=== PATIENT | female | born 1960 | race Caucasian/White ===

== ENCOUNTER 2017-09-08 20:27 | Emergency (ER) | payer BC ==
[2017-09-08] MEDS ORDERED: Ondansetron INJ* 2 MG/ML VIAL IV ONE (21:22)
[2017-09-08] MEDS ORDERED: NS 0.9% 1000 ML* 1,000 ML IV ONE (21:22)
[2017-09-08 21:44] LABS: ABS Basophils 0.1 10^3/ul (0-0.2); ABS Eosinophils 0.2 10^3/ul (0-0.6); ABS Lymphocytes 0.7 10^3/ul (1.0-4.8); ABS Monocytes 0.5 10^3/ul (0-0.8); ABS Neutrophils 9.5 10^3/ul (1.5-7.7); ABS Nucleated RBC 0.01 10^3/ul; Eosinophil % 1.5 % (0-6); Hematocrit 43 % (35-47); Hemoglobin 14.8 g/dl (12.0-16.0); Lymphocyte % 6.7 % (25-47); Mean Corpuscular HGB Conc 34 g/dl (31-36); Mean Corpuscular Hemoglobin 29 pg (27-31); Mean Corpuscular Volume 84 fL (80-97); Mean Platelet Volume 7 um3 (7.4-10.4); Nucleated Red Blood Cells % 0; Platelet Count 312 10^3/ul (150-450); Red Blood Count 5.12 10^6/ul (4.0-5.4); Red Cell Distribution Width 14 % (10.5-15); White Blood Count 10.9 10^3/ul (3.5-10.8)
[2017-09-08 23:07] LABS: Urine Appearance Cloudy; Urine Blood Negative (Negative); Urine Color Yellow; Urine Ketones Trace (Negative); Urine Protein Negative (Negative); Urine Specific Gravity 1.021 (1.010-1.030); Urine Urobilinogen Positive (Negative)
[2017-09-08 23:09] VITALS: BP 110/57
[2017-09-09] MEDS ORDERED: Sulfamethox/Trimethoprim DS 800/160* TAB PO ONE (00:07)
[2017-09-09] MEDS ORDERED: O ndansetron ODT 4MG 2TAB PRPK 4 MG PAK PO ONE (00:07)
[2017-09-09] MEDS ORDERED: Ondansetron ODT TAB* 4 MG ONE (00:24)
--- NOTE | 2017-09-09 08:33 | RAD ---
Indication: RIGHT upper quadrant pain. Comparison: November 08, [address] Technique: RIGHT upper quadrant ultrasound. Report: Appropriate direction flow documented in the portal and hepatic veins. 15.2 cm liver is normal in echogenicity. Negative for focal hepatic lesions. Negative for intrahepatic biliary dilatation. 3.4 mm common bile duct. Adequately distended gallbladder with normal 2.2 mm wall is without pathologic finding. Negative for sonographic Pizarro's sign. The pancreatic tail is obscured due to bowel gas with the visualized pancreas unremarkable. Negative for ascites. 11.1 cm RIGHT kidney is unremarkable. IMPRESSION: Negative RIGHT upper quadrant ultrasound.
--- NOTE | 2017-09-12 11:10 | ED ---
Ely Reddy Gabriel, scribed for Wing Neri MD on 09/08/17 at 2208 . Abdominal Pain/Female - HPI Summary HPI Summary: This patient is a 57 year old F presenting to [facility] with a chief complaint of ABD pain since this afternoon. The patient rates the waxing and waning pain 8/ 10 in severity and located in her epigastric region. Symptoms alleviated by medication. Patient reports vomiting and diaphoresis. Patient denies diarrhea. Patient reports positive exposure to sick persons and she still has her gallbladder. - History of Current Complaint Chief Complaint: EDAbdPain Stated Complaint: ABD PAIN Time Seen by Provider: 09/08/17 21:21 Hx Obtained From: Patient Onset/Duration: Lasting Minutes, Lasting Hours, Resolved Timing: Constant Severity Initially: Severe Severity Currently: None Pain Intensity: 8 Pain Scale Used: 0-10 Numeric Location: Epigastric Radiates: No Alleviating Factor(s): Medications Associated Signs and Symptoms: Positive: Diaphoresis, Vomiting. Negative: Diarrhea Allergies/Adverse Reactions: Allergies Allergy/AdvReac Type Severity Reaction Status Date / Time No Known Allergies Allergy Verified 09/08/17 20:30 PMH/Surg Hx/FS Hx/Imm Hx Endocrine/Hematology History: Denies: Hx Diabetes Cardiovascular History: Reports: Hx Hypertension Denies: Hx Hypercholesterolemia, Hx Myocardial Infarction Neurological History: Denies: Hx CVA, Hx Dementia - Cancer History Cancer Type, Location and Year: cervical cancer Hx Chemotherapy: No Hx Radiation Therapy: No - Surgical History Surgery Procedure, Year, and Place: Hysterectomy Infectious Disease History: No Infectious Disease History: Denies: Traveled Outside the [place] in Last 30 Days - Family History Known Family History: Negative: Other - gallstones - Social History Lives: With Family Alcohol Use: Occasionally Hx Substance Use: No Substance Use Type: Reports: None Hx Tobacco Use: No Smoking Status (MU): Never Smoked Tobacco Review of Systems Positive: Skin Diaphoresis. Negative: Fever, Chills Negative: Erythema Negative: Sore Throat Negative: Chest Pain Negative: Shortness Of Breath, Cough Positive: Abdominal Pain, Vomiting. Negative: Diarrhea Negative: dysuria, hematuria Negative: Rash Neurological: Negative - dizziness All Other Systems Reviewed And Are Negative: Yes Physical Exam - Summary Physical Exam Summary: Constitutional: Well-developed, Well-nourished, Alert. (-) Distressed Skin: Warm, Dry HENT: Normocephalic; Atraumatic Eyes: Conjunctiva normal Neck: Musculoskeletal ROM normal neck. (-) JVD, (-) Stridor, (-) Tracheal deviation Cardio: Rhythm regular, rate normal, Heart sounds normal; Intact distal pulses; The pedal pulses are 2+ and symmetric. Radial pulses are 2+ and symmetric. (-) Murmur Pulmonary/Chest wall: Effort normal. (-) Respiratory distress, (-) Wheezes, (-) Rales Abd: Soft, (-) Tenderness, (-) Distension, (-) Guarding, (-) Rebound Musculoskeletal: (-) Edema Lymph: (-) Cervical adenopathy Neuro: Alert, Oriented x3 Psych: Mood and affect Normal Triage Information Reviewed: Yes Vital Signs On Initial Exam: Initial Vitals Temp Pulse Resp BP Pulse Ox 99.1 F 108 20 173/105 96 09/08/17 20:27 09/08/17 20:27 09/08/17 20:27 09/08/17 20:27 09/08/17 20:27 Vital Signs Reviewed: Yes Diagnostics - Vital Signs Vital Signs Temp Pulse Resp BP Pulse Ox 09/08/17 20:27 99.1 F 108 20 173/105 96 - Laboratory Lab Results: Lab Results 09/08/17 09/08/17 09/08/17 Range/Units 21:35 21:35 21:35 WBC 10.9 H (3.5-10.8) 10^3/ul RBC 5.12 (4.0-5.4) 10^6/ul Hgb 14.8 (12.0-16.0) g/dl Hct 43 (35-47) % MCV 84 (80-97) fL MCH 29 (27-31) pg MCHC 34 (31-36) g/dl RDW 14 (10.5-15) % Plt Count 312 (150-450) 10^3/ul MPV 7 L (7.4-10.4) um3 Neut % (Auto) 86.3 H (38-83) % Lymph % (Auto) 6.7 L (25-47) % Owen % (Auto) 4.6 (1-9) % Eos % (Auto) 1.5 (0-6) % Baso % (Auto) 0.9 (0-2) % Absolute Neuts (auto) 9.5 H (1.5-7.7) 10^3/ul Absolute Lymphs (auto) 0.7 L (1.0-4.8) 10^3/ul Absolute Monos (auto) 0.5 (0-0.8) 10^3/ul Absolute Eos (auto) 0.2 (0-0.6) 10^3/ul Absolute Basos (auto) 0.1 (0-0.2) 10^3/ul Absolute Nucleated RBC 0.01 10^3/ul Nucleated RBC % 0 Sodium 138 (133-145) mmol/L Potassium 3.3 L (3.5-5.0) mmol/L Chloride 101 (101-111) mmol/L Carbon Dioxide 26 (22-32) mmol/L Anion Gap 11 (2-11) mmol/L BUN 18 (6-24) mg/dL Creatinine 1.18 H (0.51-0.95) mg/dL Est GFR ( Amer) 60.5 (>60) Est GFR (Non-Af Amer) 47.0 (>60) BUN/Creatinine Ratio 15.3 (8-20) Glucose 144 H (70-100) mg/dL Lactic Acid 0.8 (0.5-2.0) mmol/L Calcium 10.5 H (8.6-10.3) mg/dL Total Bilirubin 0.60 (0.2-1.0) mg/dL AST 16 (13-39) U/L ALT 17 (7-52) U/L Alkaline Phosphatase 63 (34-104) U/L C-Reactive Protein 6.26 H (< 5.00) mg/L Total Protein 8.0 (6.4-8.9) g/dL Albumin 4.7 (3.2-5.2) g/dL Globulin 3.3 (2-4) g/dL Albumin/Globulin Ratio 1.4 (1-3) Lipase 33 (11.0-82.0) U/L Result Diagrams: 09/08/17 21:35 09/08/17 21:35 Lab Statement: Any lab studies that have been ordered have been reviewed, and results considered in the medical decision making process. - Additional Comments Diagnostic Additional Comments: US abdomen reveals, per radiologist, unremarkable RUQ US examination ED physician has reviewed this radiology report. Abdominal Pain Fem Course/Dx - Course Course Of Treatment: This patient is a 57 year old F presenting to [facility] with a chief complaint of ABD pain since this afternoon. The patient rates the waxing and waning pain 8/10 in severity and located in her epigastric region. Symptoms alleviated by medication. Patient reports vomiting and diaphoresis. Patient denies diarrhea. Patient reports positive exposure to sick persons and she still has her gallbladder. US abdomen reveals, per radiologist, unremarkable RUQ US examination. ED physician has reviewed this radiology report. Test results with no significant abnormalities. In the ED course the patient was given Zofran, Bactrim, and IV fluids. Patient will be discharged with prescription for Zofran and Bactrim and follow up from PCP in 3 days. The patient is agreeable with this plan. - Diagnoses Provider Diagnoses: Biliary colic, UTI (urinary tract infection), Vomiting Discharge - Discharge Plan Condition: Stable Disposition: HOME Prescriptions: Ondansetron ODT TAB* [Zofran 4 MG Odt TAB*] 4 mg PO Q8H PRN #12 tab.odt PRN Reason: Pain - Moderate To Severe Sulfamethox/Trimethoprim DS* [Bactrim DS 800/160 TAB*] 1 tab PO BID #10 tab Patient Education Materials: Sulfamethoxazole/Trimethoprim (By mouth), Ondansetron (By mouth), Urinary Tract Infection in Women (ED) Referrals: Zeinab Jj MD [Primary Care Provider] - Additional Instructions: RETURN TO THE EMERGENCY DEPARTMENT FOR CHANGING OR WORSENING SYMPTOMS. The documentation as recorded by the Ely pablo Gabriel accurately reflects the service I personally performed and the decisions made by Daron holguin Jerry, MD.
== END 2017-09-09 00:35 | disposition home or self-care (01) ==
LOC: ED 20:27
DX: K80.50 Calculus of bile duct without cholangitis or cholecystitis without obstruction (principal); N39.0 Urinary tract infection, site not specified; R10.9 Unspecified abdominal pain; R11.10 Vomiting, unspecified
CPT/HCPCS: 36415; 76705; 80053; 81003; 81015; 83605; 83690; 85025; 86140; 87086; 96374; 99283; A9270-GY; J2405

== ENCOUNTER 2017-11-17 23:55 | Emergency (ER) | payer BC ==
[2017-11-18] MEDS ORDERED: Ondansetron INJ* 2 MG/ML VIAL IV ONE (00:27)
[2017-11-18] MEDS ORDERED: HYDROmorphone INJ* 2 MG/ML CARPUJECT SYRINGE IV SLOW PU ONE (00:27)
[2017-11-18] MEDS ORDERED: NS 0.9% 1000 ML* 2,000 ML IV ONE (00:27)
[2017-11-18 01:33] LABS: ABS Basophils 0.1 10^3/ul (0-0.2); ABS Eosinophils 0.2 10^3/ul (0-0.6); ABS Lymphocytes 0.5 10^3/ul (1.0-4.8); ABS Monocytes 0.7 10^3/ul (0-0.8); ABS Neutrophils 12.6 10^3/ul (1.5-7.7); ABS Nucleated RBC 0 10^3/ul; Eosinophil % 1.1 % (0-6); Hematocrit 39 % (35-47); Lymphocyte % 3.7 % (25-47); Mean Corpuscular HGB Conc 33 g/dl (31-36); Mean Corpuscular Hemoglobin 28 pg (27-31); Mean Corpuscular Volume 84 fL (80-97); Mean Platelet Volume 8 um3 (7.4-10.4); Nucleated Red Blood Cells % 0; Platelet Count 241 10^3/ul (150-450); Red Blood Count 4.67 10^6/ul (4.0-5.4); Red Cell Distribution Width 14 % (10.5-15); White Blood Count 14.1 10^3/ul (3.5-10.8)
[2017-11-18 01:43] LABS: INR 0.99 (0.77-1.02)
[2017-11-18 01:45] LABS: EGFR Non-African American 54.4 (>60)
[2017-11-18] MEDS ORDERED: Iohexol 300* (CONTRAST) 10 ML SDV IV ONE (03:25)
[2017-11-18] MEDS ORDERED: Magnesium CITRATE* 300 ML BTL PO ONE (05:03)
[2017-11-18] MEDS ORDERED: Bisacodyl SUPP* 10 MG SUPP PR ONE (05:03)
--- NOTE | 2017-11-18 05:25 | ED ---
Wendy Reddy Julia, scribed for Bassem Pinon MD on 11/18/17 at 0050 . Abdominal Pain/Female - HPI Summary HPI Summary: This patient is a 57 year old F presenting to [facility] with a chief complaint of upper abdominal pain and diarrhea for the past few days worsening in the past hour with vomiting. The patient rates the pain 10/10 in severity. Patient has a history of bowel obstructions and colon CA. - History of Current Complaint Chief Complaint: EDAbdPain Stated Complaint: NAUSEA/VOMITING Time Seen by Provider: 11/18/17 00:27 Hx Obtained From: Patient Onset/Duration: Lasting Days, Worse Since - an hour ago Timing: Constant Pain Intensity: 10 Pain Scale Used: 0-10 Numeric Location: Other - upper Associated Signs and Symptoms: Positive: Vomiting, Diarrhea Simlar Episode/Dx as:: colon CA and bowel obstructions Allergies/Adverse Reactions: Allergies Allergy/AdvReac Type Severity Reaction Status Date / Time No Known Allergies Allergy Verified 11/18/17 00:15 PMH/Surg Hx/FS Hx/Imm Hx Endocrine/Hematology History: Denies: Hx Diabetes Cardiovascular History: Reports: Hx Hypertension Denies: Hx Hypercholesterolemia, Hx Myocardial Infarction GI History: Reports: Hx Obstructive Bowel History: Denies: Hx Renal Disease Neurological History: Denies: Hx CVA, Hx Dementia - Cancer History Cancer Type, Location and Year: cervical cancer, colon cancer Hx Chemotherapy: No Hx Radiation Therapy: No - Surgical History Surgery Procedure, Year, and Place: Hysterectomy - Immunization History Date of Tetanus Vaccine: unk Date of Influenza Vaccine: none Infectious Disease History: No Infectious Disease History: Denies: Traveled Outside the [place] in Last 30 Days - Family History Known Family History: Negative: Other - gallstones - Social History Alcohol Use: Occasionally Hx Substance Use: No Substance Use Type: Reports: None Hx Tobacco Use: No Smoking Status (MU): Never Smoked Tobacco Review of Systems Negative: Fever Positive: Abdominal Pain, Vomiting, Diarrhea All Other Systems Reviewed And Are Negative: Yes Physical Exam - Summary Physical Exam Summary: ITAL SIGNS: Reviewed. GENERAL: Patient is a well-developed and nourished female who is lying comfortable in the stretcher. Patient is not in any acute respiratory distress. HEAD AND FACE: No signs of trauma. No ecchymosis, hematomas or skull depressions. No sinus tenderness. EYES: PERRLA, EOMI x 2, No injected conjunctiva, no nystagmus. EARS: Hearing grossly intact. Ear canals and tympanic membranes are within normal limits. MOUTH: Oropharynx within normal limits. NECK: Supple, trachea is midline, no adenopathy, no JVD, no carotid bruit, no c- spine tenderness, neck with full ROM. CHEST: Symmetric, no tenderness at palpation LUNGS: Clear to auscultation bilaterally. No wheezing or crackles. CVS: Regular rate and rhythm, S1 and S2 present, no murmurs or gallops appreciated. ABDOMEN: Soft, non-tender. No signs of distention. No rebound no guarding, and no masses palpated. Bowel sounds are normal. EXTREMITIES: FROM in all major joints, no edema, no cyanosis or clubbing. NEURO: Alert and oriented x 3. No acute neurological deficits. Speech is normal and follows commands. SKIN: Dry and warm Triage Information Reviewed: Yes Vital Signs On Initial Exam: Initial Vitals Temp Pulse Resp BP Pulse Ox 96.9 F 123 22 150/101 96 11/17/17 23:57 11/17/17 23:57 11/17/17 23:57 11/17/17 23:57 11/17/17 23:57 Vital Signs Reviewed: Yes Diagnostics - Vital Signs Vital Signs Temp Pulse Resp BP Pulse Ox 11/18/17 00:46 16 11/17/17 23:57 96.9 F 123 22 150/101 96 - Laboratory Result Diagrams: 11/18/17 01:10 11/18/17 01:10 Lab Statement: Any lab studies that have been ordered have been reviewed, and results considered in the medical decision making process. - Radiology CXR Radiology Interpretation Completed By: ED Physician - No acute processes. Abdomen XR Radiology Interpretation Completed By: ED Physician - Large amount of stool in colon. Mild air in liver. - CT A/P CT Interpretation Completed By: Radiologist - Small ascites, similar to . No bowel obstruction, colitis, or free air. Normal appendix. Unremarkable pancreas and gallbladder. Atrophic left kidney containing small cysts. Hysterectomy. Small umbilical hernia containing fat. Moderate hiatal hernia. ED Physician has reviewed this report. Abdominal Pain Fem Course/Dx - Course Course Of Treatment: Patient presents with upper abdominal pain and diarrhea for the past few days worsening in the past hour with vomiting. A CXR is of no acute concern. A abdomen XR reveals large amounts of stool in colon. An abdomen and pelvis CT reveals multiple small hernias. Patient is given Dilaudid, Zofran , and IV fluids. Patient had large BM while in ED, and reports feeling better. Despite CT results pain is most likely due to constipation. - Diagnoses Provider Diagnoses: Abdominal pain, Constipation Discharge - Discharge Plan Condition: Stable Disposition: HOME Patient Education Materials: Constipation (ED) Referrals: Zeinab Jj MD [Primary Care Provider] - If Needed Additional Instructions: RETURN TO THE EMERGENCY DEPARTMENT FOR CHANGING OR WORSENING SYMPTOMS. The documentation as recorded by the Wendy pablo Julia accurately reflects the service I personally performed and the decisions made by , Bassem Pinon MD.
[2017-11-18 05:40] VITALS: BP 121/72
--- NOTE | 2017-11-18 07:58 | RAD ---
HISTORY: Abdominal pain, colon cancer COMPARISONS: None VIEWS: Frontal supine and upright views of the abdomen. FINDINGS: BOWEL: There is a nonspecific bowel gas pattern, with nondilated small bowel gas noted. There is a large amount of stool within the colon. CALCULI: There are no abnormal calculi. BONES AND SOFT TISSUES: There are no osseous abnormalities. OTHER FINDINGS: The lung bases are clear. There is no subphrenic gas. IMPRESSION: NONOBSTRUCTIVE BOWEL GAS PATTERN.
--- NOTE | 2017-11-18 07:59 | RAD ---
HISTORY: Abdominal pain COMPARISONS: November 08, 2010 VIEWS: 1: frontal view of the chest FINDINGS: CARDIOMEDIASTINAL SILHOUETTE: The cardiomediastinal silhouette is normal. CHERRY: The cherry are normal. PLEURA: The costophrenic angles are sharp. No pleural abnormalities are noted. LUNG PARENCHYMA: The lungs are clear. ABDOMEN: The upper abdomen is clear. There is no subphrenic gas. BONES AND SOFT TISSUES: No bone or soft tissue abnormalities are noted. OTHER: None. IMPRESSION: NO ACTIVE CARDIOPULMONARY DISEASE.
--- NOTE | 2017-11-18 08:14 | RAD ---
CLINICAL HISTORY: Abdominal pain in a woman recently diagnosed with colon cancer. Relevant surgical history includes hysterectomy. COMPARISON: Most recent comparison CT examination is dated October 30, 2017 TECHNIQUE: Contrast enhanced CT examination of the abdomen and pelvis from the lung bases through the initial tuberosities. The patient received 92 mL Omnipaque 300 intravenously prior to imaging.The patient received oral contrast as well prior to imaging. FINDINGS: VISUALIZED LUNG BASES: The visualized lung bases are grossly clear. There is no pleural effusion. ABDOMEN AND PELVIS: The liver, spleen, pancreas and adrenal glands are grossly normal in appearance. The gallbladder is normal. The left kidney exhibits a mild degree of cortical thinning relative to the right and is overall hypoplastic relative to the right. This is similar to the November 08, 2010 CT examination. There are left kidney fluid density renal cyst. The oral contrast has progressed as far as the distal small bowel. At the midline abdomen there are loops of small bowel with air-fluid levels that are top normal in diameter measuring up to 2.6 cm. The patient's normal appendix is identified in the right lower quadrant with gas and stool in the lumen. There is gas and stool seen throughout the length of the colon without pathologic dilatation. There is no gross retroperitoneal or mesenteric lymphadenopathy. The uterus is surgically absent. The mildly calcified abdominal aorta and iliac arteries are normal in course and diameter. Degenerative changes include multilevel loss of intervertebral disc height involving the lower thoracic and lumbar spine.There are no sinister bone lesions. IMPRESSION: 1. Air-fluid levels are noted in the top normal diameter mid abdominal ileum without pathologic dilatation, definite wall thickening or mesenteric lymphadenopathy. This appearance could be due to mild ileitis of any etiology. 2. Atrophic left kidney unchanged since the 2010 CT examination. 3. Additional chronic, degenerative and iatrogenic findings described in body the report.
== END 2017-11-18 05:35 | disposition home or self-care (01) ==
LOC: ED 23:55
DX: R10.84 Generalized abdominal pain (principal); K59.00 Constipation, unspecified; R11.10 Vomiting, unspecified; R19.7 Diarrhea, unspecified
CPT/HCPCS: 36415; 71045; 74019; 74177; 80053; 83605; 83690; 83735; 85025; 85610; 85730; 86140; 96374; 96375; 99283; J1170; J2405; Q9967

== ENCOUNTER → 2017-11-22 10:29 | Day surgery (SDC) | payer BC ==
[~2017-11-22 10:29] MED LIST: Acetaminophen TAB* 325 MG PO PRN; Buffered Lidocaine 0.9% SYRIN* 5 ML/SYR SYRINGE INTRADERM ONE; Buffered Lidocaine 0.9% SYRIN* 5 ML/SYR SYRINGE ONE; Bupivacaine 0.25% SDV* 30 ML ONE; Dexamethasone IV* 4 MG/ML 1 ML (4 MG) ONE; DiMENhydriNATE IV* 50 MG/ML VIAL IV PUSH PRN; EPHEDrine (Pressors)* 50 MG/ML VIAL ONE; Famotidine IV* 10 MG/ML 2 ML (20 mg) ONE; Ketorolac INJ* 30 MG/ML 1 ML VIAL ONE; Lidocain 1% EPI 1:100,000 * 30 ML MDV ONE; Lidocaine 2% PF * 5 ML VIAL ONE; Midazolam* 1 MG/ML 2 ML VIAL (2 MG) ONE; Naloxone* 0.4 MG/ML 1 ML VIAL IV PRN; Ondansetron INJ* 2 MG/ML VIAL IV PRN; Ondansetron INJ* 2 MG/ML VIAL ONE; PROCHLORPERAZINE INJ 5 MG/ML 2 ML VIAL IV PRN; Propofol* 10 MG/ML 20 ML BTL IV PUSH ONE; Rocuronium* 10 MG/ML VIAL ONE; ceFAZolin 2 GM (*##) 2 GM/100 ML BAG USE CEFA2SOL IVPB ONE; fentaNYL* 50 MCG/ML 2 ML VIAL (100 MCG VIAL) IV PRN; fentaNYL* 50 MCG/ML 2 ML VIAL (100 MCG VIAL) ONE; oxyCODONE TAB* 5 MG TAB PO PRN
--- NOTE | 2017-11-22 14:46 | BRIEFOPN ---
Brief Operative Note - Surgery Procedures: Pre-OP Diagnoses: colon cancer, h/o cervical cancer, omental PET + lesion Post-op Diagnosis: same Procedure: Diagnostic laparoscopy, excisional biopsy of omental lesion, powerport placement Surgeon: Juan Manuel Asst: Chadwick Anethesia: ANI Noriega EBL: minimal IVF: cc LR Specimen: omental lesion Drains: none external, 8Fr powerport placed via RSCV Complications: None
--- NOTE | 2017-11-22 15:51 | RAD ---
INDICATION: PowerPort insertion COMPARISON: None FINDINGS: 22 seconds of fluoroscopy were provided for the surgical department. Fluoroscopic spot imaging of the chest were obtained for operative control and show placement of right-sided views were expected position . CPT II Codes: 6045F (fluoro time doc)
[2017-11-22 16:24] VITALS: BP 137/75
--- NOTE | 2017-11-23 14:15 | OP ---
CC: Zeinab Jj MD; Darshan Painter MD; Jan Menon MD; [facility]; Dwaine Wu MD * DATE OF OPERATION: 11/22/17 - [facility] DATE OF : 58 SURGEON: Yovany Zambrano MD MEDICAL TECHNOLOGIST: XIAO Reid ANESTHESIOLOGIST: Dr. Noriega. ANESTHESIA: General. PRE-OP DIAGNOSES: 1. Colon cancer. 2. History of endometrial cancer. 3. Omental lesion and PET positive. POST-OP DIAGNOSES: 1. Colon cancer. 2. History of endometrial cancer. 3. Omental lesion and PET positive. OPERATIVE PROCEDURE: Diagnostic laparoscopy, excisional biopsy of omental lesion, placement of PowerPort. ESTIMATED BLOOD LOSS: Minimal blood loss. IV FLUIDS: Minimal crystalloid fluid given. SPECIMEN: Omental lesion. An 8-Iraqi PowerPort introduced via the right subclavian vein. COUNTS: Lap pad count and instrument count correct at the end of the procedure. DRAINS: None. DESCRIPTION OF PROCEDURE: The patient was identified in the preoperative area. Case discussed and consent signed. The patient was marked and brought to the operating room and placed on the operating room table in the supine position. Preoperative antibiotics were given. Sequential devices were placed in bilateral lower extremities. General anesthesia was induced. The patient's abdomen was prepped and draped in a standard surgical fashion. Time-out was performed. Folds of the umbilicus were elevated anteriorly and a Veress needle was inserted into the abdominal cavity, which was allowed to insufflate to a pressure of 50 mmHg. The patient tolerated the insufflation well. A 5-mm trocar was inserted in the lower umbilicus. A laparoscope was inserted through this and there was no evidence of injury from the Veress needle which was removed. Additional trocar was then placed in the left lower quadrant, this was a 5-mm trocar. Review of the abdomen showed normal appearing stomach and small bowel. There were no peritoneal lesions. The omentum was identified. It was retracted cephalad and we did identify the lesion in question which was adjacent to the transverse colon. It was fixed and firm and an additional 5-mm trocar was placed in the right upper quadrant. With LigaSure device, we were able to circumscribe the lesion within the omentum staying clear off the adjacent structures until the lesion was entirely removed. It appeared too big to come through the 5-mm port, so we upsized this right upper quadrant port site to a 12 mm and then placed the lesion in an endoscopic retrieval bag and brought out through the site. We reviewed the pelvis. There was scant free fluid in the pelvis. The sigmoid colon was adhered to the iliac fossa. It appeared intact. It was with stool, but there was no obvious abnormalities. The stomach appeared intact expect the liver. The 12-mm trocar was removed and we closed this with a Weck device using a 0 Polysorb suture. Abdomen was allowed to collapse. Trocars were removed under direct vision and all 3 skin incisions were reapproximated with 4-0 Monocryl subcuticular sutures followed by Steri-Strips and sterile dressing. Next, we prepped the right upper chest and neck sterilely. This was draped and a second time-out performed. Injection of lidocaine along the proposed site at the infraclavicular area was done. We then accessed the right sub-clavian vein and inserted a wire. This freely extended to the superior vena cava as seen on fluoroscopy. We then made a pocket inferior to this that would hold the PowerPort, brought the wire through this pocket site and then dilated the vein under fluoroscopy. We placed the 8-Iraqi tubing, cut it to size, attached it to the PowerPort, sutured this into the pocket with 0 Prolene suture. We utilized the hub of the device and it was maintained in its pocket in good orientation. We irrigated the surgical site and accessed the port. Good aspiration of blood before we injected the saline and then heparinized saline. We then reapproximated the defect with 3-0 Polysorb suture followed by 4-0 Monocryl subcuticular sutures. Steri-Strips and sterile dressings were applied. The patient tolerated procedure well, was woken up in the ER, and transferred to the PACU in stable condition. [id number]/[facility] #: [id number] ELIDA
== END | disposition home or self-care (01) ==
LOC: OR 10:29
PROVIDERS: ATTEND Surgery
DX: C18.9 Malignant neoplasm of colon, unspecified (principal); C78.6 Secondary malignant neoplasm of retroperitoneum and peritoneum; Z85.42 Personal history of malignant neoplasm of other parts of uterus; I10 Essential (primary) hypertension
CPT/HCPCS: 76000; 88305; 88341; 88342; C1788; J1100; J1642; J1885; J2250; J2405; J2704; J3010

== ENCOUNTER 2018-03-30 15:31 | Emergency (ER) | payer BC ==
--- NOTE | 2018-03-30 16:58 | ED ---
HPI Febrile Illness - HPI Summary HPI Summary: This scribe Fahad Graves is documenting for Sean Malhotra MD. This patient is a 57 year old F presenting to [facility] accompanied by her with a chief complaint of a fever of 101.9 that began last night. Pt is currently undergoing chemo therapy for reoccurring adenocarcinoma of the cervix and her last treatment was 9 days ago. When she developed the fever she contacted Dr. Jaime who instructed her to come here. Patient reports mild STARR and ABD pain. The patient rates the pain 7/10 in severity. Patient denies cough , n/v/d, dysuria, CP, and SOB. - History of Current Complaint Chief Complaint: EDFever Time Seen by Provider: 03/30/18 16:44 Hx Obtained From: Patient Onset/Duration: Started Days Ago, Still Present Timing: Constant Initial Severity: Moderate Current Severity: Mild Pain Intensity: 7 Pain Scale Used: 0-10 Numeric Associated Signs and Symptoms: Other: - mild STARR and ABD pain - Allergy/Home Medications Allergies/Adverse Reactions: Allergies Allergy/AdvReac Type Severity Reaction Status Date / Time cisplatin Allergy Itching Verified 03/30/18 15:48 Home Medications: Home Medications Magnesium Oxide [Magnesium] 250 mg PO DAILY 03/30/18 [History Confirmed 03/30/18 ] Potassium Chlor TAB* [Potassium Chlor TAB 20 MEQ*] 1 tab PO DAILY 03/30/18 [ History Confirmed 03/30/18] oxyCODONE SR TAB(*) [Oxycontin 10 mg (*)] 1 tab PO BID 03/30/18 [History Confirmed 03/30/18] oxyCODONE/Acetamin 5/325 MG* [Percocet 5/325 TAB*] 1 tab PO Q6H PRN 03/30/18 [ History Confirmed 03/30/18] PMH/Surg Hx/FS Hx/Imm Hx Endocrine/Hematology History: Denies: Hx Diabetes Cardiovascular History: Reports: Hx Hypertension - on meds Denies: Hx Hypercholesterolemia, Hx Myocardial Infarction GI History: Reports: Hx Hiatal Hernia, Hx Obstructive Bowel, Other GI Disorders - esophageal dysphagia- had throat stretched, COLON CANCER NEW DX History: Reports: Other Problems/Disorders - cervical CA Denies: Hx Renal Disease Sensory History: Denies: Hx Contacts or Glasses - HAD LASIX SURGERY ON EYES, Hx Hearing Aid Opthamlomology History: Denies: Hx Contacts or Glasses - HAD LASIX SURGERY ON EYES Neurological History: Denies: Hx CVA, Hx Dementia - Cancer History Cancer Type, Location and Year: CERVICAL/COLON Hx Chemotherapy: No - radiation for cervical cancer Hx Radiation Therapy: No - Surgical History Surgery Procedure, Year, and Place: radical Hysterectomy - [place] 2011 Hx Anesthesia Reactions: No - Immunization History Date of Tetanus Vaccine: unk Date of Influenza Vaccine: none Infectious Disease History: No Infectious Disease History: Denies: Traveled Outside the [place] in Last 30 Days - Family History Known Family History: Negative: Respiratory Disease, Seizure Disorder, Other - gallstones - Social History Lives: With Family Alcohol Use: Occasionally Hx Substance Use: No Substance Use Type: Reports: None Hx Tobacco Use: No Smoking Status (MU): Never Smoked Tobacco Review of Systems Positive: Fever Negative: Chest Pain Positive: Other - mild STARR . Negative: Shortness Of Breath, Cough Positive: Abdominal Pain. Negative: Vomiting, Diarrhea, Nausea Negative: dysuria All Other Systems Reviewed And Are Negative: Yes Physical Exam - Summary Physical Exam Summary: VITAL SIGNS: Reviewed. GENERAL: Patient is a well-developed and nourished female who is lying comfortable in the stretcher. Patient is not in any acute respiratory distress. Pt is bald HEAD AND FACE: No signs of trauma. No ecchymosis, hematomas or skull depressions. No sinus tenderness. EYES: PERRLA, EOMI x 2, No injected conjunctiva, no nystagmus. EARS: Hearing grossly intact. Ear canals and tympanic membranes are within normal limits. MOUTH: Oropharynx within normal limits. NECK: Supple, trachea is midline, no adenopathy, no JVD, no carotid bruit, no c- spine tenderness, neck with full ROM. CHEST: Symmetric, no tenderness at palpation LUNGS: coarse breath sounds CVS: Regular rate and rhythm, S1 and S2 present, no murmurs or gallops appreciated. ABDOMEN: Soft, RLQ is TTP, No rebound no guarding, and no masses palpated. Bowel sounds are normal. EXTREMITIES: FROM in all major joints, no edema, no cyanosis or clubbing. NEURO: Alert and oriented x 3. No acute neurological deficits. Speech is normal and follows commands. SKIN: Dry and warm Triage Information Reviewed: Yes Vital Signs On Initial Exam: Initial Vitals Temp Pulse Resp BP Pulse Ox 99.6 F 111 18 138/80 97 03/30/18 15:48 03/30/18 15:48 03/30/18 15:48 03/30/18 15:48 03/30/18 15:48 Vital Signs Reviewed: Yes Diagnostics - Vital Signs Vital Signs Temp Pulse Resp BP Pulse Ox 03/30/18 15:48 99.6 F 111 18 138/80 97 - Laboratory Result Diagrams: 03/30/18 17:10 03/30/18 17:10 Lab Statement: Any lab studies that have been ordered have been reviewed, and results considered in the medical decision making process. - Radiology CXR Radiology Interpretation Completed By: Radiologist - No evidence for pneumonia or other thoracic inflammatory process. ED physician has reviewed this report. - EKG 1730 Cardiac Rate: NL EKG Rhythm: Sinus Rhythm - at 98 bpm EKG Interpretation: no ST elevations Course/Dx - Course Assessment/Plan: Patient is a 57-year-old female who presents to the emergency room with chief complaint of having fever. Patient reports that the fever was to 102. She reports that she has history of malignant endometrial cancer. She also reports that she is taking chemotherapy. Abdominopelvic CT done on impression: interval resolution of the hypermetabolic soft tissue density mass adjacent to the transverse colon. Mildly enlarged right external iliac chain lymph nodes is slightly decreased in size. Small hypodense splenic lesion not well defined although appears to correlate with a hypermetabolic focus noted in prior study. Atrophic left kidney. In the ED course the patient was given IV fluids and Tylenol for the fever. The patient also was given morphine for pain. Blood test results shows no WBCs of 2.8, hemoglobin of 9, hematocrit of 27, neutrophils at 75.5. ESR is 117. Fibrinogen is 7.8, sodium 132, CRP over 147. Urinalysis is negative for UTI. Chest x-ray impression: No evidence for pneumonia or other thoracic inflammatory process. At this time I discussed the case with Dr. Sims, the patients oncologist and he recommends for the patient to be discharged home with follow-up with PCP and his office tomorrow morning. I discussed the plan with the patient and they agree. Patient is hemoglobin endemic to stable alert and oriented 3. - Diagnoses Provider Diagnoses: Fever - Provider Notifications Discussed Care Of Patient With: Marc Mays Time Discussed With Above Provider: 18:20 Instructed by Provider To: Other - Dr Mays suggests sending the patient home if her UA is negative Discharge - Sign-Out/Discharge Documenting (check all that apply): Patient Departure - Discharge Plan Condition: Stable Disposition: HOME Patient Education Materials: Fever in Adults (ED) Referrals: Zeinab Jj MD [Primary Care Provider] - 3 Days Additional Instructions: RETURN TO ED FOR ANY NEW OR WORSENING SYMPTOMS. - Billing Disposition and Condition Condition: STABLE Disposition: Home
[2018-03-30] MEDS ORDERED: Morphine VIAL* 4 MG/ML VIAL (1 ml vial) IV ONE (17:14)
[2018-03-30] MEDS ORDERED: NS 0.9% 1000 ML* 1,000 ML IV ONE (17:14)
[2018-03-30] MEDS ORDERED: Acetaminophen TAB* 325 MG PO ONE (17:14)
[2018-03-30 17:22] LABS: ABS Basophils 0 10^3/ul (0-0.2); ABS Eosinophils 0 10^3/ul (0-0.6); ABS Lymphocytes 0.3 10^3/ul (1.0-4.8); ABS Monocytes 0.4 10^3/ul (0-0.8); ABS Neutrophils 2.1 10^3/ul (1.5-7.7); ABS Nucleated RBC 0 10^3/ul; Eosinophil % 0.3 % (0-6); Hematocrit 27 % (35-47); Lymphocyte % 9.9 % (25-47); Mean Corpuscular HGB Conc 33 g/dl (31-36); Mean Corpuscular Hemoglobin 28 pg (27-31); Mean Corpuscular Volume 86 fL (80-97); Mean Platelet Volume 7.8 um3 (7.4-10.4); Nucleated Red Blood Cells % 0; Platelet Count 267 10^3/ul (150-450); Red Blood Count 3.18 10^6/ul (4.00-5.40); Red Cell Distribution Width 16 % (10.5-15); White Blood Count 2.8 10^3/ul (3.5-10.8)
[2018-03-30] MEDS ORDERED: Morphine VIAL* 10 MG/ML 1 ML VIAL ONE (17:37)
[2018-03-30 17:59] LABS: INR 1.22 (0.77-1.02)
--- NOTE | 2018-03-30 18:21 | RAD ---
INDICATION: Fever. Chemotherapy 9 days ago. Cervical adenocarcinoma. COMPARISON: March 28, 2018 CT abdomen. February 24, 2018 PET/CT. TECHNIQUE: Dual energy PA and routine lateral views of the chest were obtained. REPORT: Tip of RIGHT chest port is at the level of the superior vena cava. No focal pulmonary lesion, compelling alveolar consolidation, pleural effusion, pneumothorax. The heart, pulmonary vasculature, and mediastinal contours are unremarkable. IMPRESSION: #. No evidence for pneumonia or other thoracic inflammatory process.
[2018-03-30 19:31] LABS: Urine Appearance Clear; Urine Blood 1+ (Negative); Urine Color Yellow; Urine Ketones Negative (Negative); Urine Protein Negative (Negative); Urine Red Blood Cell Trace(0-2/hpf) (Absent); Urine Specific Gravity 1.008 (1.010-1.030); Urine Urobilinogen Negative (Negative); Urine White Blood Cell Trace(0-5/hpf) (Absent)
[2018-03-30 20:35] VITALS: BP 119/77
== END 2018-03-30 21:07 | disposition home or self-care (01) ==
LOC: ED 15:31
DX: R50.9 Fever, unspecified (principal); C54.1 Malignant neoplasm of endometrium; I10 Essential (primary) hypertension; N26.1 Atrophy of kidney (terminal); R59.0 Localized enlarged lymph nodes; Z79.899 Other long term (current) drug therapy; Z85.41 Personal history of malignant neoplasm of cervix uteri; Z85.038 Personal history of other malignant neoplasm of large intestine; Z88.8 Allergy status to other drugs, medicaments and biological substances
CPT/HCPCS: 36415; 71046; 80053; 81003; 81015; 83605; 83880; 84145; 84484; 85025; 85384; 85610; 85652; 85730; 86140; 87040; 87086; 93005; 96361; 96374; 99282; A9270-GY; J1642; J2270

== ENCOUNTER 2018-05-05 10:57 | Observation (INO) | payer BC ==
[2018-05-05] MEDS ORDERED: Morphine VIAL* 4 MG/ML VIAL (1 ml vial) IV PRN (11:25)
[2018-05-05] MEDS ORDERED: Ondansetron ODT TAB* 4 MG PO PRN (11:26)
[2018-05-05] MEDS ORDERED: Prochlorperazine TAB* 10 MG PO PRN (11:26)
[2018-05-05] MEDS ORDERED: Cyclobenzaprine TAB* 10 MG PO PRN (11:26)
[2018-05-05] MEDS ORDERED: Senna TAB PO ONE (11:28)
[2018-05-05] MEDS ORDERED: NS 0.9% 1000 ML* 1,000 ML IV SCH (11:30)
[2018-05-05] MEDS ORDERED: Bisacodyl SUPP* 10 MG SUPP PR ONE (11:30)
[2018-05-05] MEDS ORDERED: Zosyn per Pharmacy* NOTE FOLLOW UP SCH (12:00)
[2018-05-05] MEDS ORDERED: Piperacillin/Tazobac ADVAN(*) 3.375 GM in NS 0.9% 100 ML* 100 ML IVPB ONE (14:00)
[2018-05-05] MEDS ORDERED: Lactulose* 15 ML UDC PO SCH (14:00)
[2018-05-05] MEDS: oxyCODONE/Acetamin 5/325 MG* TAB PO SCH ×3 (14:04→23:22)
[2018-05-05] MEDS: Nystatin SUSPENSION* 100000 UNITS/ML 5 ML UDC PO SCH ×3 (14:06→20:56)
--- NOTE | 2018-05-05 15:02 | HP ---
CC: Zeinab Jj MD; Darshan Painter MD * ADMISSION HISTORY AND PHYSICAL: DATE OF ADMISSION: 05/05/18 PRIMARY CARE PROVIDER: Zeinab Jj MD PRIMARY ONCOLOGIST AND ATTENDING PHYSICIAN: Darshan Painter MD * (DICTATED BY XIAO OWENS) ADMITTING PROVIDER: XIAO Owens CHIEF COMPLAINT: Abdominal pain. HISTORY OF PRESENT ILLNESS: This is a 57-year-old female with a history of metastatic adenocarcinoma of the cervix, currently treated with paclitaxel and Avastin who has been complaining of right hip pain for the last couple of months. Upon repeat imaging last week, it became apparent that the patient has developed an abscess of the right iliopsoas muscle, which appears to be a result of a fistulous communication with the small bowel and the patient was empirically started on Augmentin after aspiration on 05/02/18. The patient has remained afebrile and has a surgical consultation scheduled with Dr. Michael Tran at [facility] for Saturday of this week. The patient has been tolerating the antibiotic well and denies any nausea or vomiting, but she has had increased abdominal pain and poor appetite. The patient had an episode of diarrhea approximately 10 days ago for which she took 2 doses of Imodium by approximately 2 days and has not had a bowel movement since that time. She reports that she does not feel as if she has a sensation that she needs to have a bowel movement. She has been taking MiraLAX daily and took 1 dose of lactulose yesterday without any positive results. Again, the patient denies any fever or chills at home, but she has noted some redness that has developed near the sites of aspiration in the right groin area with associated increased pain. Also of significance, the patient has a stenotic region in the sigmoid colon as a result of a metastatic implant to the bowel that on repeat colonoscopy earlier this month has not responded to chemotherapy and original surgical consultation at [facility] was to discuss a bowel resection to address the stenotic region. The patient has not had any history of bowel obstruction. PAST MEDICAL HISTORY: 1. Metastatic adenocarcinoma of the cervix, treated with cisplatin, paclitaxel , and Avastin - cisplatin has been held after anaphylactic reaction and Avastin has been held for repeat colonoscopy and pending surgical consultation, last received paclitaxel as a single agent on 04/11/18. 2. Hypertension. PAST SURGICAL HISTORY: JAM and BSO in 2010. HOME MEDICATIONS: 1. Cyclobenzaprine 10 mg p.o. 3 times daily as needed. 2. Magnesium oxide 500 mg p.o. twice daily. 3. Zofran 4 mg p.o. q.8 hours as needed for nausea and vomiting. 4. Percocet 1 tablet p.o. q.6 hours as needed for pain. 5. OxyContin 30 mg p.o. q.12 hours. 6. MiraLAX 17 g p.o. daily. 7. Potassium chloride 20 mEq p.o. twice daily. 8. Compazine 10 mg p.o. q.8 hours as needed for nausea and vomiting. 9. Triamterene/hydrochlorothiazide 1 capsule p.o. daily. SOCIAL HISTORY: The patient lives at home with her . 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 No smoking history. PHYSICAL EXAMINATION GENERAL: This is a very pleasant 57-year-old female, who appears mildly uncomfortable, but is not in any acute distress, accompanied by her . VITAL SIGNS: Initial vitals, temperature 99.3 degrees Fahrenheit, pulse 120 beats per minute, respiratory rate 16 per minute, oxygen saturation 95% on room air, blood pressure 139/71 mmHg. HEENT: Head is normocephalic, atraumatic. Mucous membranes are mildly dry and appears to be adherent since white substance covering her tongue. NECK: Soft, supple with no lymphadenopathy. RESPIRATORY: Lungs are clear to auscultation without wheezes, crackles, or rhonchi. CARDIOVASCULAR: Heart has a regular rate and rhythm without murmurs, rubs, or gallops. ABDOMEN: Soft with positive bowel sounds and nontender to palpation. However, evaluation of aspiration site in the right inguinal region shows some induration and erythema and focal tenderness to palpation. EXTREMITIES: No edema. SKIN: As noted above. LABORATORY EVALUATION: CBC shows a white blood cell count of 20,900, hemoglobin of 8.7 g/dL, and platelet count of 385,000. Comprehensive metabolic panel is pending. Lactic acid is pending. Blood cultures are pending. Culture from right iliopsoas abscess shows Proteus, Citrobacter, Streptococcus, and Bacteroides reported this morning with sensitivities with the Citrobacter being resistant to the Augmentin, but Proteus and Streptococcus being sensitive. IMAGING: KUB is pending. ASSESSMENT AND PLAN: This is a 57-year-old female with metastatic adenocarcinoma of the cervix with the recently recognized abscess of the right iliopsoas with fistulous communication to the small bowel with pending surgical consultation who presents today with increased abdominal pain and new focal erythema and induration surrounding the area of aspiration while on oral antibiotics. The patient will be admitted for a period of observation for IV antibiotics and release from her constipation. 1. Right iliopsoas abscess - as listed above, there is an associated communication with the small bowel with pending surgical consultation at [facility] for later this week. She has had new development of erythema and induration in the right inguinal region which is the side of aspiration while on oral antibiotics and with leukocytosis and tachycardia and increased pain, but no associated fever or hypotension. Lactic acid, comprehensive metabolic panel are currently pending. We will start with IV fluid hydration and Zosyn, which will give us appropriate coverage based on her culture and sensitivity results from last week for both aerobic organisms that were grown as well as the Bacteroides. 2. Constipation. The patient has no clinical signs of obstruction. We will obtain a KUB to assess the severity of this, but we will treat with stimulant laxatives as well as osmotic laxatives and a rectal suppository. 3. Metastatic adenocarcinoma of the cervix with colon implant and associated stenosis at 17 cm by last colonoscopy- currently treated with paclitaxel and Avastin, Avastin held for her last cycle for pending colonoscopy and surgical evaluation - the last dose of paclitaxel, 04/11/18. 4. Code status. The patient is full code. 5. DVT prophylaxis with 40 mg of Lovenox subcu daily. 6. Healthcare proxy is her , [place]. 7. Disposition: The patient is being admitted to observation status with anticipated length of stay to be less than 2 midnights. XIAO OWENS [id number]/[facility] #: [id number] [facility]
--- NOTE | 2018-05-05 15:03 | RAD ---
INDICATION: Abdominal pain COMPARISON: May 01, 2018 TECHNIQUE: A single view of the abdomen is submitted. FINDINGS: Bones: There are no acute bony findings. Soft tissues: The soft tissues appear normal. The psoas margins are sharp. Bowel gas pattern: There is mild gaseous distention and there is moderate stool. The radiographic contrast has passed Calcifications: There are no abnormal calcifications. Other: None IMPRESSION: MILD GASEOUS DISTENTION RETAINED STOOL
[2018-05-05] MEDS: Enoxaparin(*) 40 MG/0.4 ML SYR SUBCUT SCH (17:17)
[2018-05-05] MEDS: ZOSYN 3.375 GM Q8H per EXTENDED INFUSION IVPB SCH ×2 (18:24)
[2018-05-05] MEDS: Potassium Chlor TAB* 20 MEQ TAB.ER PO SCH (20:54)
[2018-05-05] MEDS: Magnesium Oxide TAB* 400 MG PO SCH (20:54)
[2018-05-05] MEDS: oxyCODONE SR TAB(*) 10 MG TAB.SR PO SCH (20:55)
[2018-05-05] MEDS: Lactulose* 15 ML UDC PO SCH (20:56)
[2018-05-05] MEDS ORDERED: Senna TAB PO SCH (21:00)
[2018-05-06] MEDS: ZOSYN 3.375 GM Q8H per EXTENDED INFUSION IVPB SCH ×4 (01:58→10:00)
[2018-05-06] MEDS: oxyCODONE/Acetamin 5/325 MG* TAB PO SCH ×2 (05:34→12:05)
[2018-05-06 06:06] LABS: ABS Basophils 0 10^3/ul (0-0.2); ABS Eosinophils 0 10^3/ul (0-0.6); ABS Lymphocytes 0.4 10^3/ul (1.0-4.8); ABS Monocytes 0.8 10^3/ul (0-0.8); ABS Neutrophils 13.1 10^3/ul (1.5-7.7); ABS Nucleated RBC 0 10^3/ul; Eosinophil % 0.2 % (0-6); Hematocrit 23 % (35-47); Hemoglobin 7.4 g/dl (12.0-16.0); Lymphocyte % 2.8 % (25-47); Mean Corpuscular HGB Conc 32 g/dl (31-36); Mean Corpuscular Hemoglobin 27 pg (27-31); Mean Corpuscular Volume 85 fL (80-97); Mean Platelet Volume 6.8 um3 (7.4-10.4); Nucleated Red Blood Cells % 0; Platelet Count 272 10^3/ul (150-450); Red Blood Count 2.77 10^6/ul (4.00-5.40); Red Cell Distribution Width 18 % (10.5-15); White Blood Count 14.4 10^3/ul (3.5-10.8)
[2018-05-06 06:27] LABS: EGFR Non-African American 64.3 (>60)
[2018-05-06] MEDS: Nystatin SUSPENSION* 100000 UNITS/ML 5 ML UDC PO SCH ×2 (08:02→13:08)
[2018-05-06] MEDS: Potassium Chlor TAB* 20 MEQ TAB.ER PO SCH (08:02)
[2018-05-06] MEDS: Lactulose* 15 ML UDC PO SCH ×2 (08:02→13:08)
[2018-05-06] MEDS: Magnesium Oxide TAB* 400 MG PO SCH (08:02)
[2018-05-06] MEDS ORDERED: Polyethylene Glycol 3350* 17 GM PACKET PO SCH (09:00)
[2018-05-06] MEDS: oxyCODONE SR TAB(*) 10 MG TAB.SR PO SCH (10:18)
[2018-05-06 12:41] VITALS: BP 145/71
[2018-05-06] MEDS: Enoxaparin(*) 40 MG/0.4 ML SYR SUBCUT SCH (13:08)
--- NOTE | 2018-05-06 16:42 | DS ---
CC: Dr. Painter; Dr. Jj * DISCHARGE SUMMARY: DATE OF ADMISSION: 05/05/18 DATE OF DISCHARGE: 05/06/18 PRIMARY CARE PROVIDER: Dr. Zeinab Jj. PRIMARY ONCOLOGIST AND ATTENDING PHYSICIAN: Dr. Darshan Painter.* (DICTATED BY XIAO OWENS) DISCHARGING PROVIDER: XIAO Owens PRIMARY DISCHARGE DIAGNOSES: 1. 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 2. Constipation. 3. Anemia - likely secondary to chronic disease and perhaps some mild bleeding. 4. Metastatic adenocarcinoma of the cervix with colon implant with associated stenosis at 17 cm by colonoscopy. SECONDARY DISCHARGE DIAGNOSIS: Hypertension. DISCHARGE MEDICATIONS: 1. Cyclobenzaprine 10 mg p.o. 3 times daily as needed for pain and spasm. 2. Magnesium oxide 500 mg p.o. twice daily. 3. Zofran 4 mg p.o. q. 8 hours as needed for nausea and vomiting. 4. Percocet 1 tablet p.o. q.6 hours as needed for pain. 5. MiraLax 17 g p.o. daily. 6. Potassium chloride 20 mEq p.o. twice daily. 7. Compazine 10 mg p.o. q.8 hours as needed for nausea. 8. Triamterene hydrochlorothiazide 1 capsule p.o. daily. 9. Cipro 500 mg p.o. twice daily x10 days. 10. Flagyl 500 mg p.o. 3 times daily x10 days. 11. Sustained release oxycodone 30 mg p.o. twice daily. Medication Changes: 1. Stop Augmentin. 2. Start Cipro and Flagyl as listed above. HOSPITAL IMAGING: Abdominal x-ray showed some mild gaseous distention with large amount of retained stool. HOSPITAL COURSE: This is a 57-year-old female with metastatic adenocarcinoma of the cervix followed by Dr. Painter, who has been complaining of right hip pain and on recent imaging became apparent that she has what is likely a small bowel fistula communicating with right iliopsoas and associated abscess formation that underwent aspiration late last week. She was seen in the oncology office yesterday with complaints of increased pain with some development of erythema and induration at the aspiration site while on oral antibiotics. She had also been complaining of severe constipation and the patient was subsequently admitted to period of observation for IV antibiotics. Surgical planning had taken place last week when the diagnosis became apparent and she has a consultation with surgeon, Dr. Michael Tran at [facility] scheduled for tomorrow. The patient had noted reactive leukocytosis at the time of admission with a white blood cell count of 20,000. Initially afebrile, maximum temperature during her hospitalization was 100.4 degrees Fahrenheit. She was mildly tachycardic. No hypotension. Lactic acid normal. Blood cultures were drawn at the time of admission and pending at the time of discharge. Culture and sensitivity from aspiration last week demonstrated growth of Proteus, Citrobacter, and Streptococcus as well as bacteroides. The Citrobacter was resistant to the Augmentin that she had been placed on empirically, all sensitive to Zosyn, which she received in the hospital. The patient's constipation was relieved during her hospitalization and her pain was under control. Her mobility is limited secondary to pain. DISPOSITION AND FOLLOWUP PLAN: The patient is being discharged to home where she lives with her . She has surgical consultation pending for tomorrow at [facility], which she plans to keep. Based on sensitivity results from aspirated fluids, the patient's Augmentin will be stopped and replaced with Cipro and Flagyl for appropriate coverage. XIAO OWENS [id number]/[facility] #: [id number] [facility]
== END 2018-05-06 15:05 | disposition home or self-care (01) ==
LOC: MED 11:14
PROVIDERS: ADMIT Internal Medicine Hematology & Oncology; ATTEND Internal Medicine Hematology & Oncology
DX: K68.12 Psoas muscle abscess (principal); K63.2 Fistula of intestine; C53.9 Malignant neoplasm of cervix uteri, unspecified; K59.00 Constipation, unspecified; D64.9 Anemia, unspecified
CPT/HCPCS: 36415; 74018; 80053; 85025; 96365; 99217; 99220; A9270-GY; G0378; J1642; J1650; J2270; J2543

== ENCOUNTER → 2018-07-18 16:45 | Day surgery (SDC) | payer BC ==
[~2018-07-18 16:45] MED LIST changes: -Buffered Lidocaine 0.9% SYRIN* 5 ML/SYR SYRINGE ONE; -Bupivacaine 0.25% SDV* 30 ML ONE; +Dexamethasone IV* 4 MG/ML 1 ML (4 MG) IV SLOW PU ONE; +DiMENhydriNATE IV* 50 MG/ML VIAL ONE; -EPHEDrine (Pressors)* 50 MG/ML VIAL ONE; +Famotidine IV* 10 MG/ML 2 ML (20 mg) IV ONE; +Gentamicin ADULT (*) 140 MG in NS 0.9% 100 ML* 100 ML IVPB ONE; +HYDROmorphone INJ1* 1 MG/ML SYRINGE ONE; +Iohexol 180 (CONTRAST) 10 ML SDV IV ONE; -Lidocain 1% EPI 1:100,000 * 30 ML MDV ONE; -Midazolam* 1 MG/ML 2 ML VIAL (2 MG) ONE; +Midazolam* 1 MG/ML 5 ML VIAL (5 MG) ONE; -Ondansetron INJ* 2 MG/ML VIAL IV PRN; -PROCHLORPERAZINE INJ 5 MG/ML 2 ML VIAL IV PRN; -Rocuronium* 10 MG/ML VIAL ONE; -ceFAZolin 2 GM (*##) 2 GM/100 ML BAG USE CEFA2SOL IVPB ONE; +cefTRIAXone(*) 2 GM ADDV.VIAL IVPB ONE; -fentaNYL* 50 MCG/ML 2 ML VIAL (100 MCG VIAL) IV PRN; +oxyCODONE/Acetamin 5/325 MG* TAB ONE
[2018-07-18] MEDS: HYDROmorphone INJ1* 1 MG/ML SYRINGE IV PRN ×2 (20:23→20:29)
[2018-07-18 21:04] VITALS: BP 157/95
--- NOTE | 2018-07-19 16:01 | OP ---
CC: Dr. Zeinab Jj; Dr. Darshan Painter * DATE OF OPERATION: 07/18/18 - [facility] DATE OF : 58 SURGEON: Scotty Ortiz MD ANESTHESIOLOGIST: Dr. Yeboah. ANESTHESIA: General. PRE-OP DIAGNOSIS: Bilateral hydronephrosis. POST-OP DIAGNOSIS: Bilateral hydronephrosis plus strictures bilateral mid to distal ureter (probably combination of radiation and postsurgical changes). OPERATIVE PROCEDURE: Cystoscopy, bilateral retrograde pyelograms, bilateral ureteral balloon dilatation, and bilateral ureteral stent insertion. INDICATIONS: Trini Leonardo is a 57-year-old lady who has advanced cervical carcinoma. She also has a history of radiation and recent major abdominal pelvic surgery. She was noted to have bilateral hydronephrosis more on the left and is now being brought in for urgent bilateral stent insertion. OPERATIVE FINDINGS: 1. Normal-appearing bladder (mild postradiation changes). 2. Bilateral hydronephrosis, worse on the left with severe strictures noted at the junction of mid to distal left and right ureters (near total occlusion of the left distal ureter). COMPLICATIONS: None. STENT USED: 8.5-Barbadian 28-cm silicone stents right and left ureter. POSTOPERATIVE CONDITION: Stable. DESCRIPTION OF PROCEDURE: After induction of general anesthesia, the patient was placed in dorsal lithotomy position. Sequential compression devices were in place and functioning. Initial evaluation revealed mild radiation-induced changes in the bladder. Attention was first directed to the right side. Right retrograde pyelogram revealed right hydronephrosis with a dilated proximal ureter. A 5-Barbadian open-ended catheter was advanced. There was significant resistance in the distal ureter secondary to extrinsic compression and the ureter was dilated first to 5-Barbadian, then to 8-Barbadian and then using a balloon dilator, the entire distal and mid ureter were satisfactorily dilated. An 8.5- Barbadian 28-cm silicone stent was introduced with good proximal and distal positioning obtained. Next, attention was directed to the left side, here the retrograde pyelogram revealed a severe narrowing in the area of the distal ureter and this was much tougher to dilate. At the end of the balloon dilatation, there was still a small area of waisting noted, but I was able to dilate it sufficiently enough to get an 8.5-Barbadian 28-cm silicone stent in proper position. A Newby catheter was placed for temporary bladder drainage. The patient tolerated the procedure satisfactorily and was transferred back to the recovery area in stable condition. Because of the severity of the strictures, she is at higher risk for the stents occluding and will need to be closely monitored for that and may require repeat balloon dilatation especially on the left side in the near future. [id number]/CPS #: [id number] MTDD
== END | disposition home or self-care (01) ==
LOC: OR 16:45
PROVIDERS: ATTEND Urology
DX: N13.1 Hydronephrosis with ureteral stricture, not elsewhere classified (principal); C53.9 Malignant neoplasm of cervix uteri, unspecified; R31.9 Hematuria, unspecified; Z86.718 Personal history of other venous thrombosis and embolism; Z79.01 Long term (current) use of anticoagulants
CPT/HCPCS: 74420; A9270-GY; C1876; J0696; J1100; J1170; J1240; J1580; J1885; J2250; J2405; J2704; J3010

== ENCOUNTER 2018-07-19 13:59 | Observation (INO) | payer BC ==
[~2018-07-19 13:59] MED LIST changes: -Acetaminophen TAB* 325 MG PO PRN; -Buffered Lidocaine 0.9% SYRIN* 5 ML/SYR SYRINGE INTRADERM ONE; -Dexamethasone IV* 4 MG/ML 1 ML (4 MG) IV SLOW PU ONE; -Dexamethasone IV* 4 MG/ML 1 ML (4 MG) ONE; -DiMENhydriNATE IV* 50 MG/ML VIAL IV PUSH PRN; -DiMENhydriNATE IV* 50 MG/ML VIAL ONE; -Famotidine IV* 10 MG/ML 2 ML (20 mg) IV ONE; -Famotidine IV* 10 MG/ML 2 ML (20 mg) ONE; -Gentamicin ADULT (*) 140 MG in NS 0.9% 100 ML* 100 ML IVPB ONE; -HYDROmorphone INJ1* 1 MG/ML SYRINGE ONE; -Iohexol 180 (CONTRAST) 10 ML SDV IV ONE; -Ketorolac INJ* 30 MG/ML 1 ML VIAL ONE; -Lidocaine 2% PF * 5 ML VIAL ONE; +Magnesium Sulfate 3 GM IV IVPB ONE; -Midazolam* 1 MG/ML 5 ML VIAL (5 MG) ONE; -Naloxone* 0.4 MG/ML 1 ML VIAL IV PRN; -Ondansetron INJ* 2 MG/ML VIAL ONE; -Propofol* 10 MG/ML 20 ML BTL IV PUSH ONE; -cefTRIAXone(*) 2 GM ADDV.VIAL IVPB ONE; -fentaNYL* 50 MCG/ML 2 ML VIAL (100 MCG VIAL) ONE; -oxyCODONE TAB* 5 MG TAB PO PRN; -oxyCODONE/Acetamin 5/325 MG* TAB ONE
--- OUTSIDE RECORDS SUMMARY | 2018-07-19 14:05 | XMS REPORT ---
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 Allergies, Adverse Reactions, Alerts Date Description Reaction Status Severity Comments 07/17/2018 Cisplatin shakes, itchy palms active 11/20/2017 NKDA inactive Medications Medication Date Status Form Strength Qnty SIG Indications Ordering Provider Eliquis Active Tablets 5mg Take 1 Unknown 000 Tablet By Mouth Two Times Daily Augmentin Active Tablets 875-125mg 1 tablet Unknown 000 by mouth q12 hours for 10 days Oxycontin Active Tab ER 12H 10mg take one Unknown 000 Abuse-Det by mouth every 12 hours Zofran 0 Active Tablets 4mg take 1 Unknown 000 by mouth every 4 hrs as needed for nausea Percocet Hx Tablets 5-325mg 14tabs 1 tablet C18.9 Yovany P. 018 - by mouth MD Juan Manuel, every 4 FACS 018 hours as needed pain Dyazide 0 Hx Capsules 37.5-25mg 1 by Unknown 000 - mouth every 018 day Multi-Vitamin 0 Hx Tablets 1 by Unknown 000 - mouth every 018 day Miralax 00/00/0 Hx Powder 3350NF 17 gm Unknown 000 - twice a day 018 mixed w/ 8 oz water/ju ice Vital Signs Date Vital Result Comment 07/17/2018 Height 65.5 inches 5'5.50" Weight 141.00 lb Heart Rate 88 /min BP Systolic Sitting 162 mmHg BP Diastolic Sitting 90 mmHg Respiratory Rate 14 /min Body Temperature 98.9 F BMI (Body Mass Index) 23.1 kg/m2 11/28/2017 Heart Rate 84 /min Respiratory Rate 16 /min Body Temperature 97.8 F 11/21/2017 Height 65.5 inches 5'5.50" Weight 160.00 lb Heart Rate 90 /min BP Systolic Sitting 118 mmHg BP Diastolic Sitting 80 mmHg Respiratory Rate 18 /min Body Temperature 97.9 F BMI (Body Mass Index) 26.2 kg/m2 Results Test Date Test Result H/L Range Note Laboratory test 07/15/2018 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 -- Acute inflammation. PELVIC - FINE NEEDLE ASPIRATION CLINICAL HISTORY Metastatic endocervical cancer, radiation 2017 GROSS DESCRIPTION 0.25 mls red fluid Signed by and Reported on: Irais Salmon MD 07/16/18 1509 END OF REPORT DEPARTMENT OF PATHOLOGY, [address] [place] [address] Denton Peraza M.D. Director [facility] # [id number] 2 SEE RESULT BELOW Name: TRINI LEONARDO : [address]: Yovany Zambrano MD Acct: [id number] Unit: [id number] AGE: 57 Location: OR Re11/22/17 SEX: F Status: REG [facility] SPEC: [id number] SHAN: 11/22/17-[address] [facility] [address]: Yovany Zambrano MD REQ: [id number] RECD: 11/22/17-1636 STATUS: GABRIELA LOCKE DR: Darshan Painter MD _ ORDERED: PTH HANDLING CH, LEVEL 4, IMMUNO-FIRST, IMMUNO-ADDL/3 [facility] results received from [facility] on 12/30/17. A copy of the report is available for review in Pathology Results. 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 See comment. Comment: The current tumor demonstrates invasive moderately differentiated adenocarcinoma demonstrating moderate nuclear pleomorphism, ample cytoplasm with variable cytoplasmic borders no distinct mucinous differentiation, abundant mitotic and apoptotic figures. The tumor is noted infiltrating fat and desmoplastic stroma. The patient's prior endometrioid, invasive endocervical carcinoma was previously reviewed ([facility] case [id number]). The prior tumor was noted to be strongly p16 positive. While these slides are not available for review currently current tumor is morphologically compatible with diagnosis. Following histochemical stains are performed with appropriate controls on block C P16 strong positive CK7 strong positive CK20 negative CDX-2 negative While entirely specific the morphologic features and immunohistochemical staining pattern support a diagnosis of metastatic adenocarcinoma arising from the patient's known CONTINUED ON NEXT PAGE DEPARTMENT OF PATHOLOGY, [address] [place] [address] Denton Peraza M.D. Director [facility] # [id number] RUN DATE: 12/30/17 [facility] LAB LIVE PAGE 2 Patient: TRINI LEONARDO [id number] (Continued) SPECIMEN COMMENTS (Continued) endocervical primary. Both tumors are noted to be strongly p16 positive. Metastatic carcinoma from a lower gastro-intestinal primary is ruled out. Dr. Salmon has reviewed this case and concurs. PRE-OPERATIVE DIAGNOSIS Malignant neoplasm of colon, unspecified GROSS DESCRIPTION The specimen is received in formalin labeled, Omental Mass, and consists of a 3.6 x 3.0 x 1.9 cm yellow-pink to healy-white ovoid focally indurated portion of adipose tissue. The cut surface is heterogeneous healy-white to yellow and indurated. The specimen is inked, serially sectioned and manufacturer's service representative sections are submitted in four cassettes. Signed (signature on file) Denton Peraza MD 1005 END OF REPORT DEPARTMENT OF PATHOLOGY, [address] [place] [id number] Denton Peraza M.D. Director [facility] # [id number] Procedures Date CPT Code Description Status 11/22/2017 75631 Fluoroscopic Guidance For Cent Completed 11/22/2017 29345 Laparoscopy/Peritoneoscopy With Biopsy (Single Or Completed Multiple) 11/22/2017 20861 Laparoscopy/Peritoneoscopy With Biopsy (Single Or Completed Multiple) 11/22/2017 11317 Insertion Tunneled Cent Venous Cathr W Subcut Port 5 Completed Yrs Or Oldr 11/22/2017 43519 Insertion Tunneled Cent Venous Cathr W Subcut Port 5 Completed Yrs Or Oldr Encounters Type Date Location Provider CPT E/M Dx Office Visit 06/10/2018 8:30a [facility] [place] [address] G89.29 I10 E87.6 T81.89xS Office Visit 05/30/2018 12:15p [facility] [place] [address] C53.0 G89.29 Z93.3 I10 Z48.815 Office Visit 04/08/2018 1:40p [facility] Darshan Painter M.D. 47518 C54.1 [employer]ote[employer] AT [place] C56.9 C53.0 C78.6 R10.31 M79.604 Office Visit 12/11/2017 11:20a [facility] Darshan Painter M.D. 67908 C54.1 Geote[employer]ician AT [place] C53.0 C56.9 Office Visit 11/21/2017 11:15a [facility] [place], [address] [facility] Plan of Care Future Appointment(s):08/04/2018 3:40 pm - Ketih Tena M.D. at [facility] Qdbvcqlu66/08/2018 - Keith Tena M.D.K68.12 Psoas muscle abscessComments:by CT, though aspiration did not yield any fluid, pain free, and CRP mildly elevated last week, could be an inflammatory non infectious collection. Hold augmentin now given side effects, MRI and recheck CRP tomorrow, assuming both negative we can plan on observation, if CRP still up , may extend course of abx with moxifloxacin. Will obtain [facility] records.Follow up:2 weeks
[2018-07-19] MEDS ORDERED: Ondansetron INJ* 2 MG/ML VIAL IV ONE (15:42)
[2018-07-19] MEDS ORDERED: Morphine INJ* 10 MG/ML 1 ML CARPUJECT IV ONE (16:07)
[2018-07-19] MEDS ORDERED: Morphine VIAL* 4 MG/ML VIAL (1 ml vial) IV ONE (16:10)
--- NOTE | 2018-07-19 16:10 | ED ---
GI/ HPI - HPI Summary HPI Summary: This patient is a 57 year old female presenting to [facility] with a chief complaint of flank pain since this morning. Patient received bilateral kidney stents placed. Since this morning, patient has been unable to drink or eat anything without immediately vomiting it back up. Patient additionally has right flank pain. The pain is rated 8/10 in severity. Symptoms aggravated by nothing. Symptoms alleviated by nothing. Patient additionally notes a dye catheter in place and states that the blood in urine is normal. - History of Current Complaint Chief Complaint: EDFlankPain Time Seen by Provider: 07/19/18 15:42 Stated Complaint: NAUSEA/VOMITING Hx Obtained From: Patient Onset/Duration: Started Days Ago, Still Present Timing: Constant Severity: Severe Pain Intensity: 8 Location of Pain: Flank - right Associated Signs and Symptoms: Positive: Other: - nausea, vomiting, hematuria Aggravating Factor(s): Nothing Alleviating Factor(s): Nothing - Additional Pertinent History Primary Care Physician: [id number] - Allergy/Home Medications Allergies/Adverse Reactions: Allergies Allergy/AdvReac Type Severity Reaction Status Date / Time cisplatin Allergy Itching Verified 07/18/18 15:45 PMH/Surg Hx/FS Hx/Imm Hx Previously Healthy: No Endocrine/Hematology History: Reports: Hx Anemia - AFTER SURGERY IN [facility] HAD TRANSFUSION IN MAY. Denies: Hx Diabetes Cardiovascular History: Reports: Other Cardiovascular Problems/Disorders - PORT INSERTION 11/24 Denies: Hx Hypercholesterolemia, Hx Hypertension, Hx Myocardial Infarction, Hx Pacemaker/ICD GI History: Reports: Hx Gastroesophageal Reflux Disease, Hx Hiatal Hernia, Hx Obstructive Bowel, Other GI Disorders - esophageal dysphagia- had throat stretched, COLON CANCER NEW DX History: Reports: Hx Renal Disease - URETERS ARE STARTING TO CLOSE-NEEDS STENTS, Other Problems/Disorders - cervical CA Sensory History: Denies: Hx Contacts or Glasses, Hx Hearing Aid Opthamlomology History: Denies: Hx Contacts or Glasses Neurological History: Denies: Hx CVA, Hx Dementia Psychiatric History: Denies: Hx Panic Disorder - Cancer History Cancer Type, Location and Year: CERVICAL Hx Chemotherapy: No - radiation for cervical cancer Hx Radiation Therapy: No - Surgical History Surgery Procedure, Year, and Place: radical Hysterectomy - [place] 2010. CHEMO PORT 11/2017. LASIK EYE SURGERY. BIOPSY OF OMENTUM. COLOSTOMY 04/2018. US BUIDED BIOPSY RIGHT HIP AREA Hx Anesthesia Reactions: No - Immunization History Date of Tetanus Vaccine: unk Date of Influenza Vaccine: none Infectious Disease History: No Infectious Disease History: Denies: Traveled Outside the [place] in Last 30 Days - Family History Known Family History: Negative: Respiratory Disease, Seizure Disorder, Other - gallstones - Social History Alcohol Use: None Hx Substance Use: No Substance Use Type: Reports: None Hx Tobacco Use: No Smoking Status (MU): Never Smoked Tobacco Have You Smoked in the Last Year: No Review of Systems Negative: Fever Positive: Vomiting, Nausea Positive: flank pain - right, hematuria All Other Systems Reviewed And Are Negative: Yes Physical Exam - Summary Physical Exam Summary: VITAL SIGNS: Reviewed. GENERAL: Patient is a well-developed and nourished female who is lying comfortable in the stretcher. Patient is not in any acute respiratory distress. HEAD AND FACE: No signs of trauma. No ecchymosis, hematomas or skull depressions. No sinus tenderness. EYES: PERRLA, EOMI x 2, No injected conjunctiva, no nystagmus. EARS: Hearing grossly intact. Ear canals and tympanic membranes are within normal limits. MOUTH: Oropharynx within normal limits. Dry oral mucosa NECK: Supple, trachea is midline, no adenopathy, no JVD, no carotid bruit, no c- spine tenderness, neck with full ROM. CHEST: Symmetric, no tenderness at palpation LUNGS: Clear to auscultation bilaterally. No wheezing or crackles. CVS: Regular rate and rhythm, S1 and S2 present, no murmurs or gallops appreciated. ABDOMEN: Right costovertebral tenderness. Colostomy bag in upper abd. Dye catheter in place with some hematuria EXTREMITIES: FROM in all major joints, no edema, no cyanosis or clubbing. NEURO: Alert and oriented x 3. No acute neurological deficits. Speech is normal and follows commands. SKIN: Dry and warm Triage Information Reviewed: Yes Vital Signs On Initial Exam: Initial Vitals Temp Pulse Resp BP Pulse Ox 97.4 F 88 16 168/88 95 07/19/18 14:01 07/19/18 14:01 07/19/18 14:01 07/19/18 14:01 07/19/18 14:01 Vital Signs Reviewed: Yes Diagnostics - Vital Signs Vital Signs Temp Pulse Resp BP Pulse Ox 07/19/18 14:01 97.4 F 88 16 168/88 95 - Laboratory Result Diagrams: 07/19/18 15:53 07/19/18 15:53 Lab Statement: Any lab studies that have been ordered have been reviewed, and results considered in the medical decision making process. - Radiology Abd XR Radiology Interpretation Completed By: Radiologist Summary of Radiographic Findings: Abd XR reveals, per radiologist, IMPRESSION: BILATERAL URETERAL STENTS. ED physician has reviewed this radiology report. - EKG 1644 Cardiac Rate: NL EKG Rhythm: Sinus Rhythm - 89 BPM Summary of EKG Findings: NSR (89 BPM), no ST elevations GIGU Course/Dx - Course Assessment/Plan: This patient is a 57 year old female presenting to [facility] with a chief complaint of flank pain since this morning. Patient received bilateral kidney stents placed. Since this morning, patient has been unable to drink or eat anything without immediately vomiting it back up. Patient additionally has right flank pain. The pain is rated 8/10 in severity. Symptoms aggravated by nothing. Symptoms alleviated by nothing. Patient additionally notes a dye catheter in place and states that the blood in urine is normal. Of arrival to the emergency department the patient continues to have nausea and vomiting. Therefore we obtained an IV access, the patient was given Zofran and 2 L of IV fluids. The patient denies any chest pain shortness of breath palpitations. The patient reports a right flank pain more than the left. Therefore the patient was given morphine and fentanyl for the pain. Blood work shows a wbcs of 12.2, hemoglobin 8.3 hematocrit 26 and platelets 287. Potassium is 3.2, chloride 98, magnesium is 1.2, and troponin 0.22, CRP of 17. The patient was given IV potassium and IV magnesium. The patient continues to be chest pain- free and the EKG shows no ST elevation. Dr. Ortiz came and assessed the patient and he recommends possible admission for pain control. I discussed the case with Dr. Mcnulty from the hospital services who accepted the patient for admission. The patient is hemodynamically stable alert and oriented 3. - Diagnoses Differential Diagnoses - Female: Renal Colic, Urinary Tract Infection, Vomiting Provider Diagnoses: Intractable vomiting with nausea, Flank pain, acute, Hematuria, Elevated troponin Discharge - Sign-Out/Discharge Documenting (check all that apply): Patient Departure - Discharge Plan Condition: Stable Disposition: ADMITTED TO [facility] Referrals: Zeinab Jj MD [Primary Care Provider] - - Billing Disposition and Condition Condition: STABLE Disposition: Admitted to [facility] - Attestation Statements Document Initiated by Nannette: Yes Documenting Scribe: Coco Starks Provider For Whom Nannette is Documenting (Include Credential): Sean Malhotra MD Scribstephen Attestation: Coco Reddy, scribed for Sean Malhotra MD on 07/19/18 at 1855. Scribe Documentation Reviewed: Yes Provider Attestation: The documentation as recorded by the Coco pablo accurately reflects the service I personally performed and the decisions made by me, Sean Malhotra MD
[2018-07-19] MEDS: NS 0.9% 1000 ML* 2,000 ML IV ONE ×2 (16:11→18:13)
[2018-07-19 16:15] LABS: ABS Basophils 0 10^3/ul (0-0.2); ABS Eosinophils 0 10^3/ul (0-0.6); ABS Lymphocytes 0.5 10^3/ul (1.0-4.8); ABS Monocytes 0.7 10^3/ul (0-0.8); ABS Nucleated RBC 0 10^3/ul; Eosinophil % 0 % (0-6); Hematocrit 26 % (35-47); Hemoglobin 8.3 g/dl (12.0-16.0); Lymphocyte % 3.9 % (25-47); Mean Corpuscular HGB Conc 32 g/dl (31-36); Mean Corpuscular Hemoglobin 27 pg (27-31); Mean Corpuscular Volume 83 fL (80-97); Mean Platelet Volume 6.9 fL (7.4-10.4); Nucleated Red Blood Cells % 0; Platelet Count 287 10^3/ul (150-450); Red Blood Count 3.11 10^6/ul (4.00-5.40); Red Cell Distribution Width 18 % (10.5-15); White Blood Count 12.2 10^3/ul (3.5-10.8)
[2018-07-19 16:31] LABS: EGFR Non-African American 65.1 (>60)
[2018-07-19] MEDS ORDERED: fentaNYL* 50 MCG/ML 2 ML VIAL (100 MCG VIAL) IV SLOW PU ONE ×2 (16:57→18:20)
[2018-07-19] MEDS ORDERED: Magnesium Sulfate 1 GM IV* 1 GM/100 ML BAG IV ONE (17:08)
[2018-07-19] MEDS: KCL 10 MEQ/50 ML IVPREMIX* 10 MEQ/50 ML BAG IV SCH ×2 (18:14→20:31)
[2018-07-19] MEDS ORDERED: Magnesium Sulfate IV* 2 GM in NS 0.9% 100 ML* 100 ML IVPB ONE (19:04)
[2018-07-19] MEDS ORDERED: Morphine VIAL* 4 MG/ML VIAL (1 ml vial) IV PRN (19:11)
[2018-07-19] MEDS ORDERED: cefTRIAXone(*) 1 GM in NS 0.9% 50 ML* 50 ML IVPB SCH (20:00)
[2018-07-19] MEDS ORDERED: NS 0.9% 100 ML* 100 ML ONE (20:09)
[2018-07-19] MEDS: Ondansetron INJ* 2 MG/ML VIAL IV PRN (20:25)
[2018-07-19] MEDS ORDERED: Apixaban* 5 MG TAB PO SCH (21:00)
[2018-07-19] MEDS ORDERED: LORazepam INJ* 2 MG/ML 1 ML VIAL ONE (21:23)
[2018-07-19] MEDS: Potassium Chlor TAB* 20 MEQ TAB.ER PO ONE ×2 (21:30→22:38)
[2018-07-19] MEDS: oxyCODONE SR TAB(*) 10 MG TAB.SR PO SCH (21:31)
[2018-07-19] MEDS ORDERED: Metoclopramide IV* 5 MG/ML 2 ML VIAL ONE (21:33)
[2018-07-19] MEDS ORDERED: Baclofen TAB* 10 MG PO ONE (22:00)
[2018-07-19] MEDS ORDERED: Diazepam INJ (NF) 5 MG/ML 10 ML VIAL (50 MG TOTAL) IV ONE (22:15)
[2018-07-19] MEDS ORDERED: LORazepam INJ* 2 MG/ML 1 ML VIAL IV PUSH ONE (22:15)
[2018-07-19] MEDS ORDERED: Metoclopramide IV* 5 MG/ML 2 ML VIAL IV PRN (22:17)
[2018-07-19] MEDS ORDERED: Prochlorperazine TAB* 10 MG PO PRN (22:20)
--- NOTE | 2018-07-19 22:22 | HP ---
HISTORY AND PHYSICAL: DATE OF ADMISSION: 07/19/18 CHIEF COMPLAINT: Nausea and vomiting with severe right flank pain. 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 She does take pain medication at home. OxyContin 10 mg twice a day did not relieve the pain. Hence, she was brought into the ER for further eval. In the emergency room, the patient had an initial workup that revealed a white count of 12,000; hemoglobin of 8.3 and hematocrit 26, which are around baseline with her chemistry significant for potassium 3.2, chloride 98, and magnesium 1.2. Her troponin is 0.22 without any ischemic changes on the EKG. PAST MEDICAL HISTORY: 1. Stage IV cervical cancer. 2. History of right psoas muscle abscess. 3. Hypertension. 4. History of bilateral hydronephrosis, status post ureteral stent. 5. History of DVT, left lower extremity, on Eliquis. 6. Hemicolectomy and colostomy MEDICATIONS: She is on: 1. Eliquis 5 mg b.i.d. 2. Augmentin twice a day (completed yesterday) 3. Vitamin B12. 4. Pepcid 20 mg daily. 5. VESIcare daily. 6. Oxycodone 10 mg every 12 hours. ALLERGIES: She is allergic to CISPLATIN. FAMILY HISTORY: Reviewed and noncontributory. SOCIAL HISTORY: Nonsmoker. Denies any alcohol use, very rare and seldom. REVIEW OF SYSTEMS: Severe right flank pain, nausea, vomiting. No fever or chills. No chest pain or shortness of breath. PHYSICAL EXAMINATION GENERAL: She is awake, in moderate distress secondary to her right flank pain. VITAL SIGNS: Temperature is 97.4, pulse 90 to 104, respiratory rate 20, blood pressure 167/91, saturation of 98% on room air. HEENT: Head: Normocephalic, atraumatic. NECK: Supple. LUNGS: Good airflow, slightly diminished at the bases. CARDIOVASCULAR: S1, S2. Tachycardic. She does have a right Port-A-Cath. ABDOMEN: Soft. She does have a colostomy bag in place. EXTREMITIES: Left lower extremity larger than the right, but significantly improved as per , from her previous DVT. DIAGNOSTIC STUDIES/LAB DATA: WBC count 12, hemoglobin 8, hematocrit 26, platelets 287. Chemistry: Sodium 137, potassium 3.2, chloride 98, BUN 9, creatinine 0.8, lactic acid 1.0, magnesium 1.2. Troponin 0.22. CRP 17, lower than her baseline. Abdominal x-ray in the emergency room reveals bilateral ureteral stents in place. No other acute findings. Lung bases are clear. EKG reveals sinus rhythm, rate 89, ND 201, QTc 501, QRS 102, left axis deviation. ASSESSMENT AND PLAN: This is a 57-year-old female with an extensive history of cervical cancer, stage IV, with complications leading to psoas muscle abscess, status post colectomy and colostomy secondary to small bowel and cutaneous fistula as well as bilateral hydronephrosis and deep venous thrombosis, presented with nausea, vomiting, and right flank pain. 1. Right flank pain. Quite severe. She will be maintained on morphine as well as her oral regimen. She has received so far 100 mg of fentanyl (2 does of 50 mcg) in total to able to control her pain. We will put her on Zofran for nausea. I discussed the case with Urology , Dr. Ortiz, his plan is to treat conservatively by focusing on her pain, control her pain, and heating pad and possible imaging in the morning if she is not improved. If no improvement to pursue imaging in am. 2. Positive troponin. I did request a stat repeat lab. Her number came back to 0.05 with negative EKG and no chest pain. I do not think it is related to any cardiac injury. Nonetheless, given her right flank pain and being hypercoagulable state despite Eliquis, I will consider obtaining CTA to rule out possible PE as sometimes Eliquis may not be adequate when compared to lovenox in cancer populations. My suspicion is low as she is not hypoxic but if we to do imaging in am I would advise to do CTA to assess pulmonary vasculature. At this time she denies chest pain or shortness of breath. I will go ahead and hold Eliquis at this time, given her hematuria. I am going to place her on heparin 5000 q.8 for DVT prophylaxis to keep her protected from any progression of further blood clot burden. Eliquis can be resumed with no need for bridging 3. Hypokalemia. She was replaced intravenously as well. We will give her 20 p.o. for total so far 50 mEq, repeat her chemistry in the morning. 4. For hypomagnesemia, she was replaced 1 g in the ER. I will give her another 2 and repeat in the morning. 5. Leukocytosis. Could be stress induced; nonetheless, she just has instrumentation of her urinary system. I did order a stat urine culture and I am going to cover her with ceftriaxone pending blood and urine. [id number]/[facility] #: [id number] MTDD
[2018-07-19] MEDS: Heparin VIAL(*) 5000 UNITS/ML VIAL (FIVE THOUSAND) SUBCUT SCH (22:37)
[2018-07-19] MEDS: HYDROmorphone INJ1* 1 MG/ML SYRINGE IV PRN (23:57)
[2018-07-20 00:21] LABS: ABS Basophils 0 10^3/ul (0-0.2); ABS Eosinophils 0 10^3/ul (0-0.6); ABS Lymphocytes 0.5 10^3/ul (1.0-4.8); ABS Monocytes 0.5 10^3/ul (0-0.8); ABS Neutrophils 11.2 10^3/ul (1.5-7.7); ABS Nucleated RBC 0 10^3/ul; Eosinophil % 0 % (0-6); Hematocrit 25 % (35-47); Lymphocyte % 3.9 % (25-47); Mean Corpuscular HGB Conc 32 g/dl (31-36); Mean Corpuscular Hemoglobin 27 pg (27-31); Mean Corpuscular Volume 84 fL (80-97); Mean Platelet Volume 6.9 fL (7.4-10.4); Nucleated Red Blood Cells % 0; Platelet Count 294 10^3/ul (150-450); Red Blood Count 2.96 10^6/ul (4.00-5.40); Red Cell Distribution Width 18 % (10.5-15); White Blood Count 12.1 10^3/ul (3.5-10.8)
[2018-07-20 00:34] LABS: EGFR Non-African American 43.6 (>60)
[2018-07-20 00:51] LABS: INR 1.26 (0.77-1.02)
[2018-07-20 04:11] LABS: Urine Appearance Cloudy; Urine Blood 2+ (Negative); Urine Color Red; Urine Ketones Negative (Negative); Urine Protein 2+(100 mg/dL) (Negative); Urine Red Blood Cell 3+(>10/hpf) (Absent); Urine Specific Gravity 1.003 (1.010-1.030); Urine Urobilinogen Negative (Negative); Urine White Blood Cell 3+(>20/hpf) (Absent)
[2018-07-20] MEDS: HYDROmorphone INJ1* 1 MG/ML SYRINGE IV PRN (05:49)
[2018-07-20] MEDS: Heparin VIAL(*) 5000 UNITS/ML VIAL (FIVE THOUSAND) SUBCUT SCH ×2 (05:49→14:09)
[2018-07-20 06:14] LABS: ABS Basophils 0 10^3/ul (0-0.2); ABS Eosinophils 0 10^3/ul (0-0.6); ABS Lymphocytes 0.6 10^3/ul (1.0-4.8); ABS Monocytes 0.8 10^3/ul (0-0.8); ABS Neutrophils 9.9 10^3/ul (1.5-7.7); ABS Nucleated RBC 0 10^3/ul; Eosinophil % 0 % (0-6); Hematocrit 25 % (35-47); Hemoglobin 8.1 g/dl (12.0-16.0); Lymphocyte % 5.7 % (25-47); Mean Corpuscular HGB Conc 32 g/dl (31-36); Mean Corpuscular Hemoglobin 27 pg (27-31); Mean Corpuscular Volume 84 fL (80-97); Mean Platelet Volume 6.8 fL (7.4-10.4); Nucleated Red Blood Cells % 0; Platelet Count 283 10^3/ul (150-450); Red Blood Count 3.01 10^6/ul (4.00-5.40); Red Cell Distribution Width 18 % (10.5-15); White Blood Count 11.3 10^3/ul (3.5-10.8)
[2018-07-20 06:33] LABS: EGFR Non-African American 45.3 (>60)
[2018-07-20] MEDS: oxyCODONE SR TAB(*) 10 MG TAB.SR PO SCH (08:42)
[2018-07-20] MEDS: NS 0.9% 1000 ML* 1,000 ML IV SCH ×2 (09:11→10:19)
--- NOTE | 2018-07-20 11:23 | PN ---
Subjective - Subjective Reason for Note: Progress Note History: I have spoken to Trini Leonardo and her to obtain an account of her presentation and I have also spoken with Dr. Gilberto Wood and read his admitting H and P. She is a patient of Dr. Darshan Painter's for metastatic cervical cancer. She is post chemotherapy. She developed an iliopsoas abscess and management required surgery and a colostomy. She was noted to have bilateral hydronephrosis and bilateral stents were placed by Dr. Scotty Ortiz 2 days ago. Yesterday, she had severe right flank pain, nausea with vomiting and reduced urine output. The pain went away overnight. This morning she has no pain. She has had clots +++ in her urine and her urinary output went up overnight. She thinks she may have passed a clot that was occluding her right kidney. This morning she has no fevers, sweats, chills or rigors. She has no dysuria. Active Problems: Active Problems Ureter obstruction (Acute) N13.5 Acute right flank pain (Chronic) R10.9 Cervical carcinoma (Chronic) C53.9 Colostomy status (Chronic) Z93.3 Essential hypertension (Chronic) I10 History of abdominal abscess (Chronic) Z87.898 History of deep venous thrombosis (DVT) of distal vein of left lower extremity ( Chronic) Z86.718 On continuous oral anticoagulation (Chronic) Z79.01 Current Medications: Current Medications Heparin Sodium (Porcine) (Heparin Vial(*)) 5,000 units SUBCUT Q8HR [facility] Last Admin: 07/20/18 05:49 Dose: 5,000 units Hydromorphone HCl (Dilaudid Inj1s*) 0.5 mg IV Q3H PRN PRN Reason: PAIN Last Admin: 07/20/18 05:49 Dose: 0.5 mg Sodium Chloride (Ns 0.9% 1000 Ml*) 1,000 mls @ 100 mls/hr IV PER RATE [facility] Last Admin: 07/20/18 10:19 Dose: 100 mls/hr Ceftriaxone Sodium 1 gm/ (Sodium Chloride) 50 mls @ 200 mls/hr IVPB Q24H [facility] Last Admin: 07/20/18 00:00 Dose: 200 mls/hr Metoclopramide HCl (Reglan Iv*) 10 mg IV Q8H PRN PRN Reason: NAUSEA Ondansetron HCl (Zofran Inj*) 4 mg IV Q4H PRN PRN Reason: NAUSEA/VOMITING Last Admin: 07/19/18 20:25 Dose: 4 mg Oxycodone HCl (Oxycontin(*)) 10 mg PO Q12HR [facility] Last Admin: 07/20/18 08:42 Dose: 10 mg Prochlorperazine (Compazine Tab*) 10 mg PO Q6H PRN PRN Reason: NAUSEA Home Medications: Home Medications Medication Instructions Recorded Confirmed Type Ondansetron ODT TAB* [Zofran 4 MG 4 mg PO Q4H PRN 04/16/18 07/19/18 History Odt TAB*] oxyCODONE SR TAB(*) [Oxycontin 10 10 mg PO Q12HR 06/12/18 07/19/18 History mg (*)] Amoxicillin/Potassium Clav 1 each PO BID 07/14/18 07/19/18 History [Amox-Clav 250-125 mg Tablet] Apixaban* [Eliquis*] 5 mg PO BID 07/14/18 07/19/18 History Acetaminophen [Tylenol] 650 mg PO Q6H PRN 07/15/18 07/19/18 History Cyanocobalamin TAB* [Vitamin B12 500 mcg PO BID 07/15/18 07/19/18 History TAB*] Famotidine TAB* [Pepcid 20 MG TAB*] 20 mg PO QAM PRN 07/15/18 07/19/18 History Vesicare PO DAILY 07/18/18 History Allergies: Allergies Allergy/AdvReac Type Severity Reaction Status Date / Time cisplatin Allergy Itching Verified 07/18/18 15:45 Objective - Vital Signs Vital Signs: Vital Signs 07/19/18 07/19/18 07/19/18 14:01 16:15 16:49 Temperature 97.4 F Pulse Rate 88 90 Respiratory 16 20 20 Rate Blood Pressure 168/88 186/104 (mmHg) O2 Sat by Pulse 95 96 Oximetry 07/19/18 07/19/18 07/19/18 17:00 17:02 17:19 Temperature Pulse Rate 90 95 Respiratory 21 18 17 Rate Blood Pressure 157/105 (mmHg) O2 Sat by Pulse 96 98 Oximetry 07/19/18 07/19/18 07/19/18 17:49 18:00 18:19 Temperature Pulse Rate Respiratory 17 15 18 Rate Blood Pressure 148/81 167/91 (mmHg) O2 Sat by Pulse Oximetry 07/19/18 07/19/18 07/19/18 18:32 18:49 19:00 Temperature Pulse Rate Respiratory 20 19 20 Rate Blood Pressure 163/90 (mmHg) O2 Sat by Pulse Oximetry 07/19/18 07/19/18 07/19/18 19:47 20:25 20:53 Temperature 97.5 F 97.6 F Pulse Rate 104 83 Respiratory 20 16 16 Rate Blood Pressure 163/90 150/80 (mmHg) O2 Sat by Pulse 98 98 Oximetry 07/19/18 07/19/18 07/19/18 21:31 22:15 22:29 Temperature Pulse Rate Respiratory 16 16 16 Rate Blood Pressure (mmHg) O2 Sat by Pulse Oximetry 07/19/18 07/19/18 07/20/18 23:21 23:57 00:01 Temperature 97.9 F Pulse Rate 102 Respiratory 18 16 16 Rate Blood Pressure 131/65 (mmHg) O2 Sat by Pulse 98 Oximetry 07/20/18 07/20/18 07/20/18 00:45 01:34 03:38 Temperature 98.4 F Pulse Rate 111 Respiratory 16 16 16 Rate Blood Pressure 142/68 (mmHg) O2 Sat by Pulse 94 Oximetry 07/20/18 07/20/18 07/20/18 05:49 08:00 08:28 Temperature 98.1 F Pulse Rate 95 Respiratory 16 16 16 Rate Blood Pressure 124/65 (mmHg) O2 Sat by Pulse 96 Oximetry 07/20/18 08:42 Temperature Pulse Rate Respiratory 16 Rate Blood Pressure (mmHg) O2 Sat by Pulse Oximetry - Intake and Output Intake and Output: Intake & Output 07/17/18 07/18/18 07/19/18 07/20/18 11:59 11:59 11:59 11:59 Intake Total 799 Output Total 1200 Balance -401 Weight 144 lb 1.6 oz Intake: IV Fluids 569 NS (0.9%) 569 IVPB 230 ABX - CEFTRIAXONE 60 KCl 10mEq 60 Magnesium 3 gm 110 Oral 0 Output: [place] 1200 ADLs: Meal Record Start: 07/19/18 20: 53 Freq: DAILY@0900,1400,1800 Status: Active Protocol: Created 07/19/18 20:53 System (Rec: 07/19/18 20:53 System [id number]) Intake and Output Start: 07/19/18 14: 03 Freq: Status: Active Protocol: Created 07/19/18 14:03 System (Rec: 07/19/18 14:03 System [id number]) Intake and Output Start: 07/19/18 20: 53 Freq: DAILY@0600,1400,2200 Status: Active Protocol: Created 07/19/18 20:53 System (Rec: 07/19/18 20:53 System [id number]) Document 07/19/18 22:00 [id number] (Rec: 07/20/18 00:11 [id number] [id number]) Document 07/20/18 05:58 [id number] (Rec: 07/20/18 05:59 [id number] [id number]) - Physical Exam General Physical Exam Comment: She is in no acute distress and is warm and well perfused General: No Cyanosis, No Anemia, No Jaundice, No Clubbing Skin: Normal: Rash Lungs and Chest: Yes: Chest Expansion Full, Chest Expansion Symetrica, Percussion Note Resonant, Vessicular Breath Sounds. No: Crackles, Wheezes, Respiratory Distress Heart Rate and Rhythm: Regular JVP: Not Elevated Additional Cardiovascular: Yes: Normal Heart Sounds. No: Heart Murmur, Pedal Edema Abdominal Exam: Yes: Soft, Abdominal Tenderness - very slight tenderness of right kidney on bimanual examination, Bowel Sounds Present. No: Distention, Rigidity, Abdominal Mass, Hepatomegaly, Guarding, Kidneys Palpable Results - Results Lab Results: Laboratory Results - last 24 hr 07/19/18 07/19/18 07/19/18 15:53 15:53 15:53 WBC 12.2 H RBC 3.11 L Hgb 8.3 L Hct 26 L MCV 83 MCH 27 MCHC 32 RDW 18 H Plt Count 287 MPV 6.9 L Neut % (Auto) 90.3 H Lymph % (Auto) 3.9 L Ray % (Auto) 5.5 Eos % (Auto) 0 Baso % (Auto) 0.3 Absolute Neuts (auto) 11.0 H Absolute Lymphs (auto) 0.5 L Absolute Monos (auto) 0.7 Absolute Eos (auto) 0 Absolute Basos (auto) 0 Absolute Nucleated RBC 0 Nucleated RBC % 0 INR (Anticoag Therapy) APTT Sodium 137 Potassium 3.2 L Chloride 98 L Carbon Dioxide 29 Anion Gap 10 BUN 9 Creatinine 0.89 Est GFR ( Amer) 78.8 Est GFR (Non-Af Amer) 65.1 BUN/Creatinine Ratio 10.1 Glucose 112 H Lactic Acid 1.0 Calcium 9.0 Phosphorus Magnesium 1.2 L Total Bilirubin 0.40 AST 14 ALT 10 Alkaline Phosphatase 73 Troponin I 0.22 H* C-Reactive Protein 17.23 H Total Protein 6.4 Albumin 3.0 L Globulin 3.4 Albumin/Globulin Ratio 0.9 L Lipase 14 Urine Color Urine Appearance Urine pH Ur Specific [place] Urine Protein Urine Ketones Urine Blood Urine Nitrate Urine Bilirubin Urine Urobilinogen Ur Leukocyte Esterase Urine WBC (Auto) Urine RBC (Auto) Urine Bacteria Urine Glucose Blood Type Antibody Screen 07/19/18 07/19/18 07/19/18 15:53 18:11 21:13 WBC RBC Hgb Hct MCV MCH MCHC RDW Plt Count MPV Neut % (Auto) Lymph % (Auto) Ray % (Auto) Eos % (Auto) Baso % (Auto) Absolute Neuts (auto) Absolute Lymphs (auto) Absolute Monos (auto) Absolute Eos (auto) Absolute Basos (auto) Absolute Nucleated RBC Nucleated RBC % INR (Anticoag Therapy) APTT Sodium Potassium Chloride Carbon Dioxide Anion Gap BUN Creatinine Est GFR ( Amer) Est GFR (Non-Af Amer) BUN/Creatinine Ratio Glucose Lactic Acid 0.8 Calcium Phosphorus Magnesium Total Bilirubin AST ALT Alkaline Phosphatase Troponin I 0.05 H* C-Reactive Protein Total Protein Albumin Globulin Albumin/Globulin Ratio Lipase Urine Color Urine Appearance Urine pH Ur Specific [place] Urine Protein Urine Ketones Urine Blood Urine Nitrate Urine Bilirubin Urine Urobilinogen Ur Leukocyte Esterase Urine WBC (Auto) Urine RBC (Auto) Urine Bacteria Urine Glucose Blood Type B Positive Antibody Screen Negative 07/19/18 07/19/18 07/19/18 23:45 23:45 23:45 WBC 12.1 H RBC 2.96 L Hgb 8.0 L Hct 25 L MCV 84 MCH 27 MCHC 32 RDW 18 H Plt Count 294 MPV 6.9 L Neut % (Auto) 91.7 H Lymph % (Auto) 3.9 L Ray % (Auto) 4.2 Eos % (Auto) 0 Baso % (Auto) 0.2 Absolute Neuts (auto) 11.2 H Absolute Lymphs (auto) 0.5 L Absolute Monos (auto) 0.5 Absolute Eos (auto) 0 Absolute Basos (auto) 0 Absolute Nucleated RBC 0 Nucleated RBC % 0 INR (Anticoag Therapy) 1.26 H APTT 27.2 Sodium Potassium Chloride Carbon Dioxide Anion Gap BUN 9 Creatinine 1.26 H Est GFR ( Amer) 52.8 Est GFR (Non-Af Amer) 43.6 BUN/Creatinine Ratio Glucose Lactic Acid Calcium Phosphorus Magnesium Total Bilirubin AST ALT Alkaline Phosphatase Troponin I C-Reactive Protein Total Protein Albumin Globulin Albumin/Globulin Ratio Lipase Urine Color Urine Appearance Urine pH Ur Specific [place] Urine Protein Urine Ketones Urine Blood Urine Nitrate Urine Bilirubin Urine Urobilinogen Ur Leukocyte Esterase Urine WBC (Auto) Urine RBC (Auto) Urine Bacteria Urine Glucose Blood Type Antibody Screen 07/20/18 07/20/18 07/20/18 03:50 05:45 05:45 WBC 11.3 H RBC 3.01 L Hgb 8.1 L Hct 25 L MCV 84 MCH 27 MCHC 32 RDW 18 H Plt Count 283 MPV 6.8 L Neut % (Auto) 87.2 H Lymph % (Auto) 5.7 L Ray % (Auto) 7.0 Eos % (Auto) 0 Baso % (Auto) 0.1 Absolute Neuts (auto) 9.9 H Absolute Lymphs (auto) 0.6 L Absolute Monos (auto) 0.8 Absolute Eos (auto) 0 Absolute Basos (auto) 0 Absolute Nucleated RBC 0 Nucleated RBC % 0 INR (Anticoag Therapy) APTT Sodium 142 Potassium 3.3 L Chloride 106 Carbon Dioxide 25 Anion Gap 11 BUN 9 Creatinine 1.22 H Est GFR ( Amer) 54.8 Est GFR (Non-Af Amer) 45.3 BUN/Creatinine Ratio 7.4 L Glucose 105 H Lactic Acid Calcium 8.7 Phosphorus 4.2 Magnesium 2.2 Total Bilirubin AST ALT Alkaline Phosphatase Troponin I C-Reactive Protein Total Protein Albumin Globulin Albumin/Globulin Ratio Lipase Urine Color Red A Urine Appearance Cloudy Urine pH 7.0 Ur Specific [place] 1.003 L Urine Protein 2+(100 mg/dl) A Urine Ketones Negative Urine Blood 2+ A Urine Nitrate Negative Urine Bilirubin Negative Urine Urobilinogen Negative Ur Leukocyte Esterase 2+ A Urine WBC (Auto) 3+(>20/hpf) A Urine RBC (Auto) 3+(>10/hpf) A Urine Bacteria Absent Urine Glucose Negative Blood Type Antibody Screen Radiology Results: Patient Name: TRINI LEONARDO Medical Record#: [id number] Ordering Physician: Nasima Valencia MD Acct.#: [id number] : 1960 Age: 57 Sex: F Location: [address] [place] [address] Exam Date: 07/20/18443 ADM Status: ADM Jimmy Order Information: ABDOMEN (COMPLETE) 2 VWS Accession Number: [id number] CPT: 23677 HISTORY: Rule out obstruction COMPARISONS: July 19, 2018 VIEWS: Frontal supine and upright views of the abdomen. FINDINGS: BOWEL: There is a nonspecific bowel gas pattern, with nondilated small bowel gas noted. There is a large amount of stool within the colon. A colostomy is noted. CALCULI: There are no abnormal calculi. Bilateral ureteral stents are noted. BONES AND SOFT TISSUES: There are no osseous abnormalities. OTHER FINDINGS: The lung bases are clear. There is no subphrenic gas. IMPRESSION: NONSPECIFIC BOWEL GAS PATTERN. LARGE AMOUNT OF STOOL WITHIN THE COLON. BILATERAL URETERAL STENTS. R1NF Preliminary Imaging Read NO PRELIMINARY - NO FINDINGS <Electronically signed by Favio Coronado MD in OV> 07/20/18757 Dictated By: Favio Coronado MD Dictated Date/Time: 07/20/18757 Transcribed Date/Time: 07/20/18755 Copy to: CC:Zeinab Jj MD; Gilberto Wood MD; Nasima Valencia MD Imaging - [facility] Imaging - [facility] Imaging - [facility] [address] [address] ph ([phone]) ph ([phone]) ph ([phone]) This report is only to be considered final once signed by the Provider(s) as displayed in the "<Electronically Signed by >" field (s). Absence of a signature indicates the report is in a draft status and still needs to be finalized. In the event this document was created by someone other than the signing Provider, the individual initiating the document will be listed in the "Entered by:" or "Dictated by:" henderson. 1 of 1 Assessment - Problem List Assessment: Patient Problems Ureter obstruction (Acute) Acute right flank pain (Chronic) Cervical carcinoma (Chronic) Colostomy status (Chronic) Essential hypertension (Chronic) History of abdominal abscess (Chronic) History of deep venous thrombosis (DVT) of distal vein of left lower extremity ( Chronic) On continuous oral anticoagulation (Chronic) Plan: Ureter obstruction (Acute) Acute right flank pain (Chronic) She had bilateral renal stents placed 2 days ago. She developed severe right sided flank pain yesterday and this was accompanied by nausea and vomiting. Today the pain has gone away. There were many clots in her urine. The most likely cause is occlusion of the right ureteric stent and this spontaneously cleared. It is possible, but unlikely there was an infection as her urine culture is negative. I will check an US kidneys to ensure this has resolved. Cervical carcinoma (Chronic) secondary diagnosis Colostomy status (Chronic) This is functioning Essential hypertension (Chronic) on target - continue current Rx History of abdominal abscess (Chronic) recent drainage of collection was negative for malignant cells and no cultures have grown anything History of deep venous thrombosis (DVT) of distal vein of left lower extremity ( Chronic) secondary diagnosis On continuous oral anticoagulation (Chronic) Eliquis was held in case of the necessity for surgery. I will restart once we have the all clear from the US kidneys. I discussed the above with the patient and her .
[2018-07-20] MEDS: Ondansetron INJ* 2 MG/ML VIAL IV PRN (14:09)
--- NOTE | 2018-07-20 15:51 | PN ---
Progress Note - Progress Note Date of Service: 07/20/18 Note: Investigations: Patient Name: MADDY LINDA Medical Record#: [id number] Ordering Physician: Randall Varghese MD Acct.#: [id number] : 1960 Age: 57 Sex: F Location: [address] [place] [address] Exam Date: 07/20/18 1132 ADM Status: ADM Jimmy Order Information: US RENAL COMPLETE Accession Number: [id number] CPT: 91829 HISTORY: right ureteric colic with stent ? hydronephrosis COMPARISONS: Radiograph dated July 20, 2018 CT dated July 04, 2018 TECHNIQUE: Multiple transverse and longitudinal ultrasound images were obtained of the kidneys and bladder using grayscale and color Doppler imaging. FINDINGS: RIGHT KIDNEY: The right kidney is normal in shape, size, contour, and echogenicity. There is no hydronephrosis or nephrolithiasis. The right kidney measures 10.9 x 5.9 x 5.7 cm. LEFT KIDNEY: There is an exophytic simple cyst of the upper pole of the left kidney measuring 3.1 cm. There is moderate pelvocaliectasis. There is echogenic material within the proximal left ureter. The left kidney measures 9.5 x 5 x 5.3 cm. BLADDER: The bladder is collapsed and is not well evaluated. AORTA AND IVC: No images are submitted of the vasculature. RETROPERITONEUM: Unremarkable. OTHER: None. IMPRESSION: LEFT HYDRONEPHROSIS. THERE IS ECHOGENIC MATERIAL WITHIN THE PROXIMAL URETER. THE DIFFERENTIAL INCLUDES INTRALUMINAL THROMBUS VERSUS NEOPLASM <Electronically signed by Favio Coronado MD in OV> 07/20/18 1223 Dictated By: Favio Coronado MD Dictated Date/Time: 07/20/18 1223 Transcribed Date/Time: 07/20/18 1220 Copy to: CC:Randall Varghese MD; Zeinab Jj MD; Gilberto Wood MD This report is only to be considered final once signed by the Provider(s) as displayed in the "<Electronically Signed by >" field (s). Absence of a signature indicates the report is in a draft status and still needs to be finalized. In the event this document was created by someone other than the signing Provider, the individual initiating the document will be listed in the "Entered by:" or "Dictated by:" henderson. 1 of 2 Assessment/plan: Clot ureteric colic: We think she passed a clot that was causing ureteric colic. She should resume her anticoagulation. I spoke with Dr. Scotty Ortiz. She should eat and drink. He has removed her catheter and she is voiding normally. If she feels well enough, she should go home this evening.
[2018-07-20 16:00] VITALS: BP 155/77
== END 2018-07-20 18:30 | disposition home or self-care (01) ==
LOC: ED 13:59 → MED 18:55
PROVIDERS: ADMIT Internal Medicine; ATTEND Internal Medicine
DX: R10.84 Generalized abdominal pain (principal); R11.2 Nausea with vomiting, unspecified; D06.9 Carcinoma in situ of cervix, unspecified; R31.9 Hematuria, unspecified; R79.89 Other specified abnormal findings of blood chemistry; N13.5 Crossing vessel and stricture of ureter without hydronephrosis; R10.9 Unspecified abdominal pain; Z93.3 Colostomy status; I10 Essential (primary) hypertension; Z87.898 Personal history of other specified conditions; E87.6 Hypokalemia; Z86.718 Personal history of other venous thrombosis and embolism; K21.9 Gastro-esophageal reflux disease without esophagitis; Z79.01 Long term (current) use of anticoagulants; D72.829 Elevated white blood cell count, unspecified; N13.30 Unspecified hydronephrosis
CPT/HCPCS: 36415; 74018; 74019; 76775; 80048; 80053; 81003; 81015; 82565; 83605; 83690; 83735; 84100; 84484; 84520; 85025; 85610; 85730; 86140; 86850; 86900; 86901; 87040; 87086; 93005; 96361; 96365; 96375; 96376; 99284; A9270-GY; G0378; J0696; J1170; J1644; J2060; J2270; J2405; J2765; J3010; J3360; J3475; J3480

== ENCOUNTER 2018-08-08 09:41 | Emergency (ER) | payer BC ==
--- NOTE | 2018-08-08 10:28 | ED ---
Abdominal Pain/Female - HPI Summary HPI Summary: Patient is a 58 y/o F w/ c/o aching pain at right inner thigh, right knee, and right buttock onsetting three days ago, pain exacerbated two days ago. Patient' s is present in the room. It is reported that she called Dr. Tena's office, who advised her to go to ED for CT of her abdomen, pelvis, leg due to elevated CRP from a previous blood draw. Patient states that she had adenocarcinoma eight years ago, received radiation therapy which resolved CA. She reports that in February, atypical cervical cancer returned, patient received 3.5 treatments of chemotherapy and a CT scan showed - History of Current Complaint Chief Complaint: EDExtremityLower Stated Complaint: PAIN IN RT LEG Pain Intensity: 7 Allergies/Adverse Reactions: Allergies Allergy/AdvReac Type Severity Reaction Status Date / Time cisplatin Allergy Itching Verified 08/08/18 09:50 PMH/Surg Hx/FS Hx/Imm Hx Endocrine/Hematology History: Denies: Hx Diabetes, Hx Anemia Cardiovascular History: Reports: Other Cardiovascular Problems/Disorders - PORT INSERTION 11/24 Denies: Hx Hypercholesterolemia, Hx Hypertension, Hx Myocardial Infarction, Hx Pacemaker/ICD GI History: Reports: Hx Gastroesophageal Reflux Disease, Hx Hiatal Hernia, Hx Obstructive Bowel, Other GI Disorders - esophageal dysphagia- had throat stretched, COLON CANCER NEW DX Denies: Hx Jaundice History: Reports: Hx Renal Disease - URETERS ARE STARTING TO CLOSE-NEEDS STENTS, Other Problems/Disorders - cervical CA Sensory History: Denies: Hx Contacts or Glasses, Hx Hearing Aid Opthamlomology History: Denies: Hx Contacts or Glasses Neurological History: Denies: Hx CVA, Hx Dementia Psychiatric History: Denies: Hx Panic Disorder - Cancer History Cancer Type, Location and Year: CERVICAL Hx Chemotherapy: No - radiation for cervical cancer Hx Radiation Therapy: No - Surgical History Surgery Procedure, Year, and Place: radical Hysterectomy - [place] 2010. CHEMO PORT 11/2017. LASIK EYE SURGERY. BIOPSY OF OMENTUM. COLOSTOMY 04/2018. US BUIDED BIOPSY RIGHT HIP AREA Hx Anesthesia Reactions: No - Immunization History Date of Tetanus Vaccine: unk Date of Influenza Vaccine: none Infectious Disease History: No Infectious Disease History: Denies: Traveled Outside the [place] in Last 30 Days - Family History Known Family History: Negative: Respiratory Disease, Seizure Disorder, Other - gallstones - Social History Alcohol Use: Rare Hx Substance Use: No Substance Use Type: Reports: None Hx Tobacco Use: No Smoking Status (MU): Never Smoked Tobacco Have You Smoked in the Last Year: No Physical Exam Vital Signs On Initial Exam: Initial Vitals Temp Pulse Resp BP Pulse Ox 98.2 F 125 18 127/72 96 08/08/18 09:45 08/08/18 09:45 08/08/18 09:45 08/08/18 09:45 08/08/18 09:45 Diagnostics - Vital Signs Vital Signs Temp Pulse Resp BP Pulse Ox 08/08/18 09:45 98.2 F 125 18 127/72 96 - Laboratory Lab Statement: Any lab studies that have been ordered have been reviewed, and results considered in the medical decision making process. Discharge - Discharge Plan Referrals: Zeinab Jj MD [Primary Care Provider] - - Attestation Statements Document Initiated by Scribe: Yes
[2018-08-08] MEDS ORDERED: NS 0.9% 1000 ML*IV.FLUID IV ONE (10:34)
--- NOTE | 2018-08-08 10:44 | ED ---
Complex/Multi-Sys Presentation - HPI Summary HPI Summary: Patient is a 58 y/o F w/ c/o aching pain at right inner thigh, right knee, and right buttock onsetting three days ago, pain exacerbated two days ago. Patient' s is present in the room. Provider in room at 1019. Dr. Tena called ED ahead of patient arrival, gave report to XIAO Vincent. It is reported that patient called Dr. Tena's office, who advised her to go to ED for CT of her abdomen, pelvis, leg due to elevated CRP from a previous blood draw. In room, patient states that she had cervical adenocarcinoma eight years ago, received radiation therapy which resolved CA. She reports that in November, atypical cervical cancer returned, patient received multiple treatments of chemotherapy and a CT scan showed that cancer had resolved. Afterwards, in February, she reports that she began to experience right groin pain. Patient reports that in April, it was noted that patient had an abscess at her right groin. Patient had emergency surgery at [facility]. She states that colostomy was done, reports that abscess was leaking into muscle causing infection. On report gathered from Dr. Tena by XIAO Vincent, it is noted that patient had a fistula via thigh in April. Patient reports that four days ago, patient was seen by Dr. Tena and was in, "good shape". In the room, patient denies erythema at the area and fever. Patient is being followed by Dr. Painter as well. Patient notes that she has taken Oxycotin and Percocet today, which has provided relief in pain. Home medications reported include oxycodone, and Eliquis for Hx of DVT. Patient was placed on moxifloxacin yesterday. In room, patient is agreeable with pain medication. On triage, pain is rated 7/10, walking is reported to alleviate pain , nothing is noted to aggravate pain. Home medications and allergies are reviewed. Additional history from Dr. 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 Pt had bilateral ureteral stents placed for hydronephrosis by Dr. Ortiz on 07/18/18. On 07/29/18 pt had IV magnesium and potassium and 1 unit of prbc's. On 08/04/18 pt had IV magnesium and IV potassium. Allergies Allergy/AdvReac Type Severity Reaction Status Date / Time cisplatin Allergy Itching Verified 08/08/18 09:50 Apixaban* [Eliquis*] 5 mg PO BID 08/08/18 [History Confirmed 08/08/18] Magnesium Oxide TAB* [MagOx 400 TAB*] 400 mg PO DAILY 08/08/18 [History Confirmed 08/08/18] oxyCODONE SR TAB(*) [Oxycontin 10 mg (*)] 10 mg PO BID 08/08/18 [History Confirmed 08/08/18] oxyCODONE/Acetamin 5/325 MG* [Percocet 5/325 TAB*] 1 tab PO Q6H PRN 08/08/18 [ History Confirmed 08/08/18] - History Of Current Complaint Chief Complaint: EDExtremityLower Hx Obtained From: Patient, Medical Records, Other: - Dr. Tena (ID) via XIAO Harris and Dr. Main Onset/Duration: Lasting Days - three days, Still Present, Worse Since - two days ago Timing: Constant Severity Currently: Severe - 03/18 Severity Initially: Moderate Location: Pain At: - right inner thigh, right knee, right buttocks Character: Dull - "ache" Aggravating Factor(s): nothing Alleviating Factor(s): walking per triage, and Oxycotin Associated Signs And Symptoms: Positive: Other - NEGATIVE: erythema; POSITIVE: pain at right inner thigh, right knee, and right buttocks.. Negative: Fever Related History: Other - hx psoas abscess and stage IV cervical CA - Allergies/Home Medications Allergies/Adverse Reactions: Allergies Allergy/AdvReac Type Severity Reaction Status Date / Time cisplatin Allergy Itching Verified 08/08/18 09:50 Home Medications: Home Medications Apixaban* [Eliquis*] 5 mg PO BID 08/08/18 [History Confirmed 08/08/18] Magnesium Oxide TAB* [MagOx 400 TAB*] 400 mg PO DAILY 08/08/18 [History Confirmed 08/08/18] oxyCODONE SR TAB(*) [Oxycontin 10 mg (*)] 10 mg PO BID 08/08/18 [History Confirmed 08/08/18] oxyCODONE/Acetamin 5/325 MG* [Percocet 5/325 TAB*] 1 tab PO Q6H PRN 08/08/18 [ History Confirmed 08/08/18] PMH/Surg Hx/FS Hx/Imm Hx Previously Healthy: No Endocrine/Hematology History: Denies: Hx Diabetes, Hx Anemia Cardiovascular History: Reports: Other Cardiovascular Problems/Disorders - PORT INSERTION 11/24 Denies: Hx Hypercholesterolemia, Hx Hypertension, Hx Myocardial Infarction, Hx Pacemaker/ICD GI History: Reports: Hx Gastroesophageal Reflux Disease, Hx Hiatal Hernia, Hx Obstructive Bowel, Other GI Disorders - esophageal dysphagia- had throat stretched, colostomy Denies: Hx Jaundice History: Reports: Hx Renal Disease - bilateral ureteral stents place 07/18/18 , Other Problems/Disorders - cervical CA, stage IV Musculoskeletal History: Reports: Other Musculoskeletal History - 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 CHEMO PORT 11/2017. LASIK EYE SURGERY. BIOPSY OF OMENTUM. COLOSTOMY 04/2018. 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 Positive: Other - NEGATIVE: erythema Neurological: Negative Psychological: Normal All Other Systems Reviewed And Are Negative: Yes Physical Exam - Summary Physical Exam Summary: Appearance: Appears chronically ill, wearing a wig, pale, moderate pain distress , well-nourished, tachycardic 125, not hypotensive Skin: Warm, color reflects adequate perfusion, dry; wound at right femoral groin area that is has small amount of clear drainage (cultured). Head: Normal Head/Face inspection, atraumatic Eyes: Conjunctiva clear ENT: Normal inspection Neck: Supple, no nodes, no JVD Respiratory: Lungs clear, normal breath sounds, no respiratory distress Cardio: RRR, No murmur, pulses normal, brisk capillary refill Abdomen: Soft, nontender, nondistended, no masses, colostomy bag L mid abdomen with no stool in the bag Bowel sounds: Present Musculoskeletal: Strength Intact/ROM intact, no calf tenderness, no edema. Femoral pulse, right is 2+, R DP pulse is 2+ Psychological: Normal Neuro: Alert, muscle tone normal, no focal deficit Triage Information Reviewed: Yes Vital Signs On Initial Exam: Initial Vitals Temp Pulse Resp BP Pulse Ox 98.2 F 125 18 127/72 96 08/08/18 09:45 08/08/18 09:45 08/08/18 09:45 08/08/18 09:45 08/08/18 09:45 Vital Signs Reviewed: Yes Diagnostics - Vital Signs Vital Signs Temp Pulse Resp BP Pulse Ox 08/08/18 09:45 98.2 F 125 18 127/72 96 - Laboratory Result Diagrams: 08/08/18 11:07 08/08/18 11:07 Lab Statement: Any lab studies that have been ordered have been reviewed, and results considered in the medical decision making process. - Radiology CXR Radiology Interpretation Completed By: Radiologist Summary of Radiographic Findings: CXR IMPRESSION: NO ACTIVE CARDIOPULMONARY DISEASE. THIS REPORT WAS REVIEWED BY ED PHYSICIAN. - CT CT LOWER RIGHT EXTREMITY CT Interpretation Completed By: Radiologist Summary of CT Findings: CT EXTREMITY LOWER RIGHT IMPRESSION: No fracture of the right femur is noted. THIS REPORT WAS REVIEWED BY ED PHYSICIAN. CT ABD/PEL CT Interpretation Completed By: Radiologist Summary of CT Findings: CT ABD/PEL IMPRESSION: 1. Actively extravasating right iliopsoas hematoma. 2. Additional chronic, degenerative and iatrogenic findings unlikely to be directly. related to the patient's current emergency presentation. THIS REPORT WAS REVIEWED BY ED PHYSICIAN. - Ultrasound No standard instances Ultrasound Interpretation Completed By: Radiologist Summary of Ultrasound Findings: VENOUS DOPPLER STUDY IMPRESSION: NO EVIDENCE FOR DEEP VENOUS THROMBOSIS. THIS REPORT WAS REVIEWED BY ED PHYSICIAN. - EKG 1045 Cardiac Rate: NL - rate of 97 BPM EKG Rhythm: Sinus Rhythm ST Segment: Non-Specific Ectopy: None EKG Comparison: No Significant Change - compared with 07/19/18 Summary of EKG Findings: An EKG at 1045 reveals sinus rhythm with rate of 97 BPM nml AV/IV CT, nml QTc, and nml axis. Re-Evaluation - Re-Evaluation First Eval Re-Evaluation Time: 12:20 Change: Improved Comment: Patient is drinking contrast for the CT and her abdominal pain and leg pain is controlled. Right groin culture was taken. Patient is getting urine sample in to bedside commode. Patient has no stool in her colostomy bag at this time. Patient states she has not had C. difficile. Patient states Dr. Ortiz placed bilateral ureteral stents, and they are not giving her pain at this time. Her BP is 167/93 and her pulse is 103. Patient states she did not take her moxifloxacin today but she did take it yesterday. Second Eval Re-Evaluation Time: 13:28 Change: Unchanged Comment: Discussed need for transfer, patient agreeable. Tachy 103, BP 163 systolic. Pain controlled. Femoral pulse 2+, DP pulse 2+b No hematoma palpable or bruising or swelling right flank or right leg. Third Eval Re-Evaluation Time: 14:05 Change: Unchanged Comment: tachy 103, BP 160's systolic, pulses right leg intact. Pt and agree with transfer. Complex Multi-Symp Course/Dx Course Of Treatment: Patient is a 58 y/o F w/ c/o aching pain at right inner thigh, right knee, and right buttock onsetting three days ago, pain exacerbated two days ago. Dr. Tena called ED ahead of patient arrival, gave report to XIAO Vincent. It is reported that patient called Dr. Tena's office, who advised her to go to ED for CT of her abdomen, pelvis, leg due to elevated CRP from a previous blood draw. In room, patient states that she had cervical adenocarcinoma eight years ago, received radiation therapy which resolved CA. She reports that in November, atypical cervical cancer returned, patient received 3.5 treatments of chemotherapy and a CT scan showed that cancer had resolved. Afterwards, in February, she reports that she began to experience right groin pain. Patient reports that in April 2018, it was noted that patient had an abscess in her right groin. Patient had emergency surgery at [facility]. She states that colostomy was done, reports that abscess was leaking into muscle causing infection. On report gathered from Dr. Tena by XIAO Vincent, it is noted that patient had a fistula via thigh in April. She reports that four days ago, patient was seen by Dr. Tena and was in, "good shape". In the room, patient denies erythema at the area and fever. Patient is being followed by Dr. Painter. Patient notes that she has taken Oxycotin and Percocet today, which has provided relief in pain. Home medications reported include Eliquis for Hx of blood clot. Patient was placed on moxifloxacin yesterday. She took moxifloxacin yesterday, not today. In room, patient is agreeable with pain medication. On physical exam, patient is noted to appear chronically ill and is wearing a wig. She is pale. There is a wound at right femoral groin area that is open. Dr. Main was consulted on patient's case at 1046. HCT 22, CRP 120's. Pt was tachycardic on presentation, never hypotensive. Preliminary dx was possible sepsis with possible recurrent abscess. Pt received 30ml/kg IV fluids and zosyn 3.375gm IV. Upon communication of actively extravasation right iliopsoas hematoma from [facility] was contacted for vascular service which is not available at [facility] today, and no interventional radiology available at [facility] also today. [facility], accepts pt and will arrange IR or general surgery to care for pt and recommends transfusion. Dr. Dunn, ED attending at [facility] accepts pt for ED to ED transfer. Pt was also hypokalemic and was given IV potassium. Pt also noted hypmagnesemic, not replaced in ED. PRBC transfusion initiated prior to transfer. Pt will be transported with blood hanging and with an RN in attendance. Pt received 2mg total dilaudid and zofran in ED for pain and nausea. Labs showed albumin 2.9, total protein 5.8, BNP 185, CRP 124.41, AST 10, magnesium 1.4, glucose 108, chloride 100, potassium 3.2, APTT 47, INR 2.23, ESR 120, absolute lymphs 0.4, MPV 6.6, RDW 18, Hct 22,Hgb 7.2, RBC 2.55, lactic acid 0.7. UA showed WBC 2+. RBC 3+, squamous eptih cells present. Urine color was red which interfered with ability to further evaluate urinalysis dipstick results. Wound gram stain was 2 + epithelial cells, 3+ neutrophils, 2+ gram positive cocci. An EKG at 1045 reveals sinus rhythm with rate of 97 BPM nml AV/IV CT, nml QTc, and nml axis. CXR IMPRESSION: NO ACTIVE CARDIOPULMONARY DISEASE. VENOUS DOPPLER STUDY IMPRESSION: NO EVIDENCE FOR DEEP VENOUS THROMBOSIS. CT EXTREMITY LOWER RIGHT IMPRESSION: No fracture of the right femur is noted. CT ABD/PEL IMPRESSION: 1. Actively extravasating right iliopsoas hematoma. 2. Additional chronic, degenerative and iatrogenic findings unlikely to be directly. related to the patient's current emergency presentation. During ED course, patient received fluids, piperacillin sod/tazobactam sod, Zofran 4 mg IV ED ONCE ONE, dilaudid 1 mg IV SLOW PUSH x2. . Patient's case was discussed with Dr. Mendoza at 1319, Dr. Mendoza reports that patient has an active bleed into right psoas muscle. Size of hematoma is 4x6 cm. As there are no vascular intervention capabilities available at [facility] today, patient will need to be transferred to higher level of care facility. Two units of blood were ordered for patient at this time, patient is B positive blood type. 1342 - Dr. Darian Sorto from [facility] was contacted, Dr. Sorto advises transfusion of blood and transfer, states he will have the appropriate vascular care for patient. ED to ED transfer will be done, case discussed with Dr. Dunn, Dr. Dunn will be accepting physician for transfer. Blood transfusion to be done. Patient is agreeable with transfer. - Diagnoses Provider Diagnoses: Nontraumatic psoas hematoma, Hypokalemia, Hypomagnesemia, Right leg pain - Physician Notifications Discussed Care Of Patient With: John Mendoza Time Discussed With Above Provider: 13:19 Instructed by Provider To: Other - Dr. Mendoza called at [address] to [address] of [address] ABD/PEL, Dr. Mendoza reports that patient has an active bleed into right psoas muscle. Size of hematoma is 4x6 cm. As there are no vascular intervention capabilities available at [facility] today, patient will need to be transferred to higher level of care facility. 1342 - Dr. Darian Sorto from [facility] was contacted, Dr. Sorto advises transfusion of blood and transfer, states he will have the appropriate vascular care for patient. ED to ED transfer will be done, case discussed with Dr. Dunn, Dr. Dunn will be accepting physician for transfer. - Critical Care Time Critical Care Time: 30-74 min - 30 minutes Discharge - Sign-Out/Discharge Documenting (check all that apply): Patient Departure - transfer - Discharge Plan Condition: Stable Disposition: TRANS HIGHER LVL OF CARE FAC Referrals: Zeinab Jj MD [Primary Care Provider] - - Billing Disposition and Condition Condition: STABLE Disposition: Trans Higher Lvl of Care Fac - Attestation Statements Document Initiated by Scribe: Yes Documenting Scribe: ARIELLE CROSS Provider For Whom Shaneibe is Documenting (Include Credential): DENIS MACKEY MD Scribe Attestation: ARIELLE Reddy , scribed for DENIS MACKEY MD on 08/08/18 at 1424. Scribe Documentation Reviewed: Yes Provider Attestation: The documentation as recorded by the ARIELLE pablo accurately reflects the service I personally performed and the decisions made by me, DENIS MACKEY MD Status of Scribe Document: Viewed
[2018-08-08 11:18] LABS: ABS Basophils 0 10^3/ul (0-0.2); ABS Eosinophils 0.1 10^3/ul (0-0.6); ABS Lymphocytes 0.4 10^3/ul (1.0-4.8); ABS Monocytes 0.5 10^3/ul (0-0.8); ABS Neutrophils 5.6 10^3/ul (1.5-7.7); ABS Nucleated RBC 0 10^3/ul; Eosinophil % 0.8 %; Hematocrit 22 % (35-47); Hemoglobin 7.2 g/dl (12.0-16.0); Lymphocyte % 6.7 %; Mean Corpuscular HGB Conc 34 g/dl (31-36); Mean Corpuscular Hemoglobin 28 pg (27-31); Mean Corpuscular Volume 84 fL (80-97); Mean Platelet Volume 6.6 fL (7.4-10.4); Nucleated Red Blood Cells % 0; Platelet Count 262 10^3/ul (150-450); Red Blood Count 2.55 10^6/ul (4.00-5.40); Red Cell Distribution Width 18 % (10.5-15); White Blood Count 6.6 10^3/ul (3.5-10.8)
[2018-08-08 11:32] LABS: INR 2.23 (0.77-1.02)
[2018-08-08] MEDS ORDERED: Piperacillin/Tazobac ADVAN(*) 3.375 GM in NS 0.9% 100 ML* 100 ML IVPB ONE (11:38)
[2018-08-08] MEDS ORDERED: Ondansetron INJ* 2 MG/ML VIAL IV ONE ×2 (11:38→13:31)
[2018-08-08] MEDS: HYDROmorphone INJ1* 1 MG/ML SYRINGE IV SLOW PU ONE ×2 (11:45→13:42)
[2018-08-08 11:50] LABS: EGFR Non-African American 72.4 (>60)
[2018-08-08] MEDS ORDERED: Iohexol 300* (CONTRAST) 10 ML SDV IV ONE (11:57)
[2018-08-08 13:04] LABS: Urine Red Blood Cell 3+(>10/hpf) (Absent); Urine White Blood Cell 2+(11-20/hpf) (Absent)
[2018-08-08 13:05] LABS: Urine Appearance Cloudy; Urine Color Red
[2018-08-08] MEDS ORDERED: HYDROmorphone INJ* 2 MG/ML CARPUJECT SYRINGE IV SLOW PU ONE (13:31)
[2018-08-08] MEDS ORDERED: HYDROmorphone INJ1* 1 MG/ML SYRINGE ONE (13:34)
[2018-08-08 14:40] VITALS: BP 158/97
[2018-08-08] MEDS ORDERED: KCL 10 MEQ/50 ML IVPREMIX* 10 MEQ/50 ML BAG IV SCH (15:00)
== END 2018-08-08 14:41 | disposition short-term general hospital (02) ==
LOC: ED 09:41
DX: S70.11XA Contusion of right thigh, initial encounter (principal); X58.XXXA Exposure to other specified factors, initial encounter; Y92.9 Unspecified place or not applicable; E87.6 Hypokalemia; E83.42 Hypomagnesemia
CPT/HCPCS: 36415; 71045; 74177; 80053; 81003; 82550; 83605; 83735; 83880; 84484; 85025; 85610; 85652; 85730; 86140; 86850; 86900; 86901; 86922; 87040; 87070; 87086; 87205; 87640; 87641; 93005; 96361; 96365; 96366; 96372; 96375; 99285; J1170; J2405; J2543; P9040; Q9967

== ENCOUNTER 2018-08-31 02:12 | Inpatient (IN) | payer BC ==
[2018-08-31] MEDS ORDERED: HYDROmorphone INJ1* 1 MG/ML SYRINGE IV SLOW PU ONE (02:41)
[2018-08-31] MEDS ORDERED: Ondansetron INJ* 2 MG/ML VIAL IV ONE (02:41)
[2018-08-31] MEDS ORDERED: NS 0.9% 1000 ML* 1,000 ML IV ONE (02:41)
--- NOTE | 2018-08-31 02:54 | ED ---
Abdominal Pain/Female - HPI Summary HPI Summary: A 58 y/o female accompanied by her presents to the ED c/o right flank pain. Currently. the patient is still experiencing right flank pain reaching 9/ 10 in severity. As per triage, "Pt c/o right flank pain since yesterday. States she has been taking Tylenol, Percocet, and Zofran and cannot take anymore. States she has "maxed out her pain meds" Pt reports having stents in her ureters placed three months ago. Pt states she had a bleed in her illiac artery three weeks ago and was sent to [facility]. Pt concerned she is having the same s/s as three weeks ago". According to the patient, her right sided flank pain started this evening. She stated that she has been trying her pain medications at home, but it does not make the pain stop. The patient noted that recently at [facility], they capped an artery via interventional radiation. Also, there was a filter placed in her chest for blood clots. PMHx of DVT in left leg , internal bleeding for right leg. Patient is also in remission for recurrent cervical adenocarcinoma. - History of Current Complaint Chief Complaint: EDFlankPain Stated Complaint: BACK PAIN Time Seen by Provider: 08/31/18 02:25 Hx Obtained From: Patient Onset/Duration: Sudden Onset, Lasting Hours, Still Present Timing: Constant Severity Initially: Severe Severity Currently: Severe Pain Intensity: 9 Pain Scale Used: 0-10 Numeric Location: Flank - RIGHT Radiates: No Aggravating Factor(s): Nothing Alleviating Factor(s): Nothing Associated Signs and Symptoms: Positive: Negative Allergies/Adverse Reactions: Allergies Allergy/AdvReac Type Severity Reaction Status Date / Time cisplatin Allergy Itching Verified 08/31/18 02:26 Home Medications: Home Medications Cyanocobalamin (Vitamin B-12) [B-12] 1,000 mcg PO DAILY 08/31/18 [History Confirmed 08/31/18] Ondansetron HCl [Zofran 4 MG TAB] 4 mg PO DAILY PRN 08/31/18 [History Confirmed 08/31/18] Potassium Chloride [Klor-Con M20] 20 meq PO DAILY 08/31/18 [History Confirmed ] PMH/Surg Hx/FS Hx/Imm Hx Endocrine/Hematology History: Denies: Hx Diabetes, Hx Anemia Cardiovascular History: Reports: Other Cardiovascular Problems/Disorders - PORT INSERTION 11/24 Denies: Hx Hypercholesterolemia, Hx Hypertension, Hx Myocardial Infarction, Hx Pacemaker/ICD GI History: Reports: Hx Gastroesophageal Reflux Disease, Hx Hiatal Hernia, Hx Obstructive Bowel, Other GI Disorders - esophageal dysphagia- had throat stretched, colostomy Denies: Hx Jaundice History: Reports: Hx Renal Disease - bilateral ureteral stents place 07/18/18 , Other Problems/Disorders - cervical CA, stage IV Musculoskeletal History: Reports: Other Musculoskeletal History - 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 CHEMO PORT 11/2017. LASIK EYE SURGERY. BIOPSY OF OMENTUM. COLOSTOMY 04/2018. US BUIDED BIOPSY RIGHT HIP AREA Hx Anesthesia Reactions: No - Immunization History Date of Tetanus Vaccine: unk Date of Influenza Vaccine: none Infectious Disease History: No Infectious Disease History: Denies: Traveled Outside the [place] in Last 30 Days - Family History Known Family History: Negative: Respiratory Disease, Seizure Disorder, Other - gallstones - Social History Alcohol Use: Rare Hx Substance Use: No Substance Use Type: Reports: None Hx Tobacco Use: No Smoking Status (MU): Never Smoked Tobacco Have You Smoked in the Last Year: No Review of Systems Negative: Fever Positive: Other - POSITIVE: RIGHT FLANK PAIN All Other Systems Reviewed And Are Negative: Yes Physical Exam - Summary Physical Exam Summary: Appearance: Well appearing, pain distress Skin: warm, dry, reflects adequate perfusion Head/face: normal Eyes: EOMI, BRITTANY ENT: normal Neck: supple, non-tender Respiratory: CTA, breath sounds present Cardiovascular: RRR, pulses symmetrical Abdomen: right lower quadrant tenderness Musculoskeletal: normal, strength/ROM intact Neuro: normal, sensory motor intact, A&Ox3 Triage Information Reviewed: Yes Vital Signs On Initial Exam: Initial Vitals Temp Pulse Resp BP Pulse Ox 98.4 F 114 18 167/101 97 08/31/18 02:13 08/31/18 02:13 08/31/18 02:13 08/31/18 02:13 08/31/18 02:13 Vital Signs Reviewed: Yes Diagnostics - Vital Signs Vital Signs Temp Pulse Resp BP Pulse Ox 08/31/18 02:13 98.4 F 114 18 167/101 97 - Laboratory Result Diagrams: 08/31/18 02:53 08/31/18 02:53 Lab Statement: Any lab studies that have been ordered have been reviewed, and results considered in the medical decision making process. - CT CT A/P CT Interpretation Completed By: Radiologist Summary of CT Findings: 1. Worsened distal right ureteral obstruction suggesting a malfunctioning right. double-J ureteral stent. Normal functioning left double-J ureteral stent. Consider stent replacement. 2. Right iliopsoas intramuscular hematoma possibly related to the right. external iliac artery stent. No active extravasation. 3. Bosniak type I renal cysts. No followup indicated. ED PHYSICIAN REVIEWED THIS RADIOLOGY REPORT. Abdominal Pain Fem Course/Dx - Course Course Of Treatment: A 58 y/o female accompanied by her presents to the ED c/o right flank pain. Currently. the patient is still experiencing right flank pain reaching 9/10 in severity. According to the patient, her right sided flank pain started this evening. She stated that she has been trying her pain medications at home, but it does not make the pain stop. The patient noted that recently at [facility], they capped an artery via interventional radiation. Also, there was a filter placed in her chest for blood clots. PMHx of DVT in left leg , internal bleeding for right leg. Patient is also in remission for recurrent cervical adenocarcinoma. Physical examination findings significant for right lower quadrant tenderness. A CT A/P revealed 1. Worsened distal right ureteral obstruction suggesting a malfunctioning right double-J ureteral stent. Normal functioning left double-J ureteral stent. Consider stent replacement. 2. Right iliopsoas intramuscular hematoma possibly related to the right external iliac artery stent. No active extravasation. 3. Bosniak type I renal cysts. No followup indicated. Hematology, Chemistry, and urinalysis screens were done. No significant laboratory abnormalities were found. In the ED course, the patient received Dilaudid, Zofran, and IV fluids. Patient care was discussed with urologist, Dr. Ortiz, who will see patient and replace uretheral stent. Patient care was also discussed with hospitalist, Dr. Sarah Beth Blackburn, who accepts patient for admission. Patient will be admitted with a diagnosis of right flank pain and malfunction of uretheral stent. Patient is agreeable with this plan. - Diagnoses Differential Diagnosis: Positive: Renal Colic, Urinary Tract Infection Provider Diagnoses: Ureteral stent displacement, Right flank pain - Provider Notifications Discussed Care Of Patient With: Scotty Ortiz Time Discussed With Above Provider: 04:16 Instructed by Provider To: Other - DR. ORTIZ WILL SEE PATIENT AND REPLACE URETHERAL STENT. KARRI AT 0424 - ACCEPTS PATIENT FOR ADMISSION. Discharge - Sign-Out/Discharge Documenting (check all that apply): Patient Departure - ADMIT, Sign-Out Patient - KARRI Signing out patient TO: Sarah Beth Blackburn Receiving patient FROM: Hernandez Lyon - Discharge Plan Condition: Stable Disposition: ADMITTED TO [facility] Referrals: Zeinab Jj MD [Primary Care Provider] - - Billing Disposition and Condition Condition: STABLE Disposition: Admitted to [facility] - Attestation Statements Document Initiated by Scribe: Yes Documenting Scribe: Ilia Pitt Provider For Whom Scribe is Documenting (Include Credential): Hernandez Lyon MD Scribe Attestation: Ilia Reddy, scribed for Hernandez Lyon MD on 08/31/18 at 5330. Scribe Documentation Reviewed: Yes Provider Attestation: The documentation as recorded by the Ilia pablo accurately reflects the service I personally performed and the decisions made by , Hernandez Lyon MD Status of Scribe Document: Viewed
[2018-08-31 03:01] LABS: ABS Basophils 0.1 10^3/ul (0-0.2); ABS Eosinophils 0.3 10^3/ul (0-0.6); ABS Lymphocytes 0.7 10^3/ul (1.0-4.8); ABS Monocytes 0.4 10^3/ul (0-0.8); ABS Neutrophils 4.1 10^3/ul (1.5-7.7); ABS Nucleated RBC 0 10^3/ul; Eosinophil % 5.5 %; Hematocrit 30 % (35-47); Hemoglobin 9.9 g/dl (12.0-16.0); Mean Corpuscular HGB Conc 33 g/dl (31-36); Mean Corpuscular Hemoglobin 28 pg (27-31); Mean Corpuscular Volume 85 fL (80-97); Mean Platelet Volume 6.5 fL (7.4-10.4); Nucleated Red Blood Cells % 0; Platelet Count 290 10^3/ul (150-450); Red Blood Count 3.52 10^6/ul (4.00-5.40); Red Cell Distribution Width 17 % (10.5-15); White Blood Count 5.6 10^3/ul (3.5-10.8)
[2018-08-31 03:08] LABS: Activated Partial Thrombo Time 34.8 seconds (26.0-36.3); INR 1.22 (0.77-1.02)
[2018-08-31 03:16] LABS: Albumin 3.3 g/dL (3.2-5.2); BUN/Creatinine Ratio 15.7 (8-20); Calcium 9.2 mg/dL (8.6-10.3); EGFR Non-African American 55.5 (>60); Globulin 3.3 g/dL (2-4); Potassium 3.7 mmol/L (3.5-5.0); Total Bilirubin 0.3 mg/dL (0.2-1.0); Total Protein 6.6 g/dL (6.4-8.9)
[2018-08-31 03:46] LABS: Urine Appearance Turbid; Urine Bacteria Absent (Absent); Urine Bilirubin Negative (Negative); Urine Blood 3+ (Negative); Urine Color Amber; Urine Glucose Negative (Negative); Urine Ketones Negative (Negative); Urine Nitrite Negative (Negative); Urine Protein 2+(100 mg/dL) (Negative); Urine Red Blood Cell 3+(>10/hpf) (Absent); Urine Specific Gravity 1.015 (1.010-1.030); Urine Urobilinogen Negative (Negative); Urine White Blood Cell 3+(>20/hpf) (Absent)
[2018-08-31] MEDS ORDERED: Morphine VIAL* 4 MG/ML VIAL (1 ml vial) IV PRN (05:02)
[2018-08-31] MEDS ORDERED: Ondansetron INJ* 2 MG/ML VIAL IV PRN ×2 (05:02→12:22)
[2018-08-31] MEDS ORDERED: cefTRIAXone(*) 1 GM in NS 0.9% 50 ML* 50 ML IVPB SCH (06:00)
[2018-08-31] MEDS ORDERED: Gentamicin ADULT (*) 140 MG in NS 0.9% 100 ML* 100 ML IVPB ONE (07:00)
[2018-08-31] MEDS: oxyCODONE SR TAB(*) 10 MG TAB.SR PO SCH ×2 (08:31→21:12)
[2018-08-31] MEDS: cefTRIAXone(*) 2 GM in NS 0.9% 100 ML* 100 ML IVPB SCH (08:31)
[2018-08-31] MEDS ORDERED: Midazolam* 1 MG/ML 5 ML VIAL (5 MG) ONE (10:47)
[2018-08-31] MEDS ORDERED: KETAMINE HCL* 50 MG/ML 10 ML VIAL ONE (10:47)
[2018-08-31] MEDS ORDERED: Propofol* 10 MG/ML 20 ML BTL ONE (10:47)
[2018-08-31] MEDS ORDERED: Lidocaine 2% PF * 5 ML VIAL ONE (10:47)
[2018-08-31] MEDS ORDERED: Dexamethasone IV* 4 MG/ML 1 ML (4 MG) ONE (10:47)
[2018-08-31] MEDS ORDERED: fentaNYL* 50 MCG/ML 2 ML VIAL (100 MCG VIAL) ONE ×3 (10:47→12:32)
[2018-08-31] MEDS ORDERED: Ondansetron INJ* 2 MG/ML VIAL ONE (10:47)
[2018-08-31] MEDS ORDERED: Iohexol 180 (CONTRAST) 10 ML SDV IV ONE (10:52)
--- NOTE | 2018-08-31 11:02 | HP ---
CC: Dr. Ortiz; Dr. Painter; Dr. Jj * HISTORY AND PHYSICAL: DATE OF ADMISSION: 08/31/18 PRIMARY CARE PROVIDER: Dr. Zeinab Jj CHIEF COMPLAINT: Right flank pain. 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 The patient stated that whenever she is on Eliquis, she passes blood clots with urine and has intermittent hematuria. She also stated that she has chronic right flank pain that had become unbearable today. Currently, her pain resolved after a dose of Diluted. CT of abdomen showed right-sided hydronephrosis and right psoas muscle hematoma. She is gong to the admitted to the hospital to the hospital and Dr. Ortiz from Urology was notified by ED physician and will exchange the stent later on today. The patient stated that apart from passing blood occasionally with her urine, she had been in her usual state of health. She denies any fevers. She has chronic right flank pain as mentioned above that was more severe today. PAST MEDICAL HISTORY: 1. History of stage IV adenocarcinoma of cervix as well as history psoas muscle abscess that appeared to be a communication between the bowel and psoas muscle. 2. Status post hemicolectomy and colostomy performed at [facility] in April 2018. 3. History of hypertension, currently not requiring treatment. 4. History of bilateral hydronephrosis status post ureteral stent bilaterally. 5. History of DVT of the left lower extremity, on Eliquis. 6. History of recent right iliac artery bleed status post treatment at [facility] and during that time, the patient's Eliquis was held and the patient had an IVC filter placement. MEDICATIONS: 1. OxyContin 10 mg b.i.d. 2. Eliquis 5 mg b.i.d. 3. Percocet 1 tablet every 6 hours p.r.n. 4. Mag-Ox 400 b.i.d. 5. Vitamin B12 at 1000 mcg daily. 6. Potassium chloride 20 mEq daily. 7. Zofran 4 mg on a p.r.n. basis. ALLERGIES: CISPLATIN. FAMILY HISTORY: Noncontributory. SOCIAL HISTORY: The patient denies any tobacco, alcohol, or drug use. 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 Her surrogate is her . REVIEW OF SYSTEMS: Please see history of present illness. All the remaining 14 systems were reviewed with the patient and were otherwise negative. PHYSICAL EXAMINATION GENERAL: The patient is a pleasant 58-year-old female, who is no acute distress. Alert, awake, and oriented x3. VITAL SIGNS: Blood pressure of 147/85, heart rate of 90 and regular, respiratory rate 16, oxygen saturation 96% on room air, and temperature 98.4. HEENT: Head atraumatic and normocephalic. Eyes: Pupils equal, reactive to light and accommodation. Oropharynx is clear. Mucosa moist. NECK: Supple. No JVD. No bruits bilaterally. RESPIRATORY: Clear to auscultation bilaterally. CARDIOVASCULAR: Regular rate and rhythm. No murmur. ABDOMEN: Soft, nontender. Bowel sounds present in all 4 quadrants. Colostomy is in place with soft stool with no evidence of blood or melena in colostomy bag. EXTREMITIES: The left lower extremity is slightly larger than the right, but there is no clear cut edema in either of the extremities. Pulses are +2 bilaterally. There is no clubbing or cyanosis. SKIN: On evaluation of the skin, the patient has an area in the right groin area that used a to have a FRAN drain in placed after the patient's colon surgery in April. The patient stated that it had been healing for a long time. There is a slight "dimple" in the skin area and it appears that occasionally this area drains serous fluid. There was no evidence of an infection. Remaining evaluation of the skin no ecchymotic areas or rashes noted. BACK: The patient currently has a mild CVA tenderness on the right flank. NEUROLOGIC: Speech clear. Cranial nerves II through XII grossly intact. Motor strength is 5/5 bilaterally. DIAGNOSTIC STUDIES/LAB DATA: White blood cell count of 5.6, hemoglobin 9.9, hematocrit 30, platelets of 290. INR was 1.22. Sodium of 139, potassium 3.7, chloride 102, carbon dioxide 29, BUN 16, and creatinine 1.02. Liver function tests were unremarkable. Lipase 46. Urinalysis: +3 blood, +2 esterase, +3 WBCs, absent bacteria, absent nitrites. CT abdomen and pelvis. Impression: "Worsened right ureteral obstruction, suggesting malfunctioning, right double J ureteral stent." Normal functioning left double J ureteral stent. Comes in for stent replacement. Right iliopsoas intramuscular hematoma, possibly related to the right external iliac artery stent. No active extravasation. Type 1 renal cyst. No followup indicated." ASSESSMENT AND PLAN: 1. Worsening hydronephrosis with worsening right flank pain. The patient had a bilateral ureteral stent placement in the beginning of July 2018. The patient also has an abnormal urinalysis suggestive of possibility of urinary tract infection. The patient is going to be admitted to surgical floor with planned urological intervention later on today. She is going to be treated with IV morphine for pain and we will treat the patient also with ceftriaxone empirically for possibility of UTI. 2. The patient has history of deep venous thrombosis, but currently appears to have right iliopsoas hematoma. I will hold the patient's Eliquis at least before the patient's urologic procedure; and due to hematoma and later on that will have to be discussed with the patient's oncologist in regards to when that should be restarted. 3. The patient's anemia is chronic with mild worsening. We will continue to monitor. 4. The patient's increased creatinine is likely due to right-sided hydronephrosis. It is mildly increased and the patient is going to be treated with intravenous fluids. 5. Code status is full and her surrogate is her . 6. For DVT prophylaxis. The patient is going to placed on sequential compression devices and anticoagulation is indicated due to right iliopsoas hematoma. TIME SPENT: Approximately 63 minutes was spent on admission of this patient, more than half of that spent [id number] with the during the interview and physical exam. [id number]/[facility] #: [id number] [facility]ITAL[facility]
[2018-08-31] MEDS ORDERED: Naloxone* 0.4 MG/ML 1 ML VIAL IV PRN (12:22)
[2018-08-31] MEDS: fentaNYL* 50 MCG/ML 2 ML VIAL (100 MCG VIAL) IV PRN ×2 (12:40→12:55)
--- NOTE | 2018-08-31 13:03 | PN ---
Progress Note - Progress Note Date of Service: 08/31/18 SOAP: Subjective: [Patient in OR at time of evaluation, unable to examine.] Objective: [ Vital Signs Temp Pulse Resp BP Pulse Ox 97.2 F 104 15 177/98 100 08/31/18 12:04 08/31/18 12:06 08/31/18 12:06 08/31/18 12:05 08/31/18 12:06 Laboratory Results - last 24 hr 08/31/18 08/31/18 08/31/18 02:53 02:53 02:53 WBC 5.6 RBC 3.52 L Hgb 9.9 L Hct 30 L MCV 85 MCH 28 MCHC 33 RDW 17 H Plt Count 290 MPV 6.5 L Neut % (Auto) 73.4 Lymph % (Auto) 12.0 [place] % (Auto) 7.7 Eos % (Auto) 5.5 Baso % (Auto) 1.4 Absolute Neuts (auto) 4.1 Absolute Lymphs (auto) 0.7 L Absolute Monos (auto) 0.4 Absolute Eos (auto) 0.3 Absolute Basos (auto) 0.1 Absolute Nucleated RBC 0 Nucleated RBC % 0 INR (Anticoag Therapy) 1.22 H APTT 34.8 Sodium 139 Potassium 3.7 Chloride 102 Carbon Dioxide 29 Anion Gap 8 BUN 16 Creatinine 1.02 H Est GFR ( Amer) 67.1 Est GFR (Non-Af Amer) 55.5 BUN/Creatinine Ratio 15.7 Glucose 114 H Calcium 9.2 Total Bilirubin 0.30 AST 11 L ALT 9 Alkaline Phosphatase 68 Total Protein 6.6 Albumin 3.3 Globulin 3.3 Albumin/Globulin Ratio 1.0 Lipase 46 Urine Color Urine Appearance Urine pH Ur Specific O'Brien Urine Protein Urine Ketones Urine Blood Urine Nitrate Urine Bilirubin Urine Urobilinogen Ur Leukocyte Esterase Urine WBC (Auto) Urine RBC (Auto) Urine Bacteria Urine Glucose 08/31/18 03:35 WBC RBC Hgb Hct MCV MCH MCHC RDW Plt Count MPV Neut % (Auto) Lymph % (Auto) [place] % (Auto) Eos % (Auto) Baso % (Auto) Absolute Neuts (auto) Absolute Lymphs (auto) Absolute Monos (auto) Absolute Eos (auto) Absolute Basos (auto) Absolute Nucleated RBC Nucleated RBC % INR (Anticoag Therapy) APTT Sodium Potassium Chloride Carbon Dioxide Anion Gap BUN Creatinine Est GFR ( Amer) Est GFR (Non-Af Amer) BUN/Creatinine Ratio Glucose Calcium Total Bilirubin AST ALT Alkaline Phosphatase Total Protein Albumin Globulin Albumin/Globulin Ratio Lipase Urine Color Destiny Urine Appearance Turbid Urine pH 8.0 Ur Specific O'Brien 1.015 Urine Protein 2+(100 mg/dl) A Urine Ketones Negative Urine Blood 3+ A Urine Nitrate Negative Urine Bilirubin Negative Urine Urobilinogen Negative Ur Leukocyte Esterase 2+ A Urine WBC (Auto) 3+(>20/hpf) A Urine RBC (Auto) 3+(>10/hpf) A Urine Bacteria Absent Urine Glucose Negative Fentanyl Citrate (Fentanyl*) 50 mcg IV Q5M PRN PRN Reason: PAIN - MODERATE Sodium Chloride (Ns 0.9% 1000 Ml*) 1,000 mls @ 100 mls/hr IV PER RATE [facility] Ceftriaxone Sodium 2 gm/ (Sodium Chloride) 100 mls @ 200 mls/hr IVPB Q24H [facility] Last Admin: 08/31/18 08:31 Dose: 200 mls/hr Morphine Sulfate (Morphine Vial*) 2 mg IV Q4H PRN PRN Reason: PAIN - MILD Naloxone HCl (Narcan*) 0.08 mg IV Q2M PRN PRN Reason: severe induced resp depression Ondansetron HCl (Zofran Inj*) 4 mg IV Q4H PRN PRN Reason: NAUSEA/VOMITING Ondansetron HCl (Zofran Inj*) 4 mg IV ONCE PRN PRN Reason: NAUSEA/VOMITING Oxycodone HCl (Oxycontin(*)) 10 mg PO BID [facility] Last Admin: 08/31/18 08:31 Dose: 10 mg Oxycodone/Acetaminophen (Percocet 5/325 Tab*) 1 tab PO Q6H PRN PRN Reason: PAIN ] Assessment: [58 yo female well known to oncology service with metastatic adenocarcinoma, but has currently no evidence of active disease. She had a large surgery end of April including hemicolectomy due to fistulous communication from the bowel to the iliopsoas causing a large abscess. She then presented 08/08 with an active hematoma in the R iliopsoas which results in transfer to [facility] for vascular intervention. She was seen last week by Dr Painter and reported that she was feeling well at that time. Admitted overnight with R flank pain found to have R hydronephrosis, likely due to failure of ureteral stent and is currently in the OR for exchange. ] Plan: [1. R hydronephrosis due to R ureteral stent failure - stent exchange today 2. R iliopsoas hematoma - does not appear to be actively extravasating and compared to last imaging from 08/08, appears ~1cm small in size - there does not appear to be an indication to hold her Eliquis at this time 3. DVT - resume Elquis 2.5 mg bid following ureteral stent exchange 4. Cervical adenocarcinoma - currently RENAE and in active surveillence Dispo: oncology will remain involved during this hospitalization, but it looks as though she be be ready for discharge soon]
[2018-08-31] MEDS ORDERED: hydrALAZINE IV* 20 MG/ML VIAL ONE (13:37)
--- NOTE | 2018-08-31 15:00 | OP ---
CC: Dr. Painter; Dr. Zeinab Jj * DATE OF OPERATION: 08/31/18 - ROOM #341 DATE OF : 58 SURGEON: Scotty Ortiz MD ANESTHESIOLOGIST: Dr. Flores. ANESTHESIA: General. PRE-OP DIAGNOSES: 1. History of bilateral hydronephrosis. 2. Advanced cervical carcinoma. 3. Right lower quadrant pelvic hematoma. POST-OP DIAGNOSES: 1. History of bilateral hydronephrosis. 2. Advanced cervical carcinoma. 3. Right lower quadrant pelvic hematoma. OPERATIVE PROCEDURE: 1. Cystoscopy. 2. Bilateral retrograde pyelogram. 3. Bilateral ureteral stent change and right ureteral balloon dilatation. COMPLICATIONS: None. STENT USED: An 8.5-Frisian 28 cm silicone stent, right and left ureter. INDICATIONS: Trini Leonardo is a 58-year-old lady with advanced cervical carcinoma and a fairly complicated course consisting of iliopsoas abscess and a subsequent pelvic hematoma after injury to the external iliac artery. I suspect the pelvic hematoma is compressing on the ureter on the right side and is responsible for what appears to be the obstruction of the right ureteral stent. She is being brought in for an attempted stent change. If she continues to have right hydronephrosis, then the next step would be to consider right nephrostomy tube till the pelvic hematoma resolves. DESCRIPTION OF PROCEDURE: After induction of general anesthesia, the patient was placed in dorsal lithotripsy position. Cystoscopy was performed, both of the previously placed stents were removed. Right retrograde pyelogram revealed right hydronephrosis. Balloon dilatation of the right distal and mid ureter were successfully carried out under fluoroscopy and an 8.5-Frisian 28 cm silicone stent was placed on the right side. Left retrograde pyelogram also revealed some mild fullness of the left collecting system and a new 8.5-Frisian 28 cm silicone stent was placed on the left side. The bladder was emptied. The patient tolerated the procedure satisfactorily and was transferred back to the recovery area in stable condition. [id number]/[facility] #: [id number] [facility]
[2018-08-31] MEDS: NS 0.9% 1000 ML* 1,000 ML IV SCH (15:24)
[2018-08-31] MEDS: oxyCODONE/Acetamin 5/325 MG* TAB PO PRN (18:28)
[2018-09-01] MEDS: oxyCODONE/Acetamin 5/325 MG* TAB PO PRN (03:33)
[2018-09-01] MEDS: NS 0.9% 1000 ML* 1,000 ML IV SCH (03:34)
[2018-09-01 05:50] LABS: ABS Basophils 0 10^3/ul (0-0.2); ABS Eosinophils 0 10^3/ul (0-0.6); ABS Lymphocytes 0.5 10^3/ul (1.0-4.8); ABS Monocytes 0.2 10^3/ul (0-0.8); ABS Neutrophils 4.9 10^3/ul (1.5-7.7); ABS Nucleated RBC 0 10^3/ul; Eosinophil % 0 %; Hematocrit 26 % (35-47); Hemoglobin 8.6 g/dl (12.0-16.0); Lymphocyte % 8.1 %; Mean Corpuscular HGB Conc 33 g/dl (31-36); Mean Corpuscular Hemoglobin 29 pg (27-31); Mean Corpuscular Volume 86 fL (80-97); Mean Platelet Volume 6.6 fL (7.4-10.4); Nucleated Red Blood Cells % 0; Platelet Count 259 10^3/ul (150-450); Red Blood Count 3.01 10^6/ul (4.00-5.40); Red Cell Distribution Width 17 % (10.5-15); White Blood Count 5.6 10^3/ul (3.5-10.8)
[2018-09-01 06:06] LABS: BUN/Creatinine Ratio 14.3 (8-20); EGFR Non-African American 63.3 (>60); Potassium 3.8 mmol/L (3.5-5.0)
[2018-09-01 09:20] VITALS: BP 142/78
[2018-09-01] MEDS: oxyCODONE SR TAB(*) 10 MG TAB.SR PO SCH (09:20)
[2018-09-01] MEDS: cefTRIAXone(*) 2 GM in NS 0.9% 100 ML* 100 ML IVPB SCH (09:21)
--- NOTE | 2018-09-01 21:02 | DS ---
DISCHARGE SUMMARY: DATE OF ADMISSION: 08/31/18 DATE OF DISCHARGE: 09/01/18 DISCHARGE DIAGNOSES: 1. Right-sided hydronephrosis. 2. Retroperitoneal hematoma. 3. Adenocarcinoma of the cervix. 4. Acute renal failure. HOSPITAL COURSE: Came with increasing flank pain and a CT scan that showed new right hydronephrosis. She had a cystoscopy, was found to have occlusion of the distal right stent. The stent was removed and replaced. Based on intraoperative findings, there was a concern that the hematoma was pressing on the ureter. Review of the radiology with Dr. Bowers did not clearly demonstrate a level of compression. Differential diagnosis also includes the clogging of the stent, although it is only 1-month-old. With replacement of the stent, she has done much better. Flank pain has resolved. She has had diuresis and her creatinine has been decreasing. She does have slight progression of anemia today at 8.6 from 9.9 on the 08/31/18 and 10 on the 08/25/18, though this may be dilutional. CT scan was reviewed in person with Dr. Bowers and the hematoma does appear slightly decreased from 1 month ago. Plan will be that she could discharge home today and will follow up in the office in 1 week. Referral placed to [facility] for urology in case nephrostomy tubes are needed. She should call with any recurrence of flank pain. She had recently restarted the Eliquis at 2.5 mg p.o. b.i.d. However, hemoglobin has dropped slightly during this admission. I do not see any evidence of active bleeding and I think continuing the Eliquis at 2.5 b.i.d. is reasonable. DISCHARGE MEDICATIONS: 1. Eliquis 2.5 mg p.o. b.i.d. 2. Vitamin D 1000 mg daily. 3. Mag oxide 400 mg daily. 4. Ondansetron 4 mg p.o. p.r.n. 5. Oxycodone 10 mg p.o. b.i.d. 6. Percocet 5/325 one tablet q.6 p.r.n. 7. Potassium 20 mEq a day. Increased anxiety. New medications will be: 8. Zoloft 50 mg p.o. daily. - NEW 9. Xanax 0.5 mg q.8 p.r.n. - NEW [id number]/[facility] #: [id number] ELIDA
== END 2018-09-01 12:55 | disposition home or self-care (01) | DRG 443 ==
LOC: ED 02:12 → SSU 05:02
PROVIDERS: ADMIT Internal Medicine; ATTEND Internal Medicine Hematology & Oncology
PROC: 0TP98DZ Removal of Intraluminal Device from Ureter, Via Natural or Artificial Opening Endoscopic (ICD-10-PCS; 2018-08-31)
PROC: 0T788DZ Dilation of Bilateral Ureters with Intraluminal Device, Via Natural or Artificial Opening Endoscopic (ICD-10-PCS; 2018-08-31)
PROC: BT14ZZZ Fluoroscopy of Kidneys, Ureters and Bladder (ICD-10-PCS; principal; 2018-08-31 10:45)
DX: T83.193A Other mechanical complication of other urinary stent, initial encounter (principal); N13.30 Unspecified hydronephrosis; N17.9 Acute kidney failure, unspecified; C53.9 Malignant neoplasm of cervix uteri, unspecified; K21.9 Gastro-esophageal reflux disease without esophagitis; G89.29 Other chronic pain; I10 Essential (primary) hypertension; M79.81 Nontraumatic hematoma of soft tissue; D64.9 Anemia, unspecified; Y73.3 Surgical instruments, materials and gastroenterology and urology devices (including sutures) associated with adverse incidents; Z86.718 Personal history of other venous thrombosis and embolism; Z88.8 Allergy status to other drugs, medicaments and biological substances; Z90.710 Acquired absence of both cervix and uterus; Z93.3 Colostomy status; Z90.49 Acquired absence of other specified parts of digestive tract; Y92.009 Unspecified place in unspecified non-institutional (private) residence as the place of occurrence of the external cause
CPT/HCPCS: 36415; 74176; 74420; 80048; 80053; 81003; 81015; 83690; 85025; 85610; 85730; 87077; 87086; 87186; 99284; A9270-GY; J0360; J0696; J1100; J1170; J1580; J2250; J2270; J2405; J2704; J3010

== ENCOUNTER 2018-11-14 15:30 | Inpatient (IN) | payer BC ==
[2018-11-14] MEDS ORDERED: Acetaminophen TAB* 325 MG PO PRN (16:35)
[2018-11-14] MEDS ORDERED: oxyCODONE/Acetamin 5/325 MG* TAB PO PRN (16:41)
[2018-11-14] MEDS ORDERED: ALPRAZolam TAB* 0.5 MG PO PRN (16:41)
[2018-11-14] MEDS: NS 0.9% 1000 ML** 1,000 ML IV SCH ×2 (17:01→23:54)
[2018-11-14] MEDS: oxyCODONE SR TAB(*) 10 MG TAB.SR PO SCH (17:59)
[2018-11-14] MEDS: Ondansetron INJ* 2 MG/ML VIAL IV PRN (17:59)
[2018-11-14] MEDS ORDERED: Apixaban* 2.5 MG TAB PO SCH (21:00)
[2018-11-14] MEDS: HYDROmorphone INJ1* 1 MG/ML SYRINGE IV SLOW PU PRN (21:30)
--- NOTE | 2018-11-14 22:07 | CONS ---
CC: Dr. Painter GENITOURINARY CONSULTATION NOTE: DATE OF CONSULT: 11/14/18 LOCATION: The patient is in room #417. HISTORY OF PRESENT ILLNESS: Ms. Leonardo is a 58-year-old white female who has history of adenocarcinoma of the endocervix, for which she was treated with surgeies, chemotherapy and radiation therapy. She had laparotomy in 2016. 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 She ended up having a colostomy. She also had a stent in her Rt iliac artery. In July 2018, she was noted to have bilateral hydronephrosis secondary to bilateral ureteral obstruction. The obstruction seemed to be in the distal left ureter and in the mid to proximal right ureter. 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 The patient ended up having insertion of bilateral ureteral stents by Dr. Ortiz on 07/18/18. Six weeks later, she developed recurrence of the hydronephrosis with ureteral stent in place and she had replacement of the ureteral stents on 08/31/18. A followup CT scan about 5 weeks ago showed that the hydronephrosis had mostly resolved. In the last 2 days, the patient started having right flank pain. She was evaluated by the oncology service and her urinalysis was positive for infection. She had a CT of the abdomen and pelvis today, which showed recurrence of the moderate to severe right hydronephrosis with the stent in place. The Rt ureteral stent and the stent in the Rt iliac artery are very close but not adherent to each other. The left kidney was not hydronephrotic. On her lab work, the serum creatinine went up from a baseline of 1.2 to 3.0. The patient was admitted to the hospital today and was started on IV cefepime. She also has been on pain medication and has felt much improved. A consultation was obtained for evaluation and treatment of the right hydronephrosis. On my evaluation today, the patient looks more comfortable, and she is afebrile and she has mild right CVA tenderness. IMPRESSION: 1. Recurrence of the right hydronephrosis in spite of the presence of a large ( 8.5 Greenlandic) right ureteral stent. 2. Urinary infection. 3. Decreased renal function. 4. History of metastatic adenocarcinoma of the endocervix, status post radiation therapy, chemotherapy, and extensive abdominal surgery. PLAN: Repeat the blood work and renal ultrasound in the morning after good hydration and Newby catheter drainage. If she continues to have decreased renal function and continues to have the right hydronephrosis, then the plan will be to take her to the operating room tomorrow for cystoscopy and bilateral ureteral stents exchange. There is a concern that the hydronephrosis is recurring in spite of having large- caliber ureteral stents. The patient was planning to go back to [facility] for a consultation and see if she would be a candidate for ureterolysis to relieve the obstruction or she might require a chronic nephrostomy tube drainage. I discussed the above in detail with the patient and her , and all their questions were answered. [id number]/[facility] #: [id number] MTDD
[2018-11-15] MEDS: HYDROmorphone INJ1* 1 MG/ML SYRINGE IV SLOW PU PRN ×2 (03:41→22:46)
[2018-11-15 05:42] LABS: ABS Basophils 0 10^3/ul (0-0.2); ABS Eosinophils 0.2 10^3/ul (0-0.6); ABS Lymphocytes 0.4 10^3/ul (1.0-4.8); ABS Monocytes 0.7 10^3/ul (0-0.8); ABS Neutrophils 7.1 10^3/ul (1.5-7.7); ABS Nucleated RBC 0 10^3/ul; Eosinophil % 2.1 %; Hematocrit 22 % (35-47); Hemoglobin 7.3 g/dl (12.0-16.0); Lymphocyte % 4.4 %; Mean Corpuscular HGB Conc 33 g/dl (31-36); Mean Corpuscular Hemoglobin 27 pg (27-31); Mean Corpuscular Volume 84 fL (80-97); Mean Platelet Volume 7.2 fL (7.4-10.4); Nucleated Red Blood Cells % 0; Platelet Count 198 10^3/ul (150-450); Red Blood Count 2.65 10^6/ul (4.00-5.40); Red Cell Distribution Width 14 % (10.5-15); White Blood Count 8.4 10^3/ul (3.5-10.8)
[2018-11-15 05:52] LABS: Albumin 2.8 g/dL (3.2-5.2); Albumin/Globulin Ratio 0.9 (1-3); BUN/Creatinine Ratio 14.1 (8-20); Calcium 8.1 mg/dL (8.6-10.3); EGFR African American 26.7 (>60); Potassium 3.9 mmol/L (3.5-5.0); Total Bilirubin 0.3 mg/dL (0.2-1.0); Total Protein 5.8 g/dL (6.4-8.9)
[2018-11-15] MEDS: NS 0.9% 1000 ML** 1,000 ML IV SCH (06:44)
[2018-11-15] MEDS: oxyCODONE SR TAB(*) 10 MG TAB.SR PO SCH ×2 (08:12→22:46)
[2018-11-15] MEDS: Cyanocobalamin TAB* 500 MCG PO SCH (08:13)
[2018-11-15] MEDS: Magnesium Oxide TAB* 400 MG PO SCH (08:13)
[2018-11-15] MEDS: Cefepime 2 GM in Dextrose(*) 2 GM/50 ML BAG IV SCH (12:53)
[2018-11-15] MEDS ORDERED: Midazolam* 1 MG/ML 2 ML VIAL (2 MG) ONE (16:33)
[2018-11-15] MEDS ORDERED: fentaNYL* 50 MCG/ML 2 ML VIAL (100 MCG VIAL) ONE (16:33)
[2018-11-15] MEDS ORDERED: Propofol* 10 MG/ML 20 ML BTL ONE (16:34)
[2018-11-15] MEDS ORDERED: Lidocaine 2% PF * 5 ML VIAL ONE (16:34)
[2018-11-15] MEDS ORDERED: Iohexol 180 (CONTRAST) 10 ML SDV IV ONE (16:46)
[2018-11-15] MEDS ORDERED: PROCHLORPERAZINE INJ 5 MG/ML 2 ML VIAL IV PRN (17:08)
[2018-11-15] MEDS ORDERED: Naloxone* 0.4 MG/ML 1 ML VIAL IV PRN (17:08)
[2018-11-15] MEDS ORDERED: fentaNYL* 50 MCG/ML 2 ML VIAL (100 MCG VIAL) IV PRN (17:08)
[2018-11-15] MEDS ORDERED: HYDROcodone/ACETAMIN 5-325 MG* 1 TAB PO PRN (17:08)
[2018-11-15] MEDS ORDERED: oxyCODONE/Acetamin 5/325 MG* TAB PO PRN (17:08)
[2018-11-15] MEDS ORDERED: DiMENhydriNATE IV* 50 MG/ML VIAL ONE (17:10)
[2018-11-16] MEDS: NS 0.9% 1000 ML** 1,000 ML IV SCH ×2 (01:15→10:17)
[2018-11-16 06:37] LABS: BUN/Creatinine Ratio 14.2 (8-20); EGFR African American 35.8 (>60); EGFR Non-African American 29.6 (>60); Potassium 3.6 mmol/L (3.5-5.0)
--- NOTE | 2018-11-16 06:45 | OP ---
OPERATIVE REPORT: DATE OF OPERATION: 11/15/18 DATE OF : 58 SURGEON: Dre Turner MD ANESTHESIOLOGIST: Dr. Clint Rodríguez. ANESTHESIA: General. PRE-OP DIAGNOSES: 1. History of adenocarcinoma of the endocervix. 2. Right hydronephrosis. 3. Status post placement of bilateral ureteral stents. 4. Urinary tract infection. POST-OP DIAGNOSES: 1. History of adenocarcinoma of the endocervix. 2. Right hydronephrosis. 3. Status post placement of bilateral ureteral stents. 4. Urinary tract infection. OPERATIVE PROCEDURE: 1. Cystoscopy. 2. Bilateral retrograde pyelographies. 3. Bilateral ureteral stents exchange (black silicone, 8.5-Trinidadian, 22 cm). INDICATION FOR PROCEDURE: Mrs. Leonardo is a 58-year-old white female who has history of metastatic adenocarcinoma of the endocervix. As treatments, she had multiple surgeries, radiation therapy, and chemotherapy. She developed bilateral ureteral obstruction. She had placement of bilateral ureteral stents that were exchanged about 6 weeks ago. She was admitted yesterday with severe right hydronephrosis, urinary tract infection, and decreased renal function. She was started on IV antibiotics. Renal ultrasound this morning continued to show the severe right hydronephrosis. Because of those findings, the patient is taken to the operating room for bilateral ureteral stent exchange. Decision was made to replace the left ureteral stent in spite of the absence of hydronephrosis because of the urinary tract infection and expected colonization of the stent. PATHOLOGY: At cystoscopy, the bladder mucosa showed changes of cystitis. The distal limb of the stents was seen coming from the right and the left ureteral orifices. Upon left retrograde pyelography, there was mild left hydronephrosis. Hydronephrotic drip was noted from the right kidney and a total of 20 cc of noninfected-looking urine was drained from the right kidney. Following drainage of the right collecting system, retrograde pyelography showed moderate hydronephrosis. There was moderate degree of resistance in the ureter to the introduction of the ureteral stents. DESCRIPTION OF PROCEDURE: After successful general anesthesia, the patient was placed in the lithotomy position and was prepped and draped for cystoscopy. Cystoscopy was performed. The bladder was inspected and the above findings were noted. Under fluoroscopy guidance, the distal limb of the left ureteral stent was pulled out to the level of the urethral meatus. A flexible-tip guidewire was then introduced into the lumen of the stent and positioned in the area of the renal pelvis. Open-ended catheter was fed on top of the guidewire and retrograde pyelography was performed. A black silicone stent, 22 cm long, 8.5- Trinidadian was then introduced with the proximal end coiling in the renal pelvis and the distal end coiling inside the bladder. Exactly the same procedure was performed on the right side. There was more significant hydronephrosis on the right. At the completion of the procedure, the stents were in good position and there was progressive drainage of the contrast from both kidneys. The patient tolerated the procedure well and left the operating room in good condition. [id number]/[facility] #: [id number] ELIDA
[2018-11-16] MEDS: Ondansetron INJ* 2 MG/ML VIAL IV PRN ×3 (07:37→20:47)
[2018-11-16] MEDS: oxyCODONE SR TAB(*) 10 MG TAB.SR PO SCH ×2 (08:42→20:46)
[2018-11-16] MEDS: Magnesium Oxide TAB* 400 MG PO SCH (08:43)
[2018-11-16] MEDS: Cyanocobalamin TAB* 500 MCG PO SCH (08:43)
[2018-11-16] MEDS ORDERED: oxyCODONE TAB* 5 MG TAB PO PRN (11:13)
[2018-11-16] MEDS: Apixaban* 2.5 MG TAB PO SCH ×2 (12:30→20:47)
[2018-11-16] MEDS: Cefepime 2 GM in Dextrose(*) 2 GM/50 ML BAG IV SCH (12:30)
[2018-11-16] MEDS: HYDROmorphone INJ1* 1 MG/ML SYRINGE IV SLOW PU PRN (18:03)
[2018-11-17] MEDS: NS 0.9% 1000 ML** 1,000 ML IV SCH (00:34)
[2018-11-17 06:03] LABS: ABS Basophils 0 10^3/ul (0-0.2); ABS Eosinophils 0.4 10^3/ul (0-0.6); ABS Lymphocytes 0.5 10^3/ul (1.0-4.8); ABS Monocytes 0.4 10^3/ul (0-0.8); ABS Neutrophils 4.6 10^3/ul (1.5-7.7); ABS Nucleated RBC 0 10^3/ul; Eosinophil % 7.3 %; Hematocrit 22 % (35-47); Hemoglobin 7.1 g/dl (12.0-16.0); Lymphocyte % 8.9 %; Mean Corpuscular HGB Conc 32 g/dl (31-36); Mean Corpuscular Hemoglobin 27 pg (27-31); Mean Corpuscular Volume 85 fL (80-97); Mean Platelet Volume 7.1 fL (7.4-10.4); Nucleated Red Blood Cells % 0; Platelet Count 206 10^3/ul (150-450); Red Cell Distribution Width 15 % (10.5-15)
[2018-11-17 06:32] LABS: BUN/Creatinine Ratio 11.3 (8-20); Calcium 7.8 mg/dL (8.6-10.3); EGFR African American 45.8 (>60); EGFR Non-African American 37.9 (>60); Potassium 3.2 mmol/L (3.5-5.0)
[2018-11-17] MEDS: oxyCODONE SR TAB(*) 10 MG TAB.SR PO SCH (08:32)
[2018-11-17] MEDS: Apixaban* 2.5 MG TAB PO SCH (08:32)
[2018-11-17] MEDS: Cyanocobalamin TAB* 500 MCG PO SCH (08:32)
[2018-11-17] MEDS: Magnesium Oxide TAB* 400 MG PO SCH (08:33)
[2018-11-17] MEDS ORDERED: Linezolid 600 MG IVPREMIX(*) 600 MG/300 ML BAG IVPB SCH (09:00)
[2018-11-17 12:04] VITALS: BP 131/62
--- NOTE | 2018-11-17 13:45 | DS ---
CC: Dr. Painter; Dr. Ortiz; Dr. Jo * DISCHARGE SUMMARY: DATE OF ADMISSION: 11/14/18 DATE OF DISCHARGE: 11/17/18 PRIMARY CARE PROVIDER: Dr. Zeinab Jj CONSULTING UROLOGIST: Dr. Turner PRIMARY UROLOGIST: Dr. Ortiz. PRIMARY ONCOLOGIST: Dr. Painter. ATTENDING PHYSICIAN: Dr. Main.* (DICTATED BY XIAO OWENS) DISCHARGING PROVIDER: XIAO Owens. PRIMARY DISCHARGE DIAGNOSES: 1. Right-sided hydronephrosis with infected/obstructing ureteral stent, status post replacement of bilateral ureteral stents - secondary to vancomycin- resistant enterococcus 2. Acute kidney failure secondary to stent obstruction. 3. History of metastatic adenocarcinoma of the cervix, currently without evidence of active disease. 4. Diverting ostomy. DISCHARGE MEDICATIONS: 1. Tums 500 mg p.o. at bedtime as needed. 2. Vitamin B12 at 1000 mcg p.o. daily. 3. Imodium 2 to 4 mg p.o. every 4 hours as needed for diarrhea. 4. Magnesium oxide 250 mg p.o. daily. 5. Zofran 4 mg p.o. daily as needed for nausea. 6. OxyContin 10 mg p.o. twice daily. 7. Oxycodone 5/325 one tablet p.o. every 6 hours as needed for pain. 8. Xanax 0.5 mg p.o. every 8 hours as needed for anxiety. 9. Eliquis 2.5 mg p.o. twice daily. 10. Linezolid 600 mg p.o. twice daily x10 days. HOSPITAL IMAGING: CT of the abdomen and pelvis on 11/14/18, demonstrated increasing right hydronephrosis when compared to prior exam hiatal hernia noted , IVC filter in place and left midabdomen ostomy noted. Renal ultrasound on 11/15/18, showed persistent severe right hydronephrosis. Renal ultrasound on 11/17/18, showed resolution of prior hydronephrosis, but severe atrophy of the left kidney. HOSPITAL COURSE: This is a 58-year-old female with a history of metastatic adenocarcinoma of the endocervix under the care of Dr. Painter, who is not currently on treatment and has had no evidence of active disease on recent restaging scans, who presented to the oncology clinic with complaints of severe right-sided flank pain. On initial evaluation, the patient did report that the pain had started the day before, but thinking back she had had intermittent right-sided pain for up to a couple of weeks. She was noted to be febrile in the office and was sent for CT scan, which demonstrated [id number] right -sided hydronephrosis. She has bilateral ureteral stents in place by Dr. Ortiz that were last exchanged 08/31/18. Labs demonstrated acute kidney injury with a creatinine that climbed to 3.04 when in the month prior was normal at 0.87. Urinalysis was positive for blood and leuk esterase. Dr. Turner was subsequently contacted from Urology regarding findings of new hydronephrosis with stents in place and concern for urinary tract infection. The patient was started on empiric antibiotics with cefepime and received IV fluids. Dr. Turner had recommended initially placing a Newby catheter and repeating renal ultrasound the following day to see if there was any urinary retention contributing to the development of the right-sided hydronephrosis. The following day, a renal ultrasound demonstrated persistent severe right-sided hydronephrosis and the patient went for stent exchange by Dr. Turner. Both the right and the left stents were exchanged at that time. On 11/17/18, renal ultrasound was repeated, which demonstrated resolution of the hydronephrosis. The patient remained afebrile when she reached the medical floor and hemodynamically stable. Blood cultures were negative, but urine culture eventually grew VRE and the patient was switched from cefepime to linezolid. DISPOSITION AND FOLLOWUP PLAN: The patient is being discharged to home in stable condition. We will discharge with 10 days of oral linezolid. She had previously been seen by Dr. Jo, Infectious Disease, for prior infectious complications and recommend outpatient followup within the next week regarding recommendations for length of antibiotics for this VRE infection in the setting of ureteral stents in place. She will be seen in the oncology clinic with Dr. Painter on 11/28/18, but instructed to contact the office with any concerns prior to that. XIAO OWENS [id number]/[facility] #: [id number] [facility] SQUARE HOSPITALAlis
== END 2018-11-17 12:00 | disposition home or self-care (01) | DRG 443 ==
LOC: MED 16:16
PROVIDERS: ADMIT Internal Medicine Hematology & Oncology; ATTEND Internal Medicine Hematology & Oncology
PROC: 0T788DZ Dilation of Bilateral Ureters with Intraluminal Device, Via Natural or Artificial Opening Endoscopic (ICD-10-PCS; 2018-11-15)
PROC: BT14ZZZ Fluoroscopy of Kidneys, Ureters and Bladder (ICD-10-PCS; 2018-11-15)
PROC: 0TP98DZ Removal of Intraluminal Device from Ureter, Via Natural or Artificial Opening Endoscopic (ICD-10-PCS; principal; 2018-11-15 17:00)
DX: T83.593A Infection and inflammatory reaction due to other urinary stents, initial encounter (principal); N17.8 Other acute kidney failure; N13.1 Hydronephrosis with ureteral stricture, not elsewhere classified; N39.0 Urinary tract infection, site not specified; B95.2 Enterococcus as the cause of diseases classified elsewhere; R31.0 Gross hematuria; Z16.21 Resistance to vancomycin; F41.9 Anxiety disorder, unspecified; I10 Essential (primary) hypertension; K59.00 Constipation, unspecified; X58.XXXA Exposure to other specified factors, initial encounter; Z85.41 Personal history of malignant neoplasm of cervix uteri; Z79.01 Long term (current) use of anticoagulants; Z79.1 Long term (current) use of non-steroidal anti-inflammatories (NSAID); Z79.82 Long term (current) use of aspirin; Z79.891 Long term (current) use of opiate analgesic; Z79.899 Other long term (current) drug therapy; Z86.718 Personal history of other venous thrombosis and embolism; Z92.3 Personal history of irradiation; Z80.49 Family history of malignant neoplasm of other genital organs; Z83.3 Family history of diabetes mellitus; Z82.49 Family history of ischemic heart disease and other diseases of the circulatory system; Y92.009 Unspecified place in unspecified non-institutional (private) residence as the place of occurrence of the external cause
CPT/HCPCS: 36415; 74420; 76775; 80048; 80053; 85025; 99222; 99239; A9270-GY; C2617; J0692; J1170; J1240; J2020; J2250; J2405; J2704; J3010

== ENCOUNTER 2018-12-07 06:25 | Emergency (ER) | payer BC ==
[2018-12-07] MEDS ORDERED: Ondansetron INJ* 2 MG/ML VIAL IV ONE ×2 (07:00→08:48)
[2018-12-07] MEDS ORDERED: NS 0.9% 1000 ML** 1,000 ML IV ONE (07:00)
[2018-12-07] MEDS ORDERED: HYDROmorphone INJ1* 1 MG/ML SYRINGE IV ONE ×2 (07:00→07:41)
--- NOTE | 2018-12-07 07:06 | ED ---
Back Pain - HPI Summary HPI Summary: Patient is a 58-year-old female who presents emergency department for bilateral flank pain and vomiting that started last night. Patient has a remote history of: Cancer with colectomy and ostomy. Is currently not receiving chemoradiation. Patient states she has bilateral ureteral stents secondary to ureteral collapse. She states local urologist. Patient states she started with extreme bilateral flank pain this evening and vomiting. Tried to take a Percocet at home and vomited it and presents to the ER for evaluation. Patient denies fever, chills, chest pain, shortness of breath, abdominal pain. Symptoms are moderate in severity. No current modifying factors. Patient chronically on Percocet and OxyContin. - History of Current Complaint Chief Complaint: EDFlankPain Stated Complaint: SHARP PAIN MY LEFT SIDE PER PT Time Seen by Provider: 12/07/18 06:55 Hx Obtained From: Patient Pain Intensity: 10 - Allergies/Home Medications Allergies/Adverse Reactions: Allergies Allergy/AdvReac Type Severity Reaction Status Date / Time cisplatin Allergy Itching Verified 12/07/18 06:32 Home Medications: Home Medications Acetaminophen [Tylenol] 650 mg PO Q6H PRN 12/07/18 [History Confirmed 12/07/18] Citalopram Hydrobromide [Citalopram HBr] 10 mg PO DAILY 12/07/18 [History Confirmed 12/07/18] PMH/Surg Hx/FS Hx/Imm Hx Previously Healthy: Yes Endocrine/Hematology History: Reports: Hx Anticoagulant Therapy - eliquis Denies: Hx Diabetes, Hx Anemia Cardiovascular History: Reports: Hx Deep Vein Thrombosis - left leg, Other Cardiovascular Problems/Disorders - PORT INSERTION 11/24, right leg arterial bleed, jac filter Denies: Hx Hypercholesterolemia, Hx Hypertension, Hx Myocardial Infarction, Hx Pacemaker/ICD GI History: Reports: Hx Gastroesophageal Reflux Disease, Hx Hiatal Hernia, Hx Obstructive Bowel - 11/24, Hx Ileostomy, Other GI Disorders - esophageal dysphagia- had throat stretched, colostomy Denies: Hx Jaundice History: Reports: Hx Kidney Stones - BILATERAL STENTS 11/2018, Hx Renal Disease - BILAT URETERAL STENTS, Other Problems/Disorders - cervical CA, stage IV Musculoskeletal History: Reports: Other Musculoskeletal History - 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 Sensory History: Denies: Hx Contacts or Glasses, Hx Hearing Aid Opthamlomology History: Denies: Hx Contacts or Glasses Neurological History: Denies: Hx CVA, Hx Dementia Psychiatric History: Denies: Hx Panic Disorder - Cancer History Cancer Type, Location and Year: CERVICAL, colon Hx Chemotherapy: Yes Hx Radiation Therapy: Yes - Surgical History Surgery Procedure, Year, and Place: radical Hysterectomy - [place] 2010. CHEMO PORT 11/2017. LASIK EYE SURGERY. BIOPSY OF OMENTUM. COLOSTOMY 04/2018. US BUIDED BIOPSY RIGHT HIP AREA, bilat ureter stents, Hx Anesthesia Reactions: No - Immunization History Date of Tetanus Vaccine: unk Date of Influenza Vaccine: none Infectious Disease History: No Infectious Disease History: Denies: Traveled Outside the [place] in Last 30 Days - Family History Known Family History: Negative: Respiratory Disease, Seizure Disorder, Other - gallstones - Social History Occupation: Retired Lives: With Family Alcohol Use: Rare Hx Substance Use: No Substance Use Type: Reports: None Hx Tobacco Use: No Smoking Status (MU): Never Smoked Tobacco Have You Smoked in the Last Year: No Review of Systems - ROS Summary Review of Systems Summary: Patient is a 58-year-old female who presents emergency department for bilateral flank pain, nausea and vomiting that started last night. Patient has a history of bowel cancer with colectomy and ostomy. Patient also has been having issues with ureter collapse and currently has bilateral ureteral stents placed by Dr. Ortiz. Patient states that pain is the same as her previous pain from hydronephrosis. She states she tried to take Percocet at home but vomited and presented to the ER for evaluation. She otherwise denies fevers, chills, chest pain, shortness breath, abdominal pain. She is currently on Zyvox for a UTI. Symptoms are moderate in severity. No current modifying factors. Constitutional: Negative Negative: Fever, Chills Cardiovascular: Negative Negative: Palpitations, Chest Pain Respiratory: Negative Negative: Shortness Of Breath, Cough Positive: Vomiting, Nausea Positive: flank pain Neurological: Negative All Other Systems Reviewed And Are Negative: Yes Physical Exam Triage Information Reviewed: Yes Vital Signs On Initial Exam: Initial Vitals Temp Pulse Resp BP Pulse Ox 98.8 F 105 18 183/91 96 12/07/18 06:30 12/07/18 06:30 12/07/18 06:30 12/07/18 06:30 12/07/18 06:30 Vital Signs Reviewed: Yes Appearance: Positive: Pain Distress - Pt. sitting on side of bed with emesis bag. Appears uncomfortable but nontoxic. present. Skin: Positive: Warm, Dry Head/Face: Positive: Normal Head/Face Inspection Eyes: Positive: Normal, EOMI Neck: Positive: Supple Respiratory/Lung Sounds: Positive: Clear to Auscultation, Breath Sounds Present Cardiovascular: Positive: Normal, RRR Abdomen Description: Positive: CVA Tenderness (R), CVA Tenderness (L) Neurological: Positive: Normal, CN Intact II-III Psychiatric: Positive: Affect/Mood Appropriate Diagnostics - Vital Signs Vital Signs Temp Pulse Resp BP Pulse Ox 12/07/18 06:30 98.8 F 105 18 183/91 96 - Laboratory Result Diagrams: 12/07/18 07:14 12/07/18 07:13 Lab Statement: Any lab studies that have been ordered have been reviewed, and results considered in the medical decision making process. Back Pain Course/Dx - Course Course Of Treatment: Patient presenting with severe bilateral flank pain and vomiting. Patient chronically on Percocet and OxyContin at home. Patient is requesting IV Dilaudid stating was kneeling pain medication will help. Blood work and an ultrasound ordered to evaluate for fracture. Patient did have an ultrasound done on 11/17/18 after stent placement and it was negative for hydronephrosis at that time. Patient started IV fluids, 1 mg IV hydromorphone and Zofran. Labs shows normal WBC. Chronic anemia. Cr improving from recent labs. U/S per radiology: IMPRESSION: #. Recurrent RIGHT greater than LEFT hydronephrosis. Pt. has required numerous doses of dilaudid and zofran with minimal improvement. Case discussed with Dr. Ortiz and Dr. Caceres. Dr. Ortiz feels pt. need emergent nephrostomy tubes. We do not have IR director of transportation this weekend and he recommends transfer. I spoke with urology, Dr. Jones, at [facility] and she is willing to accept pt. but there are not beds available. I spoke with Dr. Fisher at [facility] and he has accepted pt. to his service. Pt. being transferred for potential emergent nephrostomy tubes if condition worsens, [place] [facility] [place] - Diagnoses Differential Diagnosis/HQI/PQRI: Positive: Neoplasm, Renal Colic, Strain, Sprain Provider Diagnoses: Hydronephrosis, Uncontrolled pain - Provider Notifications Reason For Transfer: Specialty or [place] [facility] [place]charge - Sign-Out/Discharge Documenting (check all that apply): Patient Departure Patient Received Moderate/Deep Sedation with Procedure: No - Discharge Plan Condition: Stable Disposition: TRANS HIGHER LVL OF CARE FAC Referrals: Zeinab Jj MD [Primary Care Provider] - - Billing Disposition and Condition Condition: STABLE Disposition: Trans Higher Lvl of Care Fac
--- OUTSIDE RECORDS SUMMARY | 2018-12-07 07:16 | XMS REPORT | Continuity of Care Document ---
:1960 External Reference #:[id number] Author Name Milady English Care Team Providers Name Role Phone Zeinab Jj MD Primary Care Physician Unavailable Payers Date Identification Numbers Payment Provider Subscriber Policy Number: [id number] [employer] Trini Linda PayID: [id number] [address] [address] [place] [address] Advance Directives Description No Information Available Problems Description No Information Family History Description No Information Available Social History Type Date Description Comments Sex Unknown Tobacco Use Start: Unknown Patient has never smoked Smoking Status Reviewed: 11/24/18 Patient has never smoked Allergies, Adverse Reactions, Alerts Date Description Reaction Status Severity Comments 07/17/2018 Cisplatin shakes, itchy palms Active 11/20/2017 NKDA Inactive Medications Medication Date Status Form Strength Qnty SIG Indications Ordering Provider Eliquis 00/00/ Active Tablets 5mg Take 1 Unknown 0000 Tablet By Mouth Two Times Daily Oxycontin / Active Tab ER 12H 10mg take one Unknown 0000 Abuse-Det by mouth every 12 hours Zofran / Active Tablets 4mg take 1 Unknown 0000 by mouth every 4 hrs as needed for nausea Pepcid 00/00/ Active Tablets Unknown take 1 Unknown 0000 tablet by mouth once daily as needed Linezolid / Active Tablets 600mg 30tabs one by Keith 0000 mouth D. twice a [place], day M.D. Imodium A-D /00/ Active Capsules 2mg one as Unknown 0000 needed Percocet 0000/ Active Tablets 5-325mg 1 - 2 Unknown 0000 tabs by mouth every 4 - 6 hours as needed for pain. Alprazolam 00/00/ Active Tablets 0.5mg as Unknown 0000 needed Cyclobenzaprine / Active Tablets 10mg as Unknown HCL 0000 needed Avelox 08/07/ Hx Tablets 400mg 14tabs 1 by Keith 2018 - mouth D. 11/23/ daily Iesha Jo M.D. Percocet 11/21/ Hx Tablets 5-325mg 14tabs 1 tablet C18.9 Yovany Early 2018 - by mouth Juan Manuel, 07/16/ every 4 JEANNINE SNYDER 2018 hours as needed pain Dyazide / Hx Capsules 37.5-25mg 1 by Unknown 0000 - mouth 2017 day Multi-Vitamin / Hx Tablets 1 by Unknown 0000 - mouth 2017 day Miralax / Hx Powder 3350NF 17 gm Unknown 0000 - twice a 2017 mixed w/ 8 oz water/ju ice Augmentin / Hx Tablets 875-125mg 1 tablet Unknown 0000 - by mouth 2018 hours for 10 days Magnesium / Hx Capsules 250mg 1 by Unknown 0000 - mouth 11/23/ twice a 2018 day Immunizations Description No Information Available Vital Signs Date Vital Result Comment 11/24/2018 3:55pm Height 65.5 inches 5'5.50" Weight 140.00 lb Heart Rate 84 /min BP Systolic Sitting 138 mmHg BP Diastolic Sitting 80 mmHg Respiratory Rate 14 /min Body Temperature 98.4 F BMI (Body Mass Index) 22.9 kg/m2 08/04/2018 3:42pm Height 65.5 inches 5'5.50" Weight 146.38 lb Heart Rate 100 /min BP Systolic Sitting 136 mmHg BP Diastolic Sitting 70 mmHg Respiratory Rate 14 /min Body Temperature 99.5 F BMI (Body Mass Index) 24.0 kg/m2 07/17/2018 3:53pm Height 65.5 inches 5'5.50" Weight 141.00 lb Heart Rate 88 /min BP Systolic Sitting 162 mmHg BP Diastolic Sitting 90 mmHg Respiratory Rate 14 /min Body Temperature 98.9 F BMI (Body Mass Index) 23.1 kg/m2 11/28/2017 10:36am Heart Rate 84 /min Respiratory Rate 16 /min Body Temperature 97.8 F 11/21/2017 11:27am Height 65.5 inches 5'5.50" Weight 160.00 lb Heart Rate 90 /min BP Systolic Sitting 118 mmHg BP Diastolic Sitting 80 mmHg Respiratory Rate 18 /min Body Temperature 97.9 F BMI (Body Mass Index) 26.2 kg/m2 Results Test Date Facility Test Result H/L Range Note Laboratory test 08/07/2018 [facility] C Reactive 76.70 mg/L High <8.[address] [place] [address] [phone] Blood Culture SEE RESULT BELOW 1 Laboratory test 07/18/2018 [facility] C Reactive 23.32 mg/L High <8.[address] [place] [address] [phone] CBC Auto Diff 07/18/2018 [facility] White Blood 5.8 N 3.5- 10.[address] Count 10^3/[place] [address] [phone] Red Blood Count 3.06 10^6/uL Low 4.00-5.40 Hemoglobin 8.5 g/dL Low 12.0-16.0 Hematocrit 26 % Low 35-47 Mean Corpuscular Volume 84 fL N 80-97 Mean Corpuscular Hemoglobin 28 pg N 27-31 Mean Corpuscular HGB Conc 33 g/dL N 31-36 Red Cell Distribution Width 18 % High 10.5-15 Platelet Count 252 10^3/uL N 150-450 Mean Platelet Volume 7.0 fL Low 7.4-10.4 Abs Neutrophils 4.5 10^3/uL N 1.5-7.7 Abs Lymphocytes 0.7 10^3/uL Low 1.0-4.8 Abs Monocytes 0.4 10^3/uL N 0-0.8 Abs Eosinophils 0.1 10^3/uL N 0-0.6 Abs Basophils 0 10^3/uL N 0-0.2 Abs Nucleated RBC 0 10^3/uL Granulocyte % 78.4 % N 38-83 Lymphocyte % 12.8 % Low 25-47 Monocyte % 7.1 % High 0-7 Eosinophil % 1.3 % N 0-6 Basophil % 0.4 % N 0-2 Nucleated Red Blood Cells % 0.1 Laboratory test 07/15/2018 [facility] Cytology Non-Instruction Dean SEE RESULT [address] [place] [address] [phone] Laboratory test 11/22/2017 [facility] Surgical SEE RESULT [address] [place] [address] [phone] 1 SEE RESULT BELOW Name: TRINI LINDA : [address]: Keith Jo MD Acct: [id number] Unit: [id number] AGE: 58 Location: LAB Re08/07/18 SEX: F Status: REG REF SPEC: [id number] SHAN: 08/07/[address]: Keith Jo MD REQ: [id number] RECD: 08/07/18 STATUS: COMP _ SOURCE: BLOOD,VENO SPDESC: ORDERED: Blood Cult Procedure Result Reported Site Aerobic Culture Bottle Final 08/12/18- 1643 ML No Growth Day 5 Anaerobic Culture Bottle Final 08/12/18- 1643 ML No Growth Day 5 * ML - Main Lab . END OF REPORT DEPARTMENT OF PATHOLOGY, [address] [place] [address] Denton Peraza M.D. Director [facility] # [id number] 2 SEE RESULT BELOW Name: TRINI LINDA : [address]: Darshan Painter MD Acct: [id number] Unit: [id number] AGE: 57 Location: SP Re07/15/18 SEX: F Status: REG REF SPEC: [id number] SHAN: 07/15/18-[address]: Darshan Painter MD REQ: [id number] RECD: 07/15/18 STATUS: GABRIELA LOCKE DR: John Mendoza MD _ ORDERED: FNA INTERP RPT FINAL DIAGNOSIS Pelvic fluid, fine needle aspiration: -- Negative for malignant cells. -- Acute inflammation. PELVIC - FINE NEEDLE ASPIRATION CLINICAL HISTORY Metastatic endocervical cancer, radiation 2017 GROSS DESCRIPTION 0.25 mls red fluid Signed by and Reported on: Irais Salmon MD 07/16/18 1509 END OF REPORT DEPARTMENT OF PATHOLOGY, [address] [place] [address] Denton Peraza M.D. Director [facility] # [id number] 3 SEE RESULT BELOW Name: TRINI LINDA : [address]: Yovany Zambrano MD Acct: [id number] Unit: [id number] AGE: 57 Location: OR Re11/22/17 SEX: F Status: REG [facility] SPEC: [id number] SHAN: 11/22/17-1339 [facility] DR: Yovany Zambrano MD REQ: [id number] RECD: 11/22/17-1636 STATUS: GABRIELA LOCKE DR: Darshan Painter MD _ ORDERED: PTH HANDLING CH, LEVEL 4, IMMUNO-FIRST, IMMUNO-ADDL/3 [facility] One results received from [facility] on 12/30/17. A copy of the report is available for review in Pathology Results. Addendum Signed (signature on file) Denton Peraza MD 163 FINAL DIAGNOSIS Omental mass, excision: -- Metastatic [...] endometrioid, invasive endocervical carcinoma was previously reviewed ([facility] case [id number]). The prior tumor was noted to be [...] CONTINUED ON NEXT PAGE DEPARTMENT OF PATHOLOGY, [address] [place] [address] Denton Peraza M.D. Director [facility] # [id number] RUN DATE: 12/30/17 [facility] LAB LIVE PAGE 2 Patient: TRINI LINDA [id number] (Continued) SPECIMEN COMMENTS (Continued) endocervical primary. Both [...] The specimen is inked, serially sectioned and medical representative sections are submitted in four cassettes. Signed (signature on file) Denton Peraza MD 1005 END OF REPORT DEPARTMENT OF PATHOLOGY, [address] [place] [id number] Denton Peraza M.D. Director [facility] # [id number] Procedures Date Code Description Status 11/22/2017 04249 Fluoroscopic Guidance For Cent Completed 11/22/2017 50097 Laparoscopy/Peritoneoscopy With Biopsy (Single Or Completed Multiple) 11/22/2017 97599 Laparoscopy/Peritoneoscopy With Biopsy (Single Or Completed Multiple) 11/22/2017 59172 Insertion Tunneled Cent Venous Cathr W Subcut Port 5 Yrs Completed Or Oldr 11/22/2017 91502 Insertion Tunneled Cent Venous Cathr W Subcut Port 5 Yrs Completed Or Oldr Encounters Type Date Location Provider Dx Diagnosis Office Visit 08/31/2018 [facility] Sarah Beth Blackburn, N13.30 Unspecified 11:08a thomas Aguirre M.D. hydronephrosis [facility] Z86.718 Personal history of other venous thrombosis and embolism D64.9 Anemia, unspecified R79.89 Other specified abnormal findings of blood chemistry Office Visit 08/04/2018 3:40p [place] Raad Aponte R79.82 Elevated Adrian Jo M.D. C-reactive Diseases protein (CRP) R68.89 Other general symptoms and signs Office Visit 07/19/2018 [facility] Gilberto R10.9 Unspecified 9:16a thomas Aguirre M.D. abdominal pain [facility] R79.89 Other specified abnormal findings of blood chemistry E87.6 Hypokalemia E83.42 Hypomagnesemia D72.829 Elevated white blood cell count, unspecified Office Visit 07/17/2018 4:00p [place] Raad Aponte K68.12 Psoas muscle Infectious Jon Jo abscess Diseases Office Visit 06/10/2018 8:30a Count Includes [facility] Yanique G89.29 Other chronic MD Bjorn pain I10 Essential (primary) hypertension E87.6 Hypokalemia T81.89xS Oth complications of procedures, NEC, sequela Office Visit 05/30/2018 12:15p Count Includes [facility] Yanique C53.0 Malignant neoplasm MD Bjorn of endocervix G89.29 Other chronic pain Z93.3 Colostomy status I10 Essential (primary) hypertension Z48.815 Encntr for surgical aftcr following surgery on the dgstv sys Office Visit 04/08/2018 1:40p [place] Cancer Darshan Painter C54.1 Malignant neoplasm [facility] AT M.D. 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 at [place] [facility]/18/2019 - Keith Jo M.D.N39.0 Urinary tract infection, site not specifiedComments:will extend linezolid in attempt to sterilize ureteral stents assuming they were infectedFollow up:2-3 psoqfK05.0 Presence of urogenital implantsComments:we discussed that there is an increased risk of infection in the setting of indwelling ureteral stent and that she may have UTI in the future
[2018-12-07 07:19] LABS: ABS Basophils 0 10^3/ul (0-0.2); ABS Eosinophils 0.1 10^3/ul (0-0.6); ABS Lymphocytes 0.5 10^3/ul (1.0-4.8); ABS Monocytes 0.3 10^3/ul (0-0.8); ABS Neutrophils 4.5 10^3/ul (1.5-7.7); ABS Nucleated RBC 0 10^3/ul; Eosinophil % 2.7 %; Hematocrit 23 % (33-41); Hemoglobin 7.4 g/dL (12.0-16.0); Lymphocyte % 8.7 %; Mean Corpuscular HGB Conc 33 g/dL (31-36); Mean Corpuscular Hemoglobin 26 pg (27-31); Mean Corpuscular Volume 81 fL (80-97); Mean Platelet Volume 6.8 fL (7.4-10.4); Nucleated Red Blood Cells % 0; Platelet Count 134 10^3/uL (150-450); Red Blood Count 2.82 10^6 /uL (3.70-4.87); Red Cell Distribution Width 14 % (10.5-15); White Blood Count 5.5 10^3/uL (3.5-10.8)
[2018-12-07 07:50] LABS: Albumin 3.7 g/dL (3.2-5.2); Albumin/Globulin Ratio 1.3 (1-3); C Reactive Protein 6.35 mg/L (<8.01); Calcium 9.2 mg/dL (8.6-10.3); EGFR Non-African American 48.8 (>60); Globulin 2.9 g/dL (2-4); Potassium 3.4 mmol/L (3.5-5.0); Total Bilirubin 0.4 mg/dL (0.2-1.0); Total Protein 6.6 g/dL (6.4-8.9)
[2018-12-07 08:33] LABS: Urine Appearance Cloudy; Urine Bacteria Absent (Absent); Urine Bilirubin Negative (Negative); Urine Blood 3+ (Negative); Urine Glucose Negative (Negative); Urine Ketones Negative (Negative); Urine Nitrite Negative (Negative); Urine Protein 2+(100 mg/dL) (Negative); Urine Red Blood Cell 3+(>10/hpf) (Absent); Urine Specific Gravity 1.005 (1.010-1.030); Urine Urobilinogen Negative (Negative); Urine White Blood Cell 3+(>20/hpf) (Absent)
[2018-12-07 08:35] LABS: Urine Color Red
[2018-12-07] MEDS ORDERED: oxyCODONE/Acetamin 5/325 MG* TAB PO ONE (08:47)
[2018-12-07] MEDS ORDERED: HYDROmorphone INJ1* 1 MG/ML SYRINGE IV SLOW PU ONE (09:26)
[2018-12-07] MEDS ORDERED: PROCHLORPERAZINE INJ 5 MG/ML 2 ML VIAL IV ONE (09:26)
[2018-12-07] MEDS: HYDROmorphone INJ* 0.5 MG/0.5 ML SYRINGE IV SLOW PU PRN ×2 (13:03→15:41)
[2018-12-07] MEDS ORDERED: Ondansetron INJ* 2 MG/ML VIAL ONE (15:37)
[2018-12-07 16:04] VITALS: BP 128/66
--- NOTE | 2018-12-11 23:20 | CONS ---
[facility] MEDICINE CONSULTATION REPORT: DATE OF CONSULT: 12/07/18 - EMERGENCY DEPT PROVIDER: Jo Ann Pimentel NP. ATTENDING PHYSICIAN: XIAO Patterson, emergency room. CONSULTING PHYSICIAN: Dr. Cornel Danielle (dictated by Jo Ann Pimentel NP) . REASON FOR CONSULT: Bilateral flank pain. HISTORY OF PRESENT ILLNESS: Ms. Leonardo is a 58-year-old female with past medical history significant for adenocarcinoma of the colon with colectomy and ostomy, bilateral ureteral stents placed by Dr. Ortiz for hydronephrosis. The patient reports that she woke at approximately 5 a.m. with extreme left flank pain. She reports that she had right flank pain the day before, but this subsided. She reports that she tried to take a Percocet for the left flank pain without relief. She states that she was vomiting this morning, and due to recurrent vomiting and extreme left flank pain rated at 9 to 10 on pain scale, she presented to the emergency room for further evaluation. The patient reports that she had stents placed bilaterally approximately [address] Ortiz due to hydronephrosis. She denies any fever, chills, chest pain, shortness of breath, or abdominal pain. She does report tenderness to the left flank. While in the emergency room, the patient had routine lab work drawn and ultrasound of her kidneys, which showed right greater than left hydronephrosis. She was given multiple doses of Dilaudid and Zofran which minimally relieved her left flank pain. I did contact Dr. Ortiz and discussed the case with him and due to the patient' s continued collapsing of ureteral stents, he is recommending bilateral nephrostomy tubes. I did talk to Dr. Painter who follows with this patient closely due to her history of adenocarcinoma of the colon, who again also recommended bilateral nephrostomy tubes due to the patient's continued collapse and then he would recommend transfer to [place] for further evaluation and opinion. Dr. Painter reports at this time that the patient should go to the nearest facility that is able to place nephrostomy tubes. PAST MEDICAL HISTORY: Significant for: 1. Bilateral hydronephrosis with ureteral stenting, last placed approximately 3 weeks ago. 2. Endocervical carcinoma. 3. History of colonic adenocarcinoma. 4. History of hypertension, not currently on medications. 5. History of bilateral hydronephrosis, currently status post bilateral ureteral stents. 6. History of DVT to lower extremity, on Eliquis. 7. History of iliac artery bleed, status post treatment at [facility]. PAST SURGICAL HISTORY: 1. Colectomy with ostomy. 2. Ureteral stents. 3. IVC filter placement. 4. Hysterectomy. MEDICATIONS: Home medications: 1. Imodium 2 to 4 mg p.o. q.4 hours as needed. 2. Vitamin B12 1000 mcg p.o. daily. 3. Acetaminophen 650 mg p.o. q.6 hours as needed. 4. Zofran 4 mg p.o. daily p.r.n. 5. Zyvox 600 mg p.o. b.i.d. 6. Eliquis 2.5 mg p.o. b.i.d. 7. Alprazolam 0.5 mg p.o. q.8 hours as needed. 8. Oxycodone/acetaminophen 1 tab p.o. q.6 hours as needed for pain. 9. Oxycodone sustained release 10 mg p.o. b.i.d. 10. Citalopram 10 mg p.o. daily. ALLERGIES: CISPLATIN. FAMILY HISTORY: Father with a history of an ME, father with a history of diabetes, sister with cervical cancer, and father with prostate cancer. SOCIAL HISTORY: She denies any tobacco, alcohol, or illicit drug use. She is . She lives with her . Surrogate decision maker in the event she is unable to make her own decision is her . She is a full code. REVIEW OF SYSTEMS: She denies any fever, chills, or unintended weight loss. Denies any chest pain, edema, cough, hemoptysis, or shortness of breath. She does report nausea and vomiting. She denies any diarrhea. She does report left flank pain and reports hematuria. Denies any dysuria. Denies any burning , frequency, or urgency with urination. Denies any focal weakness or sensory loss, visual complaints, dysphagia, arthralgias, myalgias, rashes, lesions, open sores, psychosis, or anxiety. PHYSICAL EXAM: General: At this time, Ms. Leonardo is alert and oriented, sitting on the stretcher in the emergency room. Her color is pale. HEENT: Head is atraumatic, normocephalic. Eyes: EOMs are intact. Sclerae anicteric and not pale. Oral mucosa appeared to be moist. Neck is supple. Lungs are clear to auscultation bilaterally. No wheezes, rales, or rhonchi. Cardiac: S1, S2. Regular rate and rhythm. No murmurs, rubs, or gallops. Abdomen is soft and nontender. Bowel sounds are present x4. The patient with positive CVA tenderness to the left flank, negative on the right. Musculoskeletal: There is no clubbing or cyanosis. She is able to move all 4 extremities with 5/5 strength. Skin is intact. Neurologic: She is awake, alert, and oriented x3. Speech is clear. Thought process is intact. There is no gross focal deficits. Vital Signs: Temperature was 98.8, blood pressure 171/91, heart rate is 91, respirations are 18, and O2 saturation is 96%. DIAGNOSTIC STUDIES/LAB DATA: WBC is 5.5, RBC is 2.82, hemoglobin 7.4, hematocrit 73, platelet count is 134. Sodium 140, potassium 3.4, chloride 104, carbon dioxide was 27, anion gap was 9, BUN was 16, creatinine 1.14, glucose was 117, calcium 9.2, albumin 3.7. Urine is red, cloudy; pH was 7. Specific gravity 1.005. Urine protein was 2+. Urine ketones were negative. Blood was 3 +. Urine nitrites, bilirubin, and urobilinogen were all negative. Leukocyte esterase was 1+, wbc's were 3+, rbc's 3+, bacteria was absent, and glucose was negative. Renal ultrasound, radiologist impression: Recurrent right greater than left hydronephrosis. ASSESSMENT AND PLAN: Ms. Leonardo is a 58-year-old female with past medical history of cervical and colon adenocarcinoma, status post colon resection, who presented to the emergency room with recurrent bilateral flank pain left worse than right with a history of bilateral hydronephrosis with ureteral stent placement, last approximately 3 weeks ago. Due to her continued bilateral hydronephrosis, we were asked to see and evaluate her in consultation. Our recommendations are as follows: 1. Bilateral hydronephrosis. I did speak to Dr. Painter from Hematology and Dr. Ortiz from Urology, who have worked closely with this patient, who both have recommended that the patient be transferred for emergent bilateral nephrostomy tubes due to recurrent collapse of ureteral stents. I have discussed this with the patient's and the patient, who both have agreed for transfer for bilateral nephrostomy tube placement. I have discussed this with Dayo from the emergency room. She will work on transferring the patient to another facility for a possible emergent bilateral nephrostomy tube placement. 2. Hypokalemia. I would recommend potassium replacement. 3. DVT prophylaxis: The patient is currently on Eliquis. 4. Code status: The patient is a full code. TIME SPENT: Time spent on this consultation was approximately 60 minutes, greater than half that time was spent in consultation at the bedside reviewing the events leading thus far to her hospitalization, performing my physical exam , discussing with speciality from Urology and Oncology, and reviewing my recommendations with the patient, her , and the emergency room provider. At this time, I recommend that the patient be transferred for possible emergent nephrostomy tubes as recommended by Urology and Oncology at this time. I have discussed this with XIAO Patterson in the emergency room. She has verbalized she will work on transfer of the patient. I have discussed this with my attending Dr. Cornel Danielle who is in agreement with my plan. JO ANN PIMENTEL, LEXI [id number]/CPS #: [id number] MTDD
== END 2018-12-07 16:43 | disposition short-term general hospital (02) ==
LOC: ED 06:25
DX: N13.30 Unspecified hydronephrosis (principal); R52 Pain, unspecified; K21.9 Gastro-esophageal reflux disease without esophagitis; K44.9 Diaphragmatic hernia without obstruction or gangrene; Z85.41 Personal history of malignant neoplasm of cervix uteri; Z85.038 Personal history of other malignant neoplasm of large intestine; Z93.2 Ileostomy status; Z96.0 Presence of urogenital implants; Z87.442 Personal history of urinary calculi; Z95.828 Presence of other vascular implants and grafts; Z88.8 Allergy status to other drugs, medicaments and biological substances; Z79.01 Long term (current) use of anticoagulants; Z86.718 Personal history of other venous thrombosis and embolism
CPT/HCPCS: 36415; 76775; 80053; 81003; 81015; 85025; 86140; 87040; 87086; 96361; 96374; 96375; 96376; 99283; A9270-GY; J0780; J1170; J2405

== ENCOUNTER → 2019-03-18 05:47 | Day surgery (SDC) | payer BC ==
--- NOTE | 2019-03-17 15:10 | HP ---
CC: Dr. Painter; Dr. Jj * HISTORY AND PHYSICAL: DATE OF PLANNED ADMISSION AND SURGERY: 03/18/19 HISTORY OF PRESENT ILLNESS: Ms. Leonardo is a 58-year-old white female with a history of metastatic adenocarcinoma of the cervix, bilateral ureteral obstruction, status post placement of bilateral ureteral stents, who is admitted for cystoscopy and bilateral ureteral stents exchange. Ms. Leonardo was diagnosed about 9 years ago with cervical adenocarcinoma and underwent a radical hysterectomy followed by chemotherapy. She had recurrent disease and received radiation therapy. She seemed to have done well; however, she developed bowel obstruction and ended up having a colectomy and permanent colostomy. Her last chemotherapy was in April 2018. The patient was then noted to have developed bilateral ureteral obstruction and had initial bilateral ureteral stents placement in July 2018. The stents were last replaced in [place] about 3 months ago. 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 She has done well without recurrence of the aneurysm. The patient was recently noted to have increasing right back pain, located over the flank area. She had a CT of the chest, abdomen, and pelvis. The study showed recurrence of the bilateral hydronephrosis more so on the right side with the stents still in good position. The CT also showed small fluid collection anterior to the left common iliac femoral artery consistent with a seroma. The right iliopsoas hematoma has remained unchanged. MEDICATIONS: 1. Eliquis twice a day because of history of DVT. 2. She is on OxyContin ER twice a day for chronic pain. 3. She is also on Percocet and Xanax for her pain and anxiety. 4. She takes Zofran and Tylenol as needed. 5. She is on citalopram. ALLERGIES: She reports being allergic to CISPLATIN. PHYSICAL EXAMINATION GENERAL: She is a pleasant but rather pale-looking white female, who is in no acute pain. VITAL SIGNS: Blood pressure 110/70, pulse of 80. LUNGS: Clear. HEART: Regular and rhythmic. No murmurs. ABDOMEN: Soft. No masses. No tenderness. There is a colostomy. EXTREMITIES: Negative. IMPRESSION: 1. Bilateral ureteral obstruction secondary to a history of metastatic uterine carcinoma, status post placement of bilateral ureteral stents. 2. Recurrence of the hydronephrosis with the ureteral stents in place. 3. Gross hematuria due to the stents irritation and anticoagulation effect. PLAN: Plan is for cystoscopy and bilateral ureteral stent exchange. I discussed the above plan with the patient and her and all their questions were answered. [id number]/CPS #: [id number] MTDAlis
[~2019-03-18 05:47] MED LIST changes: +Buffered Lidocaine 1% SYRIN* 1 ML/SYRINGE INTRADERM ONE; +Dexamethasone IV* 4 MG/ML 1 ML (4 MG) ONE; +Iohexol 180 (CONTRAST) 10 ML SDV IV ONE; +Lactated Ringers 1000 ML Bag* 1,000 ML IV SCH; +Lidocaine 2% PF * 5 ML VIAL ONE; -Magnesium Sulfate 3 GM IV IVPB ONE; +Midazolam* 1 MG/ML 2 ML VIAL (2 MG) ONE; +Naloxone* 0.4 MG/ML 1 ML VIAL IV PRN; +Ondansetron INJ* 2 MG/ML VIAL ONE; +Propofol* 10 MG/ML 20 ML BTL ONE; +cefTRIAXone(*) 2 GM ADDV.VIAL IVPB ONE; +fentaNYL* 50 MCG/ML 2 ML VIAL (100 MCG VIAL) ONE
[2019-03-18 09:05] VITALS: BP 135/82
--- NOTE | 2019-03-18 10:13 | OP ---
CC: Dr. Painter.* DATE OF OPERATION: 03/18/19 - [facility] DATE OF : 58 SURGEON: Dre Turner MD ANESTHESIOLOGIST: Dr. Springer. ANESTHESIA: General. PRE-OP DIAGNOSES: 1. History of metastatic uterine carcinoma. 2. Bilateral ureteral obstruction due to above. 3. Status post placement, bilateral ureteral stents. 4. Recurrent Bilateral hydronephrosis. POST-OP DIAGNOSES: 1. History of metastatic uterine carcinoma. 2. Bilateral ureteral obstruction due to above. 3. Status post placement bilateral ureteral stents. OPERATIVE PROCEDURE: 1. Cystoscopy. 2. Bilateral retrograde pyelographies. 3. Bilateral ureteral stent exchange (black silicon, 8.5 Bermudian, 24 cm). INDICATIONS FOR PROCEDURE: Mrs. Leonardo is a 58-year-old white female with history of metastatic endocervical carcinoma of the uterus. She was treated with surgery, chemo, and radiation therapies. She developed bilateral ureteral obstruction and has been managed with chronic bilateral ureteral stents drainage. The stents were last replaced about 3 months ago. She recently started having recurrent episodes of right flank pain associated with gross hematuria. The patient is on anticoagulation. CT with IV contrast of the abdomen and pelvis showed bilateral hydronephrosis more pronounced on the right side with both stents still in good position. Because of the above history, the pain, and the recurrent hydronephrosis, the patient was brought in for bilateral ureteral stents exchange. PATHOLOGY AT CYSTOSCOPY: There was bloody urine in the bladder. The blood was seen coming from both ureteral orifices around the stents. The bladder mucosa looked normal and there were no suspicious bladder lesions seen. The distal limbs of the stents were seen coming from the right and the left ureteral orifices. Upon retrograde pyelographies, there was moderate hydronephrosis bilaterally. The degree of hydronephrosis on the retrogrades was less than was noted on the CT scan. The urine from each kidney was pinkish in color. There was no sign of gross infection. DESCRIPTION OF PROCEDURE: After successful general anesthesia, the patient was placed in the lithotomy position and was prepped and draped for a cystoscopy. Cystoscopy was performed. The bladder was inspected and the above findings were noted. The distal limb of the right ureteral stent was pulled out to the level of the urethral meatus. A flexible tip guidewire was then introduced into the lumen of the stent and positioned in the area of the renal pelvis. Retrograde pyelography was performed. A black silicon stent, 8-Bermudian, 24 cm was then placed with the proximal end coiling in the renal pelvis and the distal end coiling inside the bladder. Exactly the same procedure was performed on the left side. At the end of the procedures, final fluoroscopy showed the stents in good position with good drainage of contrast from both kidneys. The patient tolerated the procedure well and left the operating room in good condition. [id number]/[facility] #: [id number] ELIDA
== END | disposition home or self-care (01) ==
LOC: OR 05:47
PROVIDERS: ATTEND Urology
DX: N13.1 Hydronephrosis with ureteral stricture, not elsewhere classified (principal); C55 Malignant neoplasm of uterus, part unspecified; R31.0 Gross hematuria; Z79.01 Long term (current) use of anticoagulants; Z86.718 Personal history of other venous thrombosis and embolism; Z93.3 Colostomy status; G89.29 Other chronic pain; Z79.891 Long term (current) use of opiate analgesic; F41.8 Other specified anxiety disorders; Z85.038 Personal history of other malignant neoplasm of large intestine
CPT/HCPCS: 74420; C1876; J0696; J1100; J2250; J2405; J2704; J3010

== ENCOUNTER 2019-05-04 11:58 | Day surgery (SDC) | payer BC ==
--- NOTE | 2019-04-29 18:13 | HP ---
CC: Dr. Zeinab Jj; Dr. Darshan Painter * ADMITTING HISTORY AND PHYSICAL: DATE OF ADMISSION: 05/04/19 ADMITTING DIAGNOSIS: Bilateral hydronephrosis. PLANNED PROCEDURE: 1. Bilateral retrograde. 2. Bilateral ureteral balloon dilatation. 3. Bilateral ureteral stent change. SURGEON: Dr. Ortiz. HISTORY OF PRESENT ILLNESS: Trini Leonardo is a 58-year-old lady with a history of cervical cancer and multiple complications as a result of the treatment resulting in bilateral hydronephrosis. She has been managed with indwelling bilateral stents, which were last changed on 03/18/19. She has 8.5-Djiboutian 24- cm silicone stents bilaterally. She was recently seen on an urgent basis because of severe left flank pain and was noted to have moderate left hydronephrosis. She is now being brought in for an attempt at balloon dilatation and stent change to see if this can provide a more durable response to her hydronephrosis and her pain. PAST MEDICAL HISTORY: Significant for cervical cancer diagnosed initially about 9 to 10 years ago and treated with surgery and chemotherapy. 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 She has not required any chemotherapy in almost 1 year. As mentioned above, she has been managed with bilateral ureteral stents, which were last changed on 03/18/19. MEDICATIONS ON ADMISSION: 1. Eliquis 1 tablet twice a day (because of history of deep venous thrombosis) , although she also has a vena caval filter. 2. OxyContin p.r.n. 3. Citalopram 1 tablet daily. 4. Zofran. 5. Tylenol p.r.n. ALLERGIES AND INTOLERANCES: CISPLATIN. FAMILY HISTORY: His sister also had a history of cervical adenocarcinoma. SOCIAL HISTORY: She is a nonsmoker. REVIEW OF SYSTEMS: She denies any chest pain or shortness of breath. PHYSICAL EXAMINATION GENERAL: Reveals a pleasant, frail appearing, middle-aged lady. VITAL SIGNS: Blood pressure is 126/78, pulse 87 per minute and regular, temperature 97, oxygen saturation 99% on room air. LUNGS: Clear bilaterally. CARDIOVASCULAR: Regular rate and rhythm. S1, S2. ABDOMEN: Soft with bilateral flank tenderness, greater on the left side. She has a colostomy in place. IMPRESSION: A 58-year-old lady with bilateral indwelling stents with increasing left flank pain and increasing left hydronephrosis. PLAN: Planned procedure is bilateral retrograde, bilateral ureteral balloon dilatation, and stent change. [id number]/[facility] #: [id number] [facility]
[~2019-05-04 11:58] MED LIST changes: -Dexamethasone IV* 4 MG/ML 1 ML (4 MG) ONE; +Famotidine IV* 10 MG/ML 2 ML (20 mg) IV ONE; -Iohexol 180 (CONTRAST) 10 ML SDV IV ONE; -Lidocaine 2% PF * 5 ML VIAL ONE; -Midazolam* 1 MG/ML 2 ML VIAL (2 MG) ONE; -Naloxone* 0.4 MG/ML 1 ML VIAL IV PRN; -Ondansetron INJ* 2 MG/ML VIAL ONE; -Propofol* 10 MG/ML 20 ML BTL ONE; -cefTRIAXone(*) 2 GM ADDV.VIAL IVPB ONE; -fentaNYL* 50 MCG/ML 2 ML VIAL (100 MCG VIAL) ONE
[2019-05-04] MEDS ORDERED: cefTRIAXone(*) 2 GM ADDV.VIAL IVPB ONE ×2 (12:27→12:37)
[2019-05-04] MEDS ORDERED: Buffered Lidocaine 1% SYRIN* 1 ML/SYRINGE INTRADERM ONE ×2 (12:27→12:37)
[2019-05-04] MEDS ORDERED: Famotidine IV* 10 MG/ML 2 ML (20 mg) ONE ×2 (12:27→12:37)
[2019-05-04] MEDS ORDERED: Ondansetron INJ* 2 MG/ML VIAL ONE (13:04)
[2019-05-04] MEDS ORDERED: Propofol* 10 MG/ML 20 ML BTL ONE (13:04)
[2019-05-04] MEDS ORDERED: Midazolam* 1 MG/ML 5 ML VIAL (5 MG) ONE (13:04)
[2019-05-04] MEDS ORDERED: fentaNYL* 50 MCG/ML 2 ML VIAL (100 MCG VIAL) ONE ×3 (13:04→15:13)
[2019-05-04] MEDS ORDERED: Lidocaine 2% PF * 5 ML VIAL ONE (13:04)
[2019-05-04] MEDS ORDERED: Dexamethasone IV* 4 MG/ML 1 ML (4 MG) ONE (13:04)
[2019-05-04] MEDS ORDERED: Iohexol 180 (CONTRAST) 10 ML SDV IV ONE ×3 (13:38→14:20)
[2019-05-04] MEDS ORDERED: EPHEDrine (Pressors)* 50 MG/ML VIAL ONE (14:17)
[2019-05-04] MEDS ORDERED: Gentamicin ADULT (*) 40 MG/ML VIAL (2 ML VIAL = 80 MG) ONE (14:36)
[2019-05-04] MEDS ORDERED: fentaNYL* 50 MCG/ML 2 ML VIAL (100 MCG VIAL) IV PRN (14:40)
[2019-05-04] MEDS ORDERED: Ondansetron INJ* 2 MG/ML VIAL IV PRN (14:40)
[2019-05-04] MEDS ORDERED: Naloxone* 0.4 MG/ML 1 ML VIAL IV PRN (14:40)
[2019-05-04] MEDS ORDERED: Gentamicin ADULT (*) 160 MG in NS 0.9% 100 ML* 100 ML IVPB ONE (15:00)
[2019-05-04] MEDS ORDERED: HYDROmorphone INJ1* 1 MG/ML SYRINGE ONE (15:38)
[2019-05-04 16:34] VITALS: BP 153/86
--- NOTE | 2019-05-04 18:18 | OP ---
CC: Dr. Zeinab Jj; Dr. Darshan Painter; Dr. Scotty Ortiz * DATE OF OPERATION: 05/04/19 - [facility] DATE OF : 58 SURGEON: Dr. Scotty Ortiz. ANESTHESIOLOGIST: Dr. Flores. ANESTHESIA: General. PRE-OP DIAGNOSIS: Bilateral hydronephrosis. POST-OP DIAGNOSIS: Bilateral hydronephrosis. OPERATIVE PROCEDURE: Cystoscopy, bilateral retrograde pyelogram, bilateral ureteral balloon dilatation, and bilateral ureteral stent change. COMPLICATIONS: None. POSTOPERATIVE CONDITION: Stable. STENT USED: An 8.5-Cuban stent 22 cm silicone stent, right and left ureter. 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 She has been managed with indwelling stents. DESCRIPTION OF PROCEDURE: After induction of general anesthesia, the patient was placed in dorsal lithotomy position. Sequential compression devices were in place and functioning. Initial cystoscopy revealed normal-appearing bladder with mild chronic inflammatory changes. Both of the previously placed stents were removed. Attention was directed to the left side. Retrograde pyelogram revealed left hydronephrosis with proximal hydroureter with tapering at the level of the mid- to- distal left ureter. Balloon dilatation of the entire left ureter was carried out under fluoroscopic monitoring, following which a new 8.5-Cuban 22 cm black silicone stent was placed with good proximal and distal positioning obtained. An identical procedure was carried out on the right side. Once again, after the initial retrograde pyelogram, successful balloon dilatation was carried out , followed by placement of an 8.5 Cuban 22 cm black silicone stent. A Newby catheter was placed for temporary bladder drainage. The patient tolerated the procedure satisfactorily and was transferred back to the recovery area in stable condition. [id number]/[facility] #: [id number] MTDD
== END 2019-05-04 16:46 | disposition home or self-care (01) ==
LOC: OR 11:58
PROVIDERS: ATTEND Urology
DX: N13.5 Crossing vessel and stricture of ureter without hydronephrosis (principal); Z85.41 Personal history of malignant neoplasm of cervix uteri; Z79.01 Long term (current) use of anticoagulants; Z86.718 Personal history of other venous thrombosis and embolism; F41.8 Other specified anxiety disorders; Z85.038 Personal history of other malignant neoplasm of large intestine; D64.9 Anemia, unspecified
CPT/HCPCS: 74420; C2617; J0696; J1100; J1170; J1580; J2250; J2405; J2704; J3010

== ENCOUNTER 2019-07-18 15:47 | Observation (INO) | payer BC ==
--- OUTSIDE RECORDS SUMMARY | 2019-07-18 16:00 | XMS REPORT | Summary of Care ---
:1960 Author Organization [facility] Address [address] [place] [address] Care Team Providers Name Role Phone Zeinab Jj MD Primary Care Provider Reason for Visit Reason Comments Other pt. here to discuss poss. IVC filter retieval. Encounter Details Date Type Department Care Team Description 07/06/2019 Office Visit [facility] Darian Sorto Presence of IVC Surgery MD Ling filter (Primary Dx) [address] [place] [id number] [place] [address] Allergies Active Allergy Reactions Severity Noted Date Comments Cisplatin Dermatologic Reaction 08/08/2018 documented as of this encounter (statuses as of 07/06/2019) Medications Medication Sig Dispensed Refills Start Date End Date Status OXYcodone Take 10 mg by 0 Active (OXYCONTIN) 10 MG mouth TWICE Oral Tablet Extended DAILY. Release 12 hour Abuse-Deterrent OXYcodone-acetaminop Take 1 Tab by 0 Active hen (PERCOCET) 5-325 mouth EVERY MG Oral Tab SIX HOURS NEEDED. apixaban (ELIQUIS) 5 Take 1 Tab by 20 Tab 0 08/13/2018 Active MG Oral mouth TWICE TabIndications: Deep DAILY. HOLD Vein Thrombosis ELIQUIS FOR 1 WEEK UNTIL SEEN BY VASCULAR SURGERY TILL 08/20/18 Citalopram Take by mouth 0 Active Hydrobromide (CELEXA DAILY. PO) Cyanocobalamin Take 5,000 mcg 0 Active (VITAMIN B 12 PO) by mouth DAILY. calcium carbonate Take 1 Tab by 90 Tab 0 08/13/2018 Discontinued (TUMS) 500 MG Oral mouth THREE 9 Chew Tab TIMES DAILY. magnesium oxide 250 Take 2 Tabs by 30 Tab 0 08/14/2018 Discontinued MG Oral Tab mouth DAILY. 9 documented as of this encounter (statuses as of 07/06/2019) Active Problems Problem Noted Date Presence of IVC filter 07/06/2019 Overview: Added automatically from request for surgery [id number] Anemia 08/08/2018 Psoas hematoma, right, secondary to anticoagulant therapy 08/08/2018 History of cervical cancer 08/08/2018 Colostomy present 08/08/2018 Deep vein thrombosis (DVT) of proximal vein of left lower extremity 08/08/2018 Hypokalemia 08/08/2018 Hypomagnesemia 08/08/2018 Chronic diarrhea 08/08/2018 documented as of this encounter (statuses as of 07/06/2019) Social History Tobacco Use Types Packs/Day Years Used Date Never Smoker Smokeless Tobacco: Never Used Comments: smokes Alcohol Use Drinks/Week oz/Week Comments No Rarely Sex Assigned at Date Recorded Not on file Job Start Date Occupation Industry Not on file Not on file Not on file Travel History Travel Start Travel End No recent travel history available. documented as of this encounter Last Filed Vital Signs Vital Sign Reading Time Taken Comments Blood Pressure 146/80 07/06/2019 2:15 PM EDT Pulse 60 07/06/2019 2:15 PM EDT Temperature - - Respiratory Rate - - Oxygen Saturation - - Inhaled Oxygen Concentration - - Weight 68 kg (150 lb) 07/06/2019 2:15 PM EDT Height 166.4 cm (5' 5.5") 07/06/2019 2:15 PM EDT Body Mass Index 24.58 07/06/2019 2:15 PM EDT documented in this encounter Patient Instructions Patient InstructionsRyan Chaudhary NP - 07/06/2019 2:20 PM EDT1 Date of Surgery: 07/16/2019 Procedure: Retrieval of IVC filter Your Surgeon: Dr. Sorto One day before surgery: 07/15/2019 Nothing to eat or drink after midnight Continue taking all medications by mouth except: Eliquis Shower with Endur soap in the evening Day of surgery: 07/16/2019 Nothing to eat or drink Shower with Endur soap this morning Take all of your blood pressure and cardiac medications you normally take in the morning with a sip of water Come to Ambulatory Surgery Waiting Area on the 4th floor of the [facility] at the indicated time: 07:30 am Anticoagulation: If taking: Eliquis: Stop 4 days prior to procedure. Take last dose evening of 07/11/2019 YOU MUST HAVE A RECOIL SPRING WINDER TO DRIVE YOU HOME AFTER THE PROCEDURE Preadmission services will call you to review insurance and nursing history. If you are not contacted by the day prior to your surgery, please contact them at [phone]. Please expect a 1-2 hour wait in prep and recovery prior to your surgery or procedure. The doctor will see your family after the procedure. If any questions call our office at [phone] or [phone] documented in this encounter Progress Notes Ryan Chaudhary NP - 07/06/2019 2:20 PM EDT PATIENT: Trini Leonardo : 1960 DATE OF SERVICE: 07/06/2019 REFERRING PRACTITIONER: Marshall PRIMARY CARE PROVIDER: Zeinab Jj Subjective CHIEF COMPLAINT: Chief Complaint Patient presents with Other pt. here to discuss poss. IVC filter retieval. Subjective HISTORY OF PRESENT ILLNESS: Trini Leonardo is a 58-y.o. female who is seen to discuss removal of IVC filter. She is status post Procedure and materials: 1. Ultrasound-guided right femoral venous access placement of catheter in the vena cava and venacavogram. Placement of Cook CELECT retrievable inferior vena cava filter 2. Percutaneous Ultrasound-guided thrombin injection of arterial pseudoaneurysm right iliac fossa Reports IVC filter placed due to DVT prior to needing surgery. Patient has been on Eliquis and tolerating well. She denies any further blood clots. She denies any unilateral monocular blindness, unilateral motor or sensory deficits, aphasia, or dysarthria. She denies any chest pain, or shortness of breath. PREVIOUS DIAGNOSTIC TESTS: 08/18/2018 IMPRESSIONS: Patient is pot-op right groin pseudoaneurysm repair. Duplex imaging of the right groin and femoral vessels was performed. There was evidence of organizedhematoma measuring 5.81cm AP x 6.87cm LAT x 9.57cm SAG without evidence of active flow within. The right iliac artery, iliac artery stent, common femoral artery, and proximal femoral artery were visualized and were patent with triphasic flow. The right iliac vein, common femoral vein, SFJ , and proximal femoral vein were patent with phasic flow. This appears to be essentially unchanged from the previous exam of 08/12/2018. Current Outpatient Medications Medication Sig apixaban (ELIQUIS) 5 MG Oral Tab Take 1 Tab by mouth TWICE DAILY. HOLD ELIQUIS FOR 1 WEEK UNTIL SEEN BY VASCULAR SURGERY TILL 08/20/18 Citalopram Hydrobromide (CELEXA PO) Take by mouth DAILY. Cyanocobalamin (VITAMIN B 12 PO) Take 5,000 mcg by mouth DAILY. OXYcodone (OXYCONTIN) 10 MG Oral Tablet Extended Release 12 hour Abuse- Deterrent Take 10 mg by mouth TWICE DAILY. OXYcodone-acetaminophen (PERCOCET) 5-325 MG Oral Tab Take 1 Tab by mouth EVERY SIX HOURS NEEDED. No current facility-administered medications for this visit. Allergies Allergen Reactions Cisplatin Dermatologic Reaction Objective PHYSICAL EXAMINATION: VITALS: BP 146/80 (BP Location: Left arm, Patient Position: Sitting) | Pulse 60 | Ht 5' 5.5" (1.664 m) | Wt 150 lb (68 kg) | BMI 24.58 kg/m GENERAL: awake, alert, oriented. CARDIAC: Regular rate and rhythm RESPIRATORY: Clear bilaterally to auscultation NECK: no mass, no adenopathy, no thyromegaly. EXTREMITIES: no clubbing, cyanosis, or edema. NEUROLOGICAL: Oriented X 3, no focal deficits noted FACIAL DROOP: None noted. PULSES: left radial +2 normal and right radial +2 normal. Plan IMPRESSION AND PLAN: Trini Leonardo is a candidate for IVC filter retrieval. ICD-9-CM ICD-10-CM 1. Presence of IVC filter V45.89 Z95.828 CASE REQUEST OPERATING ROOM XR CHEST 2 VIEW PA AND LATERAL (STANDARD) BASIC METABOLIC PANEL CBC WITH DIFFERENTIAL PROTHROMBIN TIME PARTIAL THROMBOPLASTIN TIME Patient seen with Dr. Sorto. Please see his note for further details. Procedure, benefits, and risks reviewed including but not limited to bleeding, infection, inability to remove filter, and risks of anesthesia. Patient's questions answered. Patient would like to proceed with surgery. Patient givena bottle of Endur soap. Patient will have blood work and chest X-ray completed before leaving today.Instructions reviewed with patient. Patient Instructions 07/06/2019 Date of Surgery: 07/16/2019 Procedure: Retrieval of IVC filter Your Surgeon: Dr. Sorto One day before surgery: 07/15/2019 Nothing to eat or drink after midnight Continue taking all medications by mouth except: Eliquis Shower with Endur soap in the evening Day of surgery: 07/16/2019 Nothing to eat or drink Shower with Endur soap this morning Take all of your blood pressure and cardiac medications you normally take in the morning with a sip of water Come to Ambulatory Surgery Waiting Area on the 4th floor of the [facility] at the indicated time: 07:30 am Anticoagulation: If taking: Eliquis: Stop 4 days prior to procedure. Take last dose evening of 07/11/2019 YOU MUST HAVE A RECOIL SPRING WINDER TO DRIVE YOU HOME AFTER THE PROCEDURE Preadmission services will call you to review insurance and nursing history. If you are not contacted by the day prior to your surgery, please contact them at [phone]. Please expect a 1-2 hour wait in prep and recovery prior to your surgery or procedure. The doctor will see your family after the procedure. If any questions call our office at [phone] or [phone] Author: Ryan Chaudhary NP 07/06/2019 14:49 Darian Sosa MD - 07/06/2019 2:20 PM EDTPATIENT: Trini Leonardo : 1960 DATE OF SERVICE: 07/06/2019 S/p IVC filter placement 08/10/18. Patient wants it removed. I reviewed the options benefits and risks including bleeding, inability to remove, injury to blood vessel, damage to IVC, need for femoral approach, etc. I answered all her questions. Patient understands and wishes to proceed. Seen and examined with vascular DOCUMENTATION MANAGER, I agree with assessment and plan-- please see her note for additional comments. Will stop Eliquis 4 days prior. Author: Darian Sorto MD, RVT, FACS Section of Vascular Surgery 07/06/2019 14:42 documented in this encounter Plan of Treatment Name Type Priority Associated Diagnoses Date/Time XR CHEST 2 VIEW PA AND Imaging Routine Presence of IVC filter 07/06/2019 3 :16 PM EDT LATERAL (STANDARD) Name Type Priority Associated Diagnoses Order Schedule CASE REQUEST OPERATING Procedures Routine Presence of IVC Ordered: 2018 ROOM filter XR CHEST 2 VIEW PA AND Imaging Routine Presence of IVC Expected: LATERAL (STANDARD) filter 07/06/2019, Expires: 07/05/2020 BASIC METABOLIC PANEL Lab STAT Presence of IVC Expected: filter 07/06/2019 (Approximate), Expires: 07/06/2020 CBC WITH DIFFERENTIAL Lab Routine Presence of IVC Expected: filter 07/06/2019 (Approximate), Expires: 07/06/2020 PROTHROMBIN TIME Lab Routine Presence of IVC Expected: filter 07/06/2019 (Approximate), Expires: 07/06/2020 PARTIAL THROMBOPLASTIN Lab Routine Presence of IVC Expected: TIME filter 07/06/2019 (Approximate), Expires: 07/06/2020 Health Maintenance Due Date Last Done Comments PAP SMEAR 1960 DEPRESSION SCREENING 1971 HIV SCREENING 1974 LIPID DISORDER SCREENING 1977 MAMMOGRAM (SCREENING) 1999 COLONOSCOPY SCREENING 2009 ZOSTER IMMUNIZATION SERIES (1 of 2009 2) INFLUENZA VACCINE (#1) 2019 HEPATITIS C SCREENING Completed 08/13/2018 HPV IMMUNIZATION SERIES Aged Out No longer eligible based on patient's age to complete this topic MENINGOCOCCAL VACCINE IMM Aged Out No longer eligible based on patient's age to complete this topic PNEUMOCOCCAL 0-64 YRS Aged Out No longer eligible based on patient's age to complete this topic documented as of this encounter Implants Implanted Type Area Advanced Practice Nurse Psychotherapist Device Shelf Model / Identifier Expiration Serial / Date Lot Vena Cava Celect Filter Retrievalable Fem - [id number] Right: COOK 2020 [id number] / Implanted: Qty: 1 on 08/10/2018 by Darian Sorto MD at [facility] [employer] / [id number] documented as of this encounter Results Not on filedocumented in this encounter Visit Diagnoses Diagnosis Presence of IVC filter - Primary Other postprocedural status documented in this encounter Insurance Payer Benefit Plan / Subscriber ID Effective Dates Phone Address Type Group SUSY RICE xxxxxxxxxxxx 2015-Present Susy BERNAL PPO documented as of this encounter
--- OUTSIDE RECORDS SUMMARY | 2019-07-18 16:00 | XMS REPORT | Summary of Care ---
:1960 Author Organization [facility] Address [address] [address] Care Team Providers Name Role Phone Zeinab Jj MD Primary Care Provider Reason for Visit Auth/Cert Status Reason Specialty Diagnoses / Procedures Referred By Contact Referred To Contact Diagnoses Acute embolism and thrombosis of unspecified deep veins of left proximal lower extremity Presence of other vascular implants and grafts Procedures VT INS INTRVAS VC FILTR W/WO VAS ACS VSL SELXN RS&I Encounter Details Date Type Department Care Team Description 07/16/2019 Hospital Encounter [facility] RECOVERY Darian Sorto Short Procedure [address] [place] [address] [address] [phone] [place] [place] [address] [phone] Allergies Active Allergy Reactions Severity Noted Date Comments Cisplatin Dermatologic Reaction 08/08/2018 documented as of this encounter (statuses as of 07/17/2019) Medications Medication Sig Dispensed Refills Start Date End Date Status OXYcodone (OXYCONTIN) Take 10 mg by 0 Active 10 MG Oral Tablet mouth TWICE Extended Release 12 DAILY. hour Abuse-Deterrent OXYcodone-acetaminophen Take 1 Tab by 0 Active (PERCOCET) 5-325 MG mouth EVERY SIX Oral Tab HOURS NEEDED. apixaban (ELIQUIS) 5 MG Take 1 Tab by 20 Tab 0 08/13/2018 Active Oral TabIndications: mouth TWICE Deep Vein Thrombosis DAILY. HOLD ELIQUIS FOR 1 WEEK UNTIL SEEN BY VASCULAR SURGERY TILL 08/20/18 Citalopram Hydrobromide Take by mouth 0 Active (CELEXA PO) DAILY. Cyanocobalamin (VITAMIN Take 5,000 mcg by 0 Active B 12 PO) mouth DAILY. documented as of this encounter (statuses as of 07/17/2019) Active Problems Problem Noted Date Presence of IVC filter 07/06/2019 Overview: Added automatically from request for surgery [id number] Anemia 08/08/2018 Psoas hematoma, right, secondary to anticoagulant therapy 08/08/2018 History of cervical cancer 08/08/2018 Colostomy present 08/08/2018 Deep vein thrombosis (DVT) of proximal vein of left lower extremity 08/08/2018 Hypokalemia 08/08/2018 Hypomagnesemia 08/08/2018 Chronic diarrhea 08/08/2018 documented as of this encounter (statuses as of 07/17/2019) Social History Tobacco Use Types Packs/Day Years [...] Sign Reading Time Taken Comments Blood Pressure 121/64 07/16/2019 11:45 AM EST Pulse 81 07/16/2019 11:45 AM EST Temperature 36.6 07/16/2019 11:45 AM EST C (97.8 F) Respiratory Rate 17 07/16/2019 11:45 AM EST Oxygen Saturation 98% 07/16/2019 11:45 AM EST Inhaled Oxygen Concentration - - Weight 68.6 kg (151 lb 4.8 oz) 07/16/2019 8:04 AM EST Height 166.4 cm (5' 5.5") 07/16/2019 8:04 AM EST Body Mass Index 24.79 07/16/2019 8:04 AM EST documented in this encounter Discharge Summaries Teresa Weathers MD - 07/16/2019 10:56 AM ESTGUTHRIE SP/OP DISCHARGE NOTE [address] [address] PATIENT: Trini Leonardo SURGEON: Primary: Darian Sorto MD ASSISTING: Teresa Weathers MD : 1960 DATE OF SURGERY: 07/16/2019 Procedure:. Vena cavagram, retrieval infrarenal IVC filter via RIGHT IJ access. (N/A ) Principle Diagnosis: Presence of IVC filter Associated Condition(s): Same as pre-op, unless otherwise indicated Mental Status: Same as pre-op, unless otherwise indicated. Condition: Stable, unless otherwise indicated Disposition of Care: Discharge to home. Appointment with/ or Follow-up with Dr. Sorto in 3 weeks. No orders of the defined types were placed in this encounter. Other Comments:None Author: Teresa Weathers MD 07/16/2019 documented in this encounter Discharge Instructions Louise Zaldivar RN - 07/16/2019Provider's Instructions Reason for Admission or Diagnosis: Presence of IVC filter Activity/Restrictions: Activity as tolerated Please continue sitting upright throughout today Skin/Wound Care: Can shower after surgery. Keep dressing clean and dry There are Steristrips and band-aid over your incision The band-aid can come off in 48 hours The steristrips underneath can come off in 1-2 weeks Medications: You can resume your anticoagulation medication in 2 days Discharge Diet: ? Please resume your normal diet Follow up Instructions: Follow up with Dr. Sorto in [facility] in 3 weeks for postoperative visit. Discharge Provider: Teresa Weathers MD Attending: Darian Sorto MD Time: 07/16/2019 10:52 Patient Education Moderate Sedation in Adults Discharge Instructions About this topic Moderate sedation is also known as conscious sedation. It changes your state of being awake or consciousness. With this sedation, you may feel slight pain or pressure during a procedure. The drugs helpyou to relax and may even allow you to sleep. It will be easy to wake you and you may talk and answer questions while under sedation. Most likely, you will not remember what happens while under this sedation. What care is needed at home? Ask your doctor what you need to do when you go home. Make sure you understand everything the doctor says. This way you will know what you need to do. You will not be allowed to drive right away after the procedure. Ask a family member or a friend to drive you home. Do not operate heavy or dangerous machinery for at least 12 hours. Do not make major decisions or sign important papers for at least 12 hours. You may not be thinking clearly. Avoid beer, wine, or mixed drinks (alcohol) for at least 12 hours. What follow-up care is needed? Your doctor may ask you to make visits to the office to check on your progress. Be sure to keep these visits. Your doctor may also refer you to other doctors or tell you that you need more tests or care. What drugs may be needed? The doctor may order drugs to: Help with pain Treat an upset stomach or throwing up Will physical activity be limited? Rest for the day of the procedure. Avoid strenuous activities like heavy lifting and hard exercise. Talk to your doctor about whether you need to limit lifting or exercise after your procedure. What changes to diet are needed? Start with a light diet when you are fully awake. This includes things that are easy to swallow likesoups, pudding, jello, toast, and eggs. Slowly progress to your normal diet. What problems could happen? Low blood pressure Breathing problems Upset stomach or throwing up Dizziness When do I need to call the doctor? Feel dizzy, weak, or tired Faint Very bad headache Upset stomach or throwing up To follow up for more tests or care Teach Back: Helping You Understand The Teach Back Method helps you understand the information we are giving you. The idea is simple. After talking with the staff, tell them in your own words what you were just told. This helps to make sure the staff has covered each thing clearly. It also helps to explain things that may have been a bit confusing. Before going home, make sure you are able to do these: I can tell you about my procedure. I can tell you if I need more tests or care. I can tell you what is good for me to eat and drink the next day. I can tell you what I would do if I feel dizzy, weak, or tired. Last Reviewed Date 2018-04-30 Consumer Information Use and Disclaimer This information is not specific medical advice and does not replace information you receive from your health care provider. This is only a brief summary of general information. It does NOT include allinformation about conditions, illnesses, injuries, tests, procedures, treatments, therapies, discharge instructions or life-style choices that may apply to you. You must talk with your health care provider for complete information about your health and treatment options. This information should not beused to decide whether or not to accept your health care providers advice, instructions or recommendations. Only your health care provider has the knowledge and training to provide advice that isright for you. Copyright Copyright 2019 [employer] and its affiliates and/or licensors. All rights reserved. Nurse's Instructions Problems to report to your Physician: Excessive pain or discomfort Fever > 100.5 degrees Difficulty breathing Increase or smell in wound drainage *Please Return Patient Satisfaction Survey* documented in this encounter Plan of Treatment Date Type Specialty Care Team Description 08/03/2019 Office Visit Vascular Surgery Darian Sorto MD [address] [place] [address] [phone] Name Type Priority Associated Diagnoses Order Schedule GLUCOSE (POCT) Automated POCT Routine X1 for 1 Occurrences starting 07/16/2019 until 07/16/2019 Health Maintenance Due Date Last Done Comments [...] of this encounter Implants Implanted Type Area Pilot Boat Deckhand Device Shelf Model / Identifier Expiration Serial / Date Lot Vena Cava Celect Filter Retrievalable Fem - [id number] Right: COOK 2020 [id number] / Implanted: Qty: 1 on 08/10/2018 by Darian Sorto MD at [facility] [employer] / [id number] documented as of this encounter Procedures Procedure Name Priority Date/Time Associated Comments Diagnosis SP RETRIEVAL IVC Routine 07/16/2019 10:23 Results for this FILTER WITH AM EST procedure are in IMAGING the results section. SP SUPERIOR VENA Routine 07/16/2019 10:21 Results for this CAVAGRAM AM EST procedure are in the results section. REMOVAL IVC Planned Trip to 07/16/2019 8:35 Presence of IVC FILTER OR AM EST filter documented in this encounter Results SP RETRIEVAL IVC FILTER WITH IMAGING (07/16/2019 10:23 AM EST) Specimen Impressions Performed At Impression: Satisfactory venacavogram and retrievable of inferior vena cava filter. Signed by Darian Sorto MD on 07/16/2019 10:41 AM Narrative Performed At Procedure(s): SP RETRIEVAL IVC FILTER WITH IMAGING, SP SUPERIOR VENA CAVAGRAM Date of service: 07/16/2019 9:15 AM Provided clinical information: 58 years, Female, "presence of IVC filter"placed Aug 2018 Procedure and materials: 1. Ultrasound-guided right internal jugular vein venous access. 2. Placement of catheter in the inferior vena cava and venacavogram 3. Retrieval Cook Celect IVC filter using the [employer] retrieval system with the cloverleaf snare Surgeon Darian Sorto Caponizer Teresa Weathers Anesthesia: Local anesthesia with sedation FINDINGS: Inferior venacavogram demonstrated no clot within the filter. The filter was easily to snare. It was easy to sheath the filter but then it took some effort to get the feet to completely go within the sheath. 2 venacavogram's 5 minutes apart after the procedure demonstrated no extravasation and no significant intimal abnormality. The patient remained hemodynamically stable without any change throughout. Narrative: Adequate sedation. Standard sterile prep and drape right neck and right groin. With ultrasound guidance and micropuncture technique accessed the right internal jugular vein. Passed the micropuncture wire. It took 2 passes. Enlarged the cervical incision with 11 blade. Exchanged for the standard Magic torque wire. Placed a 7 [place] sheath. Ultimately used a Kumpe E catheter and an angled glide wire to go from the right atrium into the inferior vena cava. Placed a Kumpe catheter below the IVC filter and did a venacavogram demonstrating no clot within the filter. Passed a Magic torque wire down the left iliac. Removed the Kumpe catheter and the sheath and placed the retrieval catheter over the wire. Placed the tip of the sheath 1 to 2 cm above the inferior vena cava filter. Removed the wire and dilator and passed the snare through the sheath system. Open the snare and snared the hook and tightened the catheter and snare down around the hook. Advanced the sheath system to collapsed the filter. The filter collapsed easily but there was some difficulty getting the last feet into the sheath. With a little twisting and a little pulling were able to get the feet in. Removed the inner sheath with the filter and snare. Did a vena cava run demonstrating no extravasation and no intimal abnormality. Hemodynamics remained unchanged and stable. 5 minutes later did another run again demonstrating no extravasation and no significant intimal abnormality. Removed everything and held pressure in the neck. Placed a 4-0 Biosyn subcuticular Mastisol Steri-Strips and sterile dressing. Patient tolerated procedure well. Comparison studies: None. Observations: See findings above Procedure Note Interface, Rad Results - 07/16/2019 10:43 AM EST Procedure(s): SP RETRIEVAL IVC FILTER WITH IMAGING, SP SUPERIOR VENA CAVAGRAM Date of service: 07/16/2019 9:15 AM Provided clinical information: 58 years, Female, "presence of IVC filter"placed Aug 2018 Procedure and materials: 1. Ultrasound-guided right internal jugular vein venous access. 2. Placement of catheter in the inferior vena cava and venacavogram 3. Retrieval Cook Celect IVC filter using the [employer] retrieval system with the cloverleaf snare Surgeon Darian Sorto Caponizer Teresa Weathers Anesthesia: Local anesthesia with sedation FINDINGS: Inferior venacavogram demonstrated no clot within the filter. The filter was easily to snare. It was easy to sheath the filter but then it took some effort to get the feet to completely go within the sheath. 2 venacavogram's 5 minutes apart after the procedure demonstrated no extravasation and no significant intimal abnormality. The patient remained hemodynamically stable without any change throughout. Narrative: Adequate sedation. Standard sterile prep and drape right neck and right groin. With ultrasound guidance and micropuncture technique accessed the right internal jugular vein. Passed the micropuncture wire. It took 2 passes. Enlarged the cervical incision with 11 blade. Exchanged for the standard Magic torque wire. Placed a 7 [place] sheath. Ultimately used a Kumpe E catheter and an angled glide wire to go from the right atrium into the inferior vena cava. Placed a Kumpe catheter below the IVC filter and did a venacavogram demonstrating no clot within the filter. Passed a Magic torque wire down the left iliac. Removed the Kumpe catheter and the sheath and placed the retrieval catheter over the wire. Placed the tip of the sheath 1 to 2 cm above the inferior vena cava filter. Removed the wire and dilator and passed the snare through the sheath system. Open the snare and snared the hook and tightened the catheter and snare down around the hook. Advanced the sheath system to collapsed the filter. The filter collapsed easily but there was some difficulty getting the last feet into the sheath. With a little twisting and a little pulling were able to get the feet in. Removed the inner sheath with the filter and snare. Did a vena cava run demonstrating no extravasation and no intimal abnormality. Hemodynamics remained unchanged and stable. 5 minutes later did another run again demonstrating no extravasation and no significant intimal abnormality. Removed everything and held pressure in the neck. Placed a 4-0 Biosyn subcuticular Mastisol Steri-Strips and sterile dressing. Patient tolerated procedure well. Comparison studies: None. Observations: See findings above IMPRESSION Impression: Satisfactory venacavogram and retrievable of inferior vena cava filter. Signed by Darian Sorto MD on 07/16/2019 10:41 AM SP SUPERIOR VENA CAVAGRAM (07/16/2019 10:21 AM EST) Specimen Impressions Performed At Impression: Satisfactory venacavogram and retrievable of inferior vena cava filter. Signed by Darian Sorto MD on 07/16/2019 10:41 AM Narrative Performed At Procedure(s): SP RETRIEVAL IVC FILTER WITH IMAGING, SP SUPERIOR VENA CAVAGRAM Date of service: 07/16/2019 9:15 AM Provided clinical information: 58 years, Female, "presence of IVC filter"placed Aug 2018 Procedure and materials: 1. Ultrasound-guided right internal jugular vein venous access. 2. Placement of catheter in the inferior vena cava and venacavogram 3. Retrieval Cook Celect IVC filter using the [employer] retrieval system with the cloverleaf snare Surgeon Darian Sorto Caponizer Teresa Weathers Anesthesia: Local anesthesia with sedation FINDINGS: Inferior venacavogram demonstrated no clot within the filter. The filter was easily to snare. It was easy to sheath the filter but then it took some effort to get the feet to completely go within the sheath. 2 venacavogram's 5 minutes apart after the procedure demonstrated no extravasation and no significant intimal abnormality. The patient remained hemodynamically stable without any change throughout. Narrative: Adequate sedation. Standard sterile prep and drape right neck and right groin. With ultrasound guidance and micropuncture technique accessed the right internal jugular vein. Passed the micropuncture wire. It took 2 passes. Enlarged the cervical incision with 11 blade. Exchanged for the standard Magic torque wire. Placed a 7 [place] sheath. Ultimately used a Kumpe E catheter and an angled glide wire to go from the right atrium into the inferior vena cava. Placed a Kumpe catheter below the IVC filter and did a venacavogram demonstrating no clot within the filter. Passed a Magic torque wire down the left iliac. Removed the Kumpe catheter and the sheath and placed the retrieval catheter over the wire. Placed the tip of the sheath 1 to 2 cm above the inferior vena cava filter. Removed the wire and dilator and passed the snare through the sheath system. Open the snare and snared the hook and tightened the catheter and snare down around the hook. Advanced the sheath system to collapsed the filter. The filter collapsed easily but there was some difficulty getting the last feet into the sheath. With a little twisting and a little pulling were able to get the feet in. Removed the inner sheath with the filter and snare. Did a vena cava run demonstrating no extravasation and no intimal abnormality. Hemodynamics remained unchanged and stable. 5 minutes later did another run again demonstrating no extravasation and no significant intimal abnormality. Removed everything and held pressure in the neck. Placed a 4-0 Biosyn subcuticular Mastisol Steri-Strips and sterile dressing. Patient tolerated procedure well. Comparison studies: None. Observations: See findings above Procedure Note Interface, Rad Results - 07/16/2019 10:43 AM EST Procedure(s): SP RETRIEVAL IVC FILTER WITH IMAGING, SP SUPERIOR VENA CAVAGRAM Date of service: 07/16/2019 9:15 AM Provided clinical information: 58 years, Female, "presence of IVC filter"placed Aug 2018 Procedure and materials: 1. Ultrasound-guided right internal jugular vein venous access. 2. Placement of catheter in the inferior vena cava and venacavogram 3. Retrieval Cook Celect IVC filter using the [employer] retrieval system with the cloverleaf snare Surgeon Darian Sorto Caponizer Teresa Weathers Anesthesia: Local anesthesia with sedation FINDINGS: Inferior venacavogram demonstrated no clot within the filter. The filter was easily to snare. It was easy to sheath the filter but then it took some effort to get the feet to completely go within the sheath. 2 venacavogram's 5 minutes apart after the procedure demonstrated no extravasation and no significant intimal abnormality. The patient remained hemodynamically stable without any change throughout. Narrative: Adequate sedation. Standard sterile prep and drape right neck and right groin. With ultrasound guidance and micropuncture technique accessed the right internal jugular vein. Passed the micropuncture wire. It took 2 passes. Enlarged the cervical incision with 11 blade. Exchanged for the standard Magic torque wire. Placed a 7 [place] sheath. Ultimately used a Kumpe E catheter and an angled glide wire to go from the right atrium into the inferior vena cava. Placed a Kumpe catheter below the IVC filter and did a venacavogram demonstrating no clot within the filter. Passed a Magic torque wire down the left iliac. Removed the Kumpe catheter and the sheath and placed the retrieval catheter over the wire. Placed the tip of the sheath 1 to 2 cm above the inferior vena cava filter. Removed the wire and dilator and passed the snare through the sheath system. Open the snare and snared the hook and tightened the catheter and snare down around the hook. Advanced the sheath system to collapsed the filter. The filter collapsed easily but there was some difficulty getting the last feet into the sheath. With a little twisting and a little pulling were able to get the feet in. Removed the inner sheath with the filter and snare. Did a vena cava run demonstrating no extravasation and no intimal abnormality. Hemodynamics remained unchanged and stable. 5 minutes later did another run again demonstrating no extravasation and no significant intimal abnormality. Removed everything and held pressure in the neck. Placed a 4-0 Biosyn subcuticular Mastisol Steri-Strips and sterile dressing. Patient tolerated procedure well. Comparison studies: None. Observations: See findings above IMPRESSION Impression: Satisfactory venacavogram and retrievable of inferior vena cava filter. Signed by Darian Sorto MD on 07/16/2019 10:41 AM documented in this encounter Visit Diagnoses Diagnosis Presence of IVC filter Other postprocedural status documented in this encounter Administered Medications Medication Order MAR Action Action Date Dose Rate Site FentaNYL (PF) (SUBLIMAZE) injection (PF) 25 mcg 25 mcg, Intravenous Push, PRU Q5MIN PRN, Starting Dora 07/16/19 at 1033, Until Dora 07/16/19 at 1431, Mild Pain (pain scale 1-3) - IV - 1st line - if immediate effect required or patient cannot tolerate PO, 4 Recovery FentaNYL (PF) (SUBLIMAZE) injection (PF) 50 mcg 50 mcg, Intravenous Push, PRU Q5MIN PRN, Starting Dora 07/16/19 at 1033, Until Dora 07/16/19 at 1431, Moderate Pain (pain scale 4-6) - IV - 1st line - if immediate effect required or patient cannot tolerate PO, Severe Pain (pain scale 7-10) - IV - 1st line - if immediate effect required or patient cannot tolerate PO, 4 Recovery haloperidol (HALDOL) injection 0.65 mg 0.65 mg, Intravenous Push, PRU X1 PRN, 1 dose, Starting Dora 07/16/19 at 1033, Until Dora 07/16/19 at 1431, Nausea/Vomiting - IV - 3rd line - if immediate effect required or patient cannot tolerate PO and no relief 1 hour after administration of 2nd line agent, 4 Recovery HYDROmorphone (DILAUDID) syringe 0.3 mg 0.3 mg, Intravenous Push, PRU Q5MIN PRN, Starting Dora 07/16/19 at 1033, Until Dora 07/16/19 at 1431, Mild Pain (pain scale 1-3) IV - 2nd line - if immediate effect required or cannot tolerate PO & still had mild pain 4 hrs after admin of 1st line agent or patient did not tolerate 1st line agent, 4 Recovery meperidine (DEMEROL) syringe 25 mg 25 mg, Intravenous Push, PRU Q5MIN PRN, 2 doses, Starting Dora 07/16/19 at 1033, Until Dora 07/16/19 at 1431, Shivering/Chills/Rigors, 4 Recovery midazolam (VERSED) injection 0.5 mg 0.5 mg, Intravenous Push, PRU Q5MIN PRN, Starting Dora 07/16/19 at 1033, Until Dora 07/16/19 at 1431, Anxiety - IV - 1st line - if immediate effect required or patient cannot tolerate PO, 4 Recovery normal saline IV Intravenous, at 15 mL/hr, PRU CONTINUOUS, Starting Dora 07/16/19 at 1040, Until Dora 07/16/19 at 1431, 4 Recovery, PRU, ondansetron (ZOFRAN) injection 4 mg 4 mg, Intravenous Push, PRU X1 PRN, 1 dose, Starting Dora 07/16/19 at 1033, Until Dora 07/16/19 at 1431, Nausea/Vomiting - IV - 1st line - If immediate effect required or patient cannot tolerate PO, 4 Recovery prochlorperazine (COMPAZINE) injection 2.5 mg 2.5 mg, Intravenous Push, PRU PRN, 2 doses, Starting Dora 07/16/19 at 1033, Until Dora 07/16/19 at 1431, Nausea/Vomiting - IV - 2nd line - if immediate effect required or patient cannot tolerate PO and no relief 1 hours after administration of 1st line agent, 4 Recovery documented in this encounter Insurance Payer Benefit Plan / Subscriber ID Effective Dates Phone Address Type Group SUSY RICE xxxxxxxxxxxx 2015-Present Susy BERNAL PPO documented as of this encounter
--- OUTSIDE RECORDS SUMMARY | 2019-07-18 16:00 | XMS REPORT | Continuity of Care Document ---
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 Problems Description No Information Available Social History Type Date Description Comments Sex Unknown ETOH Use Currently consumes 1 shot of amaratto alcohol and tall glass of 7 up once a week Tobacco Use Start: Unknown Patient has never smoked Recreational Drug Use Denies Drug Use Smoking Status Reviewed: 06/11/19 Patient has never smoked Exercise Type/Frequency Exercises rarely Allergies, Adverse Reactions, Alerts Active Allergies Reaction Severity Comments Date Cisplatin shakes, itchy palms 07/17/2018 Inactive Allergies NKDA 11/20/2017 Medications Active Medications SIG Qnty Indications Ordering Date Provider Citalopram Hydrobromide 1 by mouth every Darshan Painter, 12/01/2018 day M.D. 10mg Tablets Eliquis Take 1/2 Tablet By Unknown 06/28/2018 5mg Tablets Mouth Two Times Daily (5 mg daily total) Oxycontin take one by mouth Unknown 10mg Tab ER 12H every 12 hours Abuse-Det Zofran take 1 by mouth Unknown 4mg Tablets every 4 hrs as needed for nausea Pepcid take 1 tablet by Unknown Unknown Tablets mouth once daily as needed Imodium A-D one as needed Unknown 2mg Capsules Percocet 1 - 2 tabs by Unknown 5-325mg Tablets mouth every 4 - 6 hours as needed for pain. Alprazolam as needed Unknown 0.5mg Tablets Cyclobenzaprine HCL as needed Unknown 10mg Tablets Transderm-Scop (1.5 MG) one patch every 3 Unknown days 1mg/3Days Patches 72HR B12 Fast Dissolve sublingual daily Unknown 5000mcg Tablets Dispers Immunizations Description No Information Available Vital Signs Date Vital Result Comment 06/11/2019 1:28pm Height 65.5 inches 5'5.50" Weight 150.00 lb Heart Rate 86 /min BP Systolic 115 mmHg BP Diastolic 61 mmHg O2 % BldC Oximetry 99 % BMI (Body Mass Index) 24.6 kg/m2 12/15/2018 1:21pm Height 65.5 inches 5'5.50" Weight 137.00 lb Heart Rate 92 /min BP Systolic Sitting 120 mmHg BP Diastolic Sitting 66 mmHg Respiratory Rate 14 /min Body Temperature 98.8 F BMI (Body Mass Index) 22.4 kg/m2 Results Description No Information Available Procedures Description No Information Available Medical Devices Description No Information Available Encounters Type Date Location Provider Dx Diagnosis Office Visit 12/15/2018 [facility] Keith Aponte N39.0 Urinary tract 1:20p Infectious Diseases Jon Tena infection, site not specified Z96.0 Presence of urogenital implants Assessments Date Code Description Provider 12/15/2018 N39.0 Urinary tract infection, site not Keith Tena M.D. specified 12/15/2018 Z96.0 Presence of urogenital implants Keith Tena M.D. Plan of Treatment No Information Available Functional Status Description No Information Available Mental Status Description No Information Available Referrals Description No Information Available
--- OUTSIDE RECORDS SUMMARY | 2019-07-18 16:00 | XMS REPORT | Summary of Care ---
:1960 Author Organization [facility] Address [address] [address] Care Team Providers Name Role Phone Zeinab Jj MD Primary Care Provider Encounter Details Date Type Department Care Team Description 07/06/2019 Hospital Encounter [facility] [address] [place] [address] Allergies Active Allergy Reactions Severity Noted Date Comments Cisplatin Dermatologic Reaction 08/08/2018 documented as of this encounter (statuses as of 07/08/2019) Medications Medication Sig Dispensed Refills Start Date [...] as of this encounter (statuses as of 07/08/2019) Active Problems Problem Noted Date Presence of IVC filter 07/06/2019 Overview: Added automatically from request for surgery [id number] Anemia 08/08/2018 Psoas hematoma, right, secondary to anticoagulant therapy 08/08/2018 History of cervical cancer 08/08/2018 Colostomy present 08/08/2018 Deep vein thrombosis (DVT) of proximal vein of left lower extremity 08/08/2018 Hypokalemia 08/08/2018 Hypomagnesemia 08/08/2018 Chronic diarrhea 08/08/2018 documented as of this encounter (statuses as of 07/08/2019) Social History Tobacco Use Types Packs/Day Years [...] of this encounter Last Filed Vital Signs Not on filedocumented in this encounter Plan of Treatment Date Type Specialty Care Team Description 07/16/2019 Hospital Encounter [facility] Darian Sorto Short Procedure MD [address] [place] [address] 07/16/2019 Surgery [facility] Darian Sorto REMOVAL IVC FILTER MD [address] [place] [address] Health Maintenance Due Date Last Done Comments [...] of this encounter Implants Implanted Type Area 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 documented in this encounter Results XR CHEST 2 VIEW PA AND LATERAL (STANDARD) (07/06/2019 3:29 PM EDT) Specimen Impressions Performed At 1. No acute cardiopulmonary disease is seen. Urgency: Routine. This is a routine medical imaging report. Recommendation: No specific imaging recommendation. Signed by Anahi See MD, PEPPER, KRYSTYNA on 07/06/2019 4:43 PM Narrative Performed At Procedure(s): XR CHEST 2 VIEW PA AND LATERAL (STANDARD) Date of service: 07/06/2019 3:15 PM Provided clinical information: 58 years, Female, "pre op" Procedure and materials: Standard protocol. Procedure: CHEST 2 VIEWS Technique: PA and lateral views of the chest were acquired. Comparison: X-ray of 08/08/2018 Findings: Right-sided Port-A-Cath with distal tip in SVC There is no confluent pulmonary parenchymal opacity seen. Cardioaortic silhouette appears unremarkable. There is normal pulmonary vascularity. The nate are normal. No pleural effusion is seen. No pneumothorax is seen. Trachea midline. Mild endplate remodeling is seen of thoracic spine. No acute bony abnormality is seen. Procedure Note Interface, Rad Results - 07/06/2019 4:45 PM EDT Procedure(s): XR CHEST 2 VIEW PA AND LATERAL (STANDARD) Date of service: 07/06/2019 3:15 PM Provided clinical information: 58 years, Female, "pre op" Procedure and materials: Standard protocol. Procedure: CHEST 2 VIEWS Technique: PA and lateral views of the chest were acquired. Comparison: X-ray of 08/08/2018 Findings: Right-sided Port-A-Cath with distal tip in SVC There is no confluent pulmonary parenchymal opacity seen. Cardioaortic silhouette appears unremarkable. There is normal pulmonary vascularity. The nate are normal. No pleural effusion is seen. No pneumothorax is seen. Trachea midline. Mild endplate remodeling is seen of thoracic spine. No acute bony abnormality is seen. IMPRESSION 1. No acute cardiopulmonary disease is seen. Urgency: Routine. This is a routine medical imaging report. Recommendation: No specific imaging recommendation. Signed by Anahi See MD, PEPPER, KRYSTYNA on 07/06/2019 4:43 PM documented in this encounter Visit Diagnoses Diagnosis Presence of IVC filter Other postprocedural status documented in this encounter Insurance Payer Benefit Plan / Subscriber ID Effective Dates Phone Address Type Group S[employer] RICE xxxxxxxxxxxx 2015-Present Susy BERNAL PPO documented as of this encounter
--- NOTE | 2019-07-18 16:40 | ED ---
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 States she's had right-sided flank pain that has been worse over the past several days and worsening today. Around 2:30 PM today she woke up with severe right-sided flank pain, took her Percocet and then had an episode of vomiting. Patient states it feels like her kidney pain. She had her IVC filter removed on at [place] denies any complications from this procedure and was removed from her right IJ. Patient reports a low-grade fever of 100.5 at home. She is a history of chemotherapy for cervical cancer but is no longer on current treatment. She follows with Dr. Painter. Patient had an ultrasound recently that showed mild bilateral hydronephrosis. - History of Current Complaint Chief Complaint: EDFlankPain Stated Complaint: RT SIDE PAIN/VOMITING PER PT Time Seen by Provider: 07/18/19 16:09 Pain Intensity: 7 Allergies/Adverse Reactions: Allergies Allergy/AdvReac Type Severity Reaction Status Date / Time cisplatin AdvReac Unknown Itching Verified 07/18/19 15:53 PMH/Surg Hx/FS Hx/Imm Hx Endocrine/Hematology History: Reports: Hx Anticoagulant Therapy - eliquis, Hx Anemia - slight Denies: Hx Diabetes Cardiovascular History: Reports: Hx Deep Vein Thrombosis - left leg, Hx Hypertension - ok after cancer treatment, Other Cardiovascular Problems/ Disorders - vena cava filter right groin placed 09/2018 Denies: Hx Hypercholesterolemia, Hx Myocardial Infarction, Hx Pacemaker/ICD Respiratory History: Denies: Other Respiratory Problems/Disorders GI History: Reports: Hx Gastroesophageal Reflux Disease - ok after surgery, Hx Hiatal Hernia, Hx Obstructive Bowel - 11/24, Hx Ileostomy, Other GI Disorders - colostomy Denies: Hx Jaundice History: Reports: Hx Kidney Stones - BILATERAL STENTS 11/2018, Hx Renal Disease - BILAT URETERAL STENTS Denies: Other Problems/Disorders Musculoskeletal History: Reports: Other Musculoskeletal History - 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 Sensory History: Denies: Hx Contacts or Glasses, Hx Hearing Aid Opthamlomology History: Denies: Hx Contacts or Glasses Neurological History: Denies: Hx CVA, Hx Dementia, Other Neuro Impairments/Disorders Psychiatric History: Reports: Hx Anxiety - on meds, Hx Depression - on meds Denies: Hx Panic Disorder - Cancer History Cancer Type, Location and Year: CERVICAL, colon Hx Chemotherapy: Yes - last dose apr 2018 Hx Radiation Therapy: Yes - Surgical History Surgery Procedure, Year, and Place: radical Hysterectomy - [place] 2010. CHEMO PORT 11/2017. LASIK EYE SURGERY. BIOPSY OF OMENTUM, 11/2017. COLOSTOMY 04/2018. US GUIDED BIOPSY RIGHT HIP AREA. SEVERAL URETERAL STENTS. 3 STENTS FOR PSEUDO ANEURYSM Hx Anesthesia Reactions: Yes - occassional light headache - Immunization History Date of Tetanus Vaccine: unk Date of Influenza Vaccine: none Infectious Disease History: No Infectious Disease History: Denies: Traveled Outside the [place] in Last 30 Days - Family History Known Family History: Negative: Respiratory Disease, Seizure Disorder, Other - gallstones - Social History Alcohol Use: None Hx Substance Use: No Substance Use Type: Reports: None Hx Tobacco Use: No Smoking Status (MU): Never Smoked Tobacco Have You Smoked in the Last Year: No Review of Systems Positive: Fever - low grade, Chills Positive: Vomiting, Other - right flank pain All Other Systems Reviewed And Are Negative: Yes Physical Exam - Summary Physical Exam Summary: Constitutional: Well-developed, Well-nourished, Alert. (-) Distressed Skin: Warm, Dry HENT: Normocephalic; Atraumatic, bandage to R neck Eyes: Conjunctiva normal Neck: Musculoskeletal ROM normal neck. (-) JVD, (-) Stridor, (-) Nuchal rigidity Cardio: Rhythm regular, rate normal, Heart sounds normal; Intact distal pulses; Radial pulses are 2+ and symmetric. (-) Murmur Pulmonary/Chest wall: right sided chest wall port (-) Respiratory distress, (-) Wheezes, (-) Rales Abd: colostomy, right sided flank tenderness, (-) Distension, (-) Guarding, (- ) Rebound Musculoskeletal: (-) Edema Lymph: (-) Cervical adenopathy Neuro: Alert, Oriented x3 Psych: Mood and affect Normal Triage Information Reviewed: Yes Vital Signs On Initial Exam: Initial Vitals Temp Pulse Resp BP Pulse Ox 99.4 F 88 16 168/80 98 11/09/19 15:50 07/18/19 15:50 07/18/19 15:50 07/18/19 15:50 07/18/19 15:50 Vital Signs Reviewed: Yes Procedures - Sedation Patient Received Moderate/Deep Sedation with Procedure: No Diagnostics - Vital Signs Vital Signs Temp Pulse Resp BP Pulse Ox 07/18/19 16:07 81 142/85 96 07/18/19 15:50 99.4 F 88 16 168/80 98 - Laboratory Result Diagrams: 07/19/19 05:40 07/19/19 05:40 Lab Statement: Any lab studies that have been ordered have been reviewed, and results considered in the medical decision making process. - EKG 1717 Cardiac Rate: NL - 78 BPM Summary of EKG Findings: EKG at 1717 reveals 78 BPM sinus rhythm, nml axis, nml intervals. No STEMI. No acute changes. 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 - Physical exam of w well-appearing female, right-sided flank pain on exam. Discussed with urology, plan for labs, CT scan of the abdomen. Given that patient's creatinine is 1.8, patient cannot get IV contrast therefore scanned without contrast. CT scan shows persistent right greater than left hydronephrosis, no acute process. Hemoglobin stable, do not suspect complication IVC filter removal. Urine with 3+ esterase, we'll give IV fluids for elevated creatinine and ceftriaxone for UTI. Plan for admission to medicine, for fluid hydration and repeat labs in the morning. D/w on-call urology, Dr. Turner. - Diagnoses Provider Diagnoses: MAKEDA (acute kidney injury), Hydronephrosis - Provider Notifications Discussed Care Of Patient With: Dre Turner Time Discussed With Above Provider: 18:06 Instructed by Provider To: Joselin - Johnny recommends IV hydration, abx, admission for elevated creatinine. 1816: [facility]: accepts patient for admission Discharge ED - Sign-Out/Discharge Documenting (check all that apply): Patient Departure - admit - Discharge Plan Condition: Stable Disposition: ADMITTED TO [facility] - Billing Disposition and Condition Condition: STABLE Disposition: Admitted to [facility] - Attestation Statements Document Initiated by Nannette: Yes Documenting Scribe: Elvira Martinez Provider For Whom Nannette is Documenting (Include Credential): Dr. Monique Kitchen MD Scribe Attestation: Elvira Reddy, scribed for Dr. Monique Kitchen MD on 07/19/19 at 0732. Scribe Documentation Reviewed: Yes Provider Attestation: The documentation as recorded by the sandraibElvira mitchell accurately reflects the service I personally performed and the decisions made by me, Dr. Monique Kitchen MD Status of Scribe Document: Viewed
[2019-07-18 16:49] LABS: Hematocrit 27 % (35-47); Hemoglobin 8.6 g/dL (12.0-16.0); Mean Corpuscular HGB Conc 32 g/dL (31-36); Mean Corpuscular Hemoglobin 23 pg (27-31); Mean Corpuscular Volume 72 fL (80-97); Mean Platelet Volume 7.5 fL (7.4-10.4); Platelet Count 210 10^3/uL (150-450); Red Blood Count 3.82 10^6 /uL (3.70-4.87); Red Cell Distribution Width 17 % (10-15); White Blood Count 5.1 10^3/uL (3.5-10.8)
[2019-07-18 16:56] LABS: Urine Appearance Cloudy; Urine Bacteria Absent (Absent); Urine Bilirubin Negative (Negative); Urine Blood 3+ (Negative); Urine Color Yellow; Urine Glucose Negative (Negative); Urine Ketones Negative (Negative); Urine Nitrite Negative (Negative); Urine Protein 1+(30 mg/dL) (Negative); Urine Red Blood Cell 3+(>10/hpf) (Absent); Urine Specific Gravity 1.014 (1.010-1.030); Urine Squamous Epithelial Cell Present (Absent); Urine Urobilinogen Negative (Negative); Urine White Blood Cell 3+(>20/hpf) (Absent)
[2019-07-18 16:58] LABS: Albumin 3.5 g/dL (3.2-5.2); Albumin/Globulin Ratio 1.1 (1-3); BUN/Creatinine Ratio 10.1 (8-20); Calcium 8.9 mg/dL (8.6-10.3); EGFR African American 33.1 (>60); EGFR Non-African American 27.4 (>60); Globulin 3.2 g/dL (2-4); Potassium 3.5 mmol/L (3.5-5.0); Total Bilirubin 0.3 mg/dL (0.2-1.0); Total Protein 6.7 g/dL (6.4-8.9)
[2019-07-18] MEDS ORDERED: Morphine 4 MG/ML VIAL (1 ml) 4 MG/ML VIAL IV ONE ×2 (16:58→17:58)
[2019-07-18 17:10] LABS: ABS Eosinophils 0.1 10^3/ul (0-0.6); ABS Lymphocytes 0.5 10^3/ul (1.0-4.8); ABS Monocytes 0.5 10^3/ul (0-0.8); Eosinophil % 1.7 %; Lymphocyte % 9.1 %
[2019-07-18] MEDS ORDERED: NS 0.9% 1000 ML** 1,000 ML IV ONE (17:12)
[2019-07-18] MEDS ORDERED: Ondansetron INJ* 2 MG/ML VIAL IV ONE (17:22)
[2019-07-18] MEDS ORDERED: cefTRIAXone(*) 1 GM in NS 0.9% 50 ML* 50 ML IVPB ONE (18:03)
[2019-07-18] MEDS ORDERED: Ondansetron INJ* 2 MG/ML VIAL IV PRN (19:20)
[2019-07-18] MEDS ORDERED: Acetaminophen TAB* 325 MG PO PRN (19:20)
[2019-07-18] MEDS ORDERED: Al Hydrox/Mg Hydrox/Simet LIQ* 30 ML UDC PO PRN (19:20)
[2019-07-18] MEDS ORDERED: Senna TAB 8.6 mg* TAB PO PRN (19:20)
[2019-07-18] MEDS ORDERED: oxyCODONE/Acetamin 5/325 MG* TAB PO ONE (19:30)
[2019-07-18] MEDS ORDERED: Cyclobenzaprine TAB* 10 MG PO PRN (19:34)
[2019-07-18] MEDS ORDERED: oxyCODONE/Acetamin 5/325 MG* TAB PO PRN ×2 (19:34→19:52)
[2019-07-18] MEDS ORDERED: ALPRAZolam TAB* 0.5 MG PO PRN (19:34)
[2019-07-18] MEDS ORDERED: Famotidine TAB* 20 MG PO PRN (19:34)
[2019-07-18] MEDS ORDERED: Morphine INJ* 2 MG/ML 1 ML SYRINGE (TWO MG - NEW SYRINGE VERSION) IV PRN (19:51)
[2019-07-18] MEDS: oxyCODONE SR TAB(*) 10 MG TAB.SR PO SCH (21:22)
[2019-07-18] MEDS: Apixaban* 2.5 MG TAB PO SCH (21:23)
[2019-07-18] MEDS: NS 0.9% 1000 ML** 1,000 ML IV SCH (21:23)
[2019-07-18] MEDS ORDERED: Citalopram TAB* 10 MG PO SCH (21:30)
--- NOTE | 2019-07-18 23:11 | HP ---
CC: Dr. Painter * HISTORY AND PHYSICAL: DATE OF ADMISSION: 07/18/19 PRIMARY CARE PROVIDER: Dr. Painter. ATTENDING PHYSICIAN WHILE IN THE HOSPITAL: Dr. Genna Hurt * (dictated by XIAO Meneses). CHIEF COMPLAINT: Right flank pain. 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 She has had dull right-sided flank pain for the last week, however, became quite severe today in the morning. This right flank pain is additionally in her right low back. She had so severe pain that she was having nausea and she had vomiting as well about 2 episodes. She had taken her p.r.n. Zofran, which obviously did not help. She measured her temperature at home, which was 100.2 degrees Fahrenheit. She has not been feeling symptomatic fevers or chills at home. She has chronic intermittent hematuria and she did notice hematuria today with 2 different urinations. She denies urinary frequency, dysuria or purulent urine. She additionally denies changes in her ostomy output, chest pain, difficulty breathing. Of note, the patient recently had her IVC filter removed at [facility] on , 07/16/19 via her right jugular. This filter was in place approximately 1 year and was initially placed at [facility] and reason for this was that she was on oral anticoagulation for her DVT, but in the setting of her right iliac arterial pseudoaneurysm, the oral anticoagulation needed to be stopped. Now the pseudoaneurysm has been resolved after 2 interventions and she has been cleared to go back on oral anticoagulation. She is unsure why she is on the lower dose of 2.5 mg p.o. b.i.d. EMERGENCY DEPARTMENT COURSE: The patient arrived to emergency department, she had a CT abdomen and pelvis demonstrating right hydronephrosis, overall unchanged from November. Her vital signs on arrival temperature 99.4 degrees Fahrenheit, pulse 88, respiratory rate 16, oxygen saturation 98% on room air, blood pressure 168/80, which has been later 142/85. She was given 1 g of IV ceftriaxone, 4 mg of morphine on 2 different occasions, IV Zofran and 1 L of normal saline. PAST MEDICAL HISTORY: 1. Anxiety. 2. Hypertension, no longer on antihypertensives. 3. Cervical adenocarcinoma with metastasis to the colon, status post colectomy. 4. 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 5. 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 6. DVT (on Eliquis). 7. Right iliac artery pseudoaneurysm PAST SURGICAL HISTORY: 1. Bilateral balloon dilation and bilateral ureteral stent exchanges, most recent in April 2019. 2. IVC filter placement and subsequent removal. 3. Hemicolectomy with colostomy in place. 4. LASIK surgery, bilateral eyes. 5. Radical total hysterectomy. 6. Repair of right external iliac artery pseudoaneurysms, first with stent placed by Interventional Radiology at [facility], then 3 stents placed by Vascular Surgery at [facility]. 7. Status post percutaneous drainage of right psoas muscle abscess. HOME MEDICATIONS: 1. Loperamide 2 mg p.o. q.4 hours p.r.n. diarrhea. 2. Citalopram 10 mg p.o. daily. 3. Zofran 4 mg p.o. daily p.r.n. nausea. 4. Famotidine 20 mg p.o. daily p.r.n. indigestion. 5. Flexeril 10 mg p.o. daily p.r.n. muscle spasm. 6. Vitamin B12 of 5000 mcg p.o. daily. 7. Eliquis 2.5 mg p.o. b.i.d. 8. Xanax 0.5 mg p.o. q.8 hours p.r.n. anxiety. 9. Percocet 5 mg-325 mg 1 to 2 tabs p.o. q.4 to 6 hours p.r.n. pain. 10. OxyContin 10 mg p.o. q.12 hours. ALLERGIES: Reaction of itching to CISPLATIN. FAMILY HISTORY: Two sisters with cervical cancer. Father at age 75 due to complications related to PCI placement for an CA and he had a history of type 2 diabetes. Mother is living at age 91 and healthy. SOCIAL HISTORY: The patient lives with her . She has 2 adult daughters. 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 She denies illicit drug use and denies smoking and she has never been a smoker. She drinks 1 alcoholic beverage per week. The patient would like her , Kurt Leonardo to make medical decisions for her should she need a surrogate medical decision maker. His phone number [phone]. REVIEW OF SYSTEMS: An 11-point review of systems was completed and all pertinent positives and negatives are above in the HPI. All other systems are negative. PHYSICAL EXAMINATION GENERAL: Thin white female who appears stated age, lying upright in hospital bed, appearing comfortable, in no acute distress. at bedside. HEENT: Head: Normocephalic, atraumatic. Eyes: PERRL. Sclerae anicteric. ENT: Mucous membranes are moist. NECK: Supple, small bandage to right neck at the site of IVC filter removal. No surrounding cellulitis or edema. LUNGS: Clear to auscultation throughout. CARDIO: Regular rate and rhythm without murmurs, rubs, or gallops. ABDOMEN: Normoactive bowel sounds x4 quadrants. Colostomy in place. Abdomen is soft, nontender, and nondistended. Positive CVA tenderness in the right side. EXTREMITIES: No clubbing, cyanosis, or edema. No calf tenderness. No palpable cord. NEURO: The patient is alert and oriented x3. No focal deficits. Strength is 5 /5 in all extremities. No tremors. SKIN: Warm, dry, and intact. PSYCH: The patient is pleasant and cooperative. DIAGNOSTIC STUDIES/LAB DATA: White blood cell count 5.1, hemoglobin 8.6, hematocrit 26.7, platelet count 210. Sodium 138, potassium 3.5, chloride 104, carbon dioxide 27, anion gap 7, BUN 19, creatinine 1.88, glucose 104. Total bili is 0.3. AST 10, ALT 6. Urinalysis +1 protein, +3 blood, +2 leukocyte esterase, +3 white blood cell, +3 red blood cells. Specific gravity of 1.014. CT abdomen and pelvis without contrast. Impression: Bilateral ureteral stents with severe right-sided hydronephrosis similar to 11/14/18, status post partial colectomy, colostomy. EKG: Isolated T wave inversions in V1, normal sinus rhythm with a rate of 78 beats per minute, otherwise no changes from previous EKG. ASSESSMENT AND PLAN: Trini Leonardo is a 58-year-old white female with a past medical history significant for bilateral ureteral stenosis secondary to x-ray therapy with bilateral stents in place; metastatic cervical cancer; status post colon resection; history of deep vein thrombosis, who presents to emergency department for right- sided flank pain. The patient will be admitted obv for: 1. Acute kidney injury. The patient has a creatinine of 1.88. CT abdomen and pelvis have been reviewed by Dr. Coronado as well as Dr. Turner, and it is difficult to compare this CT abdomen and pelvis today ti the one in June of this year due to this study today being non- contrast. However, it does not appear there is worsening hydronephrosis on that right side and the left side appears improved. She does, however, have an abnormal urinalysis and is quite possible she has urinary tract infection and this kidney injury, in the setting of infection, may be prerenal. She had received a liter of IV fluids in the emergency department. I will be giving continuos IV fluids and we will reassess her creatinine tomorrow. Given that she has bilateral stent in place and with likely infection, she may need ureteral stent exchange, however, the timing of that will be determined by Dr. Turner. We will follow her urine culture. She received a dose of ceftriaxone in the hospital and I will continue this as empiric therapy. 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 2. Anemia. The patient has a longstanding history of anemia, which did not follow an iron-deficiency pattern in the past, but I will recheck that for sake of followup. 3. Abnormal urinalysis. Suspect urinary tract infection, especially in the setting of bilateral ureteral stents. Management as described above. 4. History of deep vein thrombosis. The patient takes Eliquis, however, given her age and her weight of over 60 kilograms and her baseline GFR is normally over 40 to 60. It is unclear why she is on this lower dose of Eliquis. It may be a benefit to touch base with Hematology-Oncology regarding this. At the least, she should be following up with her primary care, Dr. Painter about this. 5. Anxiety. I will continue her citalopram and p.r.n. Xanax. 6. History of cervical cancer. The patient received IV morphine in the hospital. I will continue her normal home pain control regimen and I will continue p.r.n. morphine for breakthrough pain considering that this flank pain has been persistent. 7. FEN. The patient may have a regular, unrestricted diet. She will be getting IV normal saline at 100 cc per hour. Her electrolytes are within normal limits. 8. Code status. The patient is full code. 9. DVT prophylaxis. The patient is on Eliquis. She had a DVT risk score of 5. I will order SCDs as well. TIME SPENT: Approximately 40 minutes was spent on this admission, approximately half this time was spent at bedside evaluating the patient and discussing the plan of care. This case has been reviewed with my attending, Dr. Genna Hurt, and she agrees with this plan of care. XIAO MENESES [id number]/CPS #: [id number] MTDAlis
[2019-07-19 06:13] LABS: ABS Eosinophils 0.1 10^3/ul (0-0.6); ABS Lymphocytes 0.7 10^3/ul (1.0-4.8); ABS Monocytes 0.3 10^3/ul (0-0.8); ABS Neutrophils 3.3 10^3/ul (1.5-7.7); Eosinophil % 2.5 %; Hematocrit 25 % (35-47); Hemoglobin 7.7 g/dL (12.0-16.0); Lymphocyte % 14.8 %; Mean Corpuscular HGB Conc 31 g/dL (31-36); Mean Corpuscular Hemoglobin 23 pg (27-31); Mean Corpuscular Volume 72 fL (80-97); Mean Platelet Volume 7.2 fL (7.4-10.4); Platelet Count 205 10^3/uL (150-450); Red Cell Distribution Width 16 % (10-15); White Blood Count 4.4 10^3/uL (3.5-10.8)
[2019-07-19 06:32] LABS: BUN/Creatinine Ratio 9.2 (8-20); Calcium 8.2 mg/dL (8.6-10.3); EGFR African American 31.6 (>60); EGFR Non-African American 26.1 (>60); Potassium 3.5 mmol/L (3.5-5.0)
[2019-07-19] MEDS: oxyCODONE SR TAB(*) 10 MG TAB.SR PO SCH (08:09)
[2019-07-19] MEDS: NS 0.9% 1000 ML** 1,000 ML IV SCH (08:09)
[2019-07-19] MEDS: Apixaban* 2.5 MG TAB PO SCH (08:10)
[2019-07-19] MEDS ORDERED: Cyanocobalamin TAB* 500 MCG ONE (08:14)
[2019-07-19] MEDS ORDERED: cefTRIAXone(*) 1 GM in NS 0.9% 50 ML* 50 ML IVPB SCH (09:00)
[2019-07-19] MEDS ORDERED: Cyanocobalamin TAB* 500 MCG PO SCH (09:00)
--- NOTE | 2019-07-19 11:11 | PN ---
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 Patient tells me there were drains placed which were removed in April 2018, and the site of the drain has not fully healed. Reports right flank and low back pain is resolved today. Denies fever/chills, difficulty breathing, chest pain, hematuria, dysuria. Past Medical History: Findings - had percutaneous drains for right psoas abscess in April 2018 Objective Active Medications: Acetaminophen (Tylenol Tab*) 650 mg PO Q4H PRN PRN Reason: MILD PAIN or TEMP > 100.4 Al Hydrox/Mg Hydrox/Simethicone (Maalox Plus*) 30 ml PO Q6H PRN PRN Reason: INDIGESTION Alprazolam (Xanax Tab*) 0.5 mg PO Q8H PRN PRN Reason: ANXIETY Apixaban (Eliquis*) 2.5 mg PO BID [facility] Last Admin: 07/19/19 08:10 Dose: 2.5 mg Citalopram Hydrobromide (Celexa Tab*) 10 mg PO BEDTIME [facility] Last Admin: 07/18/19 21:45 Dose: 10 mg Cyanocobalamin (Vitamin B12 Tab*) 5,000 mcg PO DAILY [facility] Last Admin: 07/19/19 08:10 Dose: 5,000 mcg Cyclobenzaprine HCl (Flexeril Tab*) 10 mg PO DAILY PRN PRN Reason: muscle spasm Famotidine (Pepcid Tab*) 20 mg PO DAILY PRN PRN Reason: INDIGESTION Sodium Chloride (Ns 0.9% 1000 Ml) 1,000 mls @ 100 mls/hr IV PER RATE [facility] Last Admin: 07/19/19 08:09 Dose: 100 mls/hr Ceftriaxone Sodium 1 gm/ (Sodium Chloride) 50 mls @ 100 mls/hr IVPB Q24H [facility] Last Admin: 07/19/19 08:08 Dose: 100 mls/hr Morphine Sulfate (Morphine Inj (Syringe))*) 2 mg IV Q2H PRN PRN Reason: pain - breakthrough Last Admin: 07/18/19 23:21 Dose: 2 mg Ondansetron HCl (Zofran Inj*) 4 mg IV Q4H PRN PRN Reason: NAUSEA/VOMITING Oxycodone HCl (Oxycontin(*)) 10 mg PO Q12HR [facility] Last Admin: 07/19/19 08:09 Dose: 10 mg Oxycodone/Acetaminophen (Percocet 5/325 Tab*) 1 tab PO Q4H PRN PRN Reason: severe pain Senna (Senokot 8.6 Mg Tab*) 1 tab PO BID PRN PRN Reason: CONSTIPATION Vital Signs - 8 hr 07/19/19 07/19/19 07/19/19 03:13 03:30 06:14 Temperature 97.7 F 97.9 F Pulse Rate 77 76 Respiratory 16 18 Rate Blood Pressure 97/42 115/60 115/57 (mmHg) O2 Sat by Pulse 98 97 Oximetry 07/19/19 08:09 Temperature Pulse Rate Respiratory 14 Rate Blood Pressure (mmHg) O2 Sat by Pulse Oximetry Oxygen Devices in Use Now: None Appearance: middle age white female, WD WN, laying upright in bed, appearing comfortable and in NAD Eyes: No Scleral Icterus, - - PERRL Ears/Nose/Mouth/Throat: Mucous Membranes Moist Neck: Trachea Midline Respiratory: Symmetrical Chest Expansion and Respiratory Effort, Clear to Auscultation Cardiovascular: NL Sounds; No Murmurs; No JVD, RRR Abdominal: - - abd soft, nontender, nondistended; : urine in hat in toilet is cynthia and without sediment Extremities: No Edema, No Clubbing, Cyanosis, - - no calf tenderness or palpable cord Skin: - - 5mm wound to right groin, purulent drainage expressed, no surrounding edema or erythema, tenderness to palpation to right groin Neurological: Alert and Oriented x 3, NL Muscle Strength and Tone Result Diagrams: 07/19/19 05:40 07/19/19 13:44 Assess/Plan/Problems-Billing Assessment: 58 yo female with PMHx cervical cancer with colon mets s/p colectomy with colostomy in place, bilateral ureteral stenosis likely 2/2 XRT, 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 - Patient Problems (1) Acute right flank pain Status: Chronic Code(s): R10.9 - UNSPECIFIED ABDOMINAL PAIN SNOMED Code(s): 039713923 Comment: -resolved today -concerned if flank pain is 2/2 right iliopsoas muscle abscess recurrence given purulent drainage from wound, though UTI is possibly contributing as well -pending culture from wound (2) MAKEDA (acute kidney injury) Status: Acute Code(s): N17.9 - ACUTE KIDNEY FAILURE, UNSPECIFIED SNOMED Code (s): 02075466 Comment: -unclear if prerenal related to possible UTI given abnormal UA, or if due to obstruction -unimproved this morning despite IVF. Pending repeat BMP this afternoon. If worsened then Dr. Turner will exchange ureteral stents today -urine culture pending -afebrile and without leukocytosis -continue ceftriaxone (3) Cervical carcinoma Status: Chronic Code(s): C53.9 - MALIGNANT NEOPLASM OF CERVIX UTERI, UNSPECIFIED SNOMED Code(s): 234962395 Comment: -continue home pain control and prn xanax (4) DVT prophylaxis Status: Acute Code(s): Z29.9 - ENCOUNTER FOR PROPHYLACTIC MEASURES, UNSPECIFIED SNOMED Code(s): 507246864 Comment: -on eliquis (5) Full code status Status: Acute Code(s): Z78.9 - OTHER SPECIFIED HEALTH STATUS SNOMED Code(s) : 262208858
[2019-07-19 11:33] LABS: C Reactive Protein 105.05 mg/L (<8.01)
[2019-07-19 13:07] LABS: Urine Creatinine Concentration 116.68 mg/dL
[2019-07-19 14:08] LABS: BUN/Creatinine Ratio 9.9 (8-20); Calcium 8.2 mg/dL (8.6-10.3); EGFR African American 42.4 (>60); Potassium 3.6 mmol/L (3.5-5.0)
[2019-07-19 15:51] VITALS: BP 119/52
--- NOTE | 2019-07-19 17:57 | CONS ---
CC: Dr. Marie, [facility] [place] * CONSULTATION NOTE: DATE OF CONSULT: 07/19/19 HISTORY OF PRESENT ILLNESS: Mrs. Leonardo is a 58-year-old white female who has been followed in our office because of bilateral ureteral obstruction and managed by chronic bilateral ureteral stents drainage. 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 Her course also was complicated by an enteric fistula, right retroperitoneal abscess, a pseudo- aneurysm of her right common iliac artery, history of deep vein thrombosis, managed by IVC filter and on chronic anticoagulation. The patient had the IVC filter removed at the [facility] 3 days ago. The patient called our answering service yesterday complaining of increasing right- sided abdominal and flank pain. She reported that the pain seems to have gotten worse following removal of the IVC filter. She also complained of some feeling of chilliness and low-grade fever. I referred her to the emergency room where she had a workup. Her serum creatinine was elevated at 1.9 which is higher than her baseline of about 1.2. Her white count was normal. Her urine analysis was positive for esterase and nitrite. Noncontrast CT of the abdomen and pelvis showed mild left hydronephrosis with the left stent in good position. Moderate to severe right hydroureteronephrosis was noted; however, it looked very similar to the CT scan that was done about 6 weeks ago. A lot of reactive changes were noted in the right retroperitoneum that is similar to the previous studies and is consistent with the known retroperitoneal pathology she had and the pseudoaneurysm that she is known to have. The patient had cultures obtained, was admitted and was started on IV fluid and on IV Rocephin. Overnight, she felt much better. Her flank pain was almost completely resolved and her serum creatinine was down to 1.5. Her CBC has remained normal with her white count around 5,000. She is anemic, stable. The patient also was known to have a right retroperitoneal abscess which was drained percutaneously and the drain was removed. Since that time, she still had a sinus in the right inguinal area and every few days the sinus opens, drains some pus for a few days, it closes and then opens up again, strongly suggestive of a persistent retroperitoneal infection that is not resolved. On physical exam today, she looks very comfortable. She is in minimal discomfort. She has no CVA tenderness. On abdominal exam, there is moderate tenderness on deep palpation in the right lower quadrant at the site of her known retroperitoneal abscess. The degree of discomfort apparently has not much changed from the previous examinations. Straight leg raising on the right did not elicit any acute pain in her right lower quadrant. IMPRESSION: 1. Bilateral ureteral obstruction managed by chronic right ureteral stent, last replaced 2-1/2 month ago. 2. Right hydroureteronephrosis, chronic, unchanged from her CT of last month. The hydronephrosis in spite of the stent is suggestive of the obstruction being contributed to by the known retroperitoneal pathology. 3. 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 The fact that the patient still has right lower quadrant tenderness on palpation is also indicative of the abscess not being resolved. PLAN: The plan for her urological management is to replace the ureteral stents within the next 2 to 3 weeks. We would like, however, to have Dr. Marie, her vascular surgeon, evaluate her before we manipulate and instrument her right ureter and to check for the possible reactivation of her retroperitoneal pathology. Considering the patient is feeling much better and her pain is gone, and Cr down to near her baseline, and after discussing with her hospitalist, it is fine to discharge her home on cefdinir. The patient will call our office for followup and she will be calling Dr. Marie, her vascular surgeon, for evaluation. [id number]/[facility] #: [id number] ELIDA
--- NOTE | 2019-07-20 01:43 | DS ---
DISCHARGE SUMMARY: DATE OF ADMISSION: 07/18/19 DATE OF DISCHARGE: 07/19/19 PROVIDER: XIAO Meneses ATTENDING PHYSICIAN WHILE IN THE HOSPITAL: Dr. Genna Hurt * (dictated by XIAO Meneses). PRIMARY DIAGNOSES: Acute kidney injury, resolving, unclear whether obstructive or prerenal related to acute infection. Urinary tract infection ruled out with negative urine culture. SECONDARY DIAGNOSES: 1. Anxiety. 2. Hypertension, no longer on antihypertensives. 3. Cervical adenocarcinoma with metastasis to the colon, status post colectomy. 4. 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 5. 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 6. History of deep venous thrombosis, with recent inferior vena cava filter removal, currently on Eliquis. 7. Right iliac artery pseudoaneurysm, status post 3 stents. PERTINENT LABORATORY DATA: Urine culture with normal isidro. White blood cell count on the date of admission 5.1. Creatinine on the date of admission 1.88, creatinine on date of discharge 1.52. CRP 105.05. HISTORY OF PRESENT ILLNESS/HOSPITAL COURSE: Trini Leonardo is a 58-year-old white female with past medical history significant for cervical cancer, metastasis to colon, status post colectomy with colostomy in place; right pseudo-aneurysm, status post stenting; DVT, with recent IVC filter removal, now on Eliquis; history of right iliopsoas muscle abscess; bilateral ureteral stenosis likely secondary to radiation therapy, who presented to the emergency department on 05/28 due to right-sided flank pain. The patient was found to have acute kidney injury with creatinine of 1.88. Her urinalysis appeared abnormal and her CT abdomen and pelvis was done without contrast due to kidney injury but did not demonstrate worsening hydronephrosis based on comparison to prior CT abdomen and pelvis. The right-sided hydronephrosis was similar typically to 04/27 CT abdomen and pelvis. I did extensively discuss the images with radiologist Dr. Coronado, who agreed that the fluid collection along the right iliopsoas is unchanged from prior images. He was not able to determine if there was a communicating fistula to the skin. This was cause of my concern because on the day of discharge, while the patient's kidney function did improve with IV fluids and ceftriaxone, I did note purulent drainage from her right wound in her groin, which has been present since drainage of her iliopsoas muscle last year. Wound culture was performed; however, given that the patient had already had 2 doses of ceftriaxone, the Gram stain showed no organisms growing. The main concern was regarding her kidney function and she did have improvement with IV hydration and ceftriaxone. The patient was afebrile without leukocytosis during the entirety of her hospital stay; however , given her presentation of right-sided flank pain, I am concerned about reaccumulation of the right iliopsoas muscle abscess. This is nonemergent considering the patient again did not demonstrate signs of acute infection or sepsis and is nontoxic appearing. However, her right-sided flank pain may be related to this instead of the ureteral obstruction. However, it is difficult to ascertain at this time. On the day of discharge, the patient's flank pain has entirely resolved. She denies nausea, vomiting, chest pain, difficulty breathing, fevers, or chills. PHYSICAL EXAM ON DAY OF DISCHARGE: Please see progress notes from today's date. DISCHARGE PLAN: DIET: Regular unrestricted diet. ACTIVITY: The patient may return to normal activity as tolerated. I advised the patient to call her vascular surgeon, Dr. Marie, as well as the interventional radiologist at [facility] who follows her to evaluate who could potentially see this patient first regarding my concern for iliopsoas abscess. My greatest concern is that it is in the location of her right external iliac artery pseudoaneurysm stents.. She was discharged with an electronic copy on a disc of her CT abdomen and pelvis that was performed here so she could bring this to [facility] if needed. She is advised to follow up with her primary care provider, Dr. Painter, in a week. At this time, she should have a repeat BMP to evaluate her renal status. She will follow up with Dr. Turner or Dr. Ortiz in the urology office in a week to 2 weeks to determine if her renal stent should be exchanged. My concern is that this iliopsoas abscess may be the cause of her kidney injury. Dr. Turner, who saw the patient in consultation, would prefer she be seen urgently by Dr. Marie prior to follow up with Urology. I advised the patient to begin her cefdinir starting tomorrow morning and to continue full course of antibiotics. Given my concern for this abscess, I advised her to return to the emergency department if she is experiencing fever, chills, flank pain, increased erythema, purulent drainage from the site in her right groin, streaking of inner extremities, gross hematuria, dysuria, or no urine output for over 8 hours. DISCHARGE MEDICATIONS: New medications: 1. Cefdinir 300 mg p.o. b.i.d. x7 days. Continued home medications: 1. Oxycodone 10 mg p.o. q.12 hours. 2. Percocet 5/325 one to two tabs p.o. q.4 to 6 hours p.r.n. pain. 3. Xanax 0.5 mg p.o. q.8 hours p.r.n. anxiety. 4. Eliquis 2.5 mg p.o. b.i.d. 5. Vitamin B12 5000 mcg p.o. daily. 6. Flexeril 10 mg p.o. daily p.r.n. muscle spasms. 7. Pepcid 20 mg p.o. daily p.r.n. indigestion. 8. Zofran 4 mg p.o. daily p.r.n. nausea. 9. Citalopram 10 mg p.o. daily. 10. Loperamide 2 mg p.o. q.4 hours p.r.n. diarrhea. CONDITION ON DISCHARGE: Stable. DISPOSITION: Home. TIME SPENT: Approximately 45 minutes was spent on this discharge, approximately half of this time was spent at the bedside evaluating the patient and discussing the plan of care. XIAO MENESES [id number]/[facility] #: [id number] MTDAlis
== END 2019-07-19 17:00 | disposition home or self-care (01) ==
LOC: ED 15:47 → MED 19:20
PROVIDERS: ADMIT Internal Medicine; ATTEND Internal Medicine
DX: N17.9 Acute kidney failure, unspecified (principal); F41.9 Anxiety disorder, unspecified; I10 Essential (primary) hypertension; I72.3 Aneurysm of iliac artery; C53.9 Malignant neoplasm of cervix uteri, unspecified; C78.5 Secondary malignant neoplasm of large intestine and rectum; C79.89 Secondary malignant neoplasm of other specified sites; K21.9 Gastro-esophageal reflux disease without esophagitis; N35.92 Unspecified urethral stricture, female; R94.31 Abnormal electrocardiogram [ECG] [EKG]; K68.12 Psoas muscle abscess; Z86.718 Personal history of other venous thrombosis and embolism; Z79.01 Long term (current) use of anticoagulants; Z79.899 Other long term (current) drug therapy; Z95.9 Presence of cardiac and vascular implant and graft, unspecified; Z90.49 Acquired absence of other specified parts of digestive tract; Z87.442 Personal history of urinary calculi
CPT/HCPCS: 36415; 74176; 80048; 80053; 81003; 81015; 82570; 84300; 85025; 86140; 87070; 87086; 87205; 93005; 96374; 96375; 96376; 99285; A9270-GY; G0378; J0696; J2270; J2405

== ENCOUNTER 2019-08-03 03:57 | Observation (INO) | payer BC ==
--- OUTSIDE RECORDS SUMMARY | 2019-08-03 04:07 | XMS REPORT | Continuity of Care Document ---
:1960 External Reference #:[id number] Author Name Keith Tena M.D. 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 Active Problems Provider Date Carcinoma of uterine cervix, invasive Dwaine Wu MD Onset: 02/26/2011 Bilateral hydronephrosis Dwaine Wu MD Onset: 05/20/2018 Note: first bilateral stents 07/16/18 Deep venous thrombosis of lower extremity Dwaine Wu MD Onset: 2017 Note: on Eliquis Peripheral vascular disease Dwaine Wu MD Onset: 07/01/2018 Note: Right Ext Iliac Stent at [facility] - then pseudoaneurysm Gastro-esophageal reflux disease with Dwaine Wu MD Onset: 11/13/2017 esophagitis Note: dilated EG to 15mm Social History Type Date Description Comments Sex Unknown ETOH Use Currently consumes 1 shot of amaratto alcohol and tall glass of 7 up once a week Tobacco Use Start: Unknown Patient has never smoked Recreational Drug Use Denies Drug Use Smoking Status Reviewed: 07/20/19 Patient has never smoked Exercise Type/Frequency Exercises rarely Allergies, Adverse Reactions, Alerts Active Allergies Reaction Severity Comments Date Cisplatin shakes, itchy palms 07/17/2018 Inactive Allergies NKDA 11/20/2017 Medications Active Medications SIG Qnty Indications Ordering Date Provider Magnesium Citrate drink the entire 296ml Dwaine Woodson 07/06/2019 bottle after MD Bryce 1.745GM/30ML Solution dinner two days before your procedure. Colyte With Flavor By mouth as 4000ml K21.0 Dwaine Woodson 06/11/2019 Packs directed MD Bryce 240gm Solution Rec Citalopram Hydrobromide 1 by mouth every Darshan Painter, 12/01/2018 day M.D. 10mg Tablets Eliquis Take 1/2 Tablet Unknown 06/28/2018 5mg Tablets By Mouth Two Times Daily (5 mg daily [...] Cyclobenzaprine HCL as needed Unknown 10mg Tablets B12 Fast Dissolve sublingual daily Unknown 5000mcg Tablets Dispers Cefdinir twice daily Zeinab Jj, 300mg Capsules Immunizations Description No Information Available Vital Signs Date Vital Result Comment 07/20/2019 3:22pm Height 65.5 inches 5'5.50" Weight 158.00 lb Heart Rate 84 /min BP Systolic Sitting 128 mmHg BP Diastolic Sitting 80 mmHg Respiratory Rate 14 /min Body Temperature 98.3 F BMI (Body Mass Index) 25.9 kg/m2 06/11/2019 1:28pm Height 65.5 inches 5'5.50" Weight 150.00 lb Heart Rate 86 /min BP Systolic 115 mmHg BP Diastolic 61 mmHg O2 % BldC Oximetry 99 % BMI (Body Mass Index) 24.6 kg/m2 Results Description No Information Available Procedures Description No Information Available Medical Devices Description No Information Available Encounters Type Date Location Provider Dx Diagnosis Office Visit 06/11/2019 [facility] Dwaine Woodson K21.0 Gastro- esophageal 1:00p MD Bryce reflux disease with esophagitis C53.9 Malignant neoplasm of cervix uteri, unspecified Assessments Date Code Description Provider 06/11/2019 K21.0 Gastro-esophageal reflux disease with Dwaine Wu MD esophagitis 06/11/2019 C53.9 Carcinoma of uterine cervix, invasive Dwaine Wu MD Plan of Treatment Future Appointment(s):08/11/2019 11:15 am - Dwaine Wu MD at [facility] G[facility]enter[facility] Functional Status Description No Information Available Mental Status Description No Information Available Referrals Description No Information Available
[2019-08-03] MEDS ORDERED: Morphine 4 MG/ML VIAL (1 ml) 4 MG/ML VIAL IV ONE (04:14)
[2019-08-03] MEDS ORDERED: NS 0.9% 1000 ML** 1,000 ML IV ONE (04:14)
[2019-08-03] MEDS ORDERED: Ondansetron INJ* 2 MG/ML VIAL IV ONE (04:14)
--- NOTE | 2019-08-03 04:20 | ED ---
Abdominal Pain/Female - HPI Summary HPI Summary: The patient is a 59 y/o F presenting to [facility] accompanied by with a chief complaint of sudden onset RLQ and suprapubic cramping onset around 0000 today. She reports that yesterday she was experiencing mild abdominal cramping throughout the day which she alleviated using Flexeril. The pain worsened early this morning as she was unable to take more pain medication, and it was followed by nausea and vomiting which helps to temporarily alleviated the pain. The pain is worst in the RLQ, but the cramping extends over the lower abdomen. She also notes chronic right flank pain. She endorses chills but denies fevers. She has a colostomy and has been seeing normal BMs, but she states urinary retention. She has bilateral ureteral stents that are scheduled to be changed on 08/05/[address] Ortiz from urology. She was recently here for increasing right flank pain on 07/18/19 and was admitted with discharge the following day. She states that the pain she is experiencing now is more severe than during the admission rated 9/10 in severity. PMHx: psoas muscle abscess, kidney stones, GERD, SBO, cervical cancer, colon cancer, iliac artery pseudo aneurysm. Nonsmoker, no EtOH, no substance use. Medications reviewed. Allergies noted. - History of Current Complaint Chief Complaint: EDAbdPain Stated Complaint: ABDOMINAL PAINS PER PT Hx Obtained From: Patient Onset/Duration: Sudden Onset, Lasting Hours - since 0000 this morning, Still Present Timing: Constant Severity Initially: Severe Severity Currently: Severe Pain Intensity: 9 Pain Scale Used: 0-10 Numeric Location: Discrete At: RLQ, Suprapubic Radiates: No Character: Sharp Aggravating Factor(s): Nothing Alleviating Factor(s): Vomiting, Other: - Flexeril Associated Signs and Symptoms: Positive: Nausea, Vomiting, Other: - chills, decreased urinary frequency; Negative: changes in BMs. Negative: Fever Allergies/Adverse Reactions: Allergies Allergy/AdvReac Type Severity Reaction Status Date / Time cisplatin AdvReac Intermediate Itching Verified 08/03/19 04:00 PMH/Surg Hx/FS Hx/Imm Hx Endocrine/Hematology History: Reports: Hx Anticoagulant Therapy - eliquis, Hx Anemia - slight, Other Endocrine/Hematological Disorders - Iron deficiency anemia Denies: Hx Diabetes Cardiovascular History: Reports: Hx Aneurysm - Iliac artery pseudoanyeurism, Hx Deep Vein Thrombosis - left leg, Hx Hypertension - ok after cancer treatment, Other Cardiovascular Problems/Disorders - vena cava filter right groin placed 2018 Denies: Hx Hypercholesterolemia, Hx Myocardial Infarction, Hx Pacemaker/ICD Respiratory History: Denies: Other Respiratory Problems/Disorders GI History: Reports: Hx Gastroesophageal Reflux Disease - ok after surgery, Hx Hiatal Hernia, Hx Obstructive Bowel - 11/24, Hx Ileostomy, Other GI Disorders - colostomy, psoas muscle abscess Denies: Hx Jaundice History: Reports: Hx Kidney Stones - BILATERAL STENTS 11/2018, Hx Renal Disease - BILAT URETERAL STENTS Denies: Other Problems/Disorders Musculoskeletal History: Reports: Hx Arthritis, Other Musculoskeletal History - 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 Sensory History: Denies: Hx Contacts or Glasses, Hx Hearing Aid Opthamlomology History: Denies: Hx Contacts or Glasses Neurological History: Denies: Hx CVA, Hx Dementia, Other Neuro Impairments/Disorders Psychiatric History: Reports: Hx Anxiety - on meds, Hx Depression - on meds Denies: Hx Panic Disorder - Cancer History Cancer Type, Location and Year: CERVICAL, colon Hx Chemotherapy: Yes - last dose apr 2018 Hx Radiation Therapy: Yes - Surgical History Surgery Procedure, Year, and Place: radical Hysterectomy - [facility] 2010. CHEMO PORT 11/2017. LASIK EYE SURGERY. BIOPSY OF OMENTUM, 11/2017. COLOSTOMY 04/2018. US GUIDED BIOPSY RIGHT HIP AREA. SEVERAL URETERAL STENTS. 3 STENTS FOR PSEUDO ANEURYSM Hx Anesthesia Reactions: Yes - occassional light headache - Immunization History Date of Tetanus Vaccine: unk Date of Influenza Vaccine: none Infectious Disease History: Yes Infectious Disease History: Denies: Hx of Known/Suspected MRSA, Traveled Outside the [place] in Last 30 Days - Family History Known Family History: Negative: Respiratory Disease, Seizure Disorder, Other - gallstones - Social History Alcohol Use: None Hx Substance Use: No Substance Use Type: Reports: None Hx Tobacco Use: No Smoking Status (MU): Never Smoked Tobacco Have You Smoked in the Last Year: No Review of Systems Positive: Chills. Negative: Fever Positive: Abdominal Pain - RLQ and suprapubic cramping, Vomiting, Nausea. Negative: Other - changes in BMs Positive: frequency - decreased, flank pain - right (chronic) All Other Systems Reviewed And Are Negative: Yes Physical Exam - Summary Physical Exam Summary: Appearance: Mildly ill-appearing, Well-nourished, uncomfortable, woman sitting on side of the stretcher Skin: Warm, dry, no obvious rash Eyes: sclera anicteric, no conjunctival pallor ENT: mucous membranes moist, pharynx appears normal Neck: Supple, nontender Respiratory: Clear to auscultation, no signs of respiratory distress Cardiovascular: Normal S1, S2. No murmurs. Normal distal pulses in tibial and radial bilaterally. Abdomen: Soft, nontender, normal active bowel sounds present Musculoskeletal: Normal, Strength/ROM Intact Neurological: A&Ox3, awake and alert, mentation is normal, speech is fluent and appropriate Psychiatric: affect is normal, does not appear anxious or depressed Triage Information Reviewed: Yes Vital Signs On Initial Exam: Initial Vitals Temp Pulse Resp BP Pulse Ox 98.6 F 129 16 200/115 97 08/03/19 03:58 08/03/19 03:58 08/03/19 03:58 08/03/19 03:58 08/03/19 03:58 Vital Signs Reviewed: Yes Procedures - Sedation Patient Received Moderate/Deep Sedation with Procedure: No Diagnostics - Vital Signs Vital Signs Temp Pulse Resp BP Pulse Ox 08/03/19 03:58 98.6 F 129 16 200/115 97 - Laboratory Result Diagrams: 08/03/19 04:30 08/03/19 04:30 Lab Statement: Any lab studies that have been ordered have been reviewed, and results considered in the medical decision making process. Re-Evaluation - Re-Evaluation First Eval Re-Evaluation Time: 05:32 Change: Improved Comment: Her pain has improved. We discussed plan for admission as requested by Dr. Ortiz. Abdominal Pain Fem Course/Dx - Course Course Of Treatment: Patient is a 59 y/o F with chief complaint of sharp RLQ and suprapubic cramping onset at 0000 this morning with nausea, vomiting, and chills but no subjective fevers. She has history of chronic right flank pain with bilateral ureteral stents that are going to be replaced in two days by Dr. Ortiz. Physical exam reveals that the patient is uncomfortable sitting on the edge of the stretcher with a soft, nontender abdomen. In the ED course, the patient was administered fluids, Zofran for nausea, and Morphine 8mg IV for pain control. Blood work reveals hemoglobin of 9.0, hematocrit of 29, MCV of 71 , MCH of 22, RDW of 17, MPV of 7.3, abs lymphs of 0.4, chloride f 100, BUN of 49 , creatinine of 3.2, glucose of 130, and CRP of 37.13. I discussed the case with Dr. Ortiz since he is performing the ureteral stent replacements, and he requests admission to reschedule the procedure for today. He does not want any imaging prior to admission. I spoke with Dr. Blevins, hospitalist, and she accepts the patient for admission. I spoke with the patient concerning the plan , and she understands and agrees. Dx of right flank pain, acute kidney injury. - Diagnoses Provider Diagnoses: Right flank pain, Acute kidney injury - Provider Notifications Discussed Care Of Patient With: Scotty Ortiz - urology Time Discussed With Above Provider: 05:30 Instructed by Provider To: Other - I discussed the patient's case and findings with Dr. Ortiz, and he requests admission as he will make plans to reschedule the stent surgery for today; he does not want imaging. At 0533, I spoke with Dr. Blevins, hospitalist, and she accepts the patient for admission. Discharge ED - Sign-Out/Discharge Documenting (check all that apply): Patient Departure - Patient accepted for admission by Dr. Blevins. - Discharge Plan Condition: Stable Disposition: ADMITTED TO [facility] Referrals: Darshan Painter MD [Primary Care Provider] - - Billing Disposition and Condition Condition: STABLE Disposition: Admitted to [facility] - Attestation Statements Document Initiated by Nannette: Yes Documenting Scribe: Hilary Granger Provider For Whom Nannette is Documenting (Include Credential): MD Shane Nunezibe Attestation: I, Hilary Granger, scribed for Dr. Tom Tovar MD on 08/03/19 at 0559. Scribe Documentation Reviewed: Yes Provider Attestation: The documentation as recorded by the Hilary pablo accurately reflects the service I personally performed and the decisions made by me, Dr. Tom Tovar MD Status of Scribe Document: Viewed
[2019-08-03] MEDS: Morphine 4 MG/ML VIAL (1 ml) 4 MG/ML VIAL IV PRN ×2 (04:27→05:40)
[2019-08-03 04:38] LABS: ABS Basophils 0.1 10^3/ul (0-0.2); ABS Eosinophils 0.1 10^3/ul (0-0.6); ABS Lymphocytes 0.4 10^3/ul (1.0-4.8); ABS Monocytes 0.3 10^3/ul (0-0.8); Eosinophil % 0.9 %; Hematocrit 29 % (35-47); Lymphocyte % 5.2 %; Mean Corpuscular HGB Conc 31 g/dL (31-36); Mean Corpuscular Hemoglobin 22 pg (27-31); Mean Corpuscular Volume 71 fL (80-97); Mean Platelet Volume 7.3 fL (7.4-10.4); Platelet Count 280 10^3/uL (150-450); Red Blood Count 4.02 10^6 /uL (3.70-4.87); Red Cell Distribution Width 17 % (10-15); White Blood Count 7.9 10^3/uL (3.5-10.8)
[2019-08-03 04:46] LABS: Calcium 9.6 mg/dL (8.6-10.3); Potassium 4.2 mmol/L (3.5-5.0); Total Bilirubin 0.4 mg/dL (0.2-1.0)
[2019-08-03 04:52] LABS: Albumin/Globulin Ratio 1.1 (1-3); BUN/Creatinine Ratio 15.3 (8-20); C Reactive Protein 37.13 mg/L (<8.01); EGFR African American 17.9 (>60); EGFR Non-African American 14.8 (>60); Globulin 3.7 g/dL (2-4); Total Protein 7.7 g/dL (6.4-8.9)
[2019-08-03] MEDS ORDERED: Ondansetron INJ* 2 MG/ML VIAL IV PRN ×2 (06:09→18:33)
[2019-08-03] MEDS ORDERED: Acetaminophen TAB* 325 MG PO PRN (06:09)
[2019-08-03] MEDS ORDERED: Morphine INJ* 4 MG/ML 1 ML SYRINGE (NEW SYRINGE VERSION) IV PRN (06:09)
[2019-08-03] MEDS ORDERED: NS 0.9% 1000 ML** 1,000 ML IV SCH ×2 (06:15→14:00)
[2019-08-03] MEDS: HYDROmorphone INJ* 0.5 MG/0.5 ML SYRINGE IV PRN ×2 (06:24→15:04)
[2019-08-03] MEDS ORDERED: ALPRAZolam TAB* 0.5 MG PO PRN (06:28)
[2019-08-03] MEDS ORDERED: Cyclobenzaprine TAB* 10 MG PO PRN (06:28)
[2019-08-03 06:52] LABS: INR 1.23 (0.82-1.09)
[2019-08-03 07:56] LABS: Urine Appearance Clear; Urine Bilirubin Negative (Negative); Urine Blood 3+ (Negative); Urine Color Yellow; Urine Glucose Negative (Negative); Urine Ketones Negative (Negative); Urine Nitrite Negative (Negative); Urine Protein 1+(30 mg/dL) (Negative); Urine Specific Gravity 1.011 (1.010-1.030); Urine Urobilinogen Negative (Negative)
[2019-08-03 07:59] LABS: Urine Bacteria Absent (Absent); Urine Red Blood Cell 3+(>10/hpf) (Absent); Urine Squamous Epithelial Cell Present (Absent); Urine White Blood Cell 2+(11-20/hpf) (Absent)
--- NOTE | 2019-08-03 09:16 | HP ---
CC: Dr. Jj; Dr. Painter * HISTORY AND PHYSICAL: DATE OF ADMISSION: 08/03/19 PRIMARY CARE PROVIDER: Dr. Jj. ONCOLOGIST: Dr. Painter. CHIEF COMPLAINT: Right flank pain. HISTORY OF PRESENT ILLNESS: Ms. 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 The patient was initially hospitalized on the 07/18/19 with the same complaint. She was seen in consultation by Urology and felt to need ureteral stent exchange. However, the patient's pain was able to come under control and her creatinine returned closer to her baseline, therefore, the decision was made to push this off until she was seen in followup by Vascular Surgery due to concerns of an ongoing retroperitoneal infection. Unfortunately, the patient around midnight on , developed severe right flank pain. She described this as a severe ache coming and going, wrapping around to the groin. She also had severe cramping in the pelvis. When the pain came on, she states that she vomited. Initially, she thought perhaps it was related to eating too much on the 08/02/19; however, as the pain continued, it was felt this likely was representation of the same pain she had back on 07/18/19. Since her discharge on 07/19/19, generally the pain has been managed with OxyContin twice daily and p.r.n. oxycodone. Her does note that the pain worsened after discontinuing the cefdinir. PAST MEDICAL HISTORY: 1. Anxiety. 2. Hypertension - not needing antihypertensive medications. 3. Metastatic adenocarcinoma of the cervix with mets to the colon, status post partial colectomy. 4. Ureteral stenosis secondary to radiation therapy. 5. Psoas muscle abscess - resolved. 6. History of DVT. 7. Right iliac artery pseudoaneurysm. PAST SURGICAL HISTORY: 1. Bilateral balloon dilation and bilateral ureteral stent exchanges, most recently in April 2019. 2. IVC filter placement and subsequent removal. 3. Hemicolectomy with colostomy in place. 4. Lasix eye surgery bilaterally. 5. Radical total hysterectomy. 6. Repair of right external iliac pseudoaneurysm, first with stent placed by IR at [facility], then 3 stents placed by Vascular Surgery at [facility]. 7. Percutaneous drainage of right psoas muscle abscess. MEDICATIONS: 1. Percocet 5/325, 1 to 2 tabs p.o. q.4 to 6 hours p.r.n. pain. 2. OxyContin 10 mg p.o. twice daily. 3. Zofran 4 mg p.o. daily p.r.n. nausea. 4. Flexeril 10 mg p.o. daily p.r.n. spasm. 5. Vitamin B12 of 5000 mcg p.o. daily. 6. Celexa 10 mg p.o. q.h.s. 7. Xanax 0.5 mg p.o. q.8 hours p.r.n. anxiety. ALLERGIES: CISPLATIN. FAMILY HISTORY: The patient had 2 sisters both with cervical cancer. Dad at the age of 75 due to complications related to MD. He also had diabetes. Mom is living. She is 91 and healthy. SOCIAL HISTORY: The patient is . She lives with her . She has 2 adult daughters. 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 She is a lifelong smoker. She drinks 1 alcoholic beverage per week. Her , Kurt is her healthcare proxy. REVIEW OF SYSTEMS: A complete 11-system review of systems was obtained. Pertinent positives and negative are as per HPI and otherwise negative. PHYSICAL EXAMINATION GENERAL: The patient is a well-developed, middle-aged female, who appears somewhat older than her stated age, sitting up in the stretcher, in no acute distress. VITAL SIGNS: Blood pressure 165/85, pulse 80, respirations 18, temp 98.6, O2 sat 95% on room air. HEENT: Pupils are equal and round. Extraocular muscles are intact. Oropharynx is clear. Oral mucosa is moist. There is no submandibular, cervical , or supraclavicular adenopathy. There are Steri-Strips over right jugular site from her IVC filter removal. CARDIAC: Normal S1, S2. Regular rate and rhythm. I do not appreciate any murmurs. There is no lower extremity edema. PULMONARY: Lungs are clear to auscultation bilaterally. ABDOMEN: Bowel sounds are present. Abdomen is soft, nondistended. She has a colostomy on the left. She is tender to palpation on the right lower quadrant. MUSCULOSKELETAL: The patient moves all 4 extremities symmetrically. SKIN: Warm and dry. There are no rashes. NEURO: Cranial nerves II through XII are grossly intact. Sensation is intact to light touch throughout. Strength is 5/5 and symmetric in both upper and lower extremities bilaterally. PSYCH: The patient is alert, she is oriented x3. Affect appears appropriate. LABORATORY DATA: WBC 7.9, hemoglobin 9.0, hematocrit 29, platelets 280. Sodium 138, potassium 4.2 chloride 100, CO2 of 27, BUN 49, creatinine 3.2, glucose 130 , lactic acid 0.5, calcium 9.6, bilirubin 0.4, AST 14, ALT 9, alk phos 73, CRP 37.13, albumin of 4.0, lipase 26. ASSESSMENT AND PLAN: Ms. Leonardo is a 59-year-old female with a complicated medical history stemming from history of metastatic adenocarcinoma of the cervix , requiring radical total hysterectomy, partial colectomy, radiation therapy with subsequent bilateral ureteral stenosis, requiring bilateral ureteral stents , psoas abscess, and right iliac artery pseudoaneurysm, who presented to the emergency room with complaints of right flank pain. 1. Right flank pain. At this point, it is most likely the patient's right flank pain is related malfunctioning ureteral stents. The patient was scheduled to have the stents exchanged on 08/05/19, however, developed severe pain last night. At this point, the decision has been made to admit the patient under observation status. Dr. Ortiz has been contacted and will plan on taking Ms. Leonardo to the OR later today. In the meantime, she will have Dilaudid 0.5 mg IV q.3 hours p.r.n. severe pain. She has already received 2 doses of morphine in the emergency room by approximately 1 hour without any relief of her pain. 2. Acute renal failure. The patient's creatinine is markedly elevated above her baseline. When she was hospitalized on 07/18/19, her creatinine was 1.88, today it is up to 3.2. This mostly is related to her malfunctioning ureteral stents causing hydronephrosis and subsequent renal failure. She will be hydrated with normal saline at 100 mL/hour. Follow up labs have been ordered for tomorrow morning. 3. Anxiety. We will continue p.r.n. Xanax and Celexa at bedtime. 4. Chronic pain. I am holding the patient's OxyContin for now, as she is n.p.o., however, once she is able to take oral medication, this will be resumed. 5. Chronic anemia. The patient's baseline hemoglobin recently has been around 7.7, today her hemoglobin is up to 9, this may indicate that she is volume contracted. She will be receiving normal saline. We will follow her hemoglobin. 6. DVT prophylaxis. According to the Adult Thrombosis Prophylaxis risk factor Assessment Guide, the patient has a total risk factor score of 6 making her the highest risk as she is going to the OR later today. SCDs alone for now will be utilized as DVT prophylaxis. She had been on her Eliquis up until yesterday in anticipation of going to the OR on Saturday. Once she returns from the OR, Eliquis 2.5 mg p.o. twice daily should be resumed. 7. Code status is full. TIME SPENT: Sixty five minutes were spent admitting this patient. [id number]/CPS #: [id number] ELIDA
[2019-08-03] MEDS: oxyCODONE SR TAB(*) 10 MG TAB.SR PO SCH ×2 (09:47→21:23)
[2019-08-03] MEDS: cefTRIAXone(*) 1 GM in NS 0.9% 50 ML* 50 ML IVPB SCH (09:54)
--- NOTE | 2019-08-03 14:27 | PN ---
Subjective Date of Service: 08/03/19 Interval History: Pt feels much better. abd pain in RLQ improving Objective Active Medications: Acetaminophen (Tylenol Tab*) 650 mg PO Q4H PRN PRN Reason: PAIN - MILD Alprazolam (Xanax Tab*) 0.5 mg PO Q8H PRN PRN Reason: ANXIETY Citalopram Hydrobromide (Celexa Tab*) 10 mg PO BEDTIME IHSAN Cyclobenzaprine HCl (Flexeril Tab*) 10 mg PO DAILY PRN PRN Reason: muscle spasm Hydromorphone HCl (Dilaudid Inj*) 0.5 mg IV Q3H PRN PRN Reason: PAIN - SEVERE Last Admin: 08/03/19 06:24 Dose: 0.5 mg Ceftriaxone Sodium 1 gm/ (Sodium Chloride) 50 mls @ 100 mls/hr IVPB Q24H [facility] Last Admin: 08/03/19 09:54 Dose: 100 mls/hr Sodium Chloride (Ns 0.9% 1000 Ml) 1,000 mls @ 100 mls/hr IV PER RATE [facility] Stop: 08/03/19 23:59 Ondansetron HCl (Zofran Inj*) 4 mg IV Q6H PRN PRN Reason: NAUSEA Oxycodone HCl (Oxycontin(*)) 10 mg PO Q12HR [facility] Last Admin: 08/03/19 09:47 Dose: 10 mg Vital Signs - 8 hr 08/03/19 08/03/19 08/03/19 06:24 06:35 07:00 Temperature Pulse Rate 85 84 Respiratory 16 Rate Blood Pressure 167/92 (mmHg) O2 Sat by Pulse 93 93 Oximetry 08/03/19 08/03/19 08/03/19 07:05 07:55 08:00 Temperature 98.2 F 98.8 F Pulse Rate 83 81 78 Respiratory 16 18 Rate Blood Pressure 143/87 150/72 149/87 (mmHg) O2 Sat by Pulse 94 97 95 Oximetry 08/03/19 08/03/19 09:47 12:40 Temperature 99.3 F Pulse Rate 78 Respiratory 16 12 Rate Blood Pressure 140/74 (mmHg) O2 Sat by Pulse 98 Oximetry Oxygen Devices in Use Now: None Appearance: 59 yo F in nAD, aAOx3 Eyes: No Scleral Icterus, PERRLA Ears/Nose/Mouth/Throat: NL Teeth, Lips, Gums, Mucous Membranes Moist Neck: NL Appearance and Movements; NL JVP, Trachea Midline Respiratory: Symmetrical Chest Expansion and Respiratory Effort, Clear to Auscultation Cardiovascular: NL Sounds; No Murmurs; No JVD, RRR Abdominal: - - RLQ tender to palpation, mild, with no rebound, no guarding, no palpable masses. R inguinal area pinpoint fistula-not draining. colostomy in place in left abd. 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 Ortiz will exchange ureteral stents today -urine culture pending -afebrile and without leukocytosis -continue ceftriaxone (2) DVT prophylaxis Comment: -elisamanthais held preop (3) Acute right flank pain Comment: -improving today -concerned if flank pain is 2/2 right iliopsoas muscle abscess recurrence-d/w DR. Jo-will order MRI pelvis (4) History of deep venous thrombosis (DVT) of distal vein of left lower extremity Comment: Deann held preop (5) Anemia Comment: microcytic, chronic, at baseline Status and Disposition: OBV
[2019-08-03] MEDS ORDERED: Buffered Lidocaine 1% SYRIN* 1 ML/SYRINGE INTRADERM ONE (16:28)
[2019-08-03] MEDS ORDERED: Famotidine IV* 10 MG/ML 2 ML (20 mg) IV ONE (16:28)
[2019-08-03] MEDS ORDERED: Lactated Ringers 1000 ML Bag* 1,000 ML IV SCH (17:00)
[2019-08-03] MEDS ORDERED: Naloxone* 0.4 MG/ML 1 ML VIAL IV PRN (18:33)
[2019-08-03] MEDS ORDERED: Scopolamine 1.5 mg* PATCH TRANSDERM PRN (18:33)
[2019-08-03] MEDS ORDERED: fentaNYL* 50 MCG/ML 2 ML VIAL (100 MCG VIAL) ONE ×2 (19:28→19:59)
[2019-08-03] MEDS: fentaNYL* 50 MCG/ML 2 ML VIAL (100 MCG VIAL) IV PRN ×3 (19:31→20:00)
[2019-08-03] MEDS ORDERED: Citalopram TAB* 10 MG PO SCH (21:00)
--- NOTE | 2019-08-04 02:21 | OP ---
CC: Dr. Darshan Painter * DATE OF OPERATION: 08/03/19 - ROOM #[id number] DATE OF : 58 SURGEON: Scotty Ortiz MD ANESTHESIOLOGIST: Dr. Flores. ANESTHESIA: General. PRE-OP DIAGNOSIS: Bilateral hydronephrosis. POST-OP DIAGNOSIS: Bilateral hydronephrosis. OPERATIVE PROCEDURE: Cystoscopy, bilateral stent removal, bilateral retrograde pyelograms, bilateral ureteral balloon dilation, and bilateral stent insertion. COMPLICATIONS: None. STENT USED: An 8.5-Vincentian 22 cm silicone stents, right and left ureters. 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 OPERATIVE FINDINGS: Strictures, right and left ureters, with bilateral hydronephrosis. POSTOPERATIVE CONDITION: Stable. DESCRIPTION OF PROCEDURE: After induction of general anesthesia, the patient was placed in dorsal lithotomy position. Sequential compression devices were in place and functioning. Initial cystoscopy revealed a normal-appearing bladder. The previously placed stents were removed. Next, attention was directed to the right side. Right retrograde pyelogram revealed moderate to severe right hydronephrosis. Balloon dilatation of the entire mid and distal right ureter was successfully carried out under fluoroscopic monitoring. Once this was done, an 8.2-Vincentian 22 cm black silicone stent was positioned under fluoroscopic with good proximal and distal positioning obtained. Next, attention was directed to the left side. Once again, after the initial retrograde pyelogram, balloon dilatation was carried out, and once again, an 8.5 -Vincentian 22 cm black silicone stent was introduced. Newby catheter was placed for temporary bladder drainage. The patient tolerated the procedure satisfactorily and was transferred back to the recovery area in stable condition. [id number]/CPS #: [id number] [facility]
[2019-08-04 06:21] LABS: Hematocrit 24 % (35-47); Hemoglobin 7.5 g/dL (12.0-16.0); Mean Corpuscular HGB Conc 31 g/dL (31-36); Mean Corpuscular Hemoglobin 22 pg (27-31); Mean Corpuscular Volume 72 fL (80-97); Mean Platelet Volume 7.7 fL (7.4-10.4); Platelet Count 252 10^3/uL (150-450); Red Blood Count 3.36 10^6 /uL (3.70-4.87); Red Cell Distribution Width 17 % (10-15); White Blood Count 4.3 10^3/uL (3.5-10.8)
[2019-08-04 06:33] LABS: BUN/Creatinine Ratio 16.7 (8-20); Calcium 8.9 mg/dL (8.6-10.3); EGFR African American 22.9 (>60); EGFR Non-African American 18.9 (>60); Potassium 4.3 mmol/L (3.5-5.0)
[2019-08-04 08:23] VITALS: BP 125/61
[2019-08-04] MEDS: oxyCODONE SR TAB(*) 10 MG TAB.SR PO SCH (08:30)
[2019-08-04] MEDS: cefTRIAXone(*) 1 GM in NS 0.9% 50 ML* 50 ML IVPB SCH (08:30)
[2019-08-04] MEDS ORDERED: Apixaban* 2.5 MG TAB PO SCH (09:00)
[2019-08-04 09:34] LABS: % Iron Saturation 8 % (15-55); Iron 23 ug/dL (50-212); Total Iron Binding Capacity 293 mcg/dL (250-450); Transferrin 209 mg/dL (203-362)
[2019-08-04 09:53] LABS: Ferritin 60.5 ng/mL (11-307)
--- NOTE | 2019-08-04 23:47 | DS ---
CC: Dr. Zeinab Jj; Dr. Painter; Dr. Ortiz * DISCHARGE SUMMARY: DATE OF ADMISSION: 08/03/19 DATE OF DISCHARGE: 08/04/19 PRIMARY CARE PROVIDER: Dr. Zeinab Jj. ONCOLOGIST: Dr. Painter. UROLOGIST: Dr. Ortiz. DISCHARGE DIAGNOSIS: 1. Right flank pain, likely secondary to ureteral stent obstruction, status post stent exchange. 2. Acute on chronic renal failure, likely post renal. SECONDARY DIAGNOSES: 1. Anxiety. 2. Hypertension. 3. Metastatic adenocarcinoma of the cervix with metastasis to the colon, status post partial colectomy. 4. Ureteral stenosis secondary to radiation therapy. 5. History of psoas muscle abscess. 6. History of DVT, status post IVC placement and subsequent removal. 7. Right iliac artery pseudoaneurysm, status post stent placement. 8. Status post hemicolectomy with colostomy in place. 9. Status post radical total hysterectomy. 10. Status post repair of right external iliac pseudoaneurysm, first with stent placed by [facility]ventional [facility]iology of [facility], then three stents placed by [facility] Surgery of [facility]. 11. Status post percutaneous drainage of right psoas muscle abscess. 12. CKD stage III. MEDICATION LIST: 1. Alprazolam 0.5 mg p.o. q.8 hours p.r.n. anxiety. 2. Eliquis 2.5 mg p.o. b.i.d. 3. Citalopram 10 mg p.o. at bedtime. 4. Vitamin B12 of 5000 mcg p.o. daily. 5. Cyclobenzaprine 10 mg p.o. daily as needed for muscle spasm. 6. Ondansetron 4 mg p.o. daily as needed for nausea. 7. OxyContin 10 mg p.o. q.12 hours. 8. Percocet 5/325 mg 1 to 2 tablets p.o. every 4 to 6 hours as needed for pain. New medications: Cefdinir 300 mg p.o. q.12 hours for 7 days as prescribed by Dr. Ortiz, to be continued after her procedure. HOSPITAL COURSE: Mrs. Leonardo is a 59-year-old white female with a past medical history as stated above who presented to the emergency room with complaints of right flank pain. She had been admitted to [facility] with similar complaints on 07/18, was seen in consultation by Urology and she had been scheduled to have ureteral stent exchange on 08/05/19. Her Eliquis was held in preparation for the procedure, but on 08/03/19 she re-presented to the emergency room with complaints of right flank pain. This was associated with cramping and nausea. For more details about her presentation, I refer you to her history and physical. At that point, the patient was admitted for further evaluation pain management and her procedure was rescheduled for 08/03/19. Dr. Ortiz took her to the OR and performed cystoscopy with bilateral stent removal, bilateral retrograde pyelograms, bilateral ureteral balloon dilation, and bilateral stent insertion. With the patient's symptoms, there was concern that her flank pain could be secondary to right iliopsoas muscle abscess recurrence. For that reason, an MRI of the pelvis without contrast was ordered, but due to the patient's history of stent placement, we had to obtain records to make sure the stents were MRI safe. Records from [facility] indicated that on 12/07/17, the patient had a CTA that documented a right external iliac artery pseudoaneurysm with acute and subacute retroperitoneal bleeding. Vascular Surgery was consulted. The patient had a DVT in June 2018 and she was on the Eliquis and due to the pseudoaneurysm, she had an IVC filter placed and for 1 month her anticoagulation was held. She had a pseudoaneurysm injection in August and 2 days after that it was found that her pseudoaneurysm had returned, so at that time, Interventional Radiology performed a stent graft repair with a 6 mm x 5 cm Covered stent graft, self- expanding, and followup ultrasound was done documented that had successfully treated her pseudoaneurysm. At that point, she was found to have a 1.7 cm pseudoaneurysm arising from the right external iliac artery distal margin of the stent and associated with lateral right pelvic retroperitoneal acute and subacute hematoma. It was suspected that she had a leak around the original stent allowing the pseudoaneurysm to reexpand. So in November 2018, the patient had other stents placed including [place] Viabahn VBX Balloon Expandable Endoprosthesis. Unfortunately, we were not able to obtain records from [facility] despite multiple requests. This morning, the patient stated that she felt much improved after the procedure and that her pain was resolved. She feels that her pain was likely secondary to stent obstruction as she had similar episodes in the past. She has no fever, no white cell count elevation and no other symptoms suggestive of infection. The patient was anxious for discharge at that point, so I contacted Dr. Painter, who will make arrangements for the patient to have an MRI of the pelvis without contrast as outpatient. Due to her renal function, she should not have contrasted MRI. The records from [facility] will be scanned to our system, but it would be necessary to get the records from [facility] before she has her MRI done. The patient has CKD stage III at baseline and her creatinine on admission was 3.2 and on the day of discharge was 2.58. She will follow up with Dr. Ortiz as outpatient to have her renal function monitored, but I suspect that this was a postrenal acute on chronic renal failure and with the stent exchange, I believe her renal function will return to her usual levels. Dr. Painter also requested an iron level that was found to be 23, TIBC was 293, transferrin 209, and ferritin 60.5. The patient states resolution of her symptoms and she was in agreement with the outpatient followup plan, and she is medically stable to be discharged home today. PHYSICAL EXAMINATION: Vital Signs: Temperature 98.3, heart rate is 76, respiratory rate is 16, oxygen saturation 95% on room air, blood pressure is 125 /61. General: The patient is a pleasant lady, laying in bed, in no acute distress. CVS: S1 and S2. Regular rate and rhythm. Chest: Breath sounds present bilaterally, no added sounds. Abdomen: Soft, bowel sounds present. Ostomy in place. Neuro: She is alert, awake, oriented x3. Able to move all 4 extremities. DIET: Regular diet. ACTIVITY: As tolerated. DISPOSITION: To home. STATUS IN THE HOSPITAL: Observation. CONDITION AT THE TIME OF DISCHARGE: Stable. Please keep in mind that this is a summarized version of this patient's hospital stay. If you need more information, please feel free to call me at or please obtain the full medical records. TIME SEEN: Approximately, 45 minutes was spent to complete this discharge. [id number]/CPS #: [id number] [facility]
[2019-08-06] MEDS ORDERED: Scopolamine PATCH Remove* 1 NOTE MISC PATCH OFF ONE (18:34)
== END 2019-08-04 11:00 | disposition home or self-care (01) ==
LOC: ED 03:57 → MED 06:09
PROVIDERS: ADMIT Hospitalist; ATTEND Internal Medicine
PROC: BT14ZZZ Fluoroscopy of Kidneys, Ureters and Bladder (ICD-10-PCS; 2019-08-03)
PROC: 0T788DZ Dilation of Bilateral Ureters with Intraluminal Device, Via Natural or Artificial Opening Endoscopic (ICD-10-PCS; 2019-08-03)
PROC: 0T788DZ Dilation of Bilateral Ureters with Intraluminal Device, Via Natural or Artificial Opening Endoscopic (ICD-10-PCS; principal; 2019-08-03 14:30)
DX: N13.1 Hydronephrosis with ureteral stricture, not elsewhere classified (principal); R10.9 Unspecified abdominal pain; N17.9 Acute kidney failure, unspecified; I12.9 Hypertensive chronic kidney disease with stage 1 through stage 4 chronic kidney disease, or unspecified chronic kidney disease; N18.3 Chronic kidney disease, stage 3 (moderate); G89.29 Other chronic pain; F41.9 Anxiety disorder, unspecified; D64.9 Anemia, unspecified; K21.9 Gastro-esophageal reflux disease without esophagitis; Z93.3 Colostomy status; Z85.41 Personal history of malignant neoplasm of cervix uteri; Z85.038 Personal history of other malignant neoplasm of large intestine; Z86.718 Personal history of other venous thrombosis and embolism; Z79.01 Long term (current) use of anticoagulants; Z79.899 Other long term (current) drug therapy
CPT/HCPCS: 36415; 74420; 80048; 80053; 81003; 81015; 82607; 82728; 83540; 83550; 83605; 83690; 85025; 85027; 85610; 86140; 87086; 87088; 93005; 96361; 96365; 96366; 96375; 96376; 99285; A9270-GY; G0378; J0696; J1170; J2270; J2405; J3010

== ENCOUNTER 2019-09-06 00:36 | Emergency (ER) | payer BC ==
--- OUTSIDE RECORDS SUMMARY | 2019-09-06 00:43 | XMS REPORT | Summary of Care ---
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 Extended Release 12 hour Abuse-Deterrent OXYcodone-acetaminoph Take 1 Tab by mouth 0 Active en (PERCOCET) 5-325 EVERY SIX HOURS MG Oral Tab NEEDED. apixaban (ELIQUIS) 5 Take 1 Tab by mouth 20 Tab 0 08/13/2018 Active MG Oral TWICE DAILY. HOLD TabIndications: Deep ELIQUIS FOR 1 WEEK Vein Thrombosis UNTIL SEEN BY VASCULAR SURGERY TILL 08/20/18 Additional information Patient taking differently: 2.5 mg Oral BID, HOLD ELIQUIS FOR 1 WEEK UNTIL SEEN BY VASCULAR SURGERY TILL 08/20/18, Indications: Deep Vein Thrombosis, Reported on 08/12/2019 2:31 PM Citalopram Hydrobromide (CELEXA PO) Take by mouth DAILY. 0 Active Cyanocobalamin (VITAMIN B 12 PO) Take 5,000 mcg by mouth DAILY. 0 Active Ondansetron HCl (ZOFRAN PO) Take by mouth NEEDED. 0 Active ALPRAZolam (XANAX PO) Take by mouth NEEDED. 0 Active Cyclobenzaprine HCl (FLEXERIL PO) Take by mouth NEEDED. 0 Active documented as of this encounter (statuses as of 08/13/2019) Active Problems Problem Noted Date Presence of IVC filter 07/06/2019 Overview: Added automatically from request for surgery [id number] Anemia 08/08/2018 Psoas hematoma, right, secondary to anticoagulant therapy 08/08/2018 History of cervical cancer 08/08/2018 Colostomy present 08/08/2018 Deep vein thrombosis (DVT) of proximal vein of left lower extremity 08/08/2018 Hypokalemia 08/08/2018 Hypomagnesemia 08/08/2018 Chronic diarrhea 08/08/2018 documented as of this encounter (statuses as of 08/13/2019) Social History Tobacco Use Types Packs/Day Years Used Date Never Smoker 0 Smokeless Tobacco: Never Used Comments: smokes Alcohol Use Drinks/Week oz/Week Comments No Rarely Sex Assigned at Date Recorded Not on file Job Start Date Occupation Industry Not on file Not on file Not on file Travel History Travel Start Travel End No recent travel history available. documented as of this encounter Last Filed Vital Signs Vital Sign Reading Time Taken Comments Blood Pressure 122/80 08/12/2019 2:33 PM EST Pulse 80 08/12/2019 2:33 PM EST Temperature - - Respiratory Rate - - Oxygen Saturation - - Inhaled Oxygen Concentration - - Weight 66.2 kg (146 lb) 08/12/2019 2:33 PM EST Height 166.4 cm (5' 5.5") 08/12/2019 2:33 PM EST Body Mass Index 23.93 08/12/2019 2:33 PM EST documented in this encounter Progress Notes Bridget Vasquez CRNP - 08/12/2019 1:40 PM EST PATIENT: Trini Leonardo : 1960 DATE OF SERVICE: 08/12/2019 REFERRING PRACTITIONER: Self-Referred PRIMARY CARE PROVIDER: Zeinab Jj Subjective CHIEF COMPLAINT: Chief Complaint Patient presents with Follow Up Subjective HISTORY OF PRESENT ILLNESS: Trini Leonardo is a 59-y.o. female who is seen in follow up s/p retrieval of inferior vena caval filterby Dr. Sorto on 07/16/19. Today she denies any issues with the access site. She is currently on anticoagulation. Current Outpatient Medications Medication Sig ALPRAZolam (XANAX PO) Take by mouth NEEDED. apixaban (ELIQUIS) 5 MG Oral Tab Take 1 Tab by mouth TWICE DAILY. HOLD ELIQUIS FOR 1 WEEK UNTIL SEEN BY VASCULAR SURGERY TILL 08/20/18 (Patient taking differently: Take 2.5 mg by mouth TWICE DAILY. HOLD ELIQUIS FOR 1 WEEK UNTIL SEEN BY VASCULAR SURGERY TILL 08/20/18 Indications: Blood Clot in a Deep Vein) Citalopram Hydrobromide (CELEXA PO) Take by mouth DAILY. Cyanocobalamin (VITAMIN B 12 PO) Take 5,000 mcg by mouth DAILY. Cyclobenzaprine HCl (FLEXERIL PO) Take by mouth NEEDED. Ondansetron HCl (ZOFRAN PO) Take by mouth NEEDED. OXYcodone (OXYCONTIN) 10 MG Oral Tablet Extended Release 12 hour Abuse- Deterrent Take 10 mg by mouth TWICE DAILY. OXYcodone-acetaminophen (PERCOCET) 5-325 MG Oral Tab Take 1 Tab by mouth EVERY SIX HOURS NEEDED. No current facility-administered medications for this visit. Allergies Allergen Reactions Cisplatin Dermatologic Reaction Review of Systems - Negative except as stated in the hpi all other pertinent systems are negative Objective PHYSICAL EXAMINATION: VITALS: BP 122/80 (BP Location: Right arm, Patient Position: Sitting) | Pulse 80 | Ht 5' 5.5" (1.664 m) | Wt 146 lb (66.2 kg) | BMI 23.93 kg/m GENERAL: awake, alert, oriented. NECK: no mass, no adenopathy, no thyromegaly. INCISION: healing well, dry and closed, free of signs and symptoms of infection. Plan IMPRESSION AND PLAN: Trini Leonardo is progressing well. She is 3 weeks s/p retrieval of inferior vena caval filter throughright internal jugular vein. The wound is healing well, dry and closed, free of signs and symptoms of infection. ICD-9-CM ICD-10-CM 1. Post-operative state V45.89 Z98.890 The patient will follow up as needed. Author: DHAVAL Rice 08/13/2019 16:21 documented in this encounter Plan of Treatment Health Maintenance Due Date Last Done Comments DEPRESSION SCREENING 1971 HIV SCREENING 1974 LIPID DISORDER SCREENING 1977 PAP SMEAR 1980 MAMMOGRAM (SCREENING) 1999 Colonoscopy 2009 ZOSTER IMMUNIZATION SERIES (1 of 2009 [...] of this encounter Implants Implanted Type Area Geothermal Powerplant Mechanic Helper Device Shelf Model / Identifier Expiration Serial / Date Lot Vena Cava Celect Filter Retrievalable Fem - [id number] Right: COOK 2020 [id number] / Implanted: Qty: 1 on 08/10/2018 by Darian Sorto MD at [facility] [employer] / [id number] documented as of this encounter Results Not on filedocumented in this encounter Visit Diagnoses Diagnosis Post-operative state - Primary Other postprocedural status documented in this encounter Insurance Payer Benefit Plan / Subscriber ID Effective Dates Phone Address Type Group SUSY RICE xxxxxxxxxxxx 2015-Present Susy BERNAL PPO documented as of this encounter
--- OUTSIDE RECORDS SUMMARY | 2019-09-06 00:43 | XMS REPORT | Continuity of Care Document ---
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 Problems Active Problems Provider Date Carcinoma of uterine cervix, invasive Dwaine Wu MD Onset: 02/26/2011 Bilateral hydronephrosis Dwaine Wu MD Onset: 05/20/2018 Note: first bilateral stents 07/16/18 Deep venous thrombosis of lower extremity Dwaine Wu MD Onset: 2017 Note: on Eliquis Peripheral vascular disease Dwaine Wu MD Onset: 07/01/2018 Note: Right Ext Iliac Stent at [facility] - then pseudoaneurysm Gastro-esophageal reflux disease with Dwaine Wu MD Onset: 11/13/2017 esophagitis Note: dilated EG to 15mm Social History Type Date Description Comments Sex Unknown Tobacco Use Start: Unknown Never Smoked Cigarettes Smoking Status Reviewed: 09/03/19 Never Smoked Cigarettes ETOH Use Currently consumes 1 shot of amaratto alcohol and tall glass of 7 up once a week Tobacco Use Start: Unknown Patient has never smoked Recreational Drug Use Denies Drug Use Exercise Type/Frequency Exercises rarely Allergies, Adverse Reactions, Alerts Active Allergies Reaction Severity Comments Date Cisplatin shakes, itchy palms 07/17/2018 Inactive Allergies NKDA 11/20/2017 Medications Active Medications SIG Qnty Indications Ordering Date Provider Cefdinir 1 cap by mouth 60caps Keith D. 08/31/2019 300mg Capsules twice daily Jon Tena Citalopram Hydrobromide 1 by mouth every Darshan [...] Dissolve sublingual daily Unknown 5000mcg Tablets Dispers History Medications Magnesium Citrate drink the entire 296ml Dwaine Woodson 07/06/2019 - bottle after MD Bryce 08/09/2019 1.745GM/30ML dinner two days Solution before your procedure. Colyte With Flavor By mouth as 4000ml K21.0 Dwaine Woodson 06/11/2019 - Packs directed MD Bryce 08/09/2019 240gm Solution Rec Immunizations Description No Information Available Vital Signs Date Vital Result Comment 09/03/2019 11:25am Height 65.5 inches 5'5.50" Weight 151.00 lb Heart Rate 92 /min BP Systolic 119 mmHg BP Diastolic 72 mmHg O2 % BldC Oximetry 99 % BMI (Body Mass Index) 24.7 kg/m2 07/20/2019 3:22pm Height 65.5 inches 5'5.50" Weight 158.00 lb Heart Rate 84 /min BP Systolic Sitting 128 mmHg BP Diastolic Sitting 80 mmHg Respiratory Rate 14 /min Body Temperature 98.3 F BMI (Body Mass Index) 25.9 kg/m2 Results Description No Information Available Procedures Date Code Description Status 08/11/2019 49813 Colonoscopy Thru Stoma Diagnostic Completed 08/11/2019 34416 Esophagogastroduodenoscopy, diagnostic, incl brush/wash Completed if perfor 08/11/2019 46432540 Colonoscopy Completed Medical Devices Description No Information Available Encounters Type Date Location Provider Dx Diagnosis [facility] compl of 9:43a Assocthomas M.D. indwelling Hospitalists ureteral stent, initial encounter R10.9 Unspecified abdominal pain N17.9 Acute kidney failure, unspecified N18.9 Chronic kidney disease, unspecified F41.9 Anxiety disorder, unspecified I10 Essential (primary) hypertension Office Visit 08/03/2019 9:43a [facility] Kacie R10.9 Unspecified Assoc,thomas Blevins D.O. abdominal pain Hospitalists N17.9 Acute kidney failure, unspecified F41.9 Anxiety disorder, unspecified G89.29 Other chronic pain D63.8 Anemia in other chronic diseases classified elsewhere [facility]31 Right lower 3:20p Adrian Tena M.D. quadrant pain Diseases Office Visit 07/19/2019 [facility] Pamela N17.9 Acute kidney 8:33a Assoc,thomas Vidales PA-C failure, Hospitalists unspecified F41.9 Anxiety disorder, unspecified I10 Essential (primary) hypertension C53.9 Malignant neoplasm of cervix uteri, unspecified Office Visit 07/18/2019 8:33a [facility] Pamela N17.9 Acute kidney Assoc,thomas Vidales PA-C failure, Hospitalists unspecified D64.9 Anemia, unspecified R82.90 Unspecified abnormal findings in urine F41.9 Anxiety disorder, unspecified Office 06/11/2019 [facility] Dwaine Woodson K21.0 Gastro-esophageal Visit 1:00p MD Bryce reflux disease with esophagitis C53.9 Malignant neoplasm of cervix uteri, unspecified Assessments Date Code Description Provider 08/11/2019 Z98.0 Intestinal bypass and anastomosis Dwaine Wu MD status 08/11/2019 Z86.010 Personal history of colonic polyps Dwaine Wu MD 08/11/2019 Z93.3 Colostomy status Dwaine Wu MD 08/11/2019 K21.9 Gastro-esophageal reflux disease Dwaine Wu MD without esophagitis 08/11/2019 K44.9 Diaphragmatic hernia without Dwaine Wu MD obstruction or gangrene 08/04/2019 T83.192A Other mechanical complication of Vita Hernandez M.D. indwelling ureteral stent, initial encounter 08/04/2019 R10.9 Unspecified abdominal pain Vita Hernandez M.D. 08/04/2019 N17.9 Acute kidney failure, unspecified Vita Hernandez M.D. 08/04/2019 N18.9 Chronic kidney disease, unspecified Vita Hernandez M.D. 08/04/2019 F41.9 Anxiety disorder, unspecified Vita Hernandez M.D. 08/04/2019 I10 Essential (primary) hypertension Vita Hernandez M.D. 08/03/2019 R10.9 Unspecified abdominal pain Kacie Blevins D.O. 08/03/2019 N17.9 Acute kidney failure, unspecified Fay AdamsO. 08/03/2019 F41.9 Anxiety disorder, unspecified Fay AdamsOBrenna 08/03/2019 G89.29 Other chronic pain Kacie Blevins D.O. 08/03/2019 D63.8 Anemia in other chronic diseases Kacie Blevins D.O. classified elsewhere 07/20/2019 R10.31 Right lower quadrant pain Keith Tena M.D. 07/19/2019 N17.9 Acute kidney failure, unspecified Pamela Britney'andrew, PA-C 07/19/2019 F41.9 Anxiety disorder, unspecified Pamela O'andrew, PA-C 07/19/2019 I10 Essential (primary) hypertension Pamela Britney'andrew PA-C 07/19/2019 C53.9 Malignant neoplasm of cervix uteri, Pamela O'andrew, PA-C unspecified 07/18/2019 N17.9 Acute kidney failure, unspecified Pamela O'andrew, PA-C 07/18/2019 D64.9 Anemia, unspecified Pamela O'andrew, PA-C 07/18/2019 R82.90 Unspecified abnormal findings in urine Pamela Britney'andrew, PA -C 07/18/2019 F41.9 Anxiety disorder, unspecified Pamela O'andrew, PA-C 06/11/2019 K21.0 Gastro-esophageal reflux disease with Dwaine Wu MD esophagitis 06/11/2019 C53.9 Carcinoma of uterine cervix, invasive Dwaine Wu MD Plan of Treatment No Information Available Functional Status Description No Information Available Mental Status Description No Information Available Referrals Description No Information Available
[2019-09-06] MEDS ORDERED: NS 0.9% 1000 ML** 1,000 ML IV.FLUID IV ONE (01:00)
[2019-09-06] MEDS ORDERED: HYDROmorphone INJ1* 1 MG/ML SYRINGE IV SLOW PU ONE (01:01)
--- NOTE | 2019-09-06 01:05 | ED ---
Abdominal Pain/Female - HPI Summary HPI Summary: This pt is a 59 Y/O F presenting to [facility] with abdominal pain that begins at the top of her L thigh, radiates into her L groin and then into her L kidney. She states that she has had the pain that began last night and is currently rated a 7/10 in severity. She states that she was able to maintain the pain today until she was ready for bed when the pain increased. She states that the pain increased this evening to where her prescribed pain medications are ineffective. She states that she has had a fever of 100.8 F at home and has been nauseas and vomiting. She states that she has been having night diaphoresis since the onset yesterday. She had recent blood tests on Saturday to r/o possible infection on her R side. She states that her L flank has increased pain with palpation. She denies any SOB, headaches, and CP. She has no alleviating factors. She has a PMHx of HTN, colostomy, and ileostomy bags. - History of Current Complaint Chief Complaint: EDFlankPain Stated Complaint: FLANK PAIN PER PT Time Seen by Provider: 09/06/19 00:45 Hx Obtained From: Patient Onset/Duration: Sudden Onset, Lasting Days - 2, Still Present Timing: Constant Severity Initially: Mild Severity Currently: Moderate Pain Intensity: 7 Pain Scale Used: 0-10 Numeric Location: Suprapubic - L Radiates: Yes Radiates to: Other - Groin then L flank Aggravating Factor(s): Other: - palpation Alleviating Factor(s): Nothing Associated Signs and Symptoms: Positive: Negative - SOB, headaches, Diaphoresis - night, Fever - 100.8 F, Back Pain - L CVA, Nausea, Vomiting, Other: - L flank pain. Negative: Chest Pain Allergies/Adverse Reactions: Allergies Allergy/AdvReac Type Severity Reaction Status Date / Time cisplatin AdvReac Intermediate Itching Verified 09/06/19 00:39 PMH/Surg Hx/FS Hx/Imm Hx Previously Healthy: Yes Endocrine/Hematology History: Reports: Hx Anticoagulant Therapy - eliquis, Hx Anemia - slight, Other Endocrine/Hematological Disorders - Iron deficiency anemia Denies: Hx Diabetes Cardiovascular History: Reports: Hx Aneurysm - Iliac artery pseudoanyeurism, Hx Deep Vein Thrombosis - left leg, Hx Hypertension - ok after cancer treatment, Other Cardiovascular Problems/Disorders - vena cava filter right groin placed 2018 Denies: Hx Hypercholesterolemia, Hx Myocardial Infarction, Hx Pacemaker/ICD Respiratory History: Denies: Other Respiratory Problems/Disorders GI History: Reports: Hx Gastroesophageal Reflux Disease - ok after surgery, Hx Hiatal Hernia, Hx Obstructive Bowel - 11/24, Hx Ileostomy, Other GI Disorders - colostomy, psoas muscle abscess Denies: Hx Jaundice History: Reports: Hx Kidney Infection, Hx Kidney Stones - BILATERAL STENTS 2018, Hx Renal Disease - BILAT URETERAL STENTS Denies: Other Problems/Disorders Musculoskeletal History: Reports: Hx Arthritis, Other Musculoskeletal History - 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 Sensory History: Denies: Hx Contacts or Glasses, Hx Hearing Aid Opthamlomology History: Denies: Hx Contacts or Glasses Neurological History: Denies: Hx CVA, Hx Dementia, Other Neuro Impairments/Disorders Psychiatric History: Reports: Hx Anxiety - on meds, Hx Depression - on meds Denies: Hx Panic Disorder - Cancer History Cancer Type, Location and Year: CERVICAL, colon Hx Chemotherapy: Yes - last dose apr 2018 Hx Radiation Therapy: Yes - Surgical History Surgical History: Yes Surgery Procedure, Year, and Place: HSYERECTOMY. 04/26 COLOSTEMY. BLOD CLOT FILTER VENA CAVA REMOVED. 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 BILAT URETERAL STENTS. LASIK JACKIE EYES. Stent replacement 08/03/19 Hx Anesthesia Reactions: Yes - occassional light headache - Immunization History Date of Tetanus Vaccine: unk Date of Influenza Vaccine: none Immunizations Up to Date: Yes Infectious Disease History: No Infectious Disease History: Denies: Hx of Known/Suspected MRSA, Traveled Outside the [place] in Last 30 Days - Family History Known Family History: Positive: Other - gallstones Negative: Respiratory Disease, Seizure Disorder - Social History Occupation: Employed Part-time Lives: With Family Alcohol Use: Rare Alcohol Amount: 1 drink a week Hx Substance Use: No Substance Use Type: Reports: None Hx Tobacco Use: No Smoking Status (MU): Never Smoked Tobacco Have You Smoked in the Last Year: No Household Exposure: No Review of Systems Positive: Fever - 100.8 F , Skin Diaphoresis - night Negative: Chest Pain Negative: Shortness Of Breath Positive: Abdominal Pain - radiated from L hip to Groin and then to L flank , Vomiting, Nausea Positive: flank pain - L, radiated pain from groin Negative: Headache All Other Systems Reviewed And Are Negative: Yes Physical Exam - Summary Physical Exam Summary: Appearance: Well-appearing, Well-nourished, lying in bed comfortably Skin: Warm, dry, no obvious rash Eyes: sclera anicteric, no conjunctival pallor ENT: mucous membranes moist, pharynx appears normal Neck: Supple, nontender Respiratory: Clear to auscultation, no signs of respiratory distress Cardiovascular: Normal S1, S2. No murmurs. Normal distal pulses in tibial and radial bilaterally. Abdomen: Soft, nontender, normal active bowel sounds present Musculoskeletal: Normal, Strength/ROM Intact, L CVA tenderness Neurological: A&Ox3, awake and alert, mentation is normal, speech is fluent and appropriate Psychiatric: affect is normal, does not appear anxious or depressed Triage Information Reviewed: Yes Vital Signs On Initial Exam: Initial Vitals Temp Pulse Resp BP Pulse Ox 98.6 F 93 14 167/90 97 09/06/19 00:37 09/06/19 00:37 09/06/19 00:37 09/06/19 00:37 09/06/19 00:37 Vital Signs Reviewed: Yes Procedures - Sedation Patient Received Moderate/Deep Sedation with Procedure: No Diagnostics - Vital Signs Vital Signs Temp Pulse Resp BP Pulse Ox 09/06/19 00:37 98.6 F 93 14 167/90 97 - Laboratory Result Diagrams: 09/06/19 01:26 09/06/19 01:26 Lab Statement: Any lab studies that have been ordered have been reviewed, and results considered in the medical decision making process. - Radiology Abdomen X-Ray Radiology Interpretation Completed By: ED Physician Summary of Radiographic Findings: Stents are in good position. Pending offical review. Abdominal Pain Fem Course/Dx - Course Course Of Treatment: This pt is a 59 Y/O F presenting to [facility] with abdominal pain that begins at the top of her L thigh, radiates into her L groin and then into her L kidney. She states that she has had the pain that began last night and is currently rated a 7/10 in severity. She states that she was able to maintain the pain today until she was ready for bed when the pain increased. She states that the pain increased this evening to where her prescribed pain medications are ineffective. She states that she has had a fever of 100.8 F at home and has been nauseas and vomiting. Her PE found that she has L CVA tenderness. She has abnormalities in the following laboratory values: Hgb, Hct , RDW, MPV, APTT of 42.9, INR 1.43, urine color (red), Urine protein, Urine blood, Urine leukocyte Esterase, Urine WBC, Urine RBC. Her abdominal X-Ray shows that her stents are in good position. She will be discharged home with a Dx of flank pain. - Diagnoses Provider Diagnoses: Right flank pain Discharge ED - Sign-Out/Discharge Documenting (check all that apply): Patient Departure - discharge - Discharge Plan Condition: Good Disposition: HOME Prescriptions: HYDROmorphone TAB* [Dilaudid TAB*] 4 mg PO Q4H PRN #20 tab MDD 8 PRN Reason: Pain - Severe Levofloxacin TAB* [Levaquin TAB*] 500 mg PO DAILY #3 tab Patient Education Materials: Flank Pain (ED) Referrals: Darshan Painter MD [Primary Care Provider] - Additional Instructions: I have prescribed some dilaudid tablets as well as a short course of levaquin. We should have urine cultures back within a couple of days, so these need to be followed up on either by Dr. Huerta or Dr. Ortiz to see if you need to continue the antibiotic. In the meantime if you spike a fever we need to see you back here forthwith. - Billing Disposition and Condition Condition: GOOD Disposition: Home - Attestation Statements Document Initiated by Nannette: Yes Documenting Scribe: Jesus Solis Provider For Whom Nannette is Documenting (Include Credential): Tom Tovar MD Scribe Attestation: Jesus Reddy, scribed for Tom Tovar MD on 09/06/19 at 0554. Scribe Documentation Reviewed: Yes Provider Attestation: The documentation as recorded by the Jesus pablo accurately reflects the service I personally performed and the decisions made by me, Tom Tovar MD Status of Scribe Document: Viewed
[2019-09-06 01:47] LABS: ABS Lymphocytes 0.5 10^3/ul (1.0-4.8); ABS Monocytes 0.3 10^3/ul (0-0.8); ABS Neutrophils 2.5 10^3/ul (1.5-7.7); Eosinophil % 0.8 %; Hematocrit 28 % (35-47); Lymphocyte % 14.7 %; Mean Corpuscular HGB Conc 32 g/dL (31-36); Mean Corpuscular Hemoglobin 24 pg (27-31); Mean Corpuscular Volume 74 fL (80-97); Mean Platelet Volume 7.2 fL (7.4-10.4); Nucleated Red Blood Cells % 0.1; Platelet Count 237 10^3/uL (150-450); Red Blood Count 3.85 10^6 /uL (3.70-4.87); Red Cell Distribution Width 19 % (10-15); White Blood Count 3.3 10^3/uL (3.5-10.8)
[2019-09-06 01:52] LABS: Urine Appearance Cloudy; Urine Bacteria Absent (Absent); Urine Bilirubin Negative (Negative); Urine Blood 3+ (Negative); Urine Glucose Negative (Negative); Urine Ketones Negative (Negative); Urine Nitrite Negative (Negative); Urine Protein 2+(100 mg/dL) (Negative); Urine Red Blood Cell 3+(>10/hpf) (Absent); Urine Specific Gravity 1.013 (1.010-1.030); Urine Urobilinogen Negative (Negative); Urine White Blood Cell 2+(11-20/hpf) (Absent)
[2019-09-06 01:53] LABS: Activated Partial Thrombo Time 42.9 seconds (26.0-38.0); INR 1.43 (0.82-1.09)
[2019-09-06 01:53] LABS: Urine Color Red
[2019-09-06 02:08] LABS: Albumin 4.1 g/dL (3.2-5.2); Albumin/Globulin Ratio 1.2 (1-3); EGFR African American 49.2 (>60); EGFR Non-African American 40.7 (>60); Globulin 3.3 g/dL (2-4); Potassium 3.7 mmol/L (3.5-5.0); Total Bilirubin 0.3 mg/dL (0.2-1.0); Total Protein 7.4 g/dL (6.4-8.9)
[2019-09-06 02:10] LABS: Troponin I 0.01 ng/mL (<0.03)
[2019-09-06] MEDS ORDERED: Levofloxacin TAB* 500 MG PO ONE (04:04)
[2019-09-06 04:41] VITALS: BP 122/59
== END 2019-09-06 04:38 | disposition home or self-care (01) ==
LOC: ED 00:36
DX: R10.31 Right lower quadrant pain (principal); D50.9 Iron deficiency anemia, unspecified; F41.9 Anxiety disorder, unspecified; F32.9 Major depressive disorder, single episode, unspecified; Z85.41 Personal history of malignant neoplasm of cervix uteri; Z85.038 Personal history of other malignant neoplasm of large intestine; Z86.718 Personal history of other venous thrombosis and embolism; Z90.710 Acquired absence of both cervix and uterus; Z79.01 Long term (current) use of anticoagulants; Z79.899 Other long term (current) drug therapy; Z88.8 Allergy status to other drugs, medicaments and biological substances
CPT/HCPCS: 36415; 74018; 80053; 81003; 81015; 83605; 84484; 85025; 85610; 85730; 87040; 87086; 96361; 96374; 99283; J1170

== ENCOUNTER 2019-11-26 05:54 | Day surgery (SDC) | payer BC ==
--- NOTE | 2019-10-20 10:02 | HP ---
CC: Dr. Jj; Dr. Painter * ADMITTING HISTORY AND PHYSICAL: DATE OF ADMISSION: 11/11/19 ADMITTING DIAGNOSES: 1. Bilateral hydronephrosis. 2. History of advanced cervical carcinoma. PLANNED PROCEDURE: 1. Bilateral retrograde. 2. Bilateral ureteral stent replacement. SURGEON: Dr. Ortiz. 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 She also has a fairly complicated history of having developed right external artery pseudoaneurysm, which required stent placement and also development of right psoas muscle abscess for which she currently still on cefdinir 300 mg twice a day. She last underwent bilateral stent replacement on 08/03/19, and has an 8.5-[place] 22-cm silicone stents in the right and left ureter. 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 PAST SURGICAL HISTORY: Significant for: 1. Hemicolectomy with colostomy. 2. Radical hysterectomy. 3. Repair of right external iliac pseudoaneurysm with stent placement. 4. Multiple stent insertions and stent changes. 5. Placement of IVC filter and subsequent removal. MEDICATIONS: On admission: 1. Alprazolam 0.5 mg p.r.n. 2. Citalopram 10 mg daily. 3. Cefdinir 300 mg twice a day. ALLERGIES AND INTOLERANCES: CISPLATIN. SOCIAL HISTORY: Smoking History: She is a nonsmoker. REVIEW OF SYSTEMS: She is actually now doing fairly well and has regained her weight, and has a good appetite and better exercise tolerance. She denies any chest pain or shortness of breath. PHYSICAL EXAMINATION GENERAL: Reveals a pleasant middle-aged lady. VITAL SIGNS: Blood pressure is 130/80, pulse 67 per minute and regular, temperature 97, oxygen saturation 98% on room air. LUNGS: Clear bilaterally. CARDIOVASCULAR: Regular rate and rhythm. S1, S2. ABDOMEN: Soft with a colostomy in place. There is mild bilateral flank tenderness. IMPRESSION: A 59-year-old lady with bilateral hydronephrosis managed with indwelling stents. PLAN: Plan is for bilateral retrogrades, bilateral stent change. [id number]/[facility] #: [id number] [facility]
--- NOTE | 2019-11-25 16:44 | HP ---
CC: Dr. Zeinab Jj; Dr. Darshan Painter * ADMITTING HISTORY AND PHYSICAL: DATE OF ADMISSION: 11/30/19 ADMITTING DIAGNOSES: 1. Bilateral hydronephrosis. 2. History of advanced cervical carcinoma. PLANNED PROCEDURE: Bilateral retrograde, bilateral ureteral balloon dilatation and bilateral stent change. SURGEON: Dr. Ortiz. HISTORY OF PRESENT ILLNESS: Trini Leonardo is a 59-year-old lady with a history of advanced cervical carcinoma and bilateral hydronephrosis. She has had multiple surgical procedures, which ended up causing extensive right psoas muscle abscess and has had bilateral hydronephrosis requiring indwelling stent and periodic stent change. The last stent change was on 08/03/19, and she has 8.5 Citizen Of [place] 22 cm black silicone stents in the right and left ureters. PAST MEDICAL HISTORY: Significant for advanced cervical carcinoma with multiple complications including psoas abscess and iliac artery pseudoaneurysm. PAST SURGICAL HISTORY: Significant for radical hysterectomy, hemicolectomy with temporary colostomy, repair of the external iliac pseudoaneurysm with stent placement, placement of an IVC filter and subsequent removal of the IVC filter, multiple ureteral stent insertions and stent changes. MEDICATIONS ON ADMISSION: 1. Oxycodone extended release 10 mg daily. 2. Percocet 5 mg daily. 3. Cefdinir 300 mg twice a day. 4. Escitalopram 5 mg daily. 5. Dilaudid p.r.n. ALLERGIES AND INTOLERANCES: CISPLATIN. FAMILY HISTORY: Noncontributory. SMOKING HISTORY: She is a nonsmoker. PHYSICAL EXAMINATION GENERAL: Reveals a pleasant middle-aged lady. VITAL SIGNS: Blood pressure is 132/80, pulse 71 per minute and regular, respirations 18 per minute, oxygen saturation 96% on room air, temperature 96.4. LUNGS: Clear bilaterally. CARDIOVASCULAR: Regular rate and rhythm. S1, S2. ABDOMEN: Soft with a colostomy in place. There is mild flank tenderness, right greater than left. IMPRESSION: A 59-year-old lady with bilateral hydronephrosis, who has been managed with indwelling ureteral stents, which were last changed about 4 months ago. Plan is for bilateral retrograde, bilateral stent change, and possible balloon dilatation. [id number]/[facility] #: [id number] [facility]
[~2019-11-26 05:54] MED LIST changes: -Famotidine IV* 10 MG/ML 2 ML (20 mg) IV ONE
[2019-11-26] MEDS ORDERED: cefTRIAXone(*) 2 GM ADDV.VIAL IVPB ONE (06:08)
[2019-11-26] MEDS ORDERED: cefTRIAXone(*) 2 GM in NS 0.9% 100 ML* 100 ML IVPB ONE (07:00)
[2019-11-26] MEDS ORDERED: Gentamicin ADULT (*) 140 MG in NS 0.9% 100 ML* 100 ML IVPB ONE (07:00)
[2019-11-26] MEDS ORDERED: Iohexol 180 (CONTRAST) 10 ML SDV IV ONE ×2 (07:15→08:00)
[2019-11-26] MEDS ORDERED: fentaNYL* 50 MCG/ML 2 ML VIAL (100 MCG VIAL) ONE (07:37)
[2019-11-26] MEDS ORDERED: Midazolam* 1 MG/ML 2 ML VIAL (2 MG) ONE (07:37)
[2019-11-26] MEDS ORDERED: Dexamethasone IV* 4 MG/ML 1 ML (4 MG) ONE (07:55)
[2019-11-26] MEDS ORDERED: Lidocaine 2% PF * 5 ML VIAL ONE (07:55)
[2019-11-26] MEDS ORDERED: Propofol* 10 MG/ML 20 ML BTL ONE (07:55)
[2019-11-26] MEDS ORDERED: Ondansetron INJ* 2 MG/ML VIAL ONE (07:55)
[2019-11-26] MEDS ORDERED: Naloxone* 0.4 MG/ML 1 ML VIAL IV PRN (08:43)
[2019-11-26] MEDS ORDERED: HYDROcodone/ACETAMIN 5-325 MG* 1 TAB PO PRN (08:43)
[2019-11-26] MEDS ORDERED: HYDROcodone/ACETAMIN 5-325 MG* 1 TAB ONE (09:03)
--- NOTE | 2019-11-26 09:28 | OP ---
CC: Dr. Zeinab Jj; Dr. Darshan Painter; Dr. Ortiz * DATE OF OPERATION: 11/26/19 - [facility] DATE OF : 58 SURGEON: Scotty Ortiz MD ANESTHESIA: General. ANESTHESIOLOGIST: Dr. Springer. PRE-OP DIAGNOSES: 1. Bilateral hydronephrosis. 2. History of advanced cervical carcinoma. POST-OP DIAGNOSES: 1. Bilateral hydronephrosis. 2. History of advanced cervical carcinoma. OPERATIVE PROCEDURE: Cystoscopy, bilateral stent removal, bilateral retrograde pyelograms, bilateral ureteral balloon dilatation, and bilateral stent insertion. COMPLICATIONS: None. STENT USED: 8.5-Bengali 22 cm black silicone stents right and left ureter. POST-OP CONDITION: Stable. OPERATIVE FINDINGS: Bilateral hydronephrosis and proximal hydroureter. INDICATION: Trini Leonardo is a 59-year-old lady with a history of advanced cervical carcinoma and bilateral hydronephrosis. She last had stents changed about 4 months ago and is now having increasing right flank pain. PROCEDURE: After induction of general anesthesia, the patient was placed in dorsal lithotomy position. Sequential compression devices were in place and functioning. Initial cystoscopy revealed some calcifications on the distal aspect of the stent as expected. Both the stents were removed. She then underwent a right retrograde pyelogram which revealed significant right hydronephrosis and proximal right hydroureter. Balloon dilatation of the proximal, mid and distal right ureter was carried out under fluoroscopic monitoring, and once this was done, a new 8.5-Beng[place] 22 cm black silicone stent was introduced under fluoroscopic monitoring with good proximal and distal positioning obtained. Next, attention was directed to the left side. Once again, a left retrograde pyelogram revealed left hydronephrosis and once again successful balloon dilatation of the ureter was carried out, followed by placement of an 8.5- Beng[place] 22 cm black silicone stent. A Newby catheter was placed for temporary bladder drainage. The patient tolerated the procedure satisfactorily and was transferred back to the recovery area in stable condition. [id number]/[facility] #: [id number] MTDD
[2019-11-26] MEDS ORDERED: HYDROmorphone INJ1* 1 MG/ML SYRINGE ONE (10:05)
[2019-11-26] MEDS: HYDROmorphone INJ1* 1 MG/ML SYRINGE IV PRN ×3 (10:06→10:17)
[2019-11-26 10:55] VITALS: BP 168/81
== END 2019-11-26 10:59 | disposition home or self-care (01) ==
LOC: OR 05:54
PROVIDERS: ATTEND Urology
DX: N13.1 Hydronephrosis with ureteral stricture, not elsewhere classified (principal); C53.9 Malignant neoplasm of cervix uteri, unspecified; F41.8 Other specified anxiety disorders; Z93.3 Colostomy status
CPT/HCPCS: 74420; C2617; J0696; J1100; J1170; J1580; J2250; J2405; J2704; J3010

== ENCOUNTER 2019-12-11 01:46 | Emergency (ER) | payer BC ==
--- OUTSIDE RECORDS SUMMARY | 2019-12-11 01:58 | XMS REPORT | Continuity of Care Document ---
:1960 External Reference #:[id number] Author Name Dwaine Wu MD (transmitted by agent of provider Ashley Connell) Address [address] [place] [address] Care Team Providers Name Role Phone Zeinab Jj MD - Internal Medicine Care Team Information Window Systems Administrator Darshan Painter MD - Hematology Care Team Information Window Systems Administrator [phone] Problems Active Problems Provider Date Carcinoma of uterine cervix, invasive Dwaine Wu MD Onset: 02/26/2011 Note: Treated with radiation and complete hysterectomy and then recurrence documented in spring 2017 when pathology was reinterpreted during a second opinion at [facility]. She then had 3 rounds of chemotherapy (following a round of colon cancer directed therapy they tell me) and then a double resection of colon at [place] 05/07/18. The: Past specimens showed no tumor and this surprised the surgeon. Winter 2019 she is being followed by oncology (Dr Painter) every 3 months and had September 2019 CT abdomen and pelvis negative for recurrence. Iron deficiency anemia Dwaine Wu MD Onset: 12/18/2018 Note: Her chronic anemia in the MCV 78 range abruptly went microcytic at 72 between December and March 2019; she has a large hiatal hernia and is on Eliquis Bilateral hydronephrosis Dwaine Wu MD Onset: 05/20/2018 Note: first bilateral stents 07/16/18 Deep venous thrombosis of lower extremity Dwaine Wu MD Onset: 2017 Note: on Eliquis Peripheral vascular disease Dwaine Wu MD Onset: 07/01/2018 Note: Right Ext Iliac Stent at [facility] - then pseudoaneurysm Gastro-esophageal reflux disease with Dwaine Wu MD Onset: 11/13/2017 esophagitis Note: dilated EG to 15mm Abscess of groin Dwaine Wu MD Onset: 05/07/2018 Note: drains to midline right thigh 3-4 cm below inguinal crease a minimal amount every couple of weeks; per Dr Tena on Cefdinir 300mg BID for persistent infection November 2019 Social History Type Date Description Comments Sex Unknown Tobacco Use Start: Unknown Never Smoked Cigarettes Smoking Status Reviewed: 11/09/19 Never Smoked Cigarettes ETOH Use Currently consumes [...] Cefdinir 1 cap by mouth 60caps Keith Aponte 08/31/2019 300mg Capsules twice daily Jon Tena Citalopram Hydrobromide 1 by mouth every Darshan Painter, 12/01/2018 day M.DBrenna 10mg Tablets Oxycontin take one by mouth Unknown 10mg [...] Dissolve sublingual daily Unknown 5000mcg Tablets Dispers Womens Multi daily Unknown Capsules History Medications Magnesium Citrate drink the entire 296ml Dwaine Woodson 07/06/2019 - bottle after MD Bryce 08/09/2019 1.745GM/30ML dinner two days Solution before your procedure. Colyte With Flavor By mouth as 4000ml K21.0 Dwaine Woodson 06/11/2019 - Packs directed MD Bryce 08/09/2019 240gm Solution Rec Immunizations Description No Information Available Vital Signs Date Vital Result Comment 11/09/2019 10:31am Height 65.5 inches 5'5.50" Weight 155.12 lb Heart Rate 77 /min BP Systolic 138 mmHg BP Diastolic 86 mmHg Respiratory Rate 20 /min O2 % BldC Oximetry 98 % BMI (Body Mass Index) 25.4 kg/m2 09/28/2019 2:26pm Height 65.5 inches 5'5.50" Weight 152.00 lb Heart Rate 84 /min BP Systolic Sitting 142 mmHg BP Diastolic Sitting 80 mmHg Respiratory Rate 14 /min Body Temperature 98.7 F BMI (Body Mass Index) 24.9 kg/m2 Results Test Acquired Date Facility Test Result H/L Range Note CBC Auto 11/09/2019 [facility] White Blood 5.5 10^3/uL Normal 3.5-10.[address] [place] [address] [phone] Red Blood Count 4.11 10^6/uL Normal 3.70-4.87 Hemoglobin 10.5 g/dL Low 12.0-16.0 Hematocrit 32 % Low 35-47 Mean Corpuscular Volume 78 fL Low 80-97 Mean Corpuscular Hemoglobin 26 pg Low 27-31 Mean Corpuscular HGB Conc 33 g/dL Normal 31-36 Red Cell Distribution Width 18 % High 10-15 Platelet Count 220 10^3/uL Normal 150-450 Mean Platelet Volume 8.1 fL Normal 7.4-10.4 Abs Neutrophils 4.0 10^3/uL Normal 1.5-7.7 Abs Lymphocytes 0.9 10^3/uL Low 1.0-4.8 Abs Monocytes 0.4 10^3/uL Normal 0-0.8 Abs Eosinophils 0.1 10^3/uL Normal 0-0.6 Abs Basophils 0.0 10^3/uL Normal 0-0.2 Abs Nucleated RBC 0.0 10^3/uL Granulocyte % 73.4 % Lymphocyte % 16.9 % Monocyte % 7.0 % Eosinophil % 1.9 % Basophil % 0.8 % Nucleated Red Blood Cells % 0.0 Laboratory test 11/09/2019 [facility] Ferritin 18.7 ng/mL Normal 11-[address] [place] [address] [phone] Iron & Iron 11/09/2019 [facility] Iron 32 g/dL Low 50-[address] [place] [address] [phone] Unsaturated Iron Binding < 425 g/dL Total Iron Binding Capacity 440 g/dL Normal 250-450 Transferrin 314 mg/dL Normal 203-362 % Iron Saturation 7 % Low 15-55 Laboratory 11/09/2019 [facility] Carcinoembryonic 1.5 Normal 0.1-5.0 [address] Antigen Cea ng/[place] [address] [phone] Comp 11/09/2019 [facility] Sodium 141 Normal 135-145 Metabolic 101 mmol/[place] [address] [phone] Potassium 4.0 mmol/L Normal 3.5-5.0 Chloride 105 mmol/L Normal 101-111 Co2 Carbon Dioxide 27 mmol/L Normal 22-32 Anion Gap 9 mmol/L Normal 2-11 Glucose 90 mg/dL Normal 70-100 Blood Urea Nitrogen 26 mg/dL High 6-24 Creatinine 1.23 mg/dL High 0.51-0.95 BUN/Creatinine Ratio 21.1 High 8-20 Calcium 9.2 mg/dL Normal 8.6-10.3 Total Protein 6.7 g/dL Normal 6.4-8.9 Albumin 4.3 g/dL Normal 3.2-5.2 Globulin 2.4 g/dL Normal 2-4 Albumin/Globulin Ratio 1.8 Normal 1-3 Total Bilirubin 0.30 mg/dL Normal 0.2-1.0 Alkaline Phosphatase 64 U/L Normal 34-104 Alt 18 U/L Normal 7-52 Ast 19 U/L Normal 13-39 Egfr Non- 44.5 >60 Egfr 53.9 >60 2 Laboratory 11/09/2019 [facility] Erythropoietin 30.3 Abnormal 2.6 - [address] mIU/mL 18.5 [place] [address] [phone] CBC Auto Diff 09/04/2019 [facility] White Blood Count 3.0 Low 3.5-10. [address] DR[address] 10^3/uL 8 [place] [address] [phone] Red Blood Count 3.86 10^6/uL Normal 3.70-4.87 Hemoglobin 9.2 g/dL Low 12.0-16.0 Hematocrit 28 % Low 35-47 Mean Corpuscular Volume 73 fL Low 80-97 4 Mean Corpuscular Hemoglobin 24 pg Low 27-31 Mean Corpuscular HGB Conc 33 g/dL Normal 31-36 Red Cell Distribution Width 19 % High 10-15 Platelet Count 244 10^3/uL Normal 150-450 Mean Platelet Volume 7.4 fL Normal 7.4-10.4 Abs Neutrophils 1.8 10^3/uL Normal 1.5-7.7 Abs Lymphocytes 0.7 10^3/uL Low 1.0-4.8 Abs Monocytes 0.4 10^3/uL Normal 0-0.8 Abs Eosinophils 0.0 10^3/uL Normal 0-0.6 Abs Basophils 0.0 10^3/uL Normal 0-0.2 Abs Nucleated RBC 0.0 10^3/uL Granulocyte % 60.1 % Lymphocyte % 23.6 % Monocyte % 14.2 % Eosinophil % 1.2 % Basophil % 0.9 % Nucleated Red Blood Cells % 0.1 Laboratory 09/04/2019 [facility] Deoxycorticosteroids <5.0 Abnormal 10-79 5 test finding [address] ng/[place] [address] [phone] C Reactive Protein 28.10 mg/L High <8.01 1 Nonsmokers: < 2.9 ng/mL Some smokers may have elevated CEA, usually <5.0 ng/mL. Serum markers are not specific for malignancy, and values may vary by method. The testing method is an immunoenzymatic assay laundry presser by [employer] performed on [employer] DXI 600. Do not interpret serum CEA levels as absolute evidence of the presence or the absence of malignant disease. Use serum CEA in conjunction with information from the clinical evaluation of the patient and other diagnostic procedures. 2 Because ethnic data is not always readily available, this report includes an eGFR for both -Americans and non- Americans. The National Kidney Disease Education Program (NKDEP) does not endorse the use of the MDRD equation for patients that are not between the ages of 18 and 70, are , have extremes of body size, muscle mass, or nutritional status, or are non- or non-. According to the National Kidney Foundation, irrespective of diagnosis, the stage of the disease is based on the level of kidney function: Stage Description GFR(mL/min/1.73 m(2)) 1 Kidney damage with normal or decreased GFR 90 2 Kidney damage with mild decrease in GFR 60-89 3 Moderate decrease in GFR 30-59 4 Severe decrease in GFR 15-29 5 Kidney failure <15 (or dialysis) 3 Test Performed by: [facility] [place] [address] Light Rail Vehicle Operator: Jeff Houston M.D. Ph.D.; CLIA# [id number] 4 Consistent with Previous Results Reported on 08/03/19 5 ADDITIONAL INFORMATION This test was developed and its performance characteristics determined by [facility] in a manner consistent with CLIA requirements. This test has not been cleared or approved by the U.S. Food and Drug Administration. Test Performed by: [facility] [place] [address] Light Rail Vehicle Operator: Jeff Houston M.D. Ph.D.; CLIA# [id number] Procedures Date Code Description Status 08/11/2019 40429 Colonoscopy Thru Stoma Diagnostic Completed 08/11/2019 06779 Esophagogastroduodenoscopy, diagnostic, incl brush/wash Completed if perfor 08/11/2019 93679749 Colonoscopy Completed 04/21/2018 [id number] Colonoscopy Completed Medical Devices Description No Information Available Encounters Type Date Location Provider Dx Diagnosis Office Visit 11/09/2019 [facility] Dwaine Woodson Z93.3 Colostomy status 10:30a MD Bryce K44.9 Diaphragmatic hernia without obstruction or gangrene D50.9 Iron deficiency anemia, unspecified Z98.0 Intestinal bypass and anastomosis status K21.9 Gastro-esophageal reflux disease without esophagitis Office Visit 09/28/2019 2:20p [facility] Keith Aponte K65.1 Peritoneal Infectious Jon Tena abscess Diseases Z93.3 Colostomy status Z79.2 precision honer (current) use of antibiotics Office Visit 09/03/2019 [facility] Dwaine Woodson Z93.3 Colostomy 11:15a MD Bryce status K44.9 Diaphragmatic hernia without obstruction or gangrene T83.192A [facility] compl of indwelling ureteral stent, initial encounter D50.9 Iron deficiency anemia, unspecified M25.151 Fistula, right hip Office Visit 08/04/2019 [facility] Vita T83.192A [facility] compl of 9:43a Assoc,thomas Hernandez M.D. indwelling Hospitalists ureteral stent, initial encounter R10.9 Unspecified abdominal pain N17.9 Acute kidney failure, unspecified N18.9 Chronic kidney disease, unspecified F41.9 Anxiety disorder, unspecified I10 Essential (primary) hypertension Office Visit 08/03/2019 9:43a [facility] Kacie R10.9 Unspecified Assoc,thomas Blevins DHenrique abdominal pain Hospitalists N17.9 Acute kidney failure, unspecified F41.9 Anxiety disorder, unspecified G89.29 Other chronic pain D63.8 Anemia in other chronic diseases classified elsewhere Office Visit 07/20/2019 [facility] Keith Aponte R10.31 Right lower 3:20p Adrian Tena M.D. quadrant pain Diseases Office Visit 07/19/2019 [facility] Pamela N17.9 Acute kidney 8:33a Assocthomas PA-C failure, Hospitalists unspecified F41.9 Anxiety disorder, unspecified I10 Essential (primary) hypertension C53.9 Malignant neoplasm of cervix uteri, unspecified Office Visit 07/18/2019 8:33a [facility] Pamela N17.9 Acute kidney Assoc,thomas Vidales PADarnellC failure, Hospitalists unspecified D64.9 Anemia, unspecified R82.90 Unspecified abnormal findings in urine F41.9 Anxiety disorder, unspecified Office 06/11/2019 [facility] Dwaine Woodson K21.0 Gastro-esophageal Visit 1:00p MD Bryce reflux disease with esophagitis C53.9 Malignant neoplasm of cervix uteri, unspecified Assessments Date Code Description Provider 11/09/2019 Z93.3 Colostomy status Dwaine Wu MD 11/09/2019 K44.9 Diaphragmatic hernia without Dwaine Wu MD obstruction or gangrene 11/09/2019 D50.9 Iron deficiency anemia, unspecified Dwaine uW MD 11/09/2019 Z98.0 Intestinal bypass and anastomosis Dwaine Wu MD status 11/09/2019 K21.9 Gastro-esophageal reflux disease Dwaine Wu MD without esophagitis 09/28/2019 K65.1 Peritoneal abscess Keith Tena M.D. 09/28/2019 Z93.3 Colostomy status Keith Tena M.D. 09/28/2019 Z79.2 precision honer (current) use of antibiotics Keith Tena M.D. 09/03/2019 Z93.3 Colostomy status Dwaine Wu MD 09/03/2019 K44.9 Diaphragmatic hernia without Dwaine Wu MD obstruction or gangrene 09/03/2019 T83.192A Other mechanical complication of Dwaine Wu MD indwelling ureteral stent, initial encounter 09/03/2019 D50.9 Iron deficiency anemia, unspecified Dwaine Wu MD 09/03/2019 M25.151 Fistula, right hip Dwaine Wu MD 08/11/2019 Z98.0 Intestinal bypass and anastomosis Dwaine Wu MD status 08/11/2019 Z86.010 Personal history of colonic polyps Dwaine Wu MD 08/11/2019 Z93.3 Colostomy status Dwanie Wu MD 08/11/2019 K21.9 Gastro-esophageal reflux disease [...] D.O. 08/03/2019 N17.9 Acute kidney failure, unspecified Alis Adams.O. 08/03/2019 F41.9 Anxiety disorder, unspecified Fay AdamsO. 08/03/2019 G89.29 Other chronic pain Kacie Blevins D.O. 08/03/2019 D63.8 Anemia in other chronic diseases Kacie Blevins D.O. classified elsewhere 07/20/2019 R10.31 Right lower quadrant pain Keith Tena M.D. 07/19/2019 N17.9 Acute kidney failure, unspecified Pamela O'andrew, PA-C 07/19/2019 F41.9 Anxiety disorder, unspecified Pamela O'andrew, PA-C 07/19/2019 I10 Essential (primary) hypertension Pamela O'andrew, PA-C 07/19/2019 C53.9 Malignant neoplasm of cervix uteri, Pamela O'anrdew, PA-C unspecified 07/18/2019 N17.9 Acute kidney failure, unspecified Pamela O'andrew, PA-C 07/18/2019 D64.9 Anemia, unspecified Pamela O'andrew, PA-C 07/18/2019 R82.90 Unspecified abnormal findings in urine Pamela O'andrew, PA -C 07/18/2019 F41.9 Anxiety disorder, unspecified Pamela O'andrew, PA-C 06/11/2019 K21.0 Gastro-esophageal reflux disease with Dwaine Wu MD esophagitis 06/11/2019 C53.9 Carcinoma of uterine cervix, invasive Dwaine Wu MD Plan of Treatment Future Appointment(s):11/23/2019 1:40 pm - Keith Tena M.D. at [facility]43/02/2020 - Dwaine Wu MDZ93.3 Colostomy qwintqY11.9 Diaphragmatic hernia without obstruction or nrjthmwpS00.9 Iron deficiency anemia, hkidwfizivyM39.0 Intestinal bypass and anastomosis sxtootW96.9 Gastro-esophageal reflux disease without esophagitis Functional Status Description No Information Available Mental Status Description No Information Available Referrals Description No Information Available
--- OUTSIDE RECORDS SUMMARY | 2019-12-11 01:58 | XMS REPORT | Continuity of Care Document ---
:1960 External Reference #:[id number] Author Name Dwaine Wu MD (transmitted by agent of provider Renetta Akins) Address [address] [place] [address] Care Team Providers Name Role Phone Zeinab Jj MD - Internal Medicine Care Team Information Last Inserter Darshan Painter MD - Hematology Care Team Information Last Inserter [phone] Problems Active Problems Provider Date Carcinoma of uterine cervix, invasive Dwaine Wu MD Onset: 02/26/2011 Iron deficiency anemia Dwaine uW MD Onset: 12/18/2018 Note: Her chronic anemia in the 78 range abruptly went microcytic at 72 between December and March 2019; he has a large hiatal hernia and is on Eliquis Bilateral hydronephrosis Dwaine Wu MD Onset: 05/20/2018 Note: first bilateral stents 07/16/18 Deep venous thrombosis of lower extremity Dwaine Wu MD Onset: 2017 Note: on Eliquis Peripheral vascular disease Dwaine Wu MD Onset: 07/01/2018 Note: Right Ext Iliac Stent at [facility] - then pseudoaneurysm Gastro-esophageal reflux disease with Dwaine Wu MD Onset: 11/13/2017 esophagitis Note: dilated EG to 15mm Abscess of groin Dwaine Wu MD Onset: 05/07/2018 Note: drains to midline right thigh 3-4 cm below inguinal crease a minimal amount every couple of weeks; Social History Type Date Description Comments Sex [...] Test Result H/L Range Note CBC Auto 09/04/2019 [facility] White Blood 3.0 10^3/uL Low 3.5 -10.[address] [place] [address] [phone] Red Blood Count 3.86 10^6/uL Normal 3.70-4.87 Hemoglobin 9.2 g/dL Low 12.0-16.0 Hematocrit 28 % Low 35-47 Mean Corpuscular Volume 73 fL Low 80-97 1 Mean Corpuscular Hemoglobin 24 pg Low 27-31 [...] Red Blood Cells % 0.1 Laboratory 09/04/2019 [facility] Deoxycorticosteroids <5.0 Abnormal 10-79 2 test finding [address] ng/[place] [address] [phone] C Reactive Protein 28.10 mg/L High <8.01 1 Consistent with Previous Results Reported on 08/03/19 2 ADDITIONAL INFORMATION This test was developed and its performance characteristics determined by [facility] in a manner consistent with CLIA requirements. This test has not been cleared or approved by the U.S. Food and Drug Administration. Test Performed by: [facility] [address] [place] [address] Comfort Filler: Jeff Houston M.D. Ph.D.; IA# [id number] Procedures Date Code Description Status 08/11/2019 94545 Colonoscopy Thru Stoma Diagnostic Completed 08/11/2019 12102 Esophagogastroduodenoscopy, diagnostic, incl brush/wash Completed if perfor 08/11/2019 85069127 Colonoscopy Completed 04/21/2018 74455244 Colonoscopy Completed Medical Devices Description No Information Available Encounters Type Date Location Provider Dx Diagnosis Office Visit 09/28/2019 [facility] Crow Aponte K65.1 Peritoneal abscess 2:20p Infectious Diseases Jon Tena Z93.3 Colostomy status Z79.2 long-term (current) use of antibiotics Office Visit 09/03/2019 [facility] Dwaine Woodson Z93.3 Colostomy 11:15a MD Bryce status K44.9 Diaphragmatic hernia without obstruction or gangrene T83.192A [facility] compl of indwelling ureteral stent, initial encounter D50.9 Iron deficiency anemia, unspecified M25.151 Fistula, right hip Office Visit 08/04/2019 [facility] Vita T83.192A [facility] compl of 9:43a Assocthomas M.D. indwelling Hospitalists ureteral stent, initial encounter R10.9 Unspecified abdominal pain N17.9 Acute kidney failure, unspecified N18.9 Chronic kidney disease, unspecified F41.9 Anxiety disorder, unspecified I10 Essential (primary) hypertension Office Visit 08/03/2019 9:43a [facility] Kacei R10.9 Unspecified Assocthomas DHenrique abdominal pain Hospitalists N17.9 Acute kidney failure, unspecified F41.9 Anxiety disorder, unspecified G89.29 Other chronic pain D63.8 Anemia in other chronic diseases classified elsewhere Office Visit 07/20/2019 [facility] Crow Aponte R10.31 Right lower 3:20p Adrian Tena M.D. quadrant pain Diseases Office Visit 07/19/2019 [facility] Pamela N17.9 Acute kidney 8:33a Assocthomas PA-C failure, Hospitalists unspecified F41.9 Anxiety disorder, unspecified I10 Essential (primary) hypertension C53.9 Malignant neoplasm of cervix uteri, unspecified Office Visit 07/18/2019 8:33a [facility] Pamela N17.9 Acute kidney Assoc,pc ELIAS Vidales failure, Hospitalists unspecified D64.9 Anemia, unspecified R82.90 Unspecified abnormal findings in urine F41.9 Anxiety disorder, unspecified Office 06/11/2019 [facility]astro[facility] Dwaine Woodson K21.0 Gastro-esophageal Visit 1:00p MD Bryce reflux disease with esophagitis C53.9 Malignant neoplasm of cervix uteri, unspecified Assessments Date Code Description Provider 09/28/2019 K65.1 Peritoneal abscess Keith Tena M.D. 09/28/2019 Z93.3 Colostomy status Keith Tena M.D. 09/28/2019 Z79.2 long-term (current) use of antibiotics Keith Tena M.D. 09/03/2019 Z93.3 Colostomy status Dwaine Wu MD 09/03/2019 K44.9 Diaphragmatic hernia without Dwaine Wu MD obstruction or gangrene 09/03/2019 T83.192A Other mechanical complication of Dwanie Wu MD indwelling ureteral stent, initial encounter [...] Hernandez M.D. 08/03/2019 R10.9 Unspecified abdominal pain Alis Adams.O. 08/03/2019 N17.9 Acute kidney failure, unspecified Kacie Blevins D.O. 08/03/2019 F41.9 Anxiety disorder, unspecified Kacie Blevins D.O. 08/03/2019 G89.29 Other chronic pain Kacie Blevins D.O. 08/03/2019 D63.8 Anemia in other chronic diseases Alis Adams.O. classified elsewhere 07/20/2019 R10.31 Right lower quadrant [...] 1:40 pm - Keith Tena M.D. at [facility] Functional Status Description No Information Available Mental Status Description No Information Available Referrals Description No Information Available
[2019-12-11] MEDS ORDERED: NS 0.9% 1000 ML** 1,000 ML IV ONE (02:13)
[2019-12-11] MEDS ORDERED: Metoclopramide IV* 5 MG/ML 2 ML VIAL IV ONE (02:13)
[2019-12-11] MEDS ORDERED: Ketorolac INJ* 30 MG/ML 1 ML VIAL IV ONE (02:14)
--- NOTE | 2019-12-11 02:17 | ED ---
GI/ HPI - HPI Summary HPI Summary: This pt is a 59 Y/O F presenting to [facility] with a CC of R flank pain that began on 1800 12/10/2019 that is rated an 8/10 in severity and has been constant since the onset. She states that she recently had ureteral stents replaced and states that the pain is similar to how they feel when they begin to go bad. She states that she has been taking Dilaudid without good effect. She states that she has been having decreased urination output since the onset of pain. She also reports She denies any fevers, chills, headaches, SOB, CP, sore throats, and L kidney pain. She states that her prescribed pain medications have not been helping with her pain. She states no alleviating factors. She has a PMHx of ovarian cancer stage 4 that she reports is currently in remission. - History of Current Complaint Chief Complaint: EDUrogenitalProblems Time Seen by Provider: 12/11/19 02:06 Stated Complaint: EXTREME RT FLANK PAIN PER PT Hx Obtained From: Patient Onset/Duration: Started Hours Ago - 6, Still Present Timing: Constant, Lasting Hours - 6 Severity: Severe Current Severity: Severe Pain Intensity: 8 Location of Pain: Flank - R Associated Signs and Symptoms: Positive: Negative - SOB, L kidney pain, headaches, Nausea, Vomiting, Flank Pain - R, Other: - POSITIVE: decreased urine output. Negative: Fever, Chills, Chest Pain Aggravating Factor(s): Nothing Alleviating Factor(s): Nothing - Additional Pertinent History Primary Care Physician: [id number] - Allergy/Home Medications Allergies/Adverse Reactions: Allergies Allergy/AdvReac Type Severity Reaction Status Date / Time cisplatin AdvReac Intermediate Itching Verified 12/11/19 01:52 Home Medications: Home Medications oxyCODONE/Acetamin 5/325 MG* [Percocet 5/325 TAB*] 1 tab PO QPM 08/08/18 [ History Confirmed 11/26/19] Cyanocobalamin (Vitamin B-12) [Vitamin B-12] 5,000 mcg PO QAM 08/31/18 [History Confirmed 11/26/19] Ondansetron HCl [Zofran 4 MG TAB] 4 mg PO DAILY PRN 08/31/18 [History Confirmed 11/26/19] Citalopram Hydrobromide [Citalopram HBr] 10 mg PO BEDTIME 12/07/18 [History Confirmed 11/26/19] ALPRAZolam TAB* [Xanax TAB*] 0.5 mg PO Q8H PRN MDD 3 Tabs 03/17/19 [History Confirmed 11/04/19] Cyclobenzaprine TAB* [Flexeril 10 MG TAB*] 10 mg PO DAILY PRN 07/06/19 [History Confirmed 11/26/19] oxyCODONE SR TAB(*) [Oxycontin 10 mg (*)] 10 mg PO BID 07/06/19 [History Confirmed 11/26/19] Cefdinir [Cefdinir 300 MG CAP] 300 mg PO Q12H 7 Days capsule 08/04/19 [Rx Confirmed 11/26/19] HYDROmorphone TAB* [Dilaudid TAB*] 4 mg PO Q4H PRN #20 tab MDD 8 09/06/19 [Rx Confirmed 11/26/19] Women's Multivitamin Tablet 1 tab PO QAM 11/04/19 [History Confirmed 11/26/19] PMH/Surg Hx/FS Hx/Imm Hx Previously Healthy: Yes Endocrine/Hematology History: Reports: Hx Anticoagulant Therapy - eliquis, Hx Anemia - slight, Other Endocrine/Hematological Disorders - Iron deficiency anemia Denies: Hx Bone Marrow Disease, Hx Diabetes, Hx Sickle Cell Disease, Hx Thyroid Disease Cardiovascular History: Reports: Hx Aneurysm - Iliac artery pseudoanyeurism, Hx Deep Vein Thrombosis - left leg, Hx Hypertension - ok after cancer treatment, Other Cardiovascular Problems/Disorders - vena cava filter right groin placed 2018 Denies: Hx Angina, Hx Cardiomegaly, Hx Congestive Heart Failure, Hx Coronary Artery Disease, Hx Hypercholesterolemia, Hx Myocardial Infarction, Hx Pacemaker/ ICD, Hx Peripheral Vascular Disease, Hx Rheumatic Fever, Hx Valvular Heart Disease Respiratory History: Denies: Hx Asthma, Hx Pulmonary Edema, Hx Pulmonary Embolism, Hx Sleep Apnea , Other Respiratory Problems/Disorders GI History: Reports: Hx Gastroesophageal Reflux Disease - ok after surgery, Hx Hiatal Hernia, Hx Obstructive Bowel - 11/24, Hx Ileostomy, Other GI Disorders - colostomy, psoas muscle abscess Denies: Hx Cirrhosis, Hx Crohn's Disease, Hx Irritable Bowel, Hx Jaundice, Hx Ulcer History: Reports: Hx Kidney Infection, Hx Kidney Stones - BILATERAL STENTS 2018, Hx Renal Disease - BILAT URETERAL STENTS Denies: Other Problems/Disorders Musculoskeletal History: Reports: Hx Arthritis, Other Musculoskeletal History - 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 Denies: Hx Bursitis, Hx Tendonitis Sensory History: Denies: Hx Cataracts, Hx Contacts or Glasses, Hx Glaucoma, Hx Hearing Aid Opthamlomology History: Denies: Hx Cataracts, Hx Contacts or Glasses, Hx Glaucoma Neurological History: Denies: Hx CVA, Hx Dementia, Hx Headaches, Hx Migraine, Hx Nerve Disease, Hx Seizures, Other Neuro Impairments/Disorders Psychiatric History: Reports: Hx Anxiety - on meds, Hx Depression - on meds Denies: Hx Panic Disorder - Cancer History Cancer Type, Location and Year: CERVICAL, colon Hx Chemotherapy: Yes - last dose apr 2018 Hx Radiation Therapy: Yes - cervical cancer, mets to colon - Surgical History Surgical History: Yes Surgery Procedure, Year, and Place: HSYERECTOMY. 04/26 COLOSTEMY. BLOD CLOT FILTER VENA CAVA REMOVED. PSEUDO ANEURYSM RT PELVIS 3 STENTS [place] 2 OF THEM 1 [employer]. BILAT URETERAL STENTS. LASIK JACKIE EYES. Stent replacement 08/03/19 Hx Anesthesia Reactions: Yes - occassional light headache - Immunization History Date of Tetanus Vaccine: unk Date of Influenza Vaccine: none Immunizations Up to Date: Yes Infectious Disease History: No Infectious Disease History: Denies: Hx Hepatitis, Hx of Known/Suspected MRSA, Traveled Outside the [place] in Last 30 Days - Family History Known Family History: Positive: Other - gallstones Negative: Respiratory Disease, Seizure Disorder - Social History Alcohol Use: Rare Alcohol Amount: 1 drink a week Hx Substance Use: No Substance Use Type: Reports: None Substance Use Comment - Amount & Last Used: pt takes pain medications for hx of chronic pain Hx Tobacco Use: No Smoking Status (MU): Never Smoked Tobacco Have You Smoked in the Last Year: No Review of Systems Negative: Fever, Chills Negative: Sore Throat Negative: Chest Pain Negative: Shortness Of Breath Positive: Vomiting, Nausea Positive: flank pain - R Negative: Headache All Other Systems Reviewed And Are Negative: Yes Physical Exam - Summary Physical Exam Summary: Constitutional: Well-developed, Well-nourished, Alert. (-) Distressed Skin: Warm, Dry HENT: Normocephalic; Atraumatic Eyes: Conjunctiva normal Neck: Musculoskeletal ROM normal neck. (-) JVD, (-) Stridor, (-) Tracheal deviation Cardio: Rhythm regular, rate normal, Heart sounds normal; Intact distal pulses; Radial pulses are 2+ and symmetric. (-) Murmur Pulmonary/Chest wall: Effort normal. (-) Respiratory distress, (-) Wheezes, (-) Rales Abd: Soft, (-) tenderness, (-) Distension, (-) Guarding, (-) Rebound, R flank tenderness Musculoskeletal: (-) Edema Lymph: (-) Cervical adenopathy Neuro: Alert, Oriented x3 Psych: Mood and affect Normal Triage Information Reviewed: Yes Vital Signs On Initial Exam: Initial Vitals Temp Pulse Resp BP Pulse Ox 97.9 F 95 20 193/108 97 12/11/19 01:48 12/11/19 01:48 12/11/19 01:48 12/11/19 01:48 12/11/19 01:48 Vital Signs Reviewed: Yes Procedures - Sedation Patient Received Moderate/Deep Sedation with Procedure: No Diagnostics - Vital Signs Vital Signs Temp Pulse Resp BP Pulse Ox 12/11/19 01:48 97.9 F 95 20 193/108 97 - Laboratory Result Diagrams: 12/11/19 02:32 12/11/19 02:32 Lab Statement: Any lab studies that have been ordered have been reviewed, and results considered in the medical decision making process. - CT CT A/P CT Interpretation Completed By: Radiologist Summary of CT Findings: 1. Colonic surgery as described above with left colostomy. 2. Thickening of the wall of the residual ascending and proximal transverse. colon possibly representing edema, ischemia, or colitis. 3. Bilateral ureteral stents. 4. Marked right hydroureteronephrosis. 5. Small hiatus hernia. 6. Right superficial iliac artery stent. 7. Hysterectomy. 8. Left renal cysts. 9. Degenerative changes of the spine, as described above. ED physician has reviewed this report. - EKG 0226 Cardiac Rate: NL - 83 BPM EKG Rhythm: Sinus Rhythm Summary of EKG Findings: Normal sinus rhythm at 83 bpm, LBBB, QTc at 501, and no signs of ischemia. Interpreted by Dr. Lorenzana at 0233 12/11/2019. Re-Evaluation - Re-Evaluation First Eval Re-Evaluation Time: 04:27 Change: Worse Comment: Pt states that her pain has returned. In one hour Dr. Rodriguez will be consulted if the pain has not disscipated for a consult. Second Eval Re-Evaluation Time: 05:29 Change: Improved Comment: Pt states that her pain is all gone. GIGU Course/Dx - Course Course Of Treatment: Patient is here with right flank pain. 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 Patient's had multiple ureteral stents that have needed be replaced. Patient's right ureteral stent was replaced roughly 2 weeks ago. Patient had a CT scan showed right hydronephrosis. Patient had bloodwork performed which showed a creatinine of 2.0 compared to 1.23 on prior from roughly one month ago. Patient is given Toradol and then Dilaudid with cessation of her pain. Patient was discharged and will call her urologist this morning for a follow-up appointment. - Diagnoses Provider Diagnoses: Right flank pain, Acute kidney injury Discharge ED - Sign-Out/Discharge Documenting (check all that apply): Patient Departure - discharge - Discharge Plan Condition: Good Disposition: HOME Patient Education Materials: Flank Pain (ED) Referrals: Darshan Painter MD [Primary Care Provider] - 2 Days Additional Instructions: PLEASE FOLLOW UP WITH YOUR PRIMARY CARE PROVIDER IN 1-3 DAYS. RETURN TO THE EMERGENCY DEPARTMENT FOR ANY NEW OR WORSENING SYMPTOMS. Please call Dr. Ortiz later today and inform him of your recent Emergency Department visit. - Billing Disposition and Condition Condition: GOOD Disposition: Home - Attestation Statements Document Initiated by Nannette: Yes Documenting Scribe: Jesus Solis Provider For Whom Nannette is Documenting (Include Credential): Raad Lorenzana MD Scribe Attestation: Jesus Reddy, scribed for Raad Lorenzana MD on 12/11/19 at 0631. Scribe Documentation Reviewed: Yes Provider Attestation: The documentation as recorded by the Jesus pablo accurately reflects the service I personally performed and the decisions made by me, Raad Lorenzana MD Status of Scribe Document: Viewed
[2019-12-11 02:41] LABS: ABS Eosinophils 0.1 10^3/ul (0-0.6); ABS Lymphocytes 0.4 10^3/ul (1.0-4.8); ABS Monocytes 0.4 10^3/ul (0-0.8); ABS Neutrophils 7.7 10^3/ul (1.5-7.7); Eosinophil % 0.7 %; Hematocrit 35 % (35-47); Hemoglobin 11.6 g/dL (12.0-16.0); Lymphocyte % 5.1 %; Mean Corpuscular HGB Conc 33 g/dL (31-36); Mean Corpuscular Hemoglobin 26 pg (27-31); Mean Corpuscular Volume 78 fL (80-97); Mean Platelet Volume 7.4 fL (7.4-10.4); Platelet Count 206 10^3/uL (150-450); Red Blood Count 4.55 10^6 /uL (3.70-4.87); Red Cell Distribution Width 16 % (10-15); White Blood Count 8.6 10^3/uL (3.5-10.8)
[2019-12-11 02:56] LABS: Albumin/Globulin Ratio 1.3 (1-3); Calcium 9.7 mg/dL (8.6-10.3); EGFR African American 30.8 (>60); EGFR Non-African American 25.4 (>60); Globulin 3.2 g/dL (2-4); Potassium 3.9 mmol/L (3.5-5.0); Total Bilirubin 0.4 mg/dL (0.2-1.0); Total Protein 7.2 g/dL (6.4-8.9)
[2019-12-11] MEDS ORDERED: HYDROmorphone INJ* 0.5 MG/0.5 ML SYRINGE IV ONE (04:26)
[2019-12-11 05:08] LABS: Urine Appearance Clear; Urine Bilirubin Negative (Negative); Urine Blood 2+ (Negative); Urine Color Straw; Urine Glucose Negative (Negative); Urine Ketones Negative (Negative); Urine Nitrite Negative (Negative); Urine Protein Negative (Negative); Urine Specific Gravity 1.009 (1.010-1.030); Urine Urobilinogen Negative (Negative)
[2019-12-11 05:17] LABS: Urine Bacteria Absent (Absent); Urine Red Blood Cell 3+(>10/hpf) (Absent); Urine White Blood Cell 2+(11-20/hpf) (Absent)
[2019-12-11 06:02] VITALS: BP 169/90
[2019-12-11 17:57] LABS: C Reactive Protein 5.41 mg/L (<8.01)
== END 2019-12-11 06:00 | disposition home or self-care (01) ==
LOC: ED 01:46
DX: R10.84 Generalized abdominal pain (principal); N17.9 Acute kidney failure, unspecified; Z85.43 Personal history of malignant neoplasm of ovary; Z79.01 Long term (current) use of anticoagulants; K21.9 Gastro-esophageal reflux disease without esophagitis; Z87.442 Personal history of urinary calculi; R11.2 Nausea with vomiting, unspecified
CPT/HCPCS: 36415; 74176; 80053; 81003; 81015; 83605; 85025; 86140; 87086; 93005; 96361; 96374; 96375; 99284; J1170; J1885; J2765

== ENCOUNTER 2020-07-15 16:20 | Observation (INO) ==
[2020-07-15 19:04] LABS: ABS Basophils 0.1 10^3/ul (0-0.2); ABS Lymphocytes 0.7 10^3/ul (1.0-4.8); ABS Monocytes 0.3 10^3/ul (0-0.8); ABS Neutrophils 8.9 10^3/ul (1.5-7.7); Eosinophil % 0.2 %; Hematocrit 36 % (35-47); Hemoglobin 11.6 g/dL (12.0-16.0); Mean Corpuscular HGB Conc 33 g/dL (31-36); Mean Corpuscular Hemoglobin 27 pg (27-31); Mean Corpuscular Volume 82 fL (80-97); Mean Platelet Volume 7.8 fL (7.4-10.4); Platelet Count 249 10^3/uL (150-450); Red Blood Count 4.33 10^6 /uL (3.70-4.87); Red Cell Distribution Width 16 % (10-15)
[2020-07-15 19:05] LABS: Albumin 4.4 g/dL (3.2-5.2); Albumin/Globulin Ratio 1.3 (1-3); BUN/Creatinine Ratio 13.9 (8-20); C Reactive Protein 2.73 mg/L (<8.01); Calcium 9.7 mg/dL (8.6-10.3); EGFR African American 47.6 (>60); EGFR Non-African American 39.3 (>60); Globulin 3.5 g/dL (2-4); Potassium 4.6 mmol/L (3.5-5.0); Total Bilirubin 0.4 mg/dL (0.2-1.0); Total Protein 7.9 g/dL (6.4-8.9)
[2020-07-15 20:17] LABS: Urine Appearance Cloudy; Urine Bilirubin Negative (Negative); Urine Blood 2+ (Negative); Urine Color Yellow; Urine Glucose Negative (Negative); Urine Ketones Negative (Negative); Urine Nitrite Negative (Negative); Urine Protein 2+(100 mg/dL) (Negative); Urine Specific Gravity 1.013 (1.010-1.030); Urine Urobilinogen Negative (Negative)
[2020-07-15] MEDS ORDERED: Ondansetron 4 mg VIAL 2 MG/ML 2 ml VIAL IV ONE (20:22)
[2020-07-15] MEDS ORDERED: HYDROmorphone 0.5 MG/0.5 ML SYRINGE IV ONE (20:22)
[2020-07-15] MEDS ORDERED: NS 0.9% 1000 ml BAG 1,000 ML IV ONE (20:24)
[2020-07-15 20:27] LABS: Urine Bacteria Absent (Absent); Urine Red Blood Cell 3+(>10/hpf) (Absent); Urine Squamous Epithelial Cell Present (Absent); Urine White Blood Cell 3+(>20/hpf) (Absent)
[2020-07-15] MEDS: HYDROmorphone 1 MG/1 ML SYRINGE IV SLOW PU PRN (23:10)
[2020-07-15] MEDS: Ondansetron 4 mg VIAL 2 MG/ML 2 ml VIAL IV PRN (23:11)
[2020-07-16] MEDS: oxyCODONE SR 10 mg TAB PO SCH ×2 (00:25→11:55)
[2020-07-16] MEDS ORDERED: cefTRIAXone 2 GM ADDV.VIAL 2 GM in NS 0.9% 100 ml BAG 100 ML IV SCH ×2 (01:00→13:00)
[2020-07-16] MEDS ORDERED: NS 0.9% 1000 ml BAG 1,000 ML IV SCH (01:00)
[2020-07-16] MEDS ORDERED: Ondansetron 4 mg VIAL 2 MG/ML 2 ml VIAL IV ONE (03:01)
[2020-07-16] MEDS ORDERED: Prochlorperazine 5 mg/ml 2 ml VIAL (10 mg) IV PRN (03:01)
[2020-07-16] MEDS: HYDROmorphone 1 MG/1 ML SYRINGE IV SLOW PU PRN ×2 (03:07→08:05)
[2020-07-16 06:17] LABS: ABS Lymphocytes 0.8 10^3/ul (1.0-4.8); ABS Monocytes 0.4 10^3/ul (0-0.8); ABS Neutrophils 5.4 10^3/ul (1.5-7.7); Eosinophil % 0.6 %; Hematocrit 31 % (35-47); Hemoglobin 10.1 g/dL (12.0-16.0); Lymphocyte % 12.1 %; Mean Corpuscular HGB Conc 32 g/dL (31-36); Mean Corpuscular Hemoglobin 27 pg (27-31); Mean Corpuscular Volume 82 fL (80-97); Mean Platelet Volume 7.7 fL (7.4-10.4); Platelet Count 199 10^3/uL (150-450); Red Cell Distribution Width 16 % (10-15); White Blood Count 6.6 10^3/uL (3.5-10.8)
[2020-07-16 06:40] LABS: BUN/Creatinine Ratio 14.5 (8-20); Calcium 8.8 mg/dL (8.6-10.3); EGFR African American 57.1 (>60); EGFR Non-African American 47.2 (>60); Potassium 3.4 mmol/L (3.5-5.0)
[2020-07-16] MEDS ORDERED: Ondansetron 4 mg VIAL 2 MG/ML 2 ml VIAL ONE (09:00)
[2020-07-16] MEDS ORDERED: Multivitamins/Minerals TAB PO SCH (09:00)
[2020-07-16] MEDS: Ondansetron 4 mg VIAL 2 MG/ML 2 ml VIAL IV PRN (09:05)
[2020-07-16] MEDS ORDERED: fentaNYL 100 mcg/2 ml 50 MCG/ML VIAL IV PRN (09:52)
[2020-07-16] MEDS ORDERED: Naloxone 0.4 mg VIAL 0.4 mg/ml 1 ml VIAL IV PRN (09:52)
[2020-07-16] MEDS ORDERED: Ondansetron 4 mg VIAL 2 MG/ML 2 ml VIAL IV PRN (09:52)
[2020-07-16] MEDS ORDERED: HYDROmorphone 1 MG/1 ML SYRINGE IV PRN (09:52)
[2020-07-16] MEDS ORDERED: fentaNYL 250 mcg/5 ml 50 MCG/ML 5 ml VIAL (250 MCG) ONE (10:04)
[2020-07-16] MEDS ORDERED: Midazolam 2 mg/2 ml VIAL 1 mg/ml 2 ml VIAL (2 mg) ONE (10:04)
[2020-07-16] MEDS ORDERED: Propofol 10 MG/ML 20 ML BTL ONE (10:05)
[2020-07-16] MEDS ORDERED: Iohexol 180 (CONTRAST) 10 ML SDV IV ONE (10:09)
[2020-07-16] MEDS ORDERED: Phenylephrine 40 mcg/mL 10mL (400mcg) SYRINGE ONE (10:22)
[2020-07-16] MEDS ORDERED: EPHEDrine (Pressors) 50 MG/ML VIAL ONE (10:38)
[2020-07-16] MEDS ORDERED: Oxytocin 10 UNITS/ML 1 ML VIAL ONE (10:39)
[2020-07-16] MEDS ORDERED: Sugammadex 500 MG/5 ML 5 ml VIAL IV PUSH ONE (10:49)
[2020-07-16] MEDS ORDERED: Potassium Chlor 10 meq TAB PO ONE (14:24)
[2020-07-16 15:01] VITALS: BP 113/83
== END 2020-07-16 15:15 | disposition home or self-care (01) ==
LOC: ED 16:20 → SSU 16:20
PROVIDERS: ADMIT Internal Medicine; ATTEND Internal Medicine

== ENCOUNTER 2020-10-26 10:47 | Observation (INO) ==
[2020-10-26] MEDS ORDERED: NS 0.9% 1000 ml BAG 1,000 ML IV ONE ×2 (11:10→11:42)
[2020-10-26] MEDS ORDERED: Ondansetron 4 mg VIAL 2 MG/ML 2 ml VIAL IV ONE (11:42)
[2020-10-26] MEDS ORDERED: HYDROmorphone 0.5 MG/0.5 ML SYRINGE IV ONE (11:42)
[2020-10-26 11:55] LABS: ABS Eosinophils 0.1 10^3/ul (0-0.6); ABS Lymphocytes 0.7 10^3/ul (1.0-4.8); ABS Monocytes 0.3 10^3/ul (0-0.8); ABS Neutrophils 4.6 10^3/ul (1.5-7.7); Eosinophil % 1.1 %; Hematocrit 37 % (35-47); Hemoglobin 12.1 g/dL (12.0-16.0); Lymphocyte % 11.7 %; Mean Corpuscular HGB Conc 33 g/dL (31-36); Mean Corpuscular Hemoglobin 28 pg (27-31); Mean Corpuscular Volume 84 fL (80-97); Mean Platelet Volume 7.8 fL (7.4-10.4); Platelet Count 177 10^3/uL (150-450); Red Blood Count 4.36 10^6 /uL (3.70-4.87); Red Cell Distribution Width 14 % (10-15); White Blood Count 5.7 10^3/uL (3.5-10.8)
[2020-10-26 12:11] LABS: Albumin 4.3 g/dL (3.2-5.2); Albumin/Globulin Ratio 1.6 (1-3); BUN/Creatinine Ratio 14.8 (8-20); C Reactive Protein 1.97 mg/L (<8.01); Calcium 9.4 mg/dL (8.6-10.3); EGFR African American 54.2 (>60); EGFR Non-African American 44.8 (>60); Globulin 2.7 g/dL (2-4); Potassium 4.2 mmol/L (3.5-5.0); Total Bilirubin 0.4 mg/dL (0.2-1.0)
[2020-10-26 12:26] LABS: Urine Appearance Cloudy; Urine Bacteria Absent (Absent); Urine Bilirubin Negative (Negative); Urine Blood 2+ (Negative); Urine Color Yellow; Urine Glucose Negative (Negative); Urine Ketones Negative (Negative); Urine Nitrite Negative (Negative); Urine Protein 1+(30 mg/dL) (Negative); Urine Red Blood Cell 3+(>10/hpf) (Absent); Urine Specific Gravity 1.012 (1.010-1.030); Urine Squamous Epithelial Cell Present (Absent); Urine Urobilinogen Negative (Negative); Urine White Blood Cell 3+(>20/hpf) (Absent)
[2020-10-26] MEDS ORDERED: cefTRIAXone 2 GM ADDV.VIAL 2 GM in NS 0.9% 100 ml BAG 100 ML IVPB ONE (12:54)
[2020-10-26] MEDS ORDERED: HYDROmorphone 0.5 MG/0.5 ML SYRINGE IV SLOW PU PRN ×3 (13:50→23:19)
[2020-10-26] MEDS ORDERED: NS 0.9% 1000 ml BAG 1,000 ML IV SCH (14:30)
[2020-10-26] MEDS ORDERED: Ondansetron 4 mg VIAL 2 MG/ML 2 ml VIAL IV PRN (15:10)
[2020-10-26] MEDS ORDERED: Buffered Lidocaine 1% SYRIN 1 ml INTRADERM ONE (15:19)
[2020-10-26] MEDS ORDERED: DiMENhydriNATE IV 50 mg/ml 1 ml VIAL IV PUSH ONE (15:19)
[2020-10-26] MEDS ORDERED: Dexamethasone IV 4 MG/ML VIAL 1 ml VIAL IV SLOW PU ONE (15:19)
[2020-10-26] MEDS ORDERED: Famotidine IV 10 MG/ML 2 ml VIAL (20 mg) IV ONE (15:19)
[2020-10-26] MEDS ORDERED: Naloxone 0.4 mg VIAL 0.4 mg/ml 1 ml VIAL IV PRN ×2 (15:20→17:49)
[2020-10-26] MEDS ORDERED: Prochlorperazine 5 mg/ml 2 ml VIAL (10 mg) IV PRN (15:20)
[2020-10-26] MEDS ORDERED: fentaNYL 100 mcg/2 ml 50 MCG/ML VIAL IV PRN ×2 (15:20→17:49)
[2020-10-26] MEDS ORDERED: oxyCODONE/Acetamin 5/325 mg TAB PO PRN ×3 (15:20→23:18)
[2020-10-26] MEDS ORDERED: HYDROcodone/ACETAMIN 5/325 mg TAB PO PRN (15:20)
[2020-10-26 15:21] LABS: Troponin I 0.01 ng/mL (<0.03)
[2020-10-26] MEDS ORDERED: Iohexol 180 (CONTRAST) 10 ML SDV IV ONE ×2 (15:21→17:28)
[2020-10-26] MEDS ORDERED: Lidocaine 2% PF 5 ML VIAL ONE ×2 (15:22→16:43)
[2020-10-26] MEDS ORDERED: Propofol 10 MG/ML 20 ML BTL ONE ×2 (15:22→16:42)
[2020-10-26] MEDS ORDERED: Famotidine IV 10 MG/ML 2 ml VIAL (20 mg) ONE (15:30)
[2020-10-26] MEDS ORDERED: DiMENhydriNATE IV 50 mg/ml 1 ml VIAL ONE (15:30)
[2020-10-26] MEDS ORDERED: Dexamethasone IV 4 MG/ML VIAL 1 ml VIAL ONE (15:30)
[2020-10-26] MEDS ORDERED: Succinylcholine 200 mg VIAL 20 mg/ml 10 ml VIAL (200 mg) ONE (15:34)
[2020-10-26] MEDS ORDERED: fentaNYL 100 mcg/2 ml 50 MCG/ML VIAL ONE (15:34)
[2020-10-26] MEDS ORDERED: Glycopyrrolate IV 0.2 MG/ML 1 ML VIAL ONE (15:36)
[2020-10-26] MEDS ORDERED: Midazolam 2 mg/2 ml VIAL 1 mg/ml 2 ml VIAL (2 mg) ONE (15:36)
[2020-10-26] MEDS ORDERED: Ondansetron 4 mg VIAL 2 MG/ML 2 ml VIAL ONE (15:48)
[2020-10-26] MEDS ORDERED: Lactated Ringers 1000 ml BAG 1,000 ML IV SCH (16:00)
[2020-10-26] MEDS ORDERED: Phenylephrine 40 mcg/mL 10mL (400mcg) SYRINGE ONE (16:43)
[2020-10-26] MEDS ORDERED: Sterile Water for Inj 10 ML ONE (17:25)
[2020-10-26] MEDS ORDERED: EPHEDrine (Pressors) 50 MG/ML VIAL ONE (17:25)
[2020-10-26] MEDS ORDERED: Acetaminophen IV 1 GM/100ML 1,000 MG/100 ML VIAL IVPB PRN (17:49)
[2020-10-26] MEDS: Heparin 5000 UNITS/ML 1 mL VIAL SUBCUT SCH ×2 (22:25→22:36)
[2020-10-27] MEDS: Heparin 5000 UNITS/ML 1 mL VIAL SUBCUT SCH (06:02)
[2020-10-27 07:55] VITALS: BP 131/60
[2020-10-27 08:08] LABS: ABS Lymphocytes 0.4 10^3/ul (1.0-4.8); ABS Monocytes 0.2 10^3/ul (0-0.8); ABS Neutrophils 4.4 10^3/ul (1.5-7.7); Hematocrit 33 % (35-47); Hemoglobin 10.9 g/dL (12.0-16.0); Lymphocyte % 8.6 %; Mean Corpuscular HGB Conc 33 g/dL (31-36); Mean Corpuscular Hemoglobin 28 pg (27-31); Mean Corpuscular Volume 84 fL (80-97); Mean Platelet Volume 8.7 fL (7.4-10.4); Platelet Count 144 10^3/uL (150-450); Red Blood Count 3.89 10^6 /uL (3.70-4.87); Red Cell Distribution Width 14 % (10-15)
[2020-10-27 08:19] LABS: BUN/Creatinine Ratio 15.9 (8-20); C Reactive Protein 10.52 mg/L (<8.01); Calcium 8.7 mg/dL (8.6-10.3); EGFR African American 63.1 (>60); EGFR Non-African American 52.1 (>60); Potassium 3.7 mmol/L (3.5-5.0)
== END 2020-10-27 11:28 | disposition home or self-care (01) ==
LOC: ED 10:47 → SSU 10:47
PROVIDERS: ADMIT Internal Medicine; ATTEND Internal Medicine

== ENCOUNTER 2021-02-04 20:11 | Observation (INO) ==
[2021-02-04] MEDS ORDERED: NS 0.9% 1000 ml BAG 1,000 ML IV ONE (20:36)
[2021-02-04] MEDS ORDERED: cefTRIAXone 2 GM ADDV.VIAL 2 GM in NS 0.9% 100 ml BAG 100 ML IVPB ONE (20:45)
[2021-02-04 23:17] LABS: Urine Appearance Turbid; Urine Bacteria Absent (Absent); Urine Bilirubin Negative (Negative); Urine Blood 2+ (Negative); Urine Glucose Negative (Negative); Urine Ketones Trace (Negative); Urine Nitrite Negative (Negative); Urine Protein 2+(100 mg/dL) (Negative); Urine Red Blood Cell Absent (Absent); Urine Specific Gravity 1.015 (1.002-1.030); Urine Urobilinogen Negative (Negative); Urine White Blood Cell Absent (Absent)
[2021-02-04 23:32] LABS: ABS Basophils 0.1 10^3/ul (0-0.2); ABS Lymphocytes 0.4 10^3/ul (1.0-4.8); ABS Monocytes 0.4 10^3/ul (0-0.8); ABS Neutrophils 7.3 10^3/ul (1.5-7.7); Eosinophil % 0.2 %; Hematocrit 33 % (35-47); Hemoglobin 10.8 g/dL (12.0-16.0); Lymphocyte % 5.5 %; Mean Corpuscular HGB Conc 33 g/dL (31-36); Mean Corpuscular Hemoglobin 27 pg (27-31); Mean Corpuscular Volume 84 fL (80-97); Mean Platelet Volume 7.3 fL (7.4-10.4); Platelet Count 175 10^3/uL (150-450); Red Blood Count 3.94 10^6 /uL (3.70-4.87); Red Cell Distribution Width 15 % (10-15); White Blood Count 8.1 10^3/uL (3.5-10.8)
[2021-02-04 23:37] LABS: Urine Color Red
[2021-02-04] MEDS ORDERED: Ondansetron 4 mg VIAL 2 MG/ML 2 ml VIAL IV ONE (23:44)
[2021-02-04 23:52] LABS: Albumin 4.1 g/dL (3.2-5.2); Albumin/Globulin Ratio 1.4 (1-3); C Reactive Protein 8.9 mg/L (<8.01); Calcium 9.1 mg/dL (8.6-10.3); EGFR African American 39.7 (>60); EGFR Non-African American 32.8 (>60); Globulin 2.9 g/dL (2-4); Total Bilirubin 0.5 mg/dL (0.2-1.0)
[2021-02-05] MEDS ORDERED: NS 0.9% 1000 ml BAG 1,000 ML IV SCH (00:45)
[2021-02-05] MEDS ORDERED: Morphine 2 MG/ML SYRINGE IV PRN (00:49)
[2021-02-05] MEDS ORDERED: Ondansetron 4 mg VIAL 2 MG/ML 2 ml VIAL IV PRN (01:02)
[2021-02-05] MEDS: HYDROmorphone 0.5 MG/0.5 ML SYRINGE IV SLOW PU PRN ×2 (03:33→07:21)
[2021-02-05] MEDS ORDERED: fentaNYL 100 mcg/2 ml 50 MCG/ML VIAL ONE (10:32)
[2021-02-05] MEDS ORDERED: Propofol 10 MG/ML 20 ML BTL ONE (10:32)
[2021-02-05] MEDS ORDERED: Midazolam 2 mg/2 ml VIAL 1 mg/ml 2 ml VIAL (2 mg) ONE (10:32)
[2021-02-05] MEDS ORDERED: HYDROmorphone 1 MG/1 ML SYRINGE ONE (10:54)
[2021-02-05] MEDS ORDERED: Ondansetron 4 mg VIAL 2 MG/ML 2 ml VIAL ONE (11:22)
[2021-02-05] MEDS ORDERED: Dexamethasone IV 4 MG/ML VIAL 1 ml VIAL ONE (11:22)
[2021-02-05] MEDS ORDERED: Levofloxacin 500 MG IVPREMIX 500 MG/100 ML BAG ONE (11:36)
[2021-02-05] MEDS ORDERED: HYDROmorphone 1 MG/1 ML SYRINGE IV PRN (12:25)
[2021-02-05] MEDS ORDERED: Heparin 5000 UNITS/ML 1 mL VIAL SUBCUT SCH (14:00)
[2021-02-05 17:43] VITALS: BP 137/67
[2021-02-05] MEDS ORDERED: cefTRIAXone 2 GM ADDV.VIAL 2 GM in NS 0.9% 100 ml BAG 100 ML IV SCH ×2 (18:30→21:00)
== END 2021-02-05 18:56 | disposition home or self-care (01) ==
LOC: ED 20:11 → SSU 20:11
PROVIDERS: ADMIT Internal Medicine; ATTEND Hospitalist

== ENCOUNTER 2021-06-05 20:48 | Inpatient (IN) ==
[2021-06-05] MEDS ORDERED: Morphine 2 MG/ML SYRINGE IV ONE (21:06)
[2021-06-05] MEDS ORDERED: HYDROmorphone 1 MG/1 ML SYRINGE IV ONE (21:20)
[2021-06-05] MEDS ORDERED: Ondansetron 4 mg VIAL 2 MG/ML 2 ml VIAL IV ONE (21:22)
[2021-06-05] MEDS ORDERED: NS 0.9% 1000 ml BAG 1,000 ML IV SCH ×2 (21:30→23:45)
[2021-06-05 21:47] LABS: ABS Basophils 0.1 10^3/ul (0-0.2); ABS Eosinophils 0.2 10^3/ul (0-0.6); ABS Lymphocytes 1.7 10^3/ul (1.0-4.8); ABS Monocytes 0.5 10^3/ul (0-0.8); ABS Neutrophils 4.6 10^3/ul (1.5-7.7); Eosinophil % 2.8 %; Hematocrit 37 % (35-47); Hemoglobin 12.2 g/dL (12.0-16.0); Mean Corpuscular HGB Conc 33 g/dL (31-36); Mean Corpuscular Hemoglobin 27 pg (27-31); Mean Corpuscular Volume 82 fL (80-97); Mean Platelet Volume 7.9 fL (7.4-10.4); Platelet Count 186 10^3/uL (150-450); Red Blood Count 4.46 10^6 /uL (3.70-4.87); Red Cell Distribution Width 16 % (10-15); White Blood Count 7.1 10^3/uL (3.5-10.8)
[2021-06-05 22:02] LABS: Albumin 4.2 g/dL (3.2-5.2); Albumin/Globulin Ratio 1.4 (1-3); Calcium 9.4 mg/dL (8.6-10.3); EGFR African American 40.2 (>60); EGFR Non-African American 33.2 (>60); Globulin 3.1 g/dL (2-4); Potassium 3.5 mmol/L (3.5-5.0); Total Bilirubin 0.5 mg/dL (0.2-1.0); Total Protein 7.3 g/dL (6.4-8.9)
[2021-06-05] MEDS ORDERED: HYDROmorphone 0.5 MG/0.5 ML SYRINGE IV ONE ×2 (23:30→23:45)
[2021-06-05 23:32] LABS: Urine Appearance Cloudy; Urine Bilirubin Negative (Negative); Urine Blood 2+ (Negative); Urine Color Yellow; Urine Glucose Negative (Negative); Urine Ketones Negative (Negative); Urine Nitrite Negative (Negative); Urine Protein 1+(30 mg/dL) (Negative); Urine Specific Gravity 1.008 (1.002-1.030); Urine Urobilinogen Negative (Negative)
[2021-06-05 23:37] LABS: Urine Bacteria Absent (Absent); Urine Red Blood Cell 3+(>10/hpf) (Absent); Urine Squamous Epithelial Cell Present (Absent); Urine White Blood Cell 3+(>20/hpf) (Absent)
[2021-06-05] MEDS ORDERED: Acetaminophen IV 1 GM/100ML 100 ML IV PRN (23:59)
[2021-06-06] MEDS ORDERED: HYDROmorphone 0.5 MG/0.5 ML SYRINGE IV PRN
[2021-06-06] MEDS ORDERED: Ondansetron 4 mg VIAL 2 MG/ML 2 ml VIAL IV PRN (00:01)
[2021-06-06] MEDS ORDERED: Polyethylene Glycol 3350 17 GM PACKET PO PRN (00:08)
[2021-06-06] MEDS ORDERED: Senna TAB 8.6 mg TAB PO PRN (00:08)
[2021-06-06 01:06] LABS: Rapid COVID-19 Molecular Undetected (Undetected)
[2021-06-06 06:54] LABS: ABS Lymphocytes 0.7 10^3/ul (1.0-4.8); ABS Monocytes 0.6 10^3/ul (0-0.8); ABS Neutrophils 6.8 10^3/ul (1.5-7.7); Activated Partial Thrombo Time 35.5 seconds (26.0-38.0); Eosinophil % 0.2 %; Hematocrit 35 % (35-47); Hemoglobin 11.7 g/dL (12.0-16.0); INR 1.29 (0.86-1.15); Lymphocyte % 8.5 %; Mean Corpuscular HGB Conc 33 g/dL (31-36); Mean Corpuscular Hemoglobin 28 pg (27-31); Mean Corpuscular Volume 83 fL (80-97); Mean Platelet Volume 8.3 fL (7.4-10.4); Platelet Count 141 10^3/uL (150-450); Red Blood Count 4.23 10^6 /uL (3.70-4.87); Red Cell Distribution Width 16 % (10-15); White Blood Count 8.2 10^3/uL (3.5-10.8)
[2021-06-06 07:02] LABS: Calcium 9.1 mg/dL (8.6-10.3); EGFR African American 36.5 (>60); EGFR Non-African American 30.1 (>60); Magnesium 1.5 mg/dL (1.9-2.7); Potassium 4.3 mmol/L (3.5-5.0)
[2021-06-06] MEDS ORDERED: Magnesium Sulfate IV 3 GM in NS 0.9% 100 ml BAG 100 ML IVPB ONE (08:04)
[2021-06-06] MEDS ORDERED: oxyCODONE/Acetamin 5/325 mg TAB PO PRN (09:49)
[2021-06-06] MEDS ORDERED: oxyCODONE SR 10 mg TAB PO SCH (10:00)
[2021-06-06 12:33] LABS: Calcium 8.7 mg/dL (8.6-10.3); EGFR African American 41.1 (>60); Potassium 4.1 mmol/L (3.5-5.0)
[2021-06-06 16:31] VITALS: BP 110/73
== END 2021-06-06 17:30 | disposition home or self-care (01) | DRG 466 ==
LOC: ED 20:48 → EDHOLD 23:46 → SUATTDRO 23:46 → MEDTELE 23:47
PROVIDERS: ADMIT Internal Medicine; ATTEND Internal Medicine

== ENCOUNTER 2021-09-30 19:08 | Observation (INO) ==
[2021-09-30] MEDS ORDERED: Ondansetron 4 mg VIAL 2 MG/ML 2 ml VIAL IV ONE (19:27)
[2021-09-30] MEDS ORDERED: HYDROmorphone 1 MG/1 ML SYRINGE IV ONE ×2 (19:28→20:56)
[2021-09-30] MEDS ORDERED: Lactated Ringers 1000 ml BAG 1,000 ML IV ONE (19:29)
[2021-09-30 20:30] LABS: ABS Eosinophils 0.1 10^3/ul (0-0.6); ABS Monocytes 0.5 10^3/ul (0-0.8); ABS Neutrophils 4.4 10^3/ul (1.5-7.7); Eosinophil % 1.7 %; Hematocrit 32 % (35-47); Hemoglobin 10.9 g/dL (12.0-16.0); Lymphocyte % 16.6 %; Mean Corpuscular HGB Conc 34 g/dL (31-36); Mean Corpuscular Hemoglobin 28 pg (27-31); Mean Corpuscular Volume 83 fL (80-97); Nucleated Red Blood Cells % 0.1; Red Blood Count 3.91 10^6 /uL (3.70-4.87); Red Cell Distribution Width 15 % (10-15)
[2021-09-30 20:36] LABS: INR 1.24 (0.86-1.15)
[2021-09-30 20:44] LABS: Calcium 8.8 mg/dL (8.6-10.3); eGFR CKD-EPI 39.8 (>60)
[2021-09-30] MEDS ORDERED: cefTRIAXone 2 GM ADDV.VIAL 2 GM in NS 0.9% 100 ml BAG 100 ML IVPB ONE (20:45)
[2021-09-30] MEDS ORDERED: NS 0.9% 1000 ml BAG 1,000 ML IV SCH ×2 (21:00→21:15)
[2021-09-30 21:02] LABS: Urine Appearance Cloudy; Urine Blood 2+ (Negative); Urine Color Straw; Urine Ketones Negative (Negative); Urine Protein 1+(30 mg/dL) (Negative); Urine Urobilinogen Negative (Negative); Urine pH 5 (5-9)
[2021-09-30 21:03] LABS: Urine Bilirubin Negative (Negative); Urine Glucose Negative (Negative); Urine Nitrite Negative (Negative)
[2021-09-30] MEDS ORDERED: Acetaminophen IV 1 GM/100ML 100 ML IV PRN (21:16)
[2021-09-30] MEDS ORDERED: HYDROmorphone 0.5 MG/0.5 ML SYRINGE IV SLOW PU PRN (21:16)
[2021-09-30 21:17] LABS: Mean Platelet Volume 8.1 fL (7.4-10.4); Platelet Count 94 10^3/uL (150-450)
[2021-09-30] MEDS ORDERED: Ondansetron 4 mg VIAL 2 MG/ML 2 ml VIAL IV PRN (21:17)
[2021-09-30 21:22] LABS: Urine Bacteria Absent (Absent); Urine Red Blood Cell 3+(>10/hpf) (Absent); Urine Squamous Epithelial Cell Present (Absent); Urine White Blood Cell 3+(>20/hpf) (Absent)
[2021-09-30] MEDS ORDERED: oxyCODONE/Acetamin 5/325 mg TAB PO PRN (22:31)
[2021-09-30 23:05] LABS: Albumin/Globulin Ratio 1.4 (1-3); Direct Bilirubin 0.1 mg/dL (0.03-0.18); Globulin 2.9 g/dL (2-4); Indirect Bilirubin 0.4 mg/dL (0.3-1.0); Total Bilirubin 0.5 mg/dL (0.2-1.0); Total Protein 6.9 g/dL (6.4-8.9)
[2021-09-30] MEDS: oxyCODONE SR 10 mg TAB PO SCH (23:27)
[2021-10-01 05:23] LABS: ABS Eosinophils 0.1 10^3/ul (0-0.6); ABS Lymphocytes 0.7 10^3/ul (1.0-4.8); ABS Monocytes 0.4 10^3/ul (0-0.8); ABS Neutrophils 2.9 10^3/ul (1.5-7.7); Eosinophil % 1.4 %; Hematocrit 28 % (35-47); Hemoglobin 9.3 g/dL (12.0-16.0); Mean Corpuscular HGB Conc 33 g/dL (31-36); Mean Corpuscular Hemoglobin 28 pg (27-31); Mean Corpuscular Volume 83 fL (80-97); Nucleated Red Blood Cells % 0.1; Platelet Count 74 10^3/uL (150-450); Red Blood Count 3.36 10^6 /uL (3.70-4.87); Red Cell Distribution Width 14 % (10-15); White Blood Count 4.1 10^3/uL (3.5-10.8)
[2021-10-01 05:37] LABS: Calcium 7.9 mg/dL (8.6-10.3); Potassium 3.9 mmol/L (3.5-5.0); eGFR CKD-EPI 44.8 (>60)
[2021-10-01] MEDS: oxyCODONE SR 10 mg TAB PO SCH (08:21)
[2021-10-01] MEDS: Multivitamins/Minerals TAB PO SCH ×2 (08:22→08:23)
[2021-10-01] MEDS ORDERED: Iohexol 180 (CONTRAST) 10 ML SDV IV ONE (09:55)
[2021-10-01] MEDS ORDERED: Dexamethasone IV 4 MG/ML VIAL 1 ml VIAL ONE (09:57)
[2021-10-01] MEDS ORDERED: Propofol 10 MG/ML 20 ML BTL ONE ×2 (09:57→11:26)
[2021-10-01] MEDS ORDERED: Midazolam 2 mg/2 ml VIAL 1 mg/ml 2 ml VIAL (2 mg) ONE (09:57)
[2021-10-01] MEDS ORDERED: fentaNYL 100 mcg/2 ml 50 MCG/ML VIAL ONE ×2 (09:57→11:12)
[2021-10-01] MEDS ORDERED: Glycopyrrolate IV 0.2 MG/ML 1 ML VIAL ONE (09:57)
[2021-10-01] MEDS ORDERED: Ketamine HCL 50 mg/ml 10 ml VIAL (500 MG) ONE (09:57)
[2021-10-01] MEDS ORDERED: Lidocaine 2% PF 5 ML VIAL ONE (09:57)
[2021-10-01] MEDS ORDERED: Ondansetron 4 mg VIAL 2 MG/ML 2 ml VIAL ONE (09:57)
[2021-10-01] MEDS ORDERED: Succinylcholine 200 mg VIAL 20 mg/ml 10 ml VIAL (200 mg) ONE (10:00)
[2021-10-01] MEDS ORDERED: EPHEDrine (Pressors) 50 MG/ML VIAL ONE (11:08)
[2021-10-01] MEDS ORDERED: fentaNYL 100 mcg/2 ml 50 MCG/ML VIAL IV PRN (11:19)
[2021-10-01] MEDS ORDERED: Ondansetron 4 mg VIAL 2 MG/ML 2 ml VIAL IV PRN (11:19)
[2021-10-01] MEDS ORDERED: Naloxone 0.4 mg VIAL 0.4 mg/ml 1 ml VIAL IV PRN (11:19)
[2021-10-01] MEDS ORDERED: HYDROmorphone 1 MG/1 ML SYRINGE IV PRN (11:19)
[2021-10-01] MEDS ORDERED: Acetaminophen IV 1 GM/100ML 100 ML IV PRN (11:19)
[2021-10-01] MEDS ORDERED: DiMENhydriNATE IV 50 mg/ml 1 ml VIAL IV PUSH PRN (11:19)
[2021-10-01] MEDS ORDERED: Acetaminophen IV 1 GM/100ML VI 100 ML ONE (12:02)
[2021-10-01] MEDS ORDERED: Vancomycin 1,000 MG in NS 0.9% 250 ml 250 ML IVPB ONE (13:30)
[2021-10-01 15:33] VITALS: BP 135/65
[2021-10-01] MEDS ORDERED: cefTRIAXone 2 GM ADDV.VIAL 2 GM in NS 0.9% 100 ml BAG 100 ML IV SCH (21:00)
== END 2021-10-01 16:10 | disposition home or self-care (01) ==
LOC: ED 19:08 → SSU 19:08 → SUATTDRO 21:07 → SSU 10-01 00:03
PROVIDERS: ADMIT Internal Medicine; ATTEND Hospitalist

== ENCOUNTER 2022-05-04 04:10 | Observation (INO) ==
[2022-05-04] MEDS ORDERED: Droperidol 5 MG/2 ML 2 ML VIAL IV ONE (04:21)
[2022-05-04] MEDS ORDERED: NS 0.9% 1000 ml BAG 1,000 ML IV ONE (04:21)
[2022-05-04] MEDS ORDERED: fentaNYL 100 mcg/2 ml 50 MCG/ML VIAL IV ONE (04:21)
[2022-05-04 04:45] LABS: ABS Eosinophils 0.1 10^3/ul (0-0.6); ABS Lymphocytes 0.8 10^3/ul (1.0-4.8); ABS Monocytes 0.5 10^3/ul (0-0.8); ABS Neutrophils 5.9 10^3/ul (1.5-7.7); Eosinophil % 0.9 %; Hematocrit 39 % (35-47); Hemoglobin 12.5 g/dL (12.0-16.0); Lymphocyte % 11.5 %; Mean Corpuscular HGB Conc 32 g/dL (31-36); Mean Corpuscular Hemoglobin 28 pg (27-31); Mean Corpuscular Volume 85 fL (80-97); Mean Platelet Volume 7.7 fL (7.4-10.4); Platelet Count 155 10^3/uL (150-450); Red Blood Count 4.56 10^6 /uL (3.70-4.87); Red Cell Distribution Width 18 % (10-15); White Blood Count 7.2 10^3/uL (3.5-10.8)
[2022-05-04 05:10] LABS: Albumin 4.3 g/dL (3.2-5.2); Albumin/Globulin Ratio 1.5 (1-3); Calcium 9.3 mg/dL (8.6-10.3); Globulin 2.9 g/dL (2-4); Potassium 3.8 mmol/L (3.5-5.0); Total Bilirubin 0.4 mg/dL (0.2-1.0); Total Protein 7.2 g/dL (6.4-8.9); eGFR CKD-EPI 41.8 (>60)
[2022-05-04] MEDS ORDERED: Iodixanol (CONTRAST) 320 MG/ML 100 ML SDV IV ONE (05:17)
[2022-05-04] MEDS ORDERED: Morphine 10 MG/ML VIAL (1 ml) IV ONE (05:17)
[2022-05-04] MEDS ORDERED: HYDROmorphone 1 MG/1 ML SYRINGE IV SLOW PU ONE (07:18)
[2022-05-04] MEDS ORDERED: Ondansetron 4 mg VIAL 2 MG/ML 2 ml VIAL IV ONE (07:19)
[2022-05-04] MEDS: Pantoprazole VIAL 40 MG VIAL IV SCH (11:04)
[2022-05-04] MEDS: Morphine 2 MG/ML SYRINGE IV PRN ×3 (11:04→22:26)
[2022-05-04] MEDS: Enoxaparin 30 MG/0.3 ML SYR SUBCUT SCH (11:04)
[2022-05-04] MEDS: Acetaminophen IV 1 GM/100ML 1,000 MG/100 ML BAG IV PRN ×2 (13:06→21:47)
[2022-05-04] MEDS: Ondansetron 4 mg VIAL 2 MG/ML 2 ml VIAL IV PRN (16:57)
[2022-05-04] MEDS: D5LR 20 MEQ KCL 1000 ml BAG 1,000 ML IV SCH (16:58)
[2022-05-05] MEDS: Morphine 2 MG/ML SYRINGE IV PRN ×2 (04:07→08:06)
[2022-05-05] MEDS: Ondansetron 4 mg VIAL 2 MG/ML 2 ml VIAL IV PRN ×3 (04:07→13:50)
[2022-05-05 05:27] LABS: ABS Eosinophils 0.1 10^3/ul (0-0.6); ABS Lymphocytes 0.6 10^3/ul (1.0-4.8); ABS Monocytes 0.4 10^3/ul (0-0.8); ABS Neutrophils 2.9 10^3/ul (1.5-7.7); Eosinophil % 2.3 %; Hematocrit 35 % (35-47); Hemoglobin 11.3 g/dL (12.0-16.0); Lymphocyte % 15.2 %; Mean Corpuscular HGB Conc 33 g/dL (31-36); Mean Corpuscular Hemoglobin 28 pg (27-31); Mean Corpuscular Volume 85 fL (80-97); Mean Platelet Volume 7.9 fL (7.4-10.4); Platelet Count 126 10^3/uL (150-450); Red Blood Count 4.07 10^6 /uL (3.70-4.87); Red Cell Distribution Width 17 % (10-15)
[2022-05-05 05:58] LABS: Albumin 3.6 g/dL (3.2-5.2); Albumin/Globulin Ratio 1.4 (1-3); Globulin 2.6 g/dL (2-4); Potassium 3.8 mmol/L (3.5-5.0); Total Bilirubin 0.5 mg/dL (0.2-1.0); Total Protein 6.2 g/dL (6.4-8.9); eGFR CKD-EPI 57.4 (>60)
[2022-05-05] MEDS: Acetaminophen IV 1 GM/100ML 1,000 MG/100 ML BAG IV PRN (06:33)
[2022-05-05] MEDS: Pantoprazole VIAL 40 MG VIAL IV SCH (08:03)
[2022-05-05] MEDS: Enoxaparin 30 MG/0.3 ML SYR SUBCUT SCH (08:06)
[2022-05-05] MEDS: D5LR 20 MEQ KCL 1000 ml BAG 1,000 ML IV SCH ×2 (08:09→20:55)
[2022-05-05] MEDS: HYDROmorphone 0.5 MG/0.5 ML SYRINGE IV SLOW PU PRN ×3 (11:07→18:22)
[2022-05-05] MEDS: diazePAM INJ CARPUJECT 5 MG/ML SYRINGE IV PRN ×2 (13:51→23:47)
[2022-05-05] MEDS ORDERED: Metoclopramide 5 MG/ML VIAL (10 mg) IV SLOW PU PRN (19:07)
[2022-05-05] MEDS: HYDROmorphone 0.5 MG/0.5 ML SYRINGE IV PRN (21:14)
[2022-05-06] MEDS: HYDROmorphone 0.5 MG/0.5 ML SYRINGE IV PRN ×7 (00:36→23:21)
[2022-05-06] MEDS: Ondansetron 4 mg VIAL 2 MG/ML 2 ml VIAL IV PRN ×3 (02:28→15:27)
[2022-05-06] MEDS: Acetaminophen IV 1 GM/100ML 1,000 MG/100 ML BAG IV PRN (03:44)
[2022-05-06] MEDS ORDERED: HYDROmorphone 1 MG/1 ML SYRINGE IV ONE (03:49)
[2022-05-06 06:28] LABS: ABS Eosinophils 0.1 10^3/ul (0-0.6); ABS Lymphocytes 0.5 10^3/ul (1.0-4.8); ABS Monocytes 0.3 10^3/ul (0-0.8); ABS Neutrophils 3.5 10^3/ul (1.5-7.7); Eosinophil % 1.3 %; Hematocrit 34 % (35-47); Hemoglobin 10.8 g/dL (12.0-16.0); Lymphocyte % 10.3 %; Mean Corpuscular HGB Conc 32 g/dL (31-36); Mean Corpuscular Hemoglobin 27 pg (27-31); Mean Corpuscular Volume 85 fL (80-97); Mean Platelet Volume 8.1 fL (7.4-10.4); Platelet Count 127 10^3/uL (150-450); Red Blood Count 3.94 10^6 /uL (3.70-4.87); Red Cell Distribution Width 17 % (10-15); White Blood Count 4.4 10^3/uL (3.5-10.8)
[2022-05-06 06:44] LABS: Calcium 8.9 mg/dL (8.6-10.3); Potassium 4.5 mmol/L (3.5-5.0)
[2022-05-06] MEDS: D5LR 20 MEQ KCL 1000 ml BAG 1,000 ML IV SCH (07:12)
[2022-05-06] MEDS: Pantoprazole VIAL 40 MG VIAL IV SCH (08:36)
[2022-05-06] MEDS: Enoxaparin 30 MG/0.3 ML SYR SUBCUT SCH (10:00)
[2022-05-06] MEDS: diazePAM INJ CARPUJECT 5 MG/ML SYRINGE IV PRN (13:30)
[2022-05-07] MEDS: HYDROmorphone 0.5 MG/0.5 ML SYRINGE IV PRN ×2 (03:22→06:40)
[2022-05-07] MEDS: Acetaminophen IV 1 GM/100ML 1,000 MG/100 ML BAG IV PRN ×2 (05:43→14:17)
[2022-05-07] MEDS: Ondansetron 4 mg VIAL 2 MG/ML 2 ml VIAL IV PRN (05:43)
[2022-05-07 06:01] LABS: ABS Eosinophils 0.1 10^3/ul (0-0.6); ABS Lymphocytes 0.7 10^3/ul (1.0-4.8); ABS Monocytes 0.3 10^3/ul (0-0.8); ABS Neutrophils 2.5 10^3/ul (1.5-7.7); Eosinophil % 2.8 %; Hematocrit 33 % (35-47); Hemoglobin 10.5 g/dL (12.0-16.0); Lymphocyte % 19.2 %; Mean Corpuscular HGB Conc 32 g/dL (31-36); Mean Corpuscular Hemoglobin 28 pg (27-31); Mean Corpuscular Volume 86 fL (80-97); Mean Platelet Volume 7.7 fL (7.4-10.4); Nucleated Red Blood Cells % 0.1; Platelet Count 115 10^3/uL (150-450); Red Blood Count 3.83 10^6 /uL (3.70-4.87); Red Cell Distribution Width 17 % (10-15); White Blood Count 3.7 10^3/uL (3.5-10.8)
[2022-05-07 06:13] LABS: Calcium 8.8 mg/dL (8.6-10.3); Magnesium 1.6 mg/dL (1.9-2.7); Potassium 4.3 mmol/L (3.5-5.0); eGFR CKD-EPI 63.7 (>60)
[2022-05-07] MEDS ORDERED: Magnesium Sulfate 2 gm BAG 2 GM/50 ML BAG IVPB ONE (06:59)
[2022-05-07] MEDS: Pantoprazole VIAL 40 MG VIAL IV SCH (09:03)
[2022-05-07] MEDS ORDERED: Enoxaparin 40 MG/0.4 ML SYR SUBCUT SCH (10:00)
[2022-05-07] MEDS ORDERED: oxyCODONE/Acetamin 5/325 mg TAB PO PRN (10:10)
[2022-05-07 17:10] VITALS: BP 151/84
[2022-05-07] MEDS ORDERED: oxyCODONE SR 10 mg TAB PO SCH (21:00)
== END 2022-05-07 17:25 | disposition home or self-care (01) ==
LOC: ED 04:10 → EDHOLD 04:10 → SUATTDRO 09:03 → EDHOLD 16:10 → SSU 17:07
PROVIDERS: ADMIT Internal Medicine; ATTEND Internal Medicine

== ENCOUNTER 2023-12-08 04:20 | Inpatient (IN) ==
[2023-12-08] MEDS ORDERED: Ondansetron 4 mg VIAL 2 MG/ML 2 ml VIAL ONE (04:50)
[2023-12-08] MEDS: Lactated Ringers 1000 ml BAG 1,000 ML IV ONE (04:55)
[2023-12-08] MEDS: Ondansetron 4 mg VIAL 2 MG/ML 2 ml VIAL IV ONE (04:55)
[2023-12-08] MEDS: HYDROmorphone 1 MG/1 ML SYRINGE IV ONE ×2 (04:55→08:45)
[2023-12-08 05:18] LABS: ABS Basophils 0.1 10^3/uL (0.0-0.1); ABS Eosinophils 0.2 10^3/uL (0.0-0.5); ABS Lymphocytes 1.6 10^3/uL (1.0-4.8); ABS Monocytes 0.5 10^3/uL (0.0-0.9); ABS Neutrophils 6.3 10^3/uL (1.5-7.6); ABS Nucleated RBC 0.01 10^3/ul; Hematocrit 32.5 % (35-45); Lymphocyte % 18.1 %; Mean Corpuscular Hemoglobin 29.5 pg (27-33); Mean Corpuscular Hgb Conc 33.8 g/dL (31-36); Mean Corpuscular Volume 87.4 fL (80-97); Nucleated Red Blood Cells % 0.1 %/100WBC (0.0-0.8); Platelet Count 277 10^3/uL (150-450); Red Blood Count 3.72 10^6/uL (3.63-4.92); Red Cell Distribution Width 15.6 % (12-17); White Blood Count 8.6 10^3/uL (3.8-11.8)
[2023-12-08 05:55] LABS: Albumin 3.9 g/dL (3.2-5.2); Albumin/Globulin Ratio 1.4 (1-3); C Reactive Protein 12.82 mg/L (<8.01); Calcium 9.2 mg/dL (8.6-10.3); Creatinine, Serum 1.3 mg/dL (0.51-0.95); Globulin 2.7 g/dL (2-4); Potassium 3.6 mmol/L (3.5-5.0); Total Bilirubin 0.3 mg/dL (0.2-1.0); Total Protein 6.6 g/dL (6.4-8.9); eGFR CKD-EPI 45.9 (>60)
[2023-12-08 05:58] LABS: Urine Appearance Extra Turbid; Urine Bacteria Absent /HPF (Absent); Urine Bilirubin Negative (Negative); Urine Blood 3+ (Negative); Urine Color Brown; Urine Glucose Negative (Negative); Urine Ketones Negative (Negative); Urine Nitrite Negative (Negative); Urine Protein 2+ (>=100 mg/dL) (Negative); Urine Red Blood Cell 3+(>10/hpf) /HPF (0-Trace); Urine Specific Gravity 1.019 (1.002-1.030); Urine Urobilinogen Negative (Negative); Urine White Blood Cell 3+(>20/hpf) /HPF (0-Trace)
[2023-12-08] MEDS: Iodixanol (CONTRAST) 320 MG/ML 100 ML SDV IV ONE (06:22)
[2023-12-08] MEDS ORDERED: Senna TAB 8.6 mg TAB PO PRN (08:06)
[2023-12-08] MEDS ORDERED: Polyethylene Glycol 3350 17 GM PACKET PO PRN (08:06)
[2023-12-08] MEDS ORDERED: Enoxaparin 40 MG/0.4 ML SYR SUBCUT SCH (09:00)
[2023-12-08] MEDS: HYDROmorphone 1 MG/1 ML SYRINGE IV PRN ×2 (09:17→11:13)
[2023-12-08] MEDS: Diatrizoate Meg/Sod(CONTRAST) 30 ML ORAL.SOLN PO ONE (10:42)
[2023-12-08] MEDS: Ondansetron 4 mg VIAL 2 MG/ML 2 ml VIAL IV PRN (12:32)
[2023-12-08] MEDS: ceFAZolin 1 GM ADVAN 1 GM in NS 0.9% 50 ML 50 ML IVPB SCH (12:35)
[2023-12-08] MEDS: Enoxaparin 80 MG/0.8 ML SYR SUBCUT SCH (14:32)
[2023-12-08] MEDS ORDERED: hydrALAZINE 20 mg/ml 1 ML Vial IV IV SLOW PU PRN (14:37)
[2023-12-09 08:06] LABS: ABS Eosinophils 0.1 10^3/uL (0.0-0.5); ABS Lymphocytes 0.8 10^3/uL (1.0-4.8); ABS Monocytes 0.5 10^3/uL (0.0-0.9); ABS Neutrophils 5.2 10^3/uL (1.5-7.6); Eosinophil % 1.2 %; Hematocrit 28.2 % (35-45); Hemoglobin 9.4 g/dL (11.5-14.3); Lymphocyte % 11.6 %; Mean Corpuscular Hemoglobin 29.7 pg (27-33); Mean Corpuscular Hgb Conc 33.2 g/dL (31-36); Mean Corpuscular Volume 89.5 fL (80-97); Mean Platelet Volume 7.1 fL (7.5-11.2); Platelet Count 183 10^3/uL (150-450); Red Blood Count 3.15 10^6/uL (3.63-4.92); White Blood Count 6.6 10^3/uL (3.8-11.8)
[2023-12-09 08:43] LABS: Calcium 8.7 mg/dL (8.6-10.3); Creatinine, Serum 1.49 mg/dL (0.51-0.95); Magnesium 1.7 mg/dL (1.9-2.7); Potassium 3.8 mmol/L (3.5-5.0)
[2023-12-09] MEDS: Lactated Ringers 1000 ml BAG 1,000 ML IV SCH (11:52)
[2023-12-09] MEDS: Magnesium Sulfate 2 gm BAG 2 GM/50 ML BAG IVPB ONE (12:18)
[2023-12-10 05:14] LABS: ABS Eosinophils 0.1 10^3/uL (0.0-0.5); ABS Lymphocytes 0.7 10^3/uL (1.0-4.8); ABS Monocytes 0.4 10^3/uL (0.0-0.9); ABS Neutrophils 4.4 10^3/uL (1.5-7.6); ABS Nucleated RBC 0.01 10^3/ul; Eosinophil % 1.7 %; Hematocrit 27.8 % (35-45); Hemoglobin 9.1 g/dL (11.5-14.3); Lymphocyte % 12.1 %; Mean Corpuscular Hemoglobin 29.5 pg (27-33); Mean Corpuscular Hgb Conc 32.7 g/dL (31-36); Mean Corpuscular Volume 90.2 fL (80-97); Mean Platelet Volume 7.1 fL (7.5-11.2); Nucleated Red Blood Cells % 0.1 %/100WBC (0.0-0.8); Platelet Count 161 10^3/uL (150-450); Red Blood Count 3.08 10^6/uL (3.63-4.92); White Blood Count 5.6 10^3/uL (3.8-11.8)
[2023-12-10 05:40] VITALS: BP 118/59
[2023-12-10 05:43] LABS: Calcium 8.2 mg/dL (8.6-10.3); Creatinine, Serum 1.12 mg/dL (0.51-0.95); Magnesium 1.9 mg/dL (1.9-2.7); Potassium 3.4 mmol/L (3.5-5.0); eGFR CKD-EPI 54.9 (>60)
[2023-12-10] MEDS ORDERED: oxyCODONE/Acetamin 5/325 mg TAB PO PRN (07:29)
[2023-12-10] MEDS ORDERED: HYDROmorphone 1 MG/1 ML SYRINGE IV PRN (07:29)
[2023-12-10] MEDS: oxyCODONE SR 10 mg TAB PO SCH (08:38)
== END 2023-12-10 09:20 | disposition home or self-care (01) | DRG 247 ==
LOC: EDHOLD 04:20 → ED 04:20 → SUATTDRO 08:06 → MED 14:04 → SUATTDRO 12-09 14:44
PROVIDERS: ADMIT Internal Medicine; ATTEND Internal Medicine